=== PATIENT | female | born 1975 | race Caucasian/White ===

== ENCOUNTER 2023-01-28 20:46 | Outpatient (OUT) | payer OTHER, SELFPAY | END 2023-01-28 20:47 | disposition home or self-care (01) | LOC: SLEEP 20:47 | PROVIDERS: PCP Internal Medicine; Visit Provider Internal Medicine | DX: G47.33 Obstructive sleep apnea (adult) (pediatric) (principal); E11.9 Type 2 diabetes mellitus without complications; F17.210 Nicotine dependence, cigarettes, uncomplicated; R29.818 Other symptoms and signs involving the nervous system; F12.10 Cannabis abuse, uncomplicated | CPT/HCPCS: 95810 ==

== ENCOUNTER 2023-02-18 19:48 | Outpatient (OUT) | payer OTHER, SELFPAY | END 2023-02-18 19:49 | disposition home or self-care (01) | LOC: SLEEP 19:48 | PROVIDERS: PCP Internal Medicine; Visit Provider Internal Medicine | DX: G47.33 Obstructive sleep apnea (adult) (pediatric) (principal) | CPT/HCPCS: 95811 ==

== ENCOUNTER 2023-06-17 08:27 | Outpatient (RCR) | payer OTHER, SELFPAY | END 2023-07-26 09:00 | disposition home or self-care (01) | LOC: PT 08:27 | PROVIDERS: PCP Family Medicine; Visit Provider Physician Assistant | DX: M47.812 Spondylosis without myelopathy or radiculopathy, cervical region (principal); M25.511 Pain in right shoulder; G89.29 Other chronic pain | CPT/HCPCS: 97012; 97110; 97140; 97163 ==

== ENCOUNTER 2023-07-27 09:35 | Outpatient (RCR) | payer OTHER, SELFPAY | END 2023-07-28 15:19 | disposition home or self-care (01) | LOC: PT 09:35 | PROVIDERS: PCP Family Medicine; Visit Provider Physician Assistant | DX: M47.812 Spondylosis without myelopathy or radiculopathy, cervical region (principal); M25.511 Pain in right shoulder; G89.29 Other chronic pain ==

== ENCOUNTER 2023-08-19 15:15 | Emergency (ER) | payer OTHER, SELFPAY ==
[2023-08-19 15:29] VITALS: BP 155/95; PULSE 102; RESP 16; TEMP 36.9; O2SAT 97; BMI 27.3
--- NOTE | 2023-08-19 15:50 | PC.NURSE ---
PT STATES SHE HAS HAD JAW PAIN/LOCK JAW SINCE YESTERDAY AND THAT HER TONGUE HURTS. BOTH OF WHICH ARE MAKING PT FEEL LIKE HER SPEECH IS OFF. PT IS NOT SLURRING AND DOES NOT HAVE A FACIAL DROOP. PT STATES SHE DID JAW EXERCISES YESTERDAY AND IT FELT BETTER, WOKE UP TODAY WITH PAIN AGAIN
--- NOTE | 2023-08-19 15:52 | CT_ITS ---
[address] [address] Patient Name: AMAIRANI GONZALES MRN: [id number] date: 1975 Sex: F Assigned Patient Location: ER Current Patient Location: ER Accession/Order Number: [id number] Exam Date: 08/19/2023 16:10 Report Date: 08/19/2023 16:43 At the request of: AAKASH SELBY Procedure: CT soft tissue neck wo con CT NECK WITHOUT CONTRAST, 08/19/2023 HISTORY: Pain in neck. Bilateral neck tenderness. COMPARISON: None. TECHNIQUE: Noncontrast axial CT images obtained through the neck. Reconstructions were obtained in the sagittal and coronal planes. Dose reduction techniques were achieved by using automated exposure control and/or adjustment of mA and/or kV according to patient size and/or use of iterative reconstruction technique. FINDINGS: There is a mucous retention cyst in the left maxillary sinus measuring 2.5 cm. No air-fluid levels in the paranasal sinuses. Middle ear cavities and mastoid air cells appear clear. Skull base is intact. Prior cataract surgery. Orbital contents are otherwise unremarkable. Merchandising Coordinator spaces are normal. The parotid glands are normal. The submandibular glands are normal. There appears to possibly be some asymmetric fullness of the right side of the tongue along the surface of the tongue best visualized on the coronal images. The tongue and oral cavity are partially obscured by metallic artifact arising from dental presybeterian material. Nasopharynx is normal. Oropharynx normal. Retropharyngeal space is normal. Epiglottis is normal. The vocal cords are symmetric. No laryngeal edema. Thyroid gland appears to be severely atrophic. Visualized portion of the trachea and esophagus unremarkable. No abnormally enlarged lymph nodes in the neck. No abscess. No suspicious osseous lesions. CT/CT soft tissue neck wo con IMPRESSION: 1. The tongue and oral cavity are partially obscured by metallic artifact arising from the dental presybeterian material. 2. There appears to possibly be some asymmetric swelling or soft tissue fullness along the surface of the tongue on the right side best seen on the coronal images. Recommend direct visual inspection of the tongue. 3. No enlarged lymph nodes. No asymmetric swelling or inflammation. No abscess. Electronically authenticated by: DEJAH ALONZO Date: 08/19/2023 16:43
[2023-08-19] MEDS: KETOROLAC TROMETHAMINE 30 MG/ML VIAL 15 MG IVP (16:24)
[2023-08-19 16:27] LABS: Basophils Percent Auto 0.4 % (0.2-2.0); Eosinophils Absolute Auto 0.2 10^3/uL (0.0-0.7); Eosinophils Percent Auto 2.1 % (0.9-7.0); Hematocrit 42.8 % (36.0-48.0); Hemoglobin 14.7 g/dL (12.0-16.0); Immature Granulocytes Abs Auto 0.02 10^3/uL (0.00-0.03); Immature Granulocytes Pct Auto 0.2 % (0.0-0.5); Lymphocytes Absolute Auto 3.2 10^3/uL (1.2-3.8); Lymphocytes Percent Auto 33.1 % (20.5-60.0); Mean Corpuscular HGB Conc 34.3 g/dL (29.9-35.2); Mean Corpuscular Hemoglobin 32.7 pg (26.7-34.0); Mean Corpuscular Volume 95.1 fL (81.0-99.0); Mean Platelet Volume 10.3 fL (9.5-13.5); Monocytes Absolute Auto 0.6 10^3/uL (0.3-0.8); Monocytes Percent Auto 6.6 % (1.7-12.0); Neutrophils Absolute Auto 5.6 10^3/uL (1.4-6.5); Neutrophils Percent Auto 57.6 % (43.0-75.0); Platelet Count 273 10^3/uL (150-450); Red Cell Distribution Width 12.7 % (11.0-15.0); White Blood Count 9.8 10^3/uL (4.0-11.0)
--- NOTE | 2023-08-19 16:28 | ED.DENTAL1 ---
HPI - Dental/Oral General Chief complaint: Dental/Oral Stated complaint: dysphasia Time Seen by Provider: 08/19/23 15:44 Source: patient Mode of arrival: walk-in Limitations: no limitations History of Present Illness HPI Narrative: Patient presenting to us with 2 days history of what he mentioned was show pain in addition to tongue pain when she tried protruding her tongue like a pulling pain. She also is coming to the ER complaining that her neck looks swollen. No difficulty breathing but she mentioned some difficulty swallowing solid foods if they are not cut in small pieces No difficulty breathing no difficulty speaking no other complaints as she also mentioned that the jaw pain is there whenever she tried to chew Related Data Home Medications Medication Instructions Recorded Confirmed aripiprazole 15 mg tablet 15 mg PO Q24H 08/19/23 08/19/23 buspirone 15 mg tablet 15 mg PO Q12H 08/19/23 08/19/23 citalopram 40 mg tablet 40 mg PO Q24H 08/19/23 08/19/23 dapagliflozin propanediol 5 mg 5 mg PO Q24H 08/19/23 08/19/23 tablet (Farxiga) dulaglutide 1.5 mg/0.5 mL 1.5 mg subcut .weekly 08/19/23 08/19/23 subcutaneous pen injector (Trulicity) dulaglutide 3 mg/0.5 mL 3 mg subcut .weekly 08/19/23 08/19/23 subcutaneous pen injector (Trulicity) dulaglutide 4.5 mg/0.5 mL 4.5 mg subcut .weekly 08/19/23 08/19/23 subcutaneous pen injector (Trulicity) fluticasone propionate 50 2 spray intranasal Q24H 08/19/23 08/19/23 mcg/actuation nasal spray,suspension glipizide 10 mg tablet 10 mg PO Q24H 08/19/23 08/19/23 insulin aspart U-100 100 unit/mL 1 sliding scale dose subcut DAILY 08/19/23 08/19/23 (3 mL) subcutaneous pen levothyroxine 100 mcg tablet 100 mcg PO Q12H 08/19/23 08/19/23 losartan 100 1 tab PO Q24H 08/19/23 08/19/23 mg-hydrochlorothiazide 12.5 mg tablet lurasidone 60 mg tablet 60 mg PO DAILY 08/19/23 08/19/23 meloxicam 15 mg tablet 15 mg PO Q24H 08/19/23 08/19/23 metformin 500 mg tablet,extended 500 mg PO Q8H 08/19/23 08/19/23 release 24 hr montelukast 10 mg tablet 10 mg PO Q24H 08/19/23 08/19/23 omeprazole 20 mg capsule,delayed 20 mg PO Q24H 08/19/23 08/19/23 release ropinirole 0.25 mg tablet 0.25 mg PO Q24H 08/19/23 08/19/23 rosuvastatin 5 mg tablet 5 mg PO Q24H 08/19/23 08/19/23 valacyclovir 1 gram tablet 1,000 mg PO Q24H 08/19/23 08/19/23 (Valtrex) Previous Rx's Medication Instructions Recorded amoxicillin 875 mg-potassium 1 tab PO Q12H #10 tabs 08/19/23 clavulanate 125 mg tablet Allergies Allergy/AdvReac Type Severity Reaction Status Date / Time Sulfa (Sulfonamide Allergy Verified 08/19/23 15:34 Antibiotics) generic valtrex Allergy Uncoded 08/19/23 15:34 Review of Systems ROS Status of ROS 10 or more systems reviewed and unremarkable except as noted in history and below [facility] Social History Smoking status: Current every day smoker Exam Narrative Exam Narrative: Nurses notes and vital signs reviewed and patient is not hypoxic. General: Well-appearing and in no apparent distress. Skin: Warm, dry, no pallor noted. No rash. Head: Normocephalic, atraumatic. Neck: Supple, non-tender. Eye: Pupils are equal, round and EOMI. No scleral icterus. Ears, Nose, Mouth, and Throat: TM are clear, no nasal mucosal hypertrophy. Oral mucosa is moist, no posterior oropharynx erythema, uvula is mid-line, the patient have the tongue piercing in the middle anterior tongue no signs of edema Cardiovascular: Regular Rate and Rhythm without murmur, gallop or rub. Respiratory: No accessory muscle use or respiratory distress. Lungs are clear to auscultation, no wheezing, rales or rhonchi Chest Wall: no tenderness Back: No midline thoracic or lumbar vertebral tenderness. No CVA tenderness Musculoskeletal: normal ROM, no calf or popliteal tenderness, no lower extremity edema/swelling GI: Abdomen is soft, non-distended. Normal bowel sounds. No masses appreciated. No tenderness to palpation. No rebound, guarding, or rigidity noted. Neurological: A&O x4. No cranial nerve dysfunction observed. No truncal ataxia. Moves all extremities. Sensation intact. Psychiatric: Cooperative and interactive. Normal mood and affect. Constitutional Vital Signs, click to edit/add: Last Vital Signs Temp 98.4 F 08/19/23 15:29 Pulse 102 H 08/19/23 15:29 Resp 16 08/19/23 15:29 BP 155/95 H 08/19/23 15:29 Pulse Ox 97 08/19/23 15:29 O2 Del Method Room Air 08/19/23 15:29 Course Vital Signs Vital signs: Vital Signs Temperature 98.4 F 08/19/23 15:29 Pulse Rate 102 H 08/19/23 15:29 Respiratory Rate 16 08/19/23 15:29 Blood Pressure 155/95 H 08/19/23 15:29 Pulse Oximetry 97 08/19/23 15:29 Oxygen Delivery Method Room Air 08/19/23 15:29 Temperature 98.4 F 08/19/23 15:29 Pulse Rate 102 H 08/19/23 15:29 Respiratory Rate 16 08/19/23 15:29 Blood Pressure 155/95 H 08/19/23 15:29 Pulse Oximetry 97 08/19/23 15:29 Oxygen Delivery Method Room Air 08/19/23 15:29 MDM - Dental/Oral MDM Narrative Medical decision making narrative: CBC chemistry showed no acute pathology the patient CT shows some edema in the right side of the tongue, Strep test is negative The patient was provided Toradol after which she was feeling better she was given prescription of Augmentin for the next 5 days in addition to continue supportive care The patient is to follow up with primary care physician in next 2-3 days or to return to the emergency department should any of the signs or symptoms worsen or new symptoms develop. The patient agrees with the following Diagnosis and Treatment plan and the patient will be discharged home. Lab Data Labs: Lab Results 08/19/23 Range/Units 16:05 WBC 9.8 (4.0-11.0) 10^3/uL RBC 4.50 (4.20-5.40) 10^6/uL Hgb 14.7 (12.0-16.0) g/dL Hct 42.8 (36.0-48.0) % MCV 95.1 (81.0-99.0) fL MCH 32.7 (26.7-34.0) pg MCHC 34.3 (29.9-35.2) g/dL RDW 12.7 (11.0-15.0) % Plt Count 273 (150-450) 10^3/uL MPV 10.3 (9.5-13.5) fL Neut % (Auto) 57.6 (43.0-75.0) % Lymph % (Auto) 33.1 (20.5-60.0) % [place] % (Auto) 6.6 (1.7-12.0) % Eos % (Auto) 2.1 (0.9-7.0) % Baso % (Auto) 0.4 (0.2-2.0) % Neut # (Auto) 5.6 (1.4-6.5) 10^3/uL Lymph # (Auto) 3.2 (1.2-3.8) 10^3/uL [place] # (Auto) 0.6 (0.3-0.8) 10^3/uL Eos # (Auto) 0.2 (0.0-0.7) 10^3/uL Baso # (Auto) 0.0 (0.0-0.1) 10^3/uL Abs Immat Gran (auto) 0.02 (0.00-0.03) 10^3/uL Imm/Tot Granulo (auto) 0.2 (0.0-0.5) % Sodium 133 L (136-145) mmol/L Potassium 3.2 L (3.5-5.1) mmol/L Chloride 98 (98-107) mmol/L Carbon Dioxide 29.4 (21.0-32.0) mmol/L Anion Gap 8.8 BUN 12.0 (7.0-18.0) mg/dL Creatinine 0.91 (0.55-1.02) mg/dL Est GFR ( Amer) >60 (>=60) Est GFR (Non-Af Amer) >60 (>=60) BUN/Creatinine Ratio 13.2 Glucose 117 H (74-106) mg/dL Calcium 9.3 (8.5-10.1) mg/dL Total Bilirubin 0.4 (0.2-1.0) mg/dL AST 15 (15-37) U/L ALT 21 (14-59) U/L Alkaline Phosphatase 72 (46-116) U/L Total Protein 7.9 (6.4-8.2) g/dL Albumin 4.1 (3.4-5.0) g/dL Globulin 3.8 g/dL Albumin/Globulin Ratio 1.1 Streptococcus Screen Negative Discharge Plan Discharge Chief Complaint: Dental/Oral Clinical Impression: Painful tongue Patient Disposition: Home, Self-Care Time of Disposition Decision: 17:21 Prescriptions / Home Meds: New amoxicillin-pot clavulanate 875-125 mg tablet 1 tab PO Q12H Qty: 10 0RF No Action aripiprazole 15 mg tablet 15 mg PO Q24H buspirone 15 mg tablet 15 mg PO Q12H citalopram 40 mg tablet 40 mg PO Q24H Farxiga 5 mg tablet 5 mg PO Q24H Trulicity 1.5 mg/0.5 mL pen injector 1.5 mg SUBCUT .weekly Trulicity 3 mg/0.5 mL pen injector 3 mg SUBCUT .weekly Trulicity 4.5 mg/0.5 mL pen injector 4.5 mg SUBCUT .weekly fluticasone propionate 50 mcg/actuation spray,suspension 2 spray INTRANASAL Q24H glipizide 10 mg tablet 10 mg PO Q24H insulin aspart U-100 100 unit/mL (3 mL) insulin pen 1 sliding scale dose SUBCUT DAILY levothyroxine 100 mcg tablet 100 mcg PO Q12H losartan-hydrochlorothiazide 100-12.5 mg tablet 1 tab PO Q24H lurasidone 60 mg tablet 60 mg PO DAILY meloxicam 15 mg tablet 15 mg PO Q24H metformin 500 mg tablet extended release 24 hr 500 mg PO Q8H montelukast 10 mg tablet 10 mg PO Q24H omeprazole 20 mg capsule,delayed release(DR/EC) 20 mg PO Q24H ropinirole 0.25 mg tablet 0.25 mg PO Q24H rosuvastatin 5 mg tablet 5 mg PO Q24H valacyclovir [Valtrex] 1 gram tablet 1,000 mg PO Q24H Instructions: Dysphagia (ED) Stand Alone Forms: Portal Instructions Referrals: JOSS SHEPHERD [Primary Care Provider] - 1 week
[2023-08-19 16:33] LABS: Internal Control Within Normal Limits; Strep A Antigen Screen Negative
[2023-08-19 16:43] LABS: Alanine Aminotransferase 21 U/L (14-59); Albumin Globulin Ratio 1.1; Albumin Level 4.1 g/dL (3.4-5.0); Alkaline Phosphatase 72 U/L (46-116); Anion Gap 8.8; Aspartate Amino Transferase 15 U/L (15-37); BUN Creatinine Ratio 13.2; Bilirubin Total 0.4 mg/dL (0.2-1.0); Calcium 9.3 mg/dL (8.5-10.1); Carbon Dioxide 29.4 mmol/L (21.0-32.0); Chloride 98 mmol/L (98-107); Estimated GFR (African America >60 (>=60); Estimated GFR (Non-African Ame >60 (>=60); Globulin 3.8 g/dL; Glucose 117 mg/dL (74-106); Potassium 3.2 mmol/L (3.5-5.1); Sodium 133 mmol/L (136-145); Total Protein 7.9 g/dL (6.4-8.2)
== END 2023-08-19 17:29 | disposition home or self-care (01) ==
PROVIDERS: Emergency Provider Emergency Medicine; PCP Family Medicine
DX: K14.6 Glossodynia (principal); Z79.85 Long-term (current) use of injectable non-insulin antidiabetic drugs; Z79.84 Long term (current) use of oral hypoglycemic drugs; F17.200 Nicotine dependence, unspecified, uncomplicated
CPT/HCPCS: 36415; 70490; 80053; 85025; 87070; 87880; 96374; 99285; J1885

== ENCOUNTER 2023-09-29 10:09 | Outpatient (OUT) | payer OTHER, SELFPAY ==
--- NOTE | 2023-09-29 10:12 | MM_ITS ---
Patient Name: AMAIRANI GONZALES MR#: [id number] : 1975 Exam Date: 09/29/2023 Ordering Doctor: ALVA MURRELL . RADIOLOGY REPORT PROCEDURE: MM TOMOSYNTHESIS SCREENING BI COMPARISON: MG MAMM SCREEN CRYSTAL W CAD, 05/25/2019. MG MAMM SCREEN 3D CRYSTAL CAD, 09/03/2022. INDICATIONS: screening Calculator Name NCI Breast Cancer Risk Assessment Tool 5 Year Breast Cancer Risk 0.90% Lifetime Breast Cancer Risk 9.20% Personal Breast Cancer No Personal Ovarian Cancer No Treatments None Family Cancers None LOCATION: [facility] BREAST COMPOSITION: Scattered areas fibroglandular density. FINDINGS: DIAGNOSTIC CATEGORY 1--NEGATIVE. NO CHANGE FROM COMPARISON ASSESSMENT. Scattered benign-appearing nodules are present. Scattered benign-appearing calcifications are present. Scattered benign-appearing lymph nodes are present. RIGHT BREAST: No significant suspicious finding. LEFT BREAST: No significant suspicious finding. RECOMMENDATIONS: ROUTINE MAMMOGRAM AND CLINICAL EVALUATION IN 12 MONTHS. PLEASE NOTE: A NORMAL MAMMOGRAM DOES NOT EXCLUDE THE POSSIBILITY OF BREAST CANCER. A CLINICALLY SUSPICIOUS PALPABLE LUMP SHOULD BE BIOPSIED. Dictated by: Sergey Oconnor MD on 09/29/2023 at 11:44 Approved by: Sergey Oconnor MD on 09/29/2023 at 11:46
--- OUTSIDE RECORDS SUMMARY | 2023-09-29 10:26 | XMS_ITS | CCD ---
Author Name Unknown Address [address] [place] [address] Organization [facility] Team Providers Care Neuropsychology Service Director Name Role Phone MD Katty Roberts Primary Care Provider MD Geovanny Coffman Attending Provider Geovanny Coffman Unavailable KATTY ROBERTS Primary Care Physician ROBERTS ., DR KATTY Gray Consulting Unavailable ROBERTS ., DR KATTY Gray Primary Care Unavailable ROBERTS ., DR AKTTY Gray Referring Unavailable ROBERTS ., DR KATTY Gray Attending Unavailable ROBERTS ., DR KATTY Gray Admitting Unavailable ROBERTS ., DR KATTY Gray Consulting Unavailable ROBERTS ., DR KATTY Gray Primary Care Unavailable ROBERTS ., DR KATTY Gray Attending Unavailable ROBERTS ., DR KATTY Gray Admitting Unavailable WEST, DR NARCISO Kendall Consulting Unavailable ROBERTS ., DR KATTY Gray Consulting Unavailable ROBERTS ., DR KATTY Gray Primary Care Unavailable ROBERTS ., DR KATTY Gray Attending Unavailable ROBERTS ., DR KATTY Gray Admitting Unavailable ROBERTS ., DR KATTY Gray Consulting Unavailable ROBERTS ., DR KATTY Gray Primary Care Unavailable ROBERTS ., DR KATTY Gray Attending Unavailable ROBERTS ., DR KATTY Gray Admitting Unavailable ROBERTS ., DR KATTY Gray Consulting Unavailable ROBERTS ., DR KATYT Gray Primary Care Unavailable ROBERTS ., DR KATTY Gray Attending Unavailable ROBERTS ., DR KATTY Gray Admitting Unavailable PEPPER ANGUIANO Consulting Unavailable NILL ., DR HINTON Consulting Unavailable ROBERTS ., DR KATTY Gray Primary Care Unavailable NILL ., DR HINTON Attending Unavailable NILL ., DR HINTON Admitting Unavailable ROBERTS ., DR KATTY Gray Primary Care Unavailable ROBERTS ., DR KATTY Gray Attending Unavailable ROBERTS ., DR KATTY Gray Admitting Unavailable JAMAAL NELSON Consulting Unavailable HAY ., DR WALKER Attending Unavailable HAY ., DR WALKER Admitting Unavailable ROBERTS ., DR KATTY Gray Primary Care Unavailable HAY ., DR WALKER Consulting Unavailable HAY ., DR WALKER Attending Unavailable HAY ., DR WALKER Admitting Unavailable ROBERTS ., DR KATTY Gray Primary Care Unavailable MARY MILIAN Consulting Unavailable ROBERTS ., DR KATTY Gray Primary Care Unavailable ROBERTS ., DR KATTY Gray Attending Unavailable ROBERTS ., DR KATTY Gray Admitting Unavailable ROBERTS ., DR KATTY Gray Consulting Unavailable ROBERTS ., DR KATTY Gray Primary Care Unavailable ROBERTS ., DR KATTY Gray Attending Unavailable ROBERTS ., DR KATTY Gray Admitting Unavailable ROBERTS ., DR KATTY Gray Consulting Unavailable ROBERTS ., DR KATTY Gray Primary Care Unavailable ROBERTS ., DR KATTY Gray Attending Unavailable ROBERTS ., DR KATTY Gray Admitting Unavailable ROBERTS ., DR KATTY Gray Consulting Unavailable ROBERTS ., DR KATTY Gray Primary Care Unavailable ROBERTS ., DR KATTY Gray Referring Unavailable ROBERTS ., DR KATTY Gray Attending Unavailable ROBERTS ., DR KATTY Gray Admitting Unavailable ROBERTS ., DR KATTY Gray Consulting Unavailable ROBERTS ., DR KATTY Gray Primary Care Unavailable ROBERTS ., DR KATTY Gray Attending Unavailable ROBERTS ., DR KATTY Gray Admitting Unavailable Joss Shepherd. Primary Care Physician Joss Shepherd MD Primary Care Provider [phone] Masoud Benjamin Attending Unavailab Masoud Skelton Admitting Unavailab Katty Regan Primary Care Unavailable ERIK COOK Admitting Unavailable ERIK COOK Attending Unavailable KATTY ROBERTS Referring Unavailable JOSS SHEPHERD Primary Care Unavailable ERIK COOK Attending Unavailable ERIK COOK Referring Unavailable JOSS SHEPHERD Primary Care Unavailable ALANA MONTERO Attending Unavailable ALANA MONTERO Referring Unavailable JOSS SHEPHERD Primary Care Unavailable ALANA MONTERO Attending Unavailable ROBERTSKATTY HERNANDEZ Referring Unavailable JOSS SHEPHERD Primary Care Unavailable ALANA MONTERO Referring Unavailable JOSS SHEPHERD Primary Care Unavailable MD Joss Shepherd Admitting Unavailable MD Joss Shepherd. Attending Unavailable MD Joss Shepherd Attending Unavailable MD Joss Shepherd Admitting Unavailable MD Joss Shepherd Attending Unavailable MD Joss Shepherd Admitting Unavailable MD Joss Shepherd Attending Unavailable MD Joss Shepherd Attending Unavailable Samy, ENGINEER THIRD ASSISTANT Kristin L Attending Unavailable MD Joss Shepherd Attending Unavailable MD Joss Shepherd Attending Unavailable MD Joss Shepherd Admitting Unavailable MD Joss Shepherd Attending Unavailable DO Matt Acosta Admitting Unavailable DO Matt Acosta Attending Unavailable DO Matt Acosta Referring Unavailable MD Joss Shepherd Attending Unavailable MD Joss Shepherd Admitting Unavailable MD Joss Shepherd Attending Unavailable MD Joss Shepherd Admitting Unavailable MD Joss Shepherd Attending Unavailable MD Joss Shepherd Attending Unavailable Samy, ENGINEER THIRD ASSISTANT Kristin L Attending Unavailable MD Joss Shepherd Attending Unavailable MD Joss Shepherd Attending Unavailable Samy, ENGINEER THIRD ASSISTANT Kristin L Attending Unavailable MD Joss Shepherd Attending Unavailable MD Joss Shepherd Attending Unavailable MD Joss Shepherd Attending Unavailable MD Joss Shepherd Attending Unavailable Samy, ENGINEER THIRD ASSISTANT Kristin L Admitting Unavailable Samy, ENGINEER THIRD ASSISTANT Kristin L Attending Unavailable Allergies Allergy Classification Reported Allergen(s) Allergy Type Date of Onset Reaction(s) Facility (8 sources) Sulfanilamide; Translations: [sulfanilamide] Drug Allergy 11-07-19 Unknown Reaction, [facility] (11 sources) valACYclovir; Translations: [valacyclovir] Drug Allergy 11-07-19 [facility] Comment on above: has rash and itching with generic brand patient states she i s only allergic to the generic brand (6 sources) generic valtrex Propensity to adverse reactions Unknown [employer] Other (8 sources) alogliptin; Translations: [alogliptin] Drug Allergy Unknown (qualifier value) [facility] [place] (9 sources) Nalbuphine; Translations: [nalbuphine] Drug Allergy 12-06-19 Unknown (qualifier value) [facility] [place] (9 sources) OXcarbazepine; Translations: [oxcarbazepine] Drug Allergy 12-06-19 Unknown (qualifier value) [facility] [place] (6 sources) Sulfonamides (Antibiotic); Translations: [sulfa drugs] Drug allergy Eruption of skin (disorder) [facility] Comment on above: RASH AND ITCHING (7 sources) Valproate; Translations: [divalproex sodium] Drug Allergy Unknown (qualifier value) [facility] [place] (1 source) Nalbuphine Drug Allergy [facility] (1 source) OXcarbazepine Drug Allergy [facility] (1 source) Sulfonamides (Antibiotic) Drug allergy (disorder) 12-04-19 13 [facility] (1 source) valACYclovir Drug Allergy 03-21-20 13 [facility] (1 source) Valproate Drug Allergy [facility] (2 sources) alogliptin; Translations: [ALOGLIPTIN] Drug Allergy 12-06-19 [facility] (2 sources) Sulfonamides (Antibiotic); Translations: [SULFA (SULFONAMIDE ANTIBIOTICS)] Propensity to adverse reactions to drug 12-06-19 [facility] (2 sources) Valproate; Translations: [DIVALPROEX] Drug Allergy 12-06-19 [facility] (1 source) Sulfonamides (Antibiotic); Translations: [sulfa drugs] Propensity to adverse reactions (disorder) [facility] (1 source) valACYclovir; Translations: [Valacyclovir Hydrochloride] Drug Allergy [facility] Medications Current Medications Medication Drug Class(es) Dates Sig (Normalized) Sig (Original) alcohol pads (5 sources) Start: 11-17-2022 alcohol pads alcohol pads, See Instructions, 100 EA, 1, use to check BS daily dx. E11.319, [facility], Supply, 166.6, cm, 11/10/22 9:36:00 EDT, Height/Length Dosing, 72.7, kg, 11/10/22 9:36:00 EDT, Weight Dosing Start Date: 11/17/22 Status: Ordered ARIPiprazole 15 mg oral tablet (14 sources) Atypical Antipsychotic Start: 09-22-2023 take 1 tablet by mouth once daily Abilify 15 mg Tab 15 mg = 1 tab(s), Oral, Daily, Refills(s) 0 Start Date: 09/22/23 Status: Ordered Start: 09-03-2022 take 1 tablet by ilana th once daily Abilify 20 mg oral tablet 20 mg = 1 tab(s), Oral, Daily, Refills(s) 0 Start Date: 09/03/22 Status: Ordered Start: 11-20-2021 take 1 tablet by ilana th once daily ARIPiprazole (ABILIFY) 15 mg tablet Take 1 tablet (15 mg total) by mouth nightly. 0 11/20/2021 Active Start: 09-04-2020 take 15 mg by mouth once daily Aripiprazole Active 15 MG PO Daily September 04, 2020 3:08pm busPIRone hydrochloride 15 m g oral tablet (10 sources) Start: 05-04-2023 busPIRone 15 m g Tab 60 EA, 0 Refill(s), TAKE ONE TABLET BY MOUTH TWICE A DAY, Refills(s) 0 Start Date: 05/04/23 Status: Ordered Start: 11-20-2021 take 1 tablet by ilana th in the morning, then take 1 tablet by mouth at bedtime busPIRone (BUSPAR) 15 mg tablet Take 1 tablet (15 mg total) by mouth in the morning and 1 tablet (15 mg total) before bedtime. 0 11/20/2021 Active Start: 09-04-2020 take 15 mg by mouth twice orin y Buspirone Active 15 MG PO Twice daily September 04, 2020 3:13pm Centrum Silver (1 source) Start: 07-29-2013 Centrum Silver Oral, Daily, Refill(s) 0 Start Date: 07/29/13 Status: Ordered Centrum Silver oral tablet (4 sources) Start: 12-15-2022 take 1 tablet by mouth once daily Centrum Silver oral tablet 1 tab(s), Oral, Daily, 90 tab(s), Refill(s) 1, [facility], 166.6, cm, 11/10/22 9:36:00 EDT, Height/Length Dosing, 72.7, kg, 11/10/22 9:36:00 EDT, Weight Dosing Start Date: 12/15/22 Status: Ordered cholecalciferol 0.125 mg oral tablet (1 source) Vitamin D Start: 09-27-2020 take 1 tablet by mouth once daily Cholecalciferol (Vitamin D3) (Vitamin D3) 125 mcg (5,000 unit) Tablet Active 125 MCG PO Daily September 27, 2020 3:45pm citalopram 40 mg oral tablet (10 sources) Serotonin Reuptake Inhibitor Start: 05-04-2023 citalopram 40 mg Tab 30 EA, 0 Refill(s), TAKE ONE TABLET BY MOUTH DAILY, Refills(s) 0 Start Date: 05/04/23 Status: Ordered Start: 11-20-2021 take 1 tablet by ilana th in the morning citalopram (CeleXA) 40 mg tablet Take 1 tablet (40 mg total) by mouth in the morning. 0 11/20/2021 Active Start: 09-04-2020 take 40 mg by mouth once daily Citalopram Active 40 MG PO Daily September 04, 2020 3:08pm cyclobenzaprine hydrochloride 10 mg oral tablet (1 source) Muscle Relaxant Start: 09-04-2020 take 10 mg by mouth once daily Cyclobenzaprine Active 10 MG PO Daily September 04, 2020 3:13pm Daily Ivana oral tablet (2 sources) Start: 05-19-2023 Daily Ivana oral tablet See Instructions, 30 EA, Refill(s) 5, TAKE ONE TABLET BY MOUTH ONCE DAILY, [facility], 166.6, cm, 05/04/23 7:12:00 EDT, Height/Length Dosing, 80.3, kg, 05/04/23 7:12:00 EDT, Weight Dosing Start Date: 05/19/23 Status: Ordered dapagliflozin 5 mg oral tablet (8 sources) Sodium-Glucose Cotransporter 2 Inhibitor Start: 11-20-2021 take 1 tablet by mouth once daily dapagliflozin 5 mg oral tablet 5 mg = 1 tab(s), Oral, Daily, # 90 tab(s), Refills(s) 1, Pharmacy: [facility], 166.6, cm, 05/04/23 7:12:00 EDT, Height/Length Dosing, 80.3, kg, 05/04/23 7:12:00 EDT, Weight Dosing Start Date: 05/19/23 Status: Ordered Start: 04-03-2021 take 1 tablet by ilana th once daily Dapagliflozin (Farxiga) 5 mg tablet Active 5 MG PO Daily April 03, 2021 9:10am diclofenac sodium 0.01 mg/mg topical gel (7 sources) Nonsteroidal Anti-inflammatory Drug Start: 09-03-2022 diclofenac sodium (VOLTAREN) 1 % gel Apply 2 g topically. 0 09/03/2022 Active Start: 09-03-2022 diclofenac top ical 1% gel 2 gm, Topical, TID, Refill(s) 0 Start Date: 09/03/22 Status: Ordered 0.5 ML dulaglutide 9 MG/ML Auto-Injector [Trulicity] (14 sources) GLP-1 Receptor Agonist Start: 07-14-2023 inject 4.5 mg by subcutaneous injection every week Trulicity Pen 4.5 mg/0.5 mL subcutaneous solution 4.5 mg, SubCutaneous, qWeek, # 12 EA, Refills(s) 1, Pharmacy: [facility], 166.6, cm, 07/14/23 14:17:00 EST, Height/Length Dosing, 78.7, kg, 07/14/23 14:17:00 EST, Weight Dosing Start Date: 07/14/23 Status: Ordered Start: 12-15-2022 inject 3 mg by subcu taneous injection every week dulaglutide 3 mg/0.5 mL subcutaneous solution 3 mg, SubCutaneous, qWeek, # 12 EA, Refills(s) 0, Pharmacy: [facility], 166.6, cm, 12/15/22 7:28:00 EDT, Height/Length Dosing, 74.2, kg, 12/15/22 7:28:00 EDT, Weight Dosing Start Date: 12/15/22 Status: Ordered Start: 09-03-2022 inject 1.5 mg by sub cutaneous injection every week dulaglutide 1.5 mg/0.5 mL subcutaneous solution 1.5 mg, SubCutaneous, qWeek, Refills(s) 0 Start Date: 09/03/22 Status: Ordered Start: 11-06-2021 Dulaglutide (T rulicity) 1.5 mg/0.5 mL pen injector Active MG SUBCUT November 06, 2021 8:47am Start: 12-05-2020 End: 11-06-2021 Dulaglutide (Trulicity) 0.75 mg/0.5 mL pen injector Discontinued 0.75 MG SUBCUT every week December 05, 2020 7:42am November 06, 2021 8:48am Trulicity 1.5 MG /0.5ML as directed Subcutaneous Active dulaglutide 3 mg/0.5 mL pen injector (1 source) Start: 11-18-2021 dulaglutide 3 mg/0.5 mL pen injector 3 mg. 0 11/18/2021 Active fluticasone propionate 0.05 mg/actuat metered dose nasal spray (14 sources) Corticosteroid Start: 08-13-2023 fluticasone Na agusto 0.05 mg/inh [place] See Instructions, 16 gm, Refill(s) 3, USE 2 SPRAYS INTO EACH NOSTRIL ONCE DAILY, [facility], 166, cm, 08/13/23 11:00:00 EST, Height/Length Dosing, 76.7, kg, 08/13/23 11:00:00 EST, Weight Dosing Start Date: 08/13/23 Status: Ordered Start: 05-11-2023 fluticasone Na agusto 0.05 mg/inh [place] See Instructions, 16 gm, Refill(s) 3, USE 2 SPRAYS INTO EACH NOSTRIL ONCE DAILY, [facility], 166.6, cm, 05/04/23 7:12:00 EDT, Height/Length Dosing, 80.3, kg, 05/04/23 7:12:00 EDT, Weight Dosing Start Date: 05/11/23 Status: Ordered Start: 12-15-2022 take 2 spray(s) nasa l route once daily Flonase 0.05 mg/inh [place] 2 spray(s), Nasal, Daily, 16 gram, Refill(s) 3, each nostril, [facility], 166.6, cm, 12/15/22 7:28:00 EDT, Height/Length Dosing, 74.2, kg, 12/15/22 7:28:00 EDT, Weight Dosing Start Date: 12/15/22 Status: Ordered Start: 11-20-2021 fluticasone pr opionate (FLONASE) 50 mcg/actuation nasal spray SPRAY TWICE IN EACH NOSTRIL DAILY 0 11/20/2021 Active Start: 09-04-2020 Fluticasone Pr opionate Active 1 SPRAY INTRANASAL Daily September 04, 2020 3:08pm Start: 11-24-2019 Flonase 50 brock rogram, Nasal, Daily, Refill(s) 0 Start Date: 11/24/19 Status: Ordered take 1 spray(s) nasa l route once daily Fluticasone Propionate 50 MCG/ACT 1 spray in each nostril Nasally Once a day Active Free style Cristopher Kit 2 sensors (2 sources) Start: 04-09-2023 Free style [place] re Kit 2 sensors Free style Cristopher Kit 2 sensors, See Instructions, 2 EA, 11, use to [facility] BS DX E11.8 E11.42, [facility], Compound, 166.6, cm, 03/16/23 7:27:00 EDT, Height/Length Dosing, 75.4, kg, 03/16/23 7:27:00 EDT, Weight Dosing Start Date: 04/09/23 Status: Ordered glipiZIDE 10 mg oral tablet (8 sources) Sulfonylurea Start: 09-03-2022 take 1 tablet by mouth once daily glipiZIDE 10 mg Tab 10 mg = 1 tab(s), Oral, Daily, Refills(s) 0 Start Date: 09/03/22 Status: Ordered Start: 09-04-2020 Glipizide Acti ve 10 MG PO As Directed September 04, 2020 3:13pm hydroCHLOROthiazide 12.5 mg / losartan potassium 100 mg oral tablet (14 sources) Thiazide Diuretic, Angiotensin 2 Receptor Maria Luz Start: 05-11-2023 hydrochlorothiazide-losartan 12.5 mg-100 mg oral tablet See Instructions, 30 EA, Refill(s) 5, TAKE ONE TABLET BY MOUTH DAILY, [facility], 166.6, cm, 05/04/23 7:12:00 EDT, Height/Length Dosing, 80.3, kg, 05/04/23 7:12:00 EDT, Weight Dosing Start Date: 05/11/23 Status: Ordered Start: 11-17-2022 take 1 tablet by ilana th once daily hydrochlorothiazide-losartan 12.5 mg-100 mg oral tablet 1 tab(s), Oral, Daily, 30 tab(s), Refill(s) 5, [facility], 166.6, cm, 11/10/22 9:36:00 EDT, Height/Length Dosing, 72.7, kg, 11/10/22 9:36:00 EDT, Weight Dosing Start Date: 11/17/22 Status: Ordered Start: 09-03-2022 take 1 tablet by ilana th once daily hydrochlorothiazide-losartan 12.5 mg-100 mg oral tablet 1 tab(s), Oral, Daily, Refill(s) 0 Start Date: 09/03/22 Status: Ordered Start: 11-20-2021 take 1 tablet by ilana th once in the morning losartan-hydroCHLOROthiazide (HYZAAR) 100-12.5 mg per tablet Take 1 tablet by mouth in the morning. 0 11/20/2021 Active Start: 09-04-2020 take 1 tablet by ilana th once daily Losartan-Hydrochlorothiazide Active 1 TA B PO Daily September 04, 2020 3:13pm levothyroxine sodium 0.1 mg oral tablet (11 sources) l-Thyroxine Start: 07-13-2023 take 1 tablet by mouth once daily levothyroxine 100 mcg (0.1 mg) Tab See Instructions, TAKE ONE TABLET BY MOUTH DAILY, # 30 EA, Refills(s) 2, Pharmacy: [facility], 166.6, cm, 05/04/23 7:12:00 EDT, Height/Length Dosing, 80.3, kg, 05/04/23 7:12:00 EDT, Weight Dosing Start Date: 07/13/23 Status: Ordered Start: 05-21-2023 take 1 tablet by ilana th once daily levothyroxine (SYNTHROID, LEVOTHROID) 100 MCG tablet TAKE ONE TABLET BY MOUTH DAILY 0 05/21/2023 Active Start: 09-04-2020 take 200 ug by mouth once orin y Levothyroxine Active 200 MCG PO Daily September 04, 2020 3:13pm Start: 07-29-2013 levothyroxine 200 microgram, Oral, Daily, Refills(s) 0 Start Date: 07/29/13 Status: Ordered take 1 tablet by ilana th once daily in the morning Levothyroxine Sodium 200 MCG 1 tablet in the morning on an empty stomach Orally Once a day Active lidocaine 0.05 mg/mg medicated patch (8 sources) Antiarrhythmic, Amide Local Anesthetic Start: 11-20-2021 apply 1 dose transdermal route once daily lidocaine (LIDODERM) 5 % APPLY ONE PATCH ONCE DAILY VIA EXTERNAL ROUTE AND REMOVE AFTER 12 HOURS FOR 30 DAYS 0 11/20/2021 Active Start: 09-04-2020 apply 1 dose topically once da aileen Lidocaine Active 1 PATCH TOPICAL Daily September 04, 2020 3:13pm Lidoderm 5 % 1 p atch remove after 12 hours Externally Once a day Active liothyronine sodium 0.005 mg oral tablet (12 sources) l-Triiodothyronine Start: 11-17-2022 take 1 tablet by mouth once daily Cytomel 5 mcg Tab 5 mcg = 1 tab(s), Oral, Daily, # 30 tab(s), Refills(s) 5, Pharmacy: [facility], 166.6, cm, 11/10/22 9:36:00 EDT, Height/Length Dosing, 72.7, kg, 11/10/22 9:36:00 EDT, Weight Dosing Start Date: 11/17/22 Status: Ordered Start: 09-03-2022 Cytomel 5 mcg Tab 2 po QAm and 1 po afternoon, Refills(s) 0 Start Date: 09/03/22 Status: Ordered Start: 09-27-2020 Liothyronine A ctive 5 MCG PO As Directed September 27, 2020 3:45pm take 1 tablet by ilana th every twenty-four hours Liothyronine Sodium 5 MCG 1 tablet on an empty stomach Orally Once a day Active lurasidone hydrochloride 40 mg oral tablet (14 sources) Atypical Antipsychotic Start: 09-03-2022 take 1 tablet by mouth once daily Latuda 40 mg oral tablet 40 mg = 1 tab(s), Oral, Daily, Refills(s) 0 Start Date: 09/03/22 Status: Ordered Start: 11-20-2021 take 1 tablet by ilana th once daily at mealtime LATUDA 60 mg tablet tablet TAKE ONE TABLET BY MOUTH DAILY WITH FOOD (AT LEAST 350 CALORIES) 0 11/20/2021 Active Start: 09-04-2020 take 1 tablet by mouth once da aileen Lurasidone (Latuda) 40 mg tablet Active 40 MG PO Daily September 04, 2020 3:13pm take 1 tablet by ilana th every twenty-four hours Latuda 60 MG 1 tablet with food Orally Once a day Active meloxicam 15 mg oral tablet (13 sources) Nonsteroidal Anti-inflammatory Drug Start: 11-20-2021 take 1 tablet by mouth once daily meloxicam 15 mg Tab See Instructions, TAKE ONE TABLET BY MOUTH ONCE DAILY, # 30 EA, Refills(s) 5, Pharmacy: [facility], 166.6, cm, 05/04/23 7:12:00 EDT, Height/Length Dosing, 80.3, kg, 05/04/23 7:12:00 EDT, Weight Dosing Start Date: 05/19/23 Status: Ordered take 1 tablet by ilana th every twenty-four hours Meloxicam 15 MG 1 tablet Orally Once a day Active metFORMIN hydrochloride 500 mg oral tablet (14 sources) Biguanide Start: 07-29-2013 take 1 tablet by mouth three times daily MetFORMIN (Eqv-Glucophage XR) 500 mg oral tablet, extended release See Instructions, TAKE ONE TABLET BY MOUTH THREE TIMES A DAY, # 90 EA, Refills(s) 5, Pharmacy: [facility], 166.6, cm, 05/04/23 7:12:00 EDT, Height/Length Dosing, 80.3, kg, 05/04/23 7:12:00 EDT, Weight Dosing Start Date: 05/11/23 Status: Ordered methocarbamol 750 mg oral tablet (7 sources) Muscle Relaxant Start: 11-20-2021 take 1 tablet by mouth three times daily methocarbamoL (ROBAXIN) 750 mg tablet TAKE ONE TABLET BY MOUTH THREE TIMES A DAY FOR 30 DAYS 0 11/20/2021 Active take 1 tablet by ilana th every eight hours Methocarbamol 750 MG 1 tablet Orally keshia ry 8 hrs Active montelukast 10 mg oral tablet (14 sources) Leukotriene Receptor Antagonist Start: 11-24-2019 take 1 tablet by mouth once daily in the evening montelukast 10 mg Tab See Instructions, TAKE ONE TABLET BY MOUTH DAILY IN THE EVENING, # 30 EA, Refills(s) 5, Pharmacy: [facility], 166.6, cm, 05/04/23 7:12:00 EDT, Height/Length Dosing, 80.3, kg, 05/04/23 7:12:00 EDT, Weight Dosing Start Date: 05/11/23 Status: Ordered multivitamin (THERAGRAN) tablet (1 source) Start: 11-20-2021 take 1 tablet by mouth in the morning multivitamin (THERAGRAN) tablet Take 1 tablet by mouth in the morning. 0 11/20/2021 Active omeprazole 20 mg delayed release oral capsule (14 sources) Proton Pump Inhibitor Start: 11-20-2021 take 1 capsule by mouth once daily omeprazole 20 mg Hawa See Instructions, TAKE ONE CAPSULE BY MOUTH DAILY, # 30 EA, Refills(s) 5, Pharmacy: [facility], 166.6, cm, 05/04/23 7:12:00 EDT, Height/Length Dosing, 80.3, kg, 05/04/23 7:12:00 EDT, Weight Dosing Start Date: 05/11/23 Status: Ordered Start: 09-04-2020 take 20 mg by mouth once daily Omeprazole Active 20 MG PO Daily September 04, 2020 3:13pm rOPINIRole 0.25 mg oral tablet (7 sources) Nonergot Dopamine Agonist Start: 09-14-2023 take 1 tablet by mouth at bedtime ropinirole 0.25 mg Tab 0.25 mg = 1 tab(s), Oral, Bedtime, # 30 tab(s), Refills(s) 3, Pharmacy: [facility], 166, cm, 08/25/23 10:47:00 EST, Height/Length Dosing, 75.3, kg, 08/25/23 10:47:00 EST, Weight Dosing Start Date: 09/14/23 Status: Ordered Start: 09-03-2022 take 1 tablet by ilana th at bedtime ropinirole 0.25 mg Tab 0.25 mg = 1 tab(s), Oral, Bedtime, Refills(s) 0 Start Date: 09/03/22 Status: Ordered rosuvastatin calcium 5 mg oral tablet (8 sources) HMG-CoA Reductase Inhibitor Start: 11-20-2021 take 1 tablet by mouth once daily at bedtime rosuvastatin 5 mg Tab 5 mg = 1 tab(s), Oral, Once a day (at bedtime), # 90 tab(s), Refills(s) 1, Pharmacy: [facility], 166.6, cm, 03/16/23 7:27:00 EDT, Height/Length Dosing, 75.4, kg, 03/16/23 7:27:00 EDT, Weight Dosing Start Date: 04/06/23 Status: Ordered Start: 04-03-2021 take 5 mg by mouth at bedtime Rosuvastatin Active 5 MG PO Bedtime April 03, 2021 9:10am tiZANidine 4 mg oral tablet (7 sources) Central alpha-2 Adrenergic Agonist Start: 10-23-2020 Tizanidine Active 4 MG PO As Directed October 23, 2020 1:57pm valACYclovir 1000 mg oral tablet (14 sources) Herpesvirus Nucleoside Analog DNA Polymerase Inhibitor, Herpes Simplex Virus Nucleoside Analog DNA Polymerase Inhibitor, Herpes Zoster Virus Nucleoside Analog DNA Polymerase Inhibitor Start: 09-14-2023 take 1 tablet by mouth once daily Valtrex 1 g Tab 1 gm, Oral, Daily, DAYA ( allergic to generic), # 30 caplet(s), Refills(s) 1, Pharmacy: [facility], 166, cm, 08/25/23 10:47:00 EST, Height/Length Dosing, 75.3, kg, 08/25/23 10:47:00 EST, Weight Dosing Start Date: 09/14/23 Status: Ordered Start: 11-20-2021 take 1 tablet by ilana th in the morning VALTREX 1 gram tablet Take 1 tablet (1,000 mg total) by mouth in the morning. 0 11/20/2021 Active Start: 09-27-2020 Valacyclovir ( Valtrex) 1 gram tablet Active 1000 MG PO As Directed September 27, 2020 3:45pm Start: 07-29-2013 Valtrex 1 gram , Oral, Daily, Refills(s) 0 Start Date: 07/29/13 Status: Ordered take 1 tablet by ilana th every twenty-four hours Valtrex 1 GM 1 tablet Orally Once a day Active Vitamin D3 125 MCG (5000 UT) (6 sources) Vitamin D3 125 M CG (5000 UT) as directed Orally Active Webcol Alcohol Preps 70% top ical pad (3 sources) Start: 02-16-2023 Webcol Alcohol Preps 70% topical pad See Instructions, 200 swab(s), Refill(s) 0, Use swab daily before each blood sugar check, [facility], 166.6, cm, 12/15/22 7:28:00 EDT, Height/Length Dosing, 74.2, kg, 12/15/22 7:28:00 EDT, Weight Dosing Start Date: 02/16/23 Status: Ordered Completed/Discontinued Medications Medication Drug Class(es) Dates Sig (Normalized) Sig (Original) 3 ml insulin aspart, human 100 unt/ml pen injector (7 sources) Insulin Analog Start: 07-09-2023 Insulin Aspart FlexPen 100 units/mL injectable solution See Instructions, SLIDING SCALE FOR BS: 150-200: 2U, 201-250: 4U, 251-300: 6U, 301-350: 8U, 351-400: 10U, BS>401: 12U; CARB COVERAGE 1 UNIT PER 15 CARBS (EXPECT 60U DAILY), # 15 mL, Refills(s) 1, Pharmacy: [facility], 166.6, cm, 05/04/23 7:12:00 EDT, Height/Length Dosing, 80.3, kg, 05/04/23 7:12:00 EDT, Weight Dosing Start Date: 07/09/23 Status: Ordered Start: 09-03-2022 insulin aspart U-100 (NovoLOG FlexPen U-100 Insulin) 100 unit/mL (3 mL) insulin pen Scale starts if blood glucose is over 250 0 09/03/2022 Active Start: 09-03-2022 NovoLOG FlexPe n 100 units/mL injectable solution per sliding scale, Refills(s) 0 Start Date: 09/03/22 Status: Ordered Problems Active Problems Problem Classification Problem Date Documented Date Episodic/Chronic Anxiety disorders (12 sources) Anxiety 11-24-2019 Chronic Diabetes mellitus with complications (18 sources) 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; Translations: [Type 1 diabetes mellitus with unspecified complications] Onset: 02-04-2022 09-03-2022 Chronic Diabetes mellitus without complication (17 sources) Diabetes mellitus; Translations: [Type 2 diabetes mellitus without complications] Onset: 11-27-2021 11-24-2019 Chronic Comment on above: type 2 non-insulin d ependant Diseases of mouth; excluding dental (1 source) Glossitis 08-25-2023 Episodic Disorders of lipid metabolism (11 sources) Pure hypercholesterolemia; Translations: [Pure hypercholesterolemia, unspecified] Onset: 10-09-2021 09-03-2022 Chronic Esophageal disorders (7 sources) Gastroesophageal reflux disease; Translations: [Gastro-esophageal reflux disease without esophagitis] Onset: 04-28-2022 11-24-2019 Chronic Essential hypertension (7 sources) Hypertensive disorder; Translations: [Essential (primary) hypertension] Onset: 04-28-2022 11-24-2019 Chronic Gastroduodenal ulcer (except hemorrhage) (6 sources) H/O: gastric ulcer 09-03-2022 Episodic Hepatitis (6 sources) Nonalcoholic steatohepatitis 09-03-2022 Chronic Mood disorders (11 sources) Bipolar disorder; Translations: [Major depressive disorder, single episode, unspecified] Onset: 04-28-2022 11-24-2019 Chronic Nutritional deficiencies (6 sources) Vitamin D deficiency 09-03-2022 Chronic Other connective tissue disease (6 sources) Fibromyalgia; Translations: [Fibromyalgia] Episodic Other connective tissue disease (6 sources) Bursitis 02-08-2015 Episodic Other liver diseases (1 source) Fatty (change of) liver, not elsewhere classified; Translations: [FATTY CHANGE LIVER NEC] Onset: 04-13-2022 Chronic Other nervous system disorders (6 sources) Chronic pain; Translations: [Other chronic pain] Chronic Other nervous system disorders (2 sources) Other chronic pain; Translations: [Other chronic pain] Onset: 10-14-2021 Resolved: 10-14-2021 Chronic Other nervous system disorders (6 sources) Neuropathy 09-03-2022 Chronic Other non-traumatic joint disorders (6 sources) Shoulder joint pain; Translations: [Pain in left shoulder] Episodic Other non-traumatic joint disorders (1 source) Chronic pain of left upper limb; Translations: [Pain in left shoulder] 07-23-2023 Episodic Other non-traumatic joint disorders (1 source) Pain in left shoulder; Translations: [Pain in left shoulder] Onset: 09-25-2023 Episodic Other nutritional; endocrine; and metabolic disorders (6 sources) Overweight in adulthood with body mass index of 25 or more but less than 30 09-09-2022 Episodic Other screening for suspected conditions (not mental disorders or infectious disease) (9 sources) Screening for malignant neoplasm of colon done; Translations: [Encounter for screening for malignant neoplasm of colon] Onset: 08-05-2022 Episodic Other upper respiratory disease (6 sources) Allergic rhinitis 09-03-2022 Chronic Residual codes; unclassified (6 sources) Obstructive sleep apnea syndrome 09-03-2022 Chronic Residual codes; unclassified (6 sources) Sleep apnea 02-08-2015 Chronic Residual codes; unclassified (6 sources) Insomnia 09-03-2022 Episodic Spondylosis; intervertebral disc disorders; other back problems (20 sources) Cervical spondylosis without myelopathy; Translations: [Spondylosis without myelopathy or radiculopathy, cervical region] Onset: 10-14-2021 Resolved: 10-14-2021 Chronic Spondylosis; intervertebral disc disorders; other back problems (6 sources) Dorsalgia, unspecified; Translations: [Neck pain] Onset: 11-27-2021 07-23-2023 Episodic Substance-related disorders (7 sources) Smoker; Translations: [Nicotine dependence, cigarettes, uncomplicated] Onset: 04-28-2022 11-24-2019 Chronic Comment on above: Added secondary to d ocumentation in Social History. Substance-related disorders (5 sources) Marijuana user 11-10-2022 Episodic Thyroid disorders (13 sources) Hypothyroidism; Translations: [Hypothyroidism, unspecified] Onset: 04-28-2022 02-08-2015 Chronic Unclassified (8 sources) Patient encounter status 09-09-2022 Unclassified (2 sources) CONTACT W/AND (SUSP) EXPOS COVID-19; Translations: [CONTACT W/AND (SUSP) EXPOS COVID-19] Onset: 04-16-2022 Unclassified (3 sources) LOW BACK PAIN, UNSPECIFIED; Translations: [LOW BACK PAIN, UNSPECIFIED] Onset: 11-18-2021 Unclassified (5 sources) Does mobilize using cane 12-15-2022 Unclassified (1 source) Cancer cervix screening status 09-22-2023 Unclassified (1 source) Chronic left shoulder pain [M25.512, G89.29] Onset: 09-25-2023 Viral infection (6 sources) Genital herpes simplex 11-24-2019 Chronic Viral infection (1 source) COVID-19; Translations: [COVID-19] Onset: 04-16-2022 Past or Other Problems Problem Classification Problem Date Documented Da te Episodic/Chronic Abdominal pain (1 source) Unspecified abdominal pain; Translations: [UNSPECIFIED ABDOMINAL PAIN] Onset: 11-14-2021 Episodic Administrative/social admission (1 source) Dietary counseling and surveillance; Translations: [DIETARY COUNSELING AND SURVEILLANCE] Onset: 04-24-2022 Episodic E Codes: Fall (1 source) Unspecified fall, initial encounter; Translations: [UNSPECIFIED FALL INITIAL ENCOUNTER] Onset: 04-28-2022 Episodic Nausea and vomiting (1 source) Nausea; Translations: [NAUSEA] Onset: 11-14-2021 Episodic Other aftercare (1 source) Other truck terminal manager (current) drug therapy; Translations: [[facility] CURRENT DRUG THERAPY] Onset: 04-28-2022 Episodic Other aftercare (1 source) senior living (current) use of oral hypoglycemic drugs; Translations: [[facility] USE ORAL HYPOGLYCEMIC DX] Onset: 04-28-2022 Episodic Other aftercare (1 source) senior living (current) use of insulin; Translations: [[facility] CURRENT USE OF INSULIN] Onset: 04-28-2022 Episodic Other non-traumatic joint disorders (3 sources) Pain in left wrist; Translations: [PAIN IN LEFT WRIST] Onset: 04-25-2022 Episodic Sprains and strains (1 source) Unspecified sprain of left wrist, initial encounter; Translations: [UNSPECIFIED SPRAIN LT WRIST INITIAL] Onset: 04-28-2022 Episodic Unclassified (6 sources) Bipolar (qualifier value) 02-08-2015 Unclassified (1 source) CONTACT W/AND (SUSP) EXPOS COVID-19; Translations: [CONTACT W/AND (SUSP) EXPOS COVID-19] Onset: 04-14-2022 Unclassified (1 source) LOW BACK PAIN, UNSPECIFIED; Translations: [LOW BACK PAIN, UNSPECIFIED] Onset: 11-14-2021 Urinary tract infections (1 source) Urinary tract infection, site not specified; Translations: [UTI SITE NOT SPECIFIED] Onset: 11-27-2021 Episodic Results Test Name Value Interpretation Reference Range Facil ity Reminderson 09-28-2023 Reminders - From: Kristin Sandoval To: [facility] - Clinical; Sent: 09/28/2023 08:55:43 EST Show up: 09/28/2023 08:56:00 EST Subject: Ambulatory Reminder Due Date/Time: 09/29/2023 08:55:00 EST Pap was negative Results: Date Result Name Value Ref Range 09/22/2023 8:35 HPV Aptima Negative (Negative - ) 09/22/2023 8:35 PAP Note pt notified. Normal [facility] PAP [id number] 09-27-2023 Cytology report Cyto stain Doc (Cvx/Vag) Note Invalid Interpretation Code [facility] Comment on above: Result Comment: TEST S RESULT FLAG UNITS REF RANGE LAB Clinician Provided Cytology Information Source.............Endocervix No. of containers..01 ThinPrep Vial DIAGNOSIS: 01 NEGATIVE FOR INTRAEPITHELIAL LESION OR MALIGNANCY. Specimen adequacy: 01 Satisfactory for evaluation. No endocervical component is identified. Performed by: Joel Altamirano Peripatologist ([facility]) . 01 Note: Note 01 The Pap smear is a screening test designed to aid in the detection of premalignant and malignant conditions of the uterine cervix. It is not a diagnostic procedure and should not be used as the sole means of detecting cervical cancer. Both false-positive and false-negative reports do occur. Test Methodology: Note 01 This liquid based ThinPrep(R) pap test was screened with the use of an image guided system. HPV Genotype Reflex Note 01 Criteria not met, HPV Genotype not performed. FLAG LEGEND: L-Low Normal,H-High Normal,LL-Alert Low,HH-Alert High <-Panic Low,>-Panic High,A-Abnormal,AA-Critical Abnormal Performed at: [address] [facility] [place] [address] Vaishnavi Sen MD, Performed By: #### 1 [id number] ####[facility] [id number] [place] [address] HPV 16+18+31+33+35+39+45 +51+52+56+58+59+66+6 8 DNA Probe+sig amp Ql (Cvx) Negative Invalid Interpretation Code Negative [facility] Comment on above: Result Comment: This nucleic acid amplification test detects fourteen high-risk HPV types (16,18,31,33,35,39,45,51,52,56,58,59,66,68) without differentiation. Performed at: [facility] [address] [facility], [place] [id number] MD Francy Riggins Performed at: =G [facility] [address] [facility], [place] [id number] MD Francy Riggins Performed By: #### 1 [id number] ####[facility] [id number] [place] [address] Glucose Glucometer (BldC) [M ass/Vol]on 09-25-2023 Glucose [Mass/Vol] 129 mg/dL High 65-99 [facility] MR CERVICAL SPINE WO CONTon 09-25-2023 MR CERVICAL SPINE WO CONT MR CERVICAL SPINE WO CONT HISTORY: A 47-year-old female with the history of the chronic neck pain with the numbness in the left upper extremity. TECHNIQUE: Multiplanar and multisequence MRI examination of the cervical spine is performed. COMPARISON: Comparison is made with the cervical spine radiographs of 06/11/2023. FINDINGS: Vertebral heights are normal. There are disc degenerative changes in the mid and lower cervical spine with particularly involvement of the C5-C6. There is loss of normal cervical lordosis without evidence of spondylolisthesis. No marrow signal abnormality seen to suggest acute bony pathology. At C2-C3, there is no evidence of disc herniation, spinal stenosis or narrowing of the neural foramina. At C3-C4, there is a minimal disc bulge. There is a mild degree of spinal stenosis with narrowing of the neural foramina bilaterally. At C4-C5, there is a disc bulging with mild degree of spinal stenosis. Both neural foramina aren't narrowed. At C5-C6, there are disc degenerative changes and disc bulging causing moderate to severe degree of spinal stenosis and narrowing of the neural foramina bilaterally. At C6-C7, there is a disc degenerative disease causing mild degree of spinal stenosis and narrowing of the left neural foramen. Right neural foramen is patent. At C7-T1, there is no evidence of disc herniation, spinal stenosis or narrowing of the neural foramina. Cervical spinal cord is normal in signal intensity. No evidence of cord contusion or cord edema. IMPRESSION: * Diffuse disc degenerative disease in the cervical spine and facet arthropathy at a few levels. Associated disc abnormality seen at a few levels. Various degrees of spinal stenosis and narrowing of the neural foramina at multiple levels as described above. Severe changes are seen at C5-C6. * Loss of normal cervical lordosis. * No evidence of cord contusion or cord edema. Finalized by Zaire Su MD on 09/25/2023 9:25 PM Normal [facility] Ambulatory Visit Summaryon 0 09-22-2023 Ambulatory Visit Summary AMAIRANI GONZALES :1975 Visit Date:09/22/2023 Ambulatory Visit Instructions Your Diagnosis BMI 28.0-28.9,adult Smoker Your Care Team Attending Physician - Kristin Sandoval Primary Care Physician - Joss Shepherd MD This Is Your Medications List Misc Prescription (Easy comfort Mis 31Gx3/16) Misc Prescription (Free style Cristopher Kit 2 sensors) Misc Prescription (alcohol pads) aripiprazole (Abilify 15 mg Tab) busPIRone (busPIRone 15 mg Tab) citalopram (citalopram 40 mg Tab) dapagliflozin (dapagliflozin 5 mg oral tablet) diclofenac topical (diclofenac topical 1% gel) dulaglutide (Trulicity Pen 4.5 mg/0.5 mL subcutaneous solution) fluticasone nasal (fluticasone Nasal 0.05 mg/inh Sully) hydrochlorothiazide-lo sartan (hydrochlorothiazide-l osartan 12.5 mg-100 mg oral tablet) insulin aspart (Insulin Aspart FlexPen 100 units/mL injectable solution) isopropyl alcohol topical (Webcol Alcohol Preps 70% topical pad) levothyroxine (levothyroxine 100 mcg (0.1 mg) Tab) lurasidone (Latuda 40 mg oral tablet) meloxicam (meloxicam 15 mg Tab) metformin (MetFORMIN (Eqv-Glucophage XR) 500 mg oral tablet, extended release) montelukast (montelukast 10 mg Tab) multivitamin (Daily Ivana oral tablet) omeprazole (omeprazole 20 mg Adán-DR) ropinirole (ropinirole 0.25 mg Tab) rosuvastatin (rosuvastatin 5 mg Tab) valacyclovir (Valtrex 1 g Tab) Procedures Performed Epidural injection of lumbar spine using fluoroscopic guidance (08/12/2013), EGD - Esophagogastroduodenos copy, mole revoved on left buttock, Radiofrequency ablation of nerve root of lumbar spine using fluoroscopic guidance, Removal of pilonidal cyst, Repair of umbilical hernia, Tubal ligation. Discharge Vitals Temperature (Tympanic) 36.6 ?C Heart Rate (Peripheral) 80 Respiratory Rate 18 Blood Pressure 126/84 Height 166 cm Height 65 in Weight 78.0 kg Weight 171.6 lb BMI 28.31 What to do next Scheduled Follow-Up Appointments Thursday 10:15 AM EDT With: Miah ESPITIA, Joss Hartmann Where: [facility] [place] Normal [facility] Family Medicine Office/Clini c Noteon 09-22-2023 Family Medicine Office/Clinic Note HPI Staff Amairani is a 47 year old female presenting for well woman Woman check up: Last pap: 2022 Last Carlos: 2022, would like order sent to [facility] Results of lap pap: normal Where was it done: Dr Roberts hx: # of pregnancies..3. abortions... live births.2.. living children...2 menstrual cycle (normal,heavy,ect): hasn't had one is years History of STD: genital herpes Do you want tested for STD today: no Vaginal discharge, odor, itching: no Self breast exam at home? yes Hx of breast, cervical or uterine cancer in the family: possibly mother side unsure History of Present Illness pt presents today for well woman exam Review of Systems PHQ Score Initial Depression Screen Score: 0 SCORE Constitutional: No fever, No chills, No sweats, No weakness. No Weight change; No fatigue. Skin: No rash, No lesions. ENMT: No ear pain, No sore throat, No congestion. Respiratory: No shortness of breath, No cough, No orthopnea, No wheezing. Cardiovascular: No chest pain, No palpitations, No peripheral edema. Gastrointestinal: No nausea, No vomiting, No diarrhea, No GI bleeding. Genitourinary: No dysuria, No hematuria, No discharge, No pain. Gynecology: No abnormal vaginal discharge, No vaginal itching/burning, No vaginal dryness, No painful periods, No abnormal bleeding, No pelvic pain, No painful intercourse, No hair loss/growth, No hot flashes Breast: No breast pain, No skin changes, No masses/lumps, No nipple discharge. Musculoskeletal: No back pain, No trauma. Neurological: No headache, No dizziness, No numbness, No weakness. Psychiatric: No sleeping problems, No irritability, No mood swings/depression. Heme/Lymph: No bleeding tendency, No bruising tendency, No petechiae, No swollen. Physical Exam Vitals & Measurements T: 36.6 ?C(Tympanic) HR: 80(Peripheral) RR: 18 BP: 126/84 SpO2: 98% HT: 65 in HT: 166 cm WT: 78.0 kg WT: 171.6 lb BMI: 28.31 General: Well developed, well nourished, in no acute distress Neck: Neck supple. No masses or palpable cervical nodes. Trachea midline. Thyroid without nodules, masses, tenderness, or enlargement Breast: No mass, nodule, discharge, or erythema bilaterally, and no axillary lymphadenopathy Lungs: Normal respiratory effort and clear to auscultation Cardio: Regular rate and rhythm, normal S1 and S2, no murmur, no rub Abdomen: Soft, non-distended, non-tender, normal bowel sounds x4 Gyno: not assessed Neurologic: Grossly normal Skin: [place], moist, no tenting Lymph Nodes: No cervical adenopathy, nodes normal Mental Status: Alert and oriented x3. Normal mood and affect Assessment/Plan 1. Well woman exam (Z01.419: Encounter for gynecological examination (general) (routine) without abnormal findings) pt presents today for well woman exam. BSE discussed. CRYSTAL breast exam WNL. pap obtained without difficulty. all questions answered. RTC as needed. pt also wants to update provider that her trip to ER wasn't an infection it was allergic reaction to liquid lysol 2. Breast cancer screening by mammogram (Z12.31: Encounter for screening mammogram for malignant neoplasm of breast) order provided to be done at [facility] 3. Cervical cancer screening (Z12.4: Encounter for screening for malignant neoplasm of cervix) pap obatined 4. Smoker (F17.200: Nicotine dependence, unspecified, uncomplicated) consider not smoking Ordered: PAP w/ HPV and Genotype rflx 5. BMI 28.0-28.9,adult (Z68.28: Body mass index [BMI] 28.0-28.9, adult) BMI education complete Ordered: PAP w/ HPV and Genotype rflx Follow-up No qualifying data available Problem List/Past Medical History Ongoing Acid reflux disease Advanced diabetic retinal disease Allergic rhinitis Ambulates with cane Anxiety Bipolar disease, chronic BMI 27.0-27.9,adult Breast cancer screening by mammogram Cervical cancer screening DM type 2 (diabetes mellitus, type 2) Genital herpes History of gastric ulcer Hypothyroidism Insomnia Lumbosacral spondylosis with radiculopathy Marijuana user MARINELLI (nonalcoholic steatohepatitis) Neuropathy STACIA (obstructive sleep apnea) Primary hypertension Pure hypercholesterolemia Screening for malignant neoplasm of colon Smoker Tongue inflammation Vitamin D deficiency Well woman exam Historical Anxiety Bipolar Bursitis Diabetes Hypothyroid Sleep apnea Procedure/Surgical History Epidural injection of lumbar spine using fluoroscopic guidance (08/12/2013), EGD - Esophagogastroduodenos copy, mole revoved on left buttock, Radiofrequency ablation of nerve root of lumbar spine using fluoroscopic guidance, Removal of pilonidal cyst, Repair of umbilical hernia, Tubal ligation. Medications Abilify 15 mg Tab, 15 mg= 1 tab(s), Oral, Daily alcohol pads, See Instructions, 1 refills busPIRone 15 mg Tab citalopram 40 mg Tab Daily Ivana oral tablet, See Instructions dapagliflozin 5 mg oral tablet, 5 mg= 1 tab(s), Oral, Daily, 1 r (more content not included)... Normal [facility] Comment on above: Result Comment: Elec tronically Signed By: Kristin Sandoval\.br\Date and Time Signed: 09/22/23 09:26 EST PAP [id number] 09-22-2023 Gynecological Body Site ENDOCERVIX Normal [facility] Comment on above: Performed By: #### 1 [id number] ####[facility] [address] [place] [address] Physician Orderon 09-22-2023 Physician Order [id number] 0TIFF [facility] Pre-Certification Formon Pre-Certification Form [id number] 0TIFF [facility] Ambulatory Visit Summaryon 0 08-25-2023 Ambulatory Visit Summary AMAIRANI GONZALES :1975 Visit Date:08/25/2023 Ambulatory Visit Instructions Your Diagnosis Tongue inflammation Your Care Team Attending Physician - Joss Shepherd MD Primary Care Physician - Joss Shepherd MD This Is Your Medications List Contact prescribing physician if questions or concerns Misc Prescription (Easy comfort Mis 31Gx3/16) Misc Prescription (Free style Cristopher Kit 2 sensors) Misc Prescription (alcohol pads) aripiprazole (Abilify 20 mg oral tablet) busPIRone (busPIRone 15 mg Tab) citalopram (citalopram 40 mg Tab) dapagliflozin (dapagliflozin 5 mg oral tablet) diclofenac topical (diclofenac topical 1% gel) dulaglutide (Trulicity Pen 4.5 mg/0.5 mL subcutaneous solution) fluticasone nasal (fluticasone Nasal 0.05 mg/inh Sully) hydrochlorothiazide-lo sartan (hydrochlorothiazide-l osartan 12.5 mg-100 mg oral tablet) insulin aspart (Insulin Aspart FlexPen 100 units/mL injectable solution) isopropyl alcohol topical (Webcol Alcohol Preps 70% topical pad) levothyroxine (levothyroxine 100 mcg (0.1 mg) Tab) lurasidone (Latuda 40 mg oral tablet) meloxicam (meloxicam 15 mg Tab) metformin (MetFORMIN (Eqv-Glucophage XR) 500 mg oral tablet, extended release) montelukast (montelukast 10 mg Tab) multivitamin (Daily Ivana oral tablet) omeprazole (omeprazole 20 mg Cap-DR) ropinirole (ropinirole 0.25 mg Tab) rosuvastatin (rosuvastatin 5 mg Tab) valacyclovir (Valtrex) Procedures Performed Epidural injection of lumbar spine using fluoroscopic guidance (08/12/2013), EGD - Esophagogastroduodenos copy, mole revoved on left buttock, Radiofrequency ablation of nerve root of lumbar spine using fluoroscopic guidance, Removal of pilonidal cyst, Repair of umbilical hernia, Tubal ligation. Discharge Vitals Heart Rate (Peripheral) 68 Respiratory Rate 18 Blood Pressure 110/70 Height 166 cm Height 65 in Weight 75.35 kg Weight 165.77 lb BMI 27.34 What to do next Scheduled Follow-Up Appointments Thursday. 2023 10:15 AM EDT With: Miah ESPITIA, Joss Hartmann Where: [facility] [place] Normal [facility] Medicine Office/Clini c Noteon 08-25-2023 Family Medicine Office/Clinic Note HPI Staff Patient presents for ED follow up. ER followup: Hospital: [facility] Visit date: 08/19/2023 Symptoms the patient presented with: swollen, painful tongue, Patient provided with Toradol and Augmentin Current concerns: pt states swelling has gone down, continues to have difficulty chewing still and has been on a soft diet. pt ill have intermittent pain/ irritation bilateral face. History of Present Illness Pt here for follow up from the ER. Tongue was swollen. Started on Abx. No issues at this time. Review of Systems PHQ Score Initial Depression Screen Score: 0 SCORE Physical Exam Vitals & Measurements HR: 68(Peripheral) RR: 18 BP: 110/70 SpO2: 99% HT: 65 in HT: 166 cm WT: 75.35 kg WT: 165.77 lb BMI: 27.34 General: alert, no acute distress ENMT: oral mucosa moist, Normal tongue Cardiovascular: regular rate and rhythm, normal peripheral perfusion Respiratory: Lungs CTA, respirations non labored Extremities: no deformity, no trauma Neurological: oriented x 4, LOC appropriate for age, CN II-XII intact, motor strength equal & normal bilaterally, speech normal Abdomen: Soft, Nontender, Non-distended, + BS Assessment/Plan 1. Tongue inflammation (K14.0: Glossitis) Resolved. Orders: liothyronine, 5 mcg = 1 tab(s), Oral, Daily, # 30 tab(s), Refills(s) 5, Pharmacy: [facility], 166.6, cm, 11/10/22 9:36:00 EDT, Height/Length Dosing, 72.7, kg, 11/10/22 9:36:00 EDT, Weight Dosing multivitamin with minerals, 1 tab(s), Oral, Daily, 90 tab(s), Refill(s) 1, [facility], 166.6, cm, 11/10/22 9:36:00 EDT, Height/Length Dosing, 72.7, kg, 11/10/22 9:36:00 EDT, Weight Dosing Follow-up No qualifying data available Problem List/Past Medical History Ongoing Acid reflux disease Advanced diabetic retinal disease Allergic rhinitis Ambulates with cane Anxiety Bipolar disease, chronic BMI 27.0-27.9,adult DM type 2 (diabetes mellitus, type 2) Genital herpes History of gastric ulcer Hypothyroidism Insomnia Lumbosacral spondylosis with radiculopathy Marijuana user MARINELLI (nonalcoholic steatohepatitis) Neuropathy STACIA (obstructive sleep apnea) Primary hypertension Pure hypercholesterolemia Screening for malignant neoplasm of colon Smoker Tongue inflammation Vitamin D deficiency Historical Anxiety Bipolar Bursitis Diabetes Hypothyroid Sleep apnea Procedure/Surgical History Epidural injection of lumbar spine using fluoroscopic guidance (08/12/2013), EGD - Esophagogastroduodenos copy, mole revoved on left buttock, Radiofrequency ablation of nerve root of lumbar spine using fluoroscopic guidance, Removal of pilonidal cyst, Repair of umbilical hernia, Tubal ligation. Medications Abilify 20 mg oral tablet, 20 mg= 1 tab(s), Oral, Daily alcohol pads, See Instructions, 1 refills busPIRone 15 mg Tab citalopram 40 mg Tab Daily Ivana oral tablet, See Instructions dapagliflozin 5 mg oral tablet, 5 mg= 1 tab(s), Oral, Daily, 1 refills diclofenac topical 1% gel, 2 gm, Topical, TID Easy comfort Mis 31Gx3/16, See Instructions, 5 refills fluticasone Nasal 0.05 mg/inh Sully, See Instructions Free style Cristopher Kit 2 sensors, See Instructions, 11 refills hydrochlorothiazide-lo sartan 12.5 mg-100 mg oral tablet, See Instructions Insulin Aspart FlexPen 100 units/mL injectable solution, See Instructions Latuda 40 mg oral tablet, 40 mg= 1 tab(s), Oral, Daily levothyroxine 100 mcg (0.1 mg) Tab, See Instructions meloxicam 15 mg Tab, See Instructions MetFORMIN (Eqv-Glucophage XR) 500 mg oral tablet, extended release, See Instructions montelukast 10 mg Tab, See Instructions omeprazole 20 mg Cap-DR, See Instructions ropinirole 0.25 mg Tab, 0.25 mg= 1 tab(s), Oral, Bedtime rosuvastatin 5 mg Tab, 5 mg= 1 tab(s), Oral, Once a day (at bedtime), 1 refills Trulicity Pen 4.5 mg/0.5 mL subcutaneous solution, 4.5 mg, SubCutaneous, qWeek, 1 refills Valtrex, 1 gm, Oral, Daily Webcol Alcohol Preps 70% topical pad, See Instructions Allergies Depakote (Unknown) Nesina (Unknown) Nubain (Unknown) Trileptal (Unknown) Valacyclovir Hydrochloride sulfa drugs (Rash) Social History Alcohol - Denies Alcohol Use, 09/09/2022 Substance Abuse - High Risk, 11/24/2019 Current, Marijuana, Daily, 11/24/2019 Tobacco - High Risk, 11/24/2019 10 or more cigarettes (1/2 pack or more)/day in last 30 days Tobacco Use:. Never Smokeless Tobacco Use:. Cigarettes, 1.5 per day. Started age 17.0 Years. Household tobacco concerns: No. Yes, 08/25/2023 Family History COPD: Father. Diabetes mellitus type 2: Mother and Father. Heart disease: Father. Hypothyroidism: Father. Immunizations Vaccine Date Status Comments influenza virus vaccine, inactivated - Not Given Patient Refuses influenza virus vaccine, inactivated - Not Given Postpone due to refusal SARS-CoV-2 mRNA (tozinameran 5y-11y) vac - Not Given Postpone due to refusal SARS-CoV-2 mRNA (tozinameran 5y-11y) vac - Not Given Pos (more content not included)... Normal [facility] Comment on above: Result Comment: Elec tronically Signed By: Miah ESPITIA, Joss Burnett.br\Date and Time Signed: 08/25/23 11:21 EST Formson 08-25-2023 Forms [id number] 0TIFF Normal [facility] Patient Correspondenceon Patient Correspondence [id number] 0TIFF Normal [facility] Provider Letteron 08-25-2023 Provider Letter August 25, 2023 AMAIRANI GONZALES [address] [place] [address] : 1975 To Whom It May Concern, Per Dr. Katty Bermudez medical assessment Amairani Gonzales has many medical problems that prevent her from performing gainful employment, as such she is medically disabled and he believes these problems are permanent. May Return to Work On: Restrictions: _ Comments: _ Sincerely, [facility] [place] [address] [place] [address] [facility] ED Note-Physicianon 08-24-19 ED Note-Physician [id number] TIFF Normal [facility] RAD - CT Reporton 08-24-2023 RAD - CT Report [id number] 0TIFF [facility] Family Medicine Office/Clini c Noteon 08-14-2023 Family Medicine Office/Clinic Note HPI Staff Amairani is a 47 year old female presenting for paperwork for social security/disability ( Larisa has the paperwork) Review labs also recent A1C Hgb A1C %: 7.4 % High (08/10/23 07:07:00), TG 209 Trlicity was increased at Dec visit but new dose wans't started until a week before the A1C recently done questions/concerns: needs a note for herself and Jackson Gonzales stating they cannot work for Medicaid flu: refused for the season History of Present Illness NO MRI RESULTS (12/18/2022) FOUND IN EHR Amairani Gonzales is a 47-year-old female who presents today for an evaluation. The patient has a medical history of bipolar manic-depressive disorder, PTSD and anxiety. She utilizes marijuana for anxiety management. Her bipolar disorder is well-regulated. Despite her adeptness at concealing her depressive symptoms, she is under the care of Dr. Pelaez for depression treatment. She last saw Dr. Pelaez on 06/04/2024. The patient has a medical history of retinopathy. Her last consultation with Dr. Crawford was on 08/06/2023. She underwent cataract removal in 12/2022 and 01/2023. The patient reports satisfactory improvement post-cataract surgery, rating her vision as 20/20. She also notes a perceived reduction in visual acuity in the right eye compared to the left. The patient presents with a medical history of lumbosacral spondylosis accompanied by radiculopathy. Her condition fluctuates, experiencing both good and bad days. Notably, the previous night was relatively better, with the patient remaining awake until 2:00 AM. Weather changes appear to exacerbate her symptoms, often resulting in pain and vomiting. She has experienced significant weight loss recently. The patient describes her condition as having her own cereal in her body and being a snap, crackle, and pop. She is currently under the care of a pain management team, which has been administering injections in her back. She rates her current pain level as an 8 on a scale of 10, but notes that severe weather can escalate this to a 10, often accompanied by morning vomiting. She locates her pain is localized in her lower back at L4-L5, neck, T4-T5, and T6. She also suffers from bursitis in her shoulders and hips. X-rays have been conducted on her left shoulder, and she has undergone physical therapy for the same. Her shoulders have a tendency to lock up, where she states an instance that it is causing her to remain in her shirt and bra for up to 4-5 days. She has been dealing with shoulder bursitis since the age of 27, and has previously dislocated and relocated her shoulder. She is awaiting contact for a scheduled MRI on her neck. Her sitting tolerance varies, with a maximum of 30 minutes in a standard position, and slightly longer if sitting cross-legged. She exhibits constant movement and an inability to remain still. Her standing endurance has decreased, impacting her ability to complete tasks such as dishwashing within an hour. Now, she must take breaks and sit down to rest. She reports experiencing numbness and tingling, for which she performs stretches learned in physical therapy. This symptom onset followed her most recent injection. She often needs to lie down, although she tries to avoid this knowing the subsequent discomfort it will cause. Walking sometimes provides relief. She requires 2 scheduled breaks daily, one in the afternoon and one in the evening, with the timing being weather-dependent. She was notably active until 2:00 AM the previous night. She minimizes indoor ambulation to circumvent the use of her cane, reserving its use for outdoor activities only. Her lifting capacity is between 5 to 10 pounds, and she does not have significant limitations with reaching, handling, or fingering. She reports experiencing numbness and tingling in both hands, with the left side being more severely affected. This extends all the way down the left side. Due to this, the patient requires assistance in checking if laundry is dry, indicating a potential impairment in tactile sensation. The patient has been pursuing disability benefits since her father's passing. Currently, she is not receiving any disability benefits. She was assessed by a social security disability provider, Dr. Piedra, in [place]. She only visits the disability doctor when mandated. Physical Exam Vitals & Measurements T: 36.6 ?C(Oral) HR: 62(Peripheral) RR: 16 BP: 124/72 SpO2: 97% HT: 65 in HT: 166 cm WT: 76.7 kg WT: 168.74 lb BMI: 27.83 General: alert, no acute distress. Patient ambulates with a cane. Cardiovascular: regular rate and rhythm, normal peripheral perfusion Respiratory: Lungs CTA, respirations non labored Extremities: no deformity, no trauma Neurological: oriented x 4, LOC appropriate for age, CN II-XII intact, motor strength equal & normal bilaterally, speech normal Assessment/Plan 1. Marijuana user (F12.90: Cannabis use, unspecified, uncomplicated) The patient uses this to help with anxiety. 2. Anxiety (F41. (more content not included)... Normal [facility] Comment on above: Result Comment: Elec tronically Signed By: Joss Shepherd MD\.br\Date and Time Signed: 08/14/23 08:21 EST\.br\Electronically Co-Signed By: Shayla uDval\.br\Date and Time Co-Signed: 08/13/23 15:35 EST Ambulatory Visit Summaryon 0 08-13-2023 Ambulatory Visit Summary AMAIRANI GONZALES :1975 Visit Date:08/13/2023 Ambulatory Visit Instructions Your Diagnosis Marijuana user Anxiety Bipolar disease, chronic Primary hypertension Advanced diabetic retinal disease Lumbosacral spondylosis with radiculopathy BMI 27.0-27.9,adult Over weight Smoker Your Care Team Attending Physician - Joss Shepherd MD Primary Care Physician - Joss Shepherd MD This Is Your Medications List Misc Prescription (Easy comfort Mis 31Gx3/16) Misc Prescription (Free style Cristopher Kit 2 sensors) Misc Prescription (alcohol pads) aripiprazole (Abilify 20 mg oral tablet) busPIRone (busPIRone 15 mg Tab) citalopram (citalopram 40 mg Tab) dapagliflozin (dapagliflozin 5 mg oral tablet) diclofenac topical (diclofenac topical 1% gel) dulaglutide (Trulicity Pen 4.5 mg/0.5 mL subcutaneous solution) fluticasone nasal (fluticasone Nasal 0.05 mg/inh Sully) hydrochlorothiazide-lo sartan (hydrochlorothiazide-l osartan 12.5 mg-100 mg oral tablet) insulin aspart (Insulin Aspart FlexPen 100 units/mL injectable solution) isopropyl alcohol topical (Webcol Alcohol Preps 70% topical pad) levothyroxine (levothyroxine 100 mcg (0.1 mg) Tab) liothyronine (Cytomel 5 mcg Tab) lurasidone (Latuda 40 mg oral tablet) meloxicam (meloxicam 15 mg Tab) metformin (MetFORMIN (Eqv-Glucophage XR) 500 mg oral tablet, extended release) montelukast (montelukast 10 mg Tab) multivitamin (Daily Ivana oral tablet) multivitamin with minerals (Centrum Silver oral tablet) omeprazole (omeprazole 20 mg Adán-) ropinirole (ropinirole 0.25 mg Tab) rosuvastatin (rosuvastatin 5 mg Tab) valacyclovir (Valtrex) Procedures Performed Epidural injection of lumbar spine using fluoroscopic guidance (08/12/2013), EGD - Esophagogastroduodenos copy, mole revoved on left buttock, Radiofrequency ablation of nerve root of lumbar spine using fluoroscopic guidance, Removal of pilonidal cyst, Repair of umbilical hernia, Tubal ligation. Discharge Vitals Temperature (Oral) 36.6 ?C Heart Rate (Peripheral) 62 Respiratory Rate 16 Blood Pressure 124/72 Height 166 cm Height 65 in Weight 76.7 kg Weight 168.74 lb BMI 27.83 What to do next Scheduled Follow-Up Appointments Thursday 10:15 AM EDT With: Joss Shepherd MD Where: [facility] [place] Normal [facility] Formson 08-13-2023 Forms [id number] TIFF [facility] Medication Refillon 08-13-19 24 Medication Refill [id number] 0TIFF [facility] Ambulatory Visit Summaryon 0 08-10-2023 Ambulatory Visit Summary AMAIRANI GONZALES :1975 Visit Date:08/10/2023 Ambulatory Visit Instructions Your Care Team Attending Physician - Joss Shepherd MD Primary Care Physician - Joss Shepherd MD. This Is Your Medications List Misc Prescription (Easy comfort Mis 31Gx3/16) Misc Prescription (Free style Cristopher Kit 2 sensors) Misc Prescription (alcohol pads) aripiprazole (Abilify 20 mg oral tablet) busPIRone (busPIRone 15 mg Tab) citalopram (citalopram 40 mg Tab) dapagliflozin (dapagliflozin 5 mg oral tablet) diclofenac topical (diclofenac topical 1% gel) dulaglutide (Trulicity Pen 4.5 mg/0.5 mL subcutaneous solution) fluticasone nasal (fluticasone Nasal 0.05 mg/inh Sully) hydrochlorothiazide-lo sartan (hydrochlorothiazide-l osartan 12.5 mg-100 mg oral tablet) insulin aspart (Insulin Aspart FlexPen 100 units/mL injectable solution) isopropyl alcohol topical (Webcol Alcohol Preps 70% topical pad) levothyroxine (levothyroxine 100 mcg (0.1 mg) Tab) liothyronine (Cytomel 5 mcg Tab) lurasidone (Latuda 40 mg oral tablet) meloxicam (meloxicam 15 mg Tab) metformin (MetFORMIN (Eqv-Glucophage XR) 500 mg oral tablet, extended release) montelukast (montelukast 10 mg Tab) multivitamin (Daily Ivana oral tablet) multivitamin with minerals (Centrum Silver oral tablet) omeprazole (omeprazole 20 mg Cap-DR) ropinirole (ropinirole 0.25 mg Tab) rosuvastatin (rosuvastatin 5 mg Tab) valacyclovir (Valtrex) Procedures Performed Epidural injection of lumbar spine using fluoroscopic guidance (08/12/2013), EGD - Esophagogastroduodenos copy, mole revoved on left buttock, Radiofrequency ablation of nerve root of lumbar spine using fluoroscopic guidance, Removal of pilonidal cyst, Repair of umbilical hernia, Tubal ligation. What to do next Scheduled Follow-Up Appointments 2023 7:15 AM EST With: Miah ESPITIA, Joss Hartmann Where: [place] [address]- \.br\ Medications\.br \ What How Much When Instructions\.b r\ Unchanged aripiprazole (Abilify 20 mg oral tablet) 1 Tablets By Mouth Every day\.br\ Unchanged busPIRone (busPIRone 15 mg Tab) 60 EA, 0 Refill(s), TAKE ONE TABLET BY MOUTH TWICE A DAY \.br\ Unchanged citalopram (citalopram 40 mg Tab) 30 EA, 0 Refill(s), TAKE ONE TABLET BY MOUTH DAILY \.br\ Unchanged dapagliflozin (dapagliflozin 5 mg oral tablet) 1 Tablets By Mouth Every day\.br\ Unchanged diclofenac topical (diclofenac topical 1% gel) 2 Gram Topical 3 times a day\.br\ Unchanged dulaglutide (Trulicity Pen 4.5 mg/ 0.5 mL subcutaneous solution) 4.5 Milligram Subcutaneous Every week\.br\ Unchanged fluticasone nasal (fluticasone Nasal 0.05 mg/ inh Sully) See instructions USE 2 SPRAYS INTO EACH NOSTRIL ONCE DAILY \.br\ Unchanged hydrochlorothia zide-losartan (hydrochlorothi azide-losartan 12.5 mg-100 mg oral tablet) See instructions TAKE ONE TABLET BY MOUTH DAILY \.br\ Unchanged insulin aspart (Insulin Aspart FlexPen 100 units/ mL injectable solution) See instructions SLIDING SCALE FOR BS: 150-200: 2U, 201-250: 4U, 251-300: 6U, 301-350: 8U, 351-400: 10U, BS>401: 12U; CARB COVERAGE 1 UNIT PER 15 CARBS (EXPECT 60U DAILY) \.br\ Unchanged isopropyl alcohol topical (Webcol Alcohol Preps 70% topical pad) See instructions Use swab daily before each blood sugar check \.br\ Unchanged levothyroxine (levothyroxine 100 mcg (0.1 mg) Tab) See instructions TAKE ONE TABLET BY MOUTH DAILY \.br\ Unchanged liothyronine (Cytomel 5 mcg Tab) 1 Tablets By Mouth Every day\.br\ Unchanged lurasidone (Latuda 40 mg oral tablet) 1 Tablets By Mouth Every day\.br\ Unchanged meloxicam (meloxicam 15 mg Tab) See instructions TAKE ONE TABLET BY MOUTH ONCE DAILY \.br\ Unchanged metformin (MetFORMIN (Eqv-Glucophage XR) 500 mg oral tablet, extended release) See instructions TAKE ONE TABLET BY MOUTH THREE TIMES A DAY \.br\ Unchanged Misc Prescription (alcohol pads) See instructions use to check BS daily dx. E11.319 \.br\ Unchanged Misc Prescription (Easy comfort Mis 31Gx3/ 16) See instructions use with Novolog injections \.br\ Unchanged Misc Prescription (Free style Cristopher Kit 2 sensors) See instructions use to montior BS DX E11.8 E11.42 \.br\ Unchanged montelukast (montelukast 10 mg Tab) See instructions TAKE ONE TABLET BY MOUTH DAILY IN THE EVENING \.br\ Unchanged multivitamin (Daily Ivana oral tablet) See instructions TAKE ONE TABLET BY MOUTH ONCE DAILY \.br\ Unchanged multivitamin with minerals (Centrum Silver oral tablet) 1 Tablets By Mouth Every day\.br\ Unchanged omeprazole (omeprazole 20 mg Cap-DR) See instructions TAKE ONE CAPSULE BY MOUTH DAILY \.br\ Unchanged ropinirole (ropinirole 0.25 mg Tab) 1 Tablets By Mouth At bedtime\.br\ Unchanged rosuvastatin (rosuvastatin 5 mg Tab) 1 Tablets By Mouth Once a day (at bedtime)\.br\ Unchanged valacyclovir (Valtrex) 1 Gram By Mouth Every day\.br\ Allergies\.br\ Depakote (Unknown)\.br\ Nesina (Unknown)\.br\ Nubain (Unknown)\.br\ Trileptal (Unknown)\.br\ Valacyclovir Hydrochloride\. br\ sulfa drugs (Rash)\.br\ Problems\.br\ Ongoing - Any problem that you are currently receiving treatment for.\.br\ Acid reflux disease\.br\ Advanced diabetic retinal disease\.br\ Allergic rhinitis\.br\ Ambulates with cane\.br\ Anxiety\.br\ Bipolar disease, chronic\.br\ BMI 27.0-27.9,adult \.br\ DM type 2 (diabetes mellitus, type 2)\.br\ Genital herpes\.br\ History of gastric ulcer\.br\ Hypothyroidism\ .br\ Insomnia\.br\ Lumbosacral spondylosis with radiculopathy\. br\ Marijuana user\.br\ MARINELLI (nonalcoholic steatohepatitis )\.br\ Neuropathy\.br\ STACIA (obstructive sleep apnea)\.br\ Primary hypertension\.b r\ Pure hypercholestero lemia\.br\ Screening for malignant neoplasm of colon\.br\ Smoker\.br\ Vitamin D deficiency\.br\ Historical - Any problem that you are no longer receiving treatment for.\.br\ Anxiety\.br\ Bipolar\.br\ Bursitis\.br\ Diabetes\.br\ Hypothyroid\.br \ Sleep apnea\.br\ Patient Survey\.br\ You may receive a survey via text or e-mail asking about your office visit. Please share your experience with us by completing your survey. We appreciate your feedback and thank you for choosing us for your care.\.br\ \.br\ [facility] Auto Diffon 08-10-2023 Basophils/100 WBC (Bld) 0.5 % Normal 0.0-2.0 [facility] Comment on above: Order Comment: Order Added by Discern Expert. Performed By: #### 1 [id number], [id number], 4729706, 3034486, 8104116, 0746449, [id number] ####[facility] [address] [place] [address] Basophils/Leukocytes Auto (Bld) [Pure # fraction] 0.0 E9/L Normal 0.0-0.2 [facility] Comment on above: Order Comment: Order Added by Discern Expert. Performed By: #### 1 [id number], [id number], 4635581, 2408127, 1372732, 9566696, 41474515 ####[address] [place] [address] Eosinophils/100 WBC (Bld) 2.4 % Normal 0.0-8.0 [facility] Comment on above: Order Comment: Order Added by Discern Expert. Performed By: #### 1 [id number], [id number], 7919158, 2646776, 0281169, 7156925, 24509779 ####[address] [address] Eosinophils/Leukocyt es Auto (Bld) [Pure # fraction] 0.2 E9/L Normal 0.0-0.5 [facility] Comment on above: Order Comment: Order Added by Discern Expert. Performed By: #### 1 [id number], [id number], 8522504, 3437652, 6569935, 1003919, 43055062 ####[address] [address] Lymphocytes/100 WBC (Bld) 41.4 % Normal 14.0-50.0 [facility] Comment on above: Order Comment: Order Added by Discern Expert. Performed By: #### 1 5048041, [id number], 9555991, 7104923, 1153674, 6277057, 59339589 ####[address] [place] [address] Lymphocytes/Leukocyt es Auto (Bld) [Pure # fraction] 3.0 E9/L Normal 1.0-4.0 [facility] Comment on above: Order Comment: Order Added by Pineda Expert. Performed By: #### 1 9758554, [id number], 5744057, 3302913, 8005309, 7268723, 03533236 ####[address] [address] Monocytes/100 WBC (Bld) 6.9 % Normal 4.0-14.0 [facility] Comment on above: Order Comment: Order Added by Discern Expert. Performed By: #### 1 3776686, [id number], 0180360, 0535392, 2307692, 2803782, 79374992 ####[address] [address] Monocytes/Leukocytes Auto (Bld) [Pure # fraction] 0.5 E9/L Normal 0.2-1.0 [facility] Comment on above: Order Comment: Order Added by Discern Expert. Performed By: #### 1 [id number], [id number], 8180652, 7629068, 8130785, 1570031, 69754332 ####[address] [address] Neutrophils/100 WBC (Bld) 48.8 % Normal 36.0-75.0 [facility] Comment on above: Order Comment: Order Added by Discern Expert. Performed By: #### 1 3617089, 256403257, 5801506, 1483750, 6387937, 2135620, 04306799 ####[address] [address] Neutrophils/Leukocyt es Auto (Bld) [Pure # fraction] 3.5 E9/L Normal 2.0-7.5 [facility] Comment on above: Order Comment: Order Added by Discern Expert. Performed By: #### 1 4917935, 999044137, 8736035, 4692653, 4459929, 7309402, 71177770 ####[address] [address] CBC w/ Auto Diffon 4 Erythrocyte distribution width (RBC) [Ratio] 13.4 % Normal 10.9-14.2 [facility] Comment on above: Performed By: #### 1 7956713, 201750664, 2794942, 0264764, 6961099, 9678443, 39168845 ####[facility] [address] [place] [address] Hematocrit (Bld) [Volume fraction] 43.0 % Normal 34.0-46.0 [facility] Comment on above: Performed By: #### 1 8589280, 286843587, 1530133, 0989924, 6233764, 9626704, 83849034 ####[address] [place] [address] Hemoglobin (Bld) [Mass/Vol] 14.6 g/dL Normal 12.0-16.0 [facility] Comment on above: Performed By: #### 1 6066843, 271128977, 7356299, 9558381, 4056751, 7872929, 46569161 ####[address] [address] MCH (RBC) [Entitic mass] 32.8 pg Normal 27.0-34.0 [facility] Comment on above: Performed By: #### 1 7654484, 517416736, 3028220, 4579630, 4749572, 9715647, 36599490 ####[address] [address] MCHC (RBC) [Mass/Vol] 33.9 g/dL Normal 31.4-36.0 [facility] Comment on above: Performed By: #### 1 5712234, 787315273, 3950202, 7114363, 6180248, 6757505, 00306241 ####[address] [address] MCV (RBC) [Entitic vol] 97.0 fL Normal 80.0-100.0 [facility] Comment on above: Performed By: #### 1 1151727, 637105526, 0411961, 4069708, 2357226, 3312349, 58412160 ####[address] [address] Platelet mean volume (Bld) [Entitic vol] 9.4 fL Normal 6.4-10.8 [facility] Comment on above: Performed By: #### 1 8503034, 002367380, 6292898, 1577577, 6308410, 5118042, 83012572 ####[facility] [address] [place] [address] Platelets (Bld) [#/Vol] 250.0 E9/L Normal 150.0-500.0 [facility] Comment on above: Performed By: #### 1 0585084, 170792584, 7701257, 0638064, 0097581, 5421830, 71707571 ####[facility] [address] [place] [address] RBC (Bld) [#/Vol] 4.4 E12/L Normal 4.3-5.9 [facility] Comment on above: Performed By: #### 1 2116232, 394492950, 8822702, 6390720, 0478235, 5971292, 33258909 ####[facility] [address] [place] [address] WBC corrected for nucl RBC Auto (Bld) [#/Vol] 7.3 E9/L Normal 4.0-11.0 [facility] Comment on above: Performed By: #### 1 8517404, 942538260, 5319773, 6583027, 0514584, 7257087, 92322063 ####[facility] [address] [place] [address] CHEMISTRYOrdered By: SYSTEM SYSTEM on 08-10-2023 Albumin [Mass/Vol] 4.2 g/dL Normal 3.3 - 5.0 gm/dL R emisol Chem Albumin/Globulin [Mass ratio] 1.6 {ratio} Normal 1.1 - 2.2 Remisol Chem Alk Phos 51 [iU]/d Normal 21 - 98 Int._Unit/L Remisol Chem ALT 9 [iU]/d Normal 6 - 46 Int._Unit/L Remisol Chem Anion gap [Moles/Vol] 12 mmol/L Normal 6 - 16 mEq/L Remisol Chem AST 16 [iU]/d Normal 5 - 43 Int._Unit/L Remisol Chem Bili Total 0.6 mg/dL Normal 0.0 - 1.1 mg/dL Remisol C hem Calcium [Mass/Vol] 9.3 mg/dL Normal 8.9 - 11. 1 mg/dL [facility] Chloride [Moles/Vol] 103 mmol/L Normal 101 - 1 11 mmol/L [facility] Cholesterol [Mass/Vol] 138 mg/dL Normal 120 - 200 mg/dL [facility] Cholesterol in HDL [Mass/Vol] 36 mg/dL Invalid Interpretation Code [facility] Comment on above: Result Comment: '>= 60 LOW RISK' '<= 40 HIGH RISK' Cholesterol in LDL [Mass/Vol] 79 mg/dL Normal <=129mg/dL [facility] Cholesterol in VLDL [Mass/Vol] 42 mg/dL High 7 - 40 mg/dL [facility] CO2 [Moles/Vol] 29 mmol/L Normal 21 - 31 mmol/L Remis ol Chem Creatinine [Mass/Vol] 0.7 mg/dL Normal 0.5 - 1.3 mg/dL [facility] eGFR 107 mL/min/1.73 m2 Normal >=59mL/mi n/1.73 m2 Rem[facility] Globulin (S) [Mass/Vol] 2.6 g/dL Normal 1.4 - 4.0 gm/dL [facility] Glucose [Mass/Vol] 139 mg/dL Normal 55 - 199 mg/dL Re misol Chem Potassium [Moles/Vol] 4.0 mmol/L Normal 3.5 - 5.3 mmol/L Remisol Chem Protein [Mass/Vol] 6.8 g/dL Normal 6.0 - 7.8 gm/dL R emisol Chem Sodium [Moles/Vol] 140 mmol/L Normal 135 - 145 mmol/L Rem[facility] Triglyceride [Mass/Vol] 209 mg/dL High <=149mg/dL Remisol Chem TSH Qn 1.82 m[IU]/L Normal 0.34 - 5.60 mcIU/mL Remisol Chem U Creatinine 95.2 mg/dL Invalid Interpretation Code Remisol Chem U Microalb microgram/mL Normal 0.0 - 19.0 mcg/mL Remisol Chem U Prot/Creat Ratio 8.00 mg/gm Cr Normal 0.00 - 2 00.00 mg/gm Cr Remisol Chem Ur Total Protein 7.6 mg/dL Invalid Interpretation Code Remisol [facility] Urea nitrogen [Mass/Vol] 11 mg/dL Normal 5 - 21 mg/dL Rem[facility] Urea nitrogen/Creatinine [Mass ratio] 16 mg/mg Normal 10 - 20 Remisol [facility] CHEMISTRYOrdered By: Sheela Lilly on 08-10-2023 HbA1c (Bld) [Mass fraction] 7.4 % High <=5.9% [facility] ChemAutoSS CMPon 08-10-2023 Albumin [Mass/Vol] 4.2 g/dL Normal 3.3-5.0 [facility] Comment on above: Performed By: #### 1 [id number], [id number], 0295653, 8808605, 0301851, 9827935, 72003571 ####[facility] [address] [place] [address] Albumin/Globulin [Mass ratio] 1.6 {ratio} Normal 1.1-2.2 [facility] Comment on above: Performed By: #### 1 4845647, 139214704, 7543013, 3127684, 0837413, 3168099, 91376150 ####[facility] [address] [place] [address] Alk Phos 51 Int._Unit/L Normal 21-98 [facility] Comment on above: Performed By: #### 1 6249806, [id number], 8053608, 2784926, 0909911, 0491010, 10057738 ####[facility] [address] [place] [address] ALT 9 Int._Unit/L Normal 6-46 [facility] Comment on above: Performed By: #### 1 9449377, 152321093, 7214254, 8280882, 8347347, 1473348, 49098500 ####[facility] [address] [place] [address] Anion gap [Moles/Vol] 12 mmol/L Normal 6-16 [facility] Comment on above: Performed By: #### 1 0877531, 873803497, 8495054, 6633680, 4017581, 1369661, 96676819 ####[facility] [address] [place] [address] AST 16 Int._Unit/L Normal 5-43 [facility] Comment on above: Performed By: #### 1 5584993, 849665120, 4171374, 8134501, 2644682, 6570349, 78891211 ####[facility] [address] [place] [address] Bili Total 0.6 mg/dL Normal 0.0-1.1 [facility] Comment on above: Performed By: #### 1 2795348, 572059469, 1242639, 0776074, 6742162, 2120840, 89562325 ####[facility] [address] [place] [address] BUN/Creat Ratio 16 No Units Normal 10-20 [facility] Comment on above: Performed By: #### 1 9847571, 377205290, 8124448, 9601965, 7650024, 0567292, 97566845 ####[facility] [address] [place] [address] Calcium [Mass/Vol] 9.3 mg/dL Normal 8.9-11.1 [facility] Comment on above: Performed By: #### 1 6279227, 770793061, 6959443, 6817411, 6263238, 2945136, 32327314 ####[facility] [address] [place] [address] Chloride [Moles/Vol] 103 mmol/L Normal 101-111 [facility] Comment on above: Performed By: #### 1 8345995, 270382446, 5239585, 6159427, 7106485, 7442606, 49110449 ####[facility] [address] [place] [address] CO2 [Moles/Vol] 29 mmol/L Normal 21-31 [facility] Comment on above: Performed By: #### 1 5766599, 757968776, 1872766, 7275819, 5986767, 7142687, 73164592 ####[facility] [address] [place] [address] Creatinine [Mass/Vol] 0.7 mg/dL Normal 0.5-1.3 [facility] Comment on above: Performed By: #### 1 4707882, 488996421, 6567972, 2921188, 1609729, 0015038, 78116327 ####[facility] [address] [place] [address] Globulin (S) [Mass/Vol] 2.6 g/dL Normal 1.4-4.0 [facility] Comment on above: Performed By: #### 1 9317504, 640821377, 4593436, 6858178, 0445155, 6356328, 19072883 ####[facility] [address] [place] [address] Glucose [Mass/Vol] 139 mg/dL Normal 55-199 [facility] Comment on above: Performed By: #### 1 3797197, 807646072, 5756593, 7054815, 0897015, 3009281, 90082012 ####[facility] [address] [place] [address] Potassium [Moles/Vol] 4.0 mmol/L Normal 3.5-5.3 [facility] Comment on above: Performed By: #### 1 7850979, 969823469, 5036985, 9458102, 4439491, 1830688, 99883026 ####[facility] [address] [place] [address] Protein [Mass/Vol] 6.8 g/dL Normal 6.0-7.8 [facility] Comment on above: Performed By: #### 1 8122228, 257476071, 8872581, 0801690, 8246893, 5523810, 35254045 ####[facility] [address] [place] [address] Sodium [Moles/Vol] 140 mmol/L Normal 135-145 [facility] Comment on above: Performed By: #### 1 9182464, 310709106, 1185032, 8010181, 8275502, 7322540, 47170897 ####[facility] [address] [place] [address] Urea nitrogen [Mass/Vol] 11 mg/dL Normal 5-21 [facility] Comment on above: Performed By: #### 1 7796000, 364349098, 2378632, 7815208, 0244470, 7499034, 79476079 ####[facility] [address] [place] [address] HEMATOLOGYOrdered By: SYSTEM SYSTEM on 08-10-2023 Basophils/100 WBC (Bld) 0.5 % Normal 0.0 - 2.0 % [facility] HemeAutoSS Basophils/Leukocytes Auto (Bld) [Pure # fraction] 0.0 E9/L Normal 0.0 - 0.2 E9/L [facility] Eosinophils/100 WBC (Bld) 2.4 % Normal 0.0 - 8.0 % [facility]eAuto[facility] Eosinophils/Leukocyt es Auto (Bld) [Pure # fraction] 0.2 E9/L Normal 0.0 - 0.5 E9/L [facility]eAuto[facility] Lymphocytes/100 WBC (Bld) 41.4 % Normal 14.0 - 50.0 % [facility] HemeAutoSS Lymphocytes/Leukocyt es Auto (Bld) [Pure # fraction] 3.0 E9/L Normal 1.0 - 4.0 E9/L [facility] Monocytes/100 WBC (Bld) 6.9 % Normal 4.0 - 14.0 % [facility]eAuto[facility] Monocytes/Leukocytes Auto (Bld) [Pure # fraction] 0.5 E9/L Normal 0.2 - 1.0 E9/L [facility] Neutrophils/100 WBC (Bld) 48.8 % Normal 36.0 - 75.0 % [facility]eAutoSS Neutrophils/Leukocyt es Auto (Bld) [Pure # fraction] 3.5 E9/L Normal 2.0 - 7.5 E9/L [facility] HemeAutoSS HEMATOLOGYOrdered By: Shyla Guillaume on 08-10-2023 Erythrocyte distribution width (RBC) [Ratio] 13.4 % Normal 10.9 - 14.2 % [facility] Hematocrit (Bld) [Volume fraction] 43.0 % Normal 34.0 - 46.0 % [facility]eAutoSS Hemoglobin (Bld) [Mass/Vol] 14.6 g/dL Normal 12.0 - 16.0 gm/dL [facility] MCH (RBC) [Entitic mass] 32.8 pg Normal 27.0 - 34.0 pg [facility] HemeAutoSS MCHC (RBC) [Mass/Vol] 33.9 g/dL Normal 31.4 - 36.0 gm/dL [facility]eAuto[facility] MCV (RBC) [Entitic vol] 97.0 fL Normal 80.0 - 100.0 fL [facility] Platelet mean volume (Bld) [Entitic vol] 9.4 fL Normal 6.4 - 10.8 fL [facility] HemeAutoSS Platelets (Bld) [#/Vol] 250.0 E9/L Normal 150.0 - 500.0 E9/L [facility]eAutoSS RBC (Bld) [#/Vol] 4.4 E12/L Normal 4.3 - 5.9 E12/L [facility] HemeAutoSS WBC corrected for nucl RBC Auto (Bld) [#/Vol] 7.3 E9/L Normal 4.0 - 11.0 E9/L [facility]eAutoSS [id number] 08-10-2023 HbA1c (Bld) [Mass fraction] 7.4 % High <=5.9 [facility] Comment on above: Performed By: #### 1 2949940, 673922347, 8986181, 8982624, 9764296, 8341763, 96152302 ####[facility] [address] [place] [address] Lipid Panelon 08-10-2023 Cholesterol [Mass/Vol] 138 mg/dL Normal 120-200 [facility] Comment on above: Performed By: #### 1 5235428, 699629791, 6776037, 8331705, 1518988, 1551178, 18219118 ####[facility] [address] [place] [address] Cholesterol in HDL [Mass/Vol] 36 mg/dL Invalid Interpretation Code [facility] Comment on above: Result Comment: '>= 60 LOW RISK' '<= 40 HIGH RISK' Performed By: #### 1 6159216, 196474829, 0848523, 4068349, 0274012, 4362300, 71921012 ####[facility] [address] [place] [address] Cholesterol in LDL [Mass/Vol] 79 mg/dL Normal <=129 [facility] Comment on above: Performed By: #### 1 4012528, 145589529, 9779822, 3233226, 0369912, 1462477, 17441421 ####[facility] [address] [place] [address] Cholesterol in VLDL [Mass/Vol] 42 mg/dL High 7-40 [facility] Comment on above: Performed By: #### 1 3679233, 972348153, 4215578, 6935235, 2062955, 1171898, 18009870 ####[facility] [address] [place] [address] Triglyceride [Mass/Vol] 209 mg/dL High <=149 [facility] Comment on above: Performed By: #### 1 1122099, 725694165, 1888987, 2237584, 0498804, 9931795, 96244194 ####[facility] [address] [place] [address] Nurse Consultation Noteon Nurse Consultation Note Reason for Visit Here for lab draw Medications Abilify 20 mg oral tablet, 20 mg= 1 tab(s), Oral, Daily alcohol pads, See Instructions, 1 refills busPIRone 15 mg Tab Centrum Silver oral tablet, 1 tab(s), Oral, Daily, 1 refills citalopram 40 mg Tab Cytomel 5 mcg Tab, 5 mcg= 1 tab(s), Oral, Daily, 5 refills Daily Ivana oral tablet, See Instructions dapagliflozin 5 mg oral tablet, 5 mg= 1 tab(s), Oral, Daily, 1 refills diclofenac topical 1% gel, 2 gm, Topical, TID Easy comfort Mis 31Gx3/16, See Instructions, 5 refills fluticasone Nasal 0.05 mg/inh Sully, See Instructions Free style Cristopher Kit 2 sensors, See Instructions, 11 refills hydrochlorothiazide-lo sartan 12.5 mg-100 mg oral tablet, See Instructions Insulin Aspart FlexPen 100 units/mL injectable solution, See Instructions Latuda 40 mg oral tablet, 40 mg= 1 tab(s), Oral, Daily levothyroxine 100 mcg (0.1 mg) Tab, See Instructions meloxicam 15 mg Tab, See Instructions MetFORMIN (Eqv-Glucophage XR) 500 mg oral tablet, extended release, See Instructions montelukast 10 mg Tab, See Instructions omeprazole 20 mg Cap-DR, See Instructions ropinirole 0.25 mg Tab, 0.25 mg= 1 tab(s), Oral, Bedtime rosuvastatin 5 mg Tab, 5 mg= 1 tab(s), Oral, Once a day (at bedtime), 1 refills Trulicity Pen 4.5 mg/0.5 mL subcutaneous solution, 4.5 mg, SubCutaneous, qWeek, 1 refills Valtrex, 1 gm, Oral, Daily Webcol Alcohol Preps 70% topical pad, See Instructions Allergies Depakote (Unknown) Nesina (Unknown) Nubain (Unknown) Trileptal (Unknown) Valacyclovir Hydrochloride sulfa drugs (Rash) Immunizations Vaccine Date Status Comments influenza virus vaccine, inactivated - Not Given Postpone due to refusal SARS-CoV-2 mRNA (tozinameran 5y-11y) vac - Not Given Postpone due to refusal SARS-CoV-2 mRNA (tozinameran 5y-11y) vac - Not Given Postpone due to refusal influenza virus vaccine, inactivated - Not Given Patient Refuses influenza virus vaccine, inactivated 05/29/2015 Recorded influenza virus vaccine, inactivated 05/26/2014 Recorded influenza virus vaccine, inactivated 04/18/2013 Recorded Normal [facility] TSH With T4fr Reflexon 08-10 TSH Qn 1.82 m[IU]/L Normal 0.34-5.60 [facility] Comment on above: Performed By: #### 1 2860953, 944480104, 8433230, 8021767, 2707214, 9771281, 81041400 ####[facility] [address] [facility] [place] [place] [address] U Microalbon 08-10-2023 U Microalb <2.0 Normal 0.0-19.0 [facility] Comment on above: Performed By: #### 1 4154815, [id number] ####[facility] [address] [place] [address] U Protein/Creat Ratioon 07-27 U Creatinine 95.2 mg/dL Invalid Interpretation Code [facility] Comment on above: Performed By: #### 1 4783570, [id number] ####[facility] [address] [place] [address] U Prot/Creat Ratio 8.00 mg/gm Cr Normal .00-200.00 [facility] Comment on above: Performed By: #### 1 5714020, [id number] ####[address] [place] [address] Ur Total Protein 7.6 mg/dL Invalid Interpretation Code [facility] Comment on above: Performed By: #### 1 2089352, [id number] ####[facility] [address] [place] [address] eGFRon 08-10-2023 eGFR 107 mL/min/1.73 m2 Normal >=59 [facility] Comment on above: Order Comment: Order added by Discern Expert. Performed By: #### 1 1652410, 620537480, 6670332, 5148895, 6743136, 3583452, 47771803 ####[address] [address] Consultation Noteon 07-29-19 24 Consultation Note [id number] 20 [id number]#1.0 0TIFF Normal [facility] XR SHOULDER LT MIN 2 VWSon 1 09-23-2022 XR SHOULDER LT MIN 2 VWS XR SHOULDER LT MIN 2 VWS XR SHOULDER LT MIN 2 VWS History: Chronic left shoulder pain Findings: There is no fracture, dislocation, or destructive lesion. Impression: * No acute findings. Mild AC joint arthritis. Consider MR if you suspect occult internal derangement Finalized by Tye Enriquez MD on 07/23/2023 7:11 PM [facility] Ambulatory Visit Summaryon 1 09-14-2022 Ambulatory Visit Summary AMAIRANI GONZALES :1975 Visit Date:07/14/2023 Ambulatory Visit Instructions Your Diagnosis DM type 2 (diabetes mellitus, type 2) Hypothyroidism, unspecified type Acid reflux disease BMI 28.0-28.9,adult Over weight Smoker STACIA (obstructive sleep apnea) Primary hypertension Anxiety Bipolar disease, chronic Insomnia Your Care Team Attending Physician - Joss Shepherd MD Primary Care Physician - Joss Shepherd MD This Is Your Medications List dulaglutide (Trulicity Pen 4.5 mg/0.5 mL subcutaneous solution) Contact prescribing physician if questions or concerns Misc Prescription (Easy comfort Mis 31Gx3/16) Misc Prescription (Free style Cristopher Kit 2 sensors) Misc Prescription (alcohol pads) aripiprazole (Abilify 20 mg oral tablet) busPIRone (busPIRone 15 mg Tab) citalopram (citalopram 40 mg Tab) dapagliflozin (dapagliflozin 5 mg oral tablet) diclofenac topical (diclofenac topical 1% gel) fluticasone nasal (fluticasone Nasal 0.05 mg/inh Sully) hydrochlorothiazide-lo sartan (hydrochlorothiazide-l osartan 12.5 mg-100 mg oral tablet) insulin aspart (Insulin Aspart FlexPen 100 units/mL injectable solution) isopropyl alcohol topical (Webcol Alcohol Preps 70% topical pad) levothyroxine (levothyroxine 100 mcg (0.1 mg) Tab) liothyronine (Cytomel 5 mcg Tab) lurasidone (Latuda 40 mg oral tablet) meloxicam (meloxicam 15 mg Tab) metformin (MetFORMIN (Eqv-Glucophage XR) 500 mg oral tablet, extended release) montelukast (montelukast 10 mg Tab) multivitamin (Daily Ivana oral tablet) multivitamin with minerals (Centrum Silver oral tablet) omeprazole (omeprazole 20 mg Cap-DR) ropinirole (ropinirole 0.25 mg Tab) rosuvastatin (rosuvastatin 5 mg Tab) valacyclovir (Valtrex) Procedures Performed Epidural injection of lumbar spine using fluoroscopic guidance (08/12/2013), EGD - Esophagogastroduodenos copy, mole revoved on left buttock, Radiofrequency ablation of nerve root of lumbar spine using fluoroscopic guidance, Removal of pilonidal cyst, Repair of umbilical hernia, Tubal ligation. Discharge Vitals Temperature (Oral) 36.8 ?C Heart Rate (Peripheral) 88 Respiratory Rate 16 Blood Pressure 98/64 Height 166.6 cm Height 66 in Weight 78.7 kg Weight 173.14 lb BMI 28.35 What to do next Scheduled Follow-Up Appointments Thursday 8:20 AM EST With: Where: [facility] Normal [address] \.br\ Medications\.br \ What How Much When Instructions\.b r\ Changed dulaglutide (Trulicity Pen 4.5 mg/ 0.5 mL subcutaneous solution) 4.5 Milligram Subcutaneous Every week Pickup at [facility] [place] [address]\.br\ Unchanged aripiprazole (Abilify 20 mg oral tablet) 1 Tablets By Mouth Every day Contact prescribing physician if questions or concerns \.br\ Unchanged busPIRone (busPIRone 15 mg Tab) 60 EA, 0 Refill(s), TAKE ONE TABLET BY MOUTH TWICE A DAY Contact prescribing physician if questions or concerns \.br\ Unchanged citalopram (citalopram 40 mg Tab) 30 EA, 0 Refill(s), TAKE ONE TABLET BY MOUTH DAILY Contact prescribing physician if questions or concerns \.br\ Unchanged dapagliflozin (dapagliflozin 5 mg oral tablet) 1 Tablets By Mouth Every day Contact prescribing physician if questions or concerns \.br\ Unchanged diclofenac topical (diclofenac topical 1% gel) 2 Gram Topical 3 times a day Contact prescribing physician if questions or concerns \.br\ Unchanged fluticasone nasal (fluticasone Nasal 0.05 mg/ inh Sully) See instructions USE 2 SPRAYS INTO EACH NOSTRIL ONCE DAILY Contact prescribing physician if questions or concerns \.br\ Unchanged hydrochlorothia zide-losartan (hydrochlorothi azide-losartan 12.5 mg-100 mg oral tablet) See instructions TAKE ONE TABLET BY MOUTH DAILY Contact prescribing physician if questions or concerns \.br\ Unchanged insulin aspart (Insulin Aspart FlexPen 100 units/ mL injectable solution) See instructions SLIDING SCALE FOR BS: 150-200: 2U, 201-250: 4U, 251-300: 6U, 301-350: 8U, 351-400: 10U, BS>401: 12U; CARB COVERAGE 1 UNIT PER 15 CARBS (EXPECT 60U DAILY) Contact prescribing physician if questions or concerns \.br\ Unchanged isopropyl alcohol topical (Webcol Alcohol Preps 70% topical pad) See instructions Use swab daily before each blood sugar check Contact prescribing physician if questions or concerns \.br\ Unchanged levothyroxine (levothyroxine 100 mcg (0.1 mg) Tab) See instructions TAKE ONE TABLET BY MOUTH DAILY Contact prescribing physician if questions or concerns \.br\ Unchanged liothyronine (Cytomel 5 mcg Tab) 1 Tablets By Mouth Every day Contact prescribing physician if questions or concerns \.br\ Unchanged lurasidone (Latuda 40 mg oral tablet) 1 Tablets By Mouth Every day Contact prescribing physician if questions or concerns \.br\ Unchanged meloxicam (meloxicam 15 mg Tab) See instructions TAKE ONE TABLET BY MOUTH ONCE DAILY Contact prescribing physician if questions or concerns \.br\ Unchanged metformin (MetFORMIN (Eqv-Glucophage XR) 500 mg oral tablet, extended release) See instructions TAKE ONE TABLET BY MOUTH THREE TIMES A DAY Contact prescribing physician if questions or concerns \.br\ Unchanged Misc Prescription (alcohol pads) See instructions use to check BS daily dx. E11.319 Contact prescribing physician if questions or concerns \.br\ Unchanged Misc Prescription (Easy comfort Mis 31Gx3/ 16) See instructions use with Novolog injections Contact prescribing physician if questions or concerns \.br\ Unchanged Misc Prescription (Free style Cristopher Kit 2 sensors) See instructions use to montior BS DX E11.8 E11.42 Contact prescribing physician if questions or concerns \.br\ Unchanged montelukast (montelukast 10 mg Tab) See instructions TAKE ONE TABLET BY MOUTH DAILY IN THE EVENING Contact prescribing physician if questions or concerns \.br\ Unchanged multivitamin (Daily Ivana oral tablet) See instructions TAKE ONE TABLET BY MOUTH ONCE DAILY Contact prescribing physician if questions or concerns \.br\ Unchanged multivitamin with minerals (Centrum Silver oral tablet) 1 Tablets By Mouth Every day Contact prescribing physician if questions or concerns \.br\ Unchanged omeprazole (omeprazole 20 mg Cap-DR) See instructions TAKE ONE CAPSULE BY MOUTH DAILY Contact prescribing physician if questions or concerns \.br\ Unchanged ropinirole (ropinirole 0.25 mg Tab) 1 Tablets By Mouth At bedtime Contact prescribing physician if questions or concerns \.br\ Unchanged rosuvastatin (rosuvastatin 5 mg Tab) 1 Tablets By Mouth Once a day (at bedtime) Contact prescribing physician if questions or concerns \.br\ Unchanged valacyclovir (Valtrex) 1 Gram By Mouth Every day Contact prescribing physician if questions or concerns \.br\ Pharmacy Information\.br \ [facility]: [address], [place] [id number] [phone]\.br\ Allergies\.br\ Depakote (Unknown)\.br\ Nesina (Unknown)\.br\ Nubain (Unknown)\.br\ Trileptal (Unknown)\.br\ Valacyclovir Hydrochloride\. br\ sulfa drugs (Rash)\.br\ Problems\.br\ Ongoing - Any problem that you are currently receiving treatment for.\.br\ Acid reflux disease\.br\ Advanced diabetic retinal disease\.br\ Allergic rhinitis\.br\ Ambulates with cane\.br\ Anxiety\.br\ Bipolar disease, chronic\.br\ BMI 27.0-27.9,adult \.br\ DM type 2 (diabetes mellitus, type 2)\.br\ Genital herpes\.br\ History of gastric ulcer\.br\ Hypothyroidism\ .br\ Insomnia\.br\ Lumbosacral spondylosis with radiculopathy\. br\ Marijuana user\.br\ MARINELLI (nonalcoholic steatohepatitis )\.br\ Neuropathy\.br\ STACIA (obstructive sleep apnea)\.br\ Primary hypertension\.b r\ Pure hypercholestero lemia\.br\ Screening for malignant neoplasm of colon\.br\ Smoker\.br\ Vitamin D deficiency\.br\ Historical - Any problem that you are no longer receiving treatment for.\.br\ Anxiety\.br\ Bipolar\.br\ Bursitis\.br\ Diabetes\.br\ Hypothyroid\.br \ Sleep apnea\.br\ Patient Survey\.br\ You may receive a survey via text or e-mail asking about your office visit. Please share your experience with us by completing your survey. We appreciate your feedback and thank you for choosing us for your care.\.br\ \.br\ [facility] Medicine Office/Clini c Noteon 07-14-2023 Family Medicine Office/Clinic Note HPI Staff Amairani is a 47 year old female presenting for 3 month follow up Do you have any of the following symptoms? Foot Exam: done by Dr Millard Eye Exam: jul 2022 Last A1C: Hgb A1C %: 7.3 % High (04/22/23 09:21:00) Statin: rosuvastatin 5mg flu: refused questions/concerns: sister diagnosed with parkinson's is this hereditary History of Present Illness - Here to discuss chronic issues. - No problems at this time - BS are elevated per the patient, but has only had to use the SSI once. - Not due till next week for BS Physical Exam Vitals & Measurements T: 36.8 ?C(Oral) HR: 88(Peripheral) RR: 16 BP: 98/64 SpO2: 96% HT: 66 in HT: 166.6 cm WT: 78.7 kg WT: 173.14 lb BMI: 28.35 General: alert, no acute distress ENMT: oral mucosa moist, Cardiovascular: regular rate and rhythm, normal peripheral perfusion Respiratory: Lungs CTA, respirations non labored Extremities: no deformity, no trauma Neurological: oriented x 4, LOC appropriate for age, CN II-XII intact, motor strength equal & normal bilaterally, speech normal Abdomen: Soft, Nontender, Non-distended, + BS Assessment/Plan 1. DM type 2 (diabetes mellitus, type 2) (E11.9: Type 2 diabetes mellitus without complications) - Will order labs - Will adjust Trulicity at this time - Follow up in 3 months Ordered: Body Mass Index (BMI) documented 3008F CBC w/ Auto Diff Comprehensive Metabolic Panel Current tobacco smoker 1034F HgbA1c Influenza immunization status assessed 1030F Lipid Panel Microalbumin Level Urine Most recent diastolic blood pressure <80 mm Hg 3078F Systolic BP <130 mm Hg (Most Recent) 3074F TSH With T4fr Reflex U Protein/Creat Ratio 2. Hypothyroidism, unspecified type (E03.9: Hypothyroidism, unspecified) - Will recheck at next weeks labs - Adjust meds as needed - NO symptoms Ordered: Body Mass Index (BMI) documented 3008F CBC w/ Auto Diff Comprehensive Metabolic Panel Current tobacco smoker 1034F HgbA1c Influenza immunization status assessed 1030F Lipid Panel Microalbumin Level Urine Most recent diastolic blood pressure <80 mm Hg 3078F Systolic BP <130 mm Hg (Most Recent) 3074F TSH With T4fr Reflex U Protein/Creat Ratio 3. Acid reflux disease (K21.9: Gastro-esophageal reflux disease without esophagitis) - Stable - Continue on PPI Ordered: Body Mass Index (BMI) documented 3008F CBC w/ Auto Diff Comprehensive Metabolic Panel Current tobacco smoker 1034F HgbA1c Influenza immunization status assessed 1030F Lipid Panel Microalbumin Level Urine Most recent diastolic blood pressure <80 mm Hg 3078F Systolic BP <130 mm Hg (Most Recent) 3074F TSH With T4fr Reflex U Protein/Creat Ratio 4. BMI 28.0-28.9,adult (Z68.28: Body mass index [BMI] 28.0-28.9, adult) - BMI education given Ordered: Body Mass Index (BMI) documented 3008F CBC w/ Auto Diff Comprehensive Metabolic Panel Current tobacco smoker 1034F HgbA1c Influenza immunization status assessed 1030F Lipid Panel Microalbumin Level Urine Most recent diastolic blood pressure <80 mm Hg 3078F Systolic BP <130 mm Hg (Most Recent) 3074F TSH With T4fr Reflex U Protein/Creat Ratio 5. Over weight (E66.3: Overweight) - Diet and exercise advised Ordered: Body Mass Index (BMI) documented 3008F CBC w/ Auto Diff Comprehensive Metabolic Panel Current tobacco smoker 1034F HgbA1c Influenza immunization status assessed 1030F Lipid Panel Microalbumin Level Urine Most recent diastolic blood pressure <80 mm Hg 3078F Systolic BP <130 mm Hg (Most Recent) 3074F TSH With T4fr Reflex U Protein/Creat Ratio 6. Smoker (F17.200: Nicotine dependence, unspecified, uncomplicated) - Smoking cessation advised - NO further issues at this time Ordered: Body Mass Index (BMI) documented 3008F CBC w/ Auto Diff Comprehensive Metabolic Panel Current tobacco smoker 1034F HgbA1c Influenza immunization status assessed 1030F Lipid Panel Microalbumin Level Urine Most recent diastolic blood pressure <80 mm Hg 3078F Systolic BP <130 mm Hg (Most Recent) 3074F TSH With T4fr Reflex U Protein/Creat Ratio 7. STACIA (obstructive sleep apnea) (G47.33: Obstructive sleep apnea (adult) (pediatric)) - Please continue to use CPAP Ordered: Body Mass Index (BMI) documented 3008F CBC w/ Auto Diff Comprehensive Metabolic Panel Current tobacco smoker 1034F HgbA1c Influenza immunization status assessed 1030F Lipid Panel Microalbumin Level Urine Most recent diastolic blood pressure <80 mm Hg 3078F Systolic BP <130 mm Hg (Most Recent) 3074F TSH With T4fr Reflex U Protein/Creat Ratio 8. Primary hypertension (I10: Essential (primary) hypertension) - Controlled - Will refill meds as needed Ordered: Body Mass Index (BMI) documented 3008F CBC w/ Auto Diff Comprehensive Metabolic Panel Current tobacco smoker 1034F HgbA1c Influenza immunization status assessed 1030F Lipid Panel Microal (more content not included)... Normal [facility] Comment on above: Result Comment: Elec tronically Signed By: Miah ESPITIA, Joss Hartmann\.br\Date and Time Signed: 07/14/23 15:02 EST Patient Educationon 07-14-20 Patient Education Nutrition BMI for Adults What is BMI? Body mass index (BMI) is a number that is calculated from a person's weight and height. BMI can help estimate how much of a person's weight is composed of fat. BMI does not measure body fat directly. Rather, it is an alternative to procedures that directly measure body fat, which can be difficult and expensive. BMI can help identify people who may be at higher risk for certain medical problems. What are BMI measurements used for? BMI is used as a screening tool to identify possible weight problems. It helps determine whether a person is obese, overweight, a healthy weight, or underweight. BMI is useful for: ? Identifying a weight problem that may be related to a medical condition or may increase the risk for medical problems. ? Promoting changes, such as changes in diet and exercise, to help reach a healthy weight. BMI screening can be repeated to see if these changes are working. How is BMI calculated? BMI involves measuring your weight in relation to your height. Both height and weight are measured, and the BMI is calculated from those numbers. This can be done either in [place] or metric measurements. Note that charts and online BMI calculators are available to help you find your BMI quickly and easily without having to do these calculations yourself. To calculate your BMI in [place] measurements: 1. Measure your weight in pounds (lb). 2. Multiply the number of pounds by 703. ? For example, for a person who weighs 180 lb, multiply that number by 703, which equals 126,540. 3. Measure your height in inches. Then multiply that number by itself to get a measurement called inches squared. ? For example, for a person who is 70 inches tall, the inches squared measurement is 70 inches x 70 inches, which equals 4,900 inches squared. 4. Divide the total from step 2 (number of lb x 703) by the total from step 3 (inches squared): 126,540 ? 4,900 = 25.8. This is your BMI. To calculate your BMI in metric measurements: 1. Measure your weight in kilograms (kg). 2. Measure your height in meters (m). Then multiply that number by itself to get a measurement called meters squared. ? For example, for a person who is 1.75 m tall, the meters squared measurement is 1.75 m x 1.75 m, which is equal to 3.1 meters squared. 3. Divide the number of kilograms (your weight) by the meters squared number. In this example: 70 ? 3.1 = 22.6. This is your BMI. What do the results mean? BMI charts are used to identify whether you are underweight, normal weight, overweight, or obese. The following guidelines will be used: ? Underweight: BMI less than 18.5. ? Normal weight: BMI between 18.5 and 24.9. ? Overweight: BMI between 25 and 29.9. ? Obese: BMI of 30 or above. Keep these notes in mind: ? Weight includes both fat and muscle, so someone with a muscular build, such as an athlete, may have a BMI that is higher than 24.9. In cases like these, BMI is not an accurate measure of body fat. ? To determine if excess body fat is the cause of a BMI of 25 or higher, further assessments may need to be done by a health care provider. ? BMI is usually interpreted in the same way for men and women. Where to find more information For more information about BMI, including tools to quickly calculate your BMI, go to these websites: ? Centers for Disease Control and Prevention: www.cdc.gov ? [place] [employer]: www.heart.org ? National Heart, Lung, and Blood [place]: www.nhlbi.nih.gov Summary ? Body mass index (BMI) is a number that is calculated from a person's weight and height. ? BMI may help estimate how much of a person's weight is composed of fat. BMI can help identify those who may be at higher risk for certain medical problems. ? BMI can be measured using [place]o measurements or metric measurements. ? BMI charts are used to identify whether you are underweight, normal weight, overweight, or obese. This information is not intended to replace advice given to you by your health care provider. Make sure you discuss any questions you have with your health care provider. Document Revised: 04/04/2020 Document Reviewed: 02/10/2020 [email or web address] Patient Education ? 2022 [employer] [facility] Consultation Noteon 05-19-20 Consultation Note [id number] 00 [id number] 0TIFF [facility] Formson 05-06-2023 Forms [id number] 00 [id number] 0TIFF [facility] Ambulatory Visit Summaryon 1 Ambulatory Visit Summary AMAIRANI GONZALES :1975 Visit Date:05/04/2023 Ambulatory Visit Instructions Your Diagnosis DM type 2 (diabetes mellitus, type 2) Hypothyroid Anxiety BMI 28.0-28.9,adult Overweight Smoker Your Care Team Attending Physician - Joss Shepherd MD Primary Care Physician - Joss Shepherd MD This Is Your Medications List Contact prescribing physician if questions or concerns Misc Prescription (Easy comfort Mis 31Gx3/16) Misc Prescription (Free style Cristopher Kit 2 sensors) Misc Prescription (alcohol pads) aripiprazole (Abilify 20 mg oral tablet) busPIRone (busPIRone 15 mg Tab) citalopram (citalopram 40 mg Tab) dapagliflozin (dapagliflozin 5 mg oral tablet) diclofenac topical (diclofenac topical 1% gel) dulaglutide (dulaglutide 3 mg/0.5 mL subcutaneous solution) fluticasone nasal (Flonase 0.05 mg/inh [place]) hydrochlorothiazide-lo sartan (hydrochlorothiazide-l osartan 12.5 mg-100 mg oral tablet) insulin aspart (NovoLOG FlexPen 100 units/mL injectable solution) isopropyl alcohol topical (Webcol Alcohol Preps 70% topical pad) levothyroxine (levothyroxine 75 mcg (0.075 mg) Tab) liothyronine (Cytomel 5 mcg Tab) lurasidone (Latuda 40 mg oral tablet) meloxicam (meloxicam 15 mg Tab) metformin (metformin 500 mg ER Tab) montelukast (montelukast 10 mg Tab) multivitamin with minerals (Centrum Silver oral tablet) omeprazole (omeprazole 20 mg Cap-DR) ropinirole (ropinirole 0.25 mg Tab) rosuvastatin (rosuvastatin 5 mg Tab) valacyclovir (Valtrex) Procedures Performed Epidural injection of lumbar spine using fluoroscopic guidance (08/12/2013), EGD - Esophagogastroduodenos copy, mole revoved on left buttock, Radiofrequency ablation of nerve root of lumbar spine using fluoroscopic guidance, Removal of pilonidal cyst, Repair of umbilical hernia, Tubal ligation. Discharge Vitals Temperature (Oral) 36.5 ?C Heart Rate (Peripheral) 72 Respiratory Rate 14 Blood Pressure 132/78 Height 166.62 cm Height 66 in Weight 80.3 kg Weight 176.66 lb BMI 28.92 What to do next Scheduled Follow-Up Appointments Thursday 2:40 PM EST With: Miah ESPITIA, Joss Hartmann Where: [facility] Family Medicine Office/Clini c Noteon 05-04-2023 Family Medicine Office/Clinic Note HPI Staff Amairani is a 47 year old female presenting for follow up lab result thyroid and diabetes Do you have any of the following symptoms? Foot Exam: none Eye Exam: UTD Last A1C: Hgb A1C %: 7.3 % High (04/22/23 09:21:00) Statin: rosuvastatin 5mg Patient is here for follow up on Thyroid Disease. Do you have any of the following symptoms? Change in energy level? no Weight change? no Heat/cold intolerance? no Hair/skin/nail changes? no Change in bowels? yes doesn't go as often as she should but not eating normally with the trulicity Last TSH: TSH: 63 mcIU/mL High (03/10/23 13:17:00) flu: refused questions/concerns: none History of Present Illness Is here for follow-up. Last TSH was elevated and we adjusted patient's medication. Patient states she has had no symptoms other than increased anxiety. Patient does see Dr. Pelaez for anxiety and we did add her medications that have changed. Otherwise patient is not having any issues with her diabetes. Patient is using her sliding scale insulin. Review of Systems PHQ Score Initial Depression Screen Score: 2 Physical Exam Vitals & Measurements T: 36.5 ?C(Oral) HR: 72(Peripheral) RR: 14 BP: 132/78 SpO2: 95% HT: 66 in HT: 166.62 cm WT: 80.3 kg WT: 176.66 lb BMI: 28.92 General: alert, no acute distress ENMT: oral mucosa moist, Cardiovascular: regular rate and rhythm, normal peripheral perfusion Respiratory: Lungs CTA, respirations non labored Extremities: no deformity, no trauma Neurological: oriented x 4, LOC appropriate for age, CN II-XII intact, motor strength equal & normal bilaterally, speech normal Abdomen: Soft, Nontender, Non-distended, + BS Assessment/Plan 1. DM type 2 (diabetes mellitus, type 2) (E11.9: Type 2 diabetes mellitus without complications) A1c was slightly elevated. We will have the patient adjust diet and activity level. Patient's diabetes may be elevated as well because of the uncontrolled hypothyroidism. Once we get the hypothyroidism under control patient's blood sugars and may follow-up. Ordered: Body Mass Index (BMI) documented 3008F Current tobacco smoker 1034F Depression Screening Negative 3352F Influenza immunization status assessed 1030F Most recent diastolic blood pressure <80 mm Hg 3078F Systolic BP 130-139 mm Hg (Most Recent) 3075F TSH With T4fr Reflex 2. Hypothyroid (E03.9: Hypothyroidism, unspecified) We will get a TSH today and adjust medication as needed. Ordered: Body Mass Index (BMI) documented 3008F Current tobacco smoker 1034F Depression Screening Negative 3352F Influenza immunization status assessed 1030F Most recent diastolic blood pressure <80 mm Hg 3078F Systolic BP 130-139 mm Hg (Most Recent) 3075F TSH With T4fr Reflex 3. Anxiety (F41.9: Anxiety disorder, unspecified) Reviewed patient's medications with her. Patient to continue to see Dr. Pelaez. Will adjust medication as needed but will let Dr. Pelaez handle this. Ordered: TSH With T4fr Reflex 4. BMI 28.0-28.9,adult (Z68.28: Body mass index [BMI] 28.0-28.9, adult) BMI education given Ordered: Body Mass Index (BMI) documented 3008F Current tobacco smoker 1034F Depression Screening Negative 3352F Influenza immunization status assessed 1030F Most recent diastolic blood pressure <80 mm Hg 3078F Systolic BP 130-139 mm Hg (Most Recent) 3075F TSH With T4fr Reflex 5. Overweight (E66.3: Overweight) Discussed diet and exercise Ordered: Body Mass Index (BMI) documented 3008F Current tobacco smoker 1034F Depression Screening Negative 3352F Influenza immunization status assessed 1030F Most recent diastolic blood pressure <80 mm Hg 3078F Systolic BP 130-139 mm Hg (Most Recent) 3075F TSH With T4fr Reflex 6. Smoker (F17.200: Nicotine dependence, unspecified, uncomplicated) Patient is not interested in quitting smoking. Ordered: Body Mass Index (BMI) documented 3008F Current tobacco smoker 1034F Depression Screening Negative 3352F Influenza immunization status assessed 1030F Most recent diastolic blood pressure <80 mm Hg 3078F Systolic BP 130-139 mm Hg (Most Recent) 3075F TSH With T4fr Reflex Follow-up No qualifying data available Patient Education Hypothyroidism BMI for Adults Problem List/Past Medical History Ongoing Acid reflux disease Advanced diabetic retinal disease Allergic rhinitis Ambulates with cane Anxiety Bipolar disease, chronic BMI 27.0-27.9,adult DM type 2 (diabetes mellitus, type 2) Genital herpes History of gastric ulcer Hypothyroid Insomnia Lumbosacral spondylosis with radiculopathy Marijuana user MARINELLI (nonalcoholic steatohepatitis) Neuropathy STACIA (obstructive sleep apnea) Primary hypertension Pure hypercholesterolemia Screening for malignant neoplasm of colon Smoker Vitamin D deficiency Historical Anxiety Bipolar Bursitis Diabetes Hypothyroid Sleep apnea Procedure/Surgical History Epidural injection of lumba (more content not included)... Normal [facility] Comment on above: Result Comment: Elec tronically Signed By: Miah ESPITIA, Joss Hartmann\.br\Date and Time Signed: 05/04/23 07:47 EDT Free T4on 05-04-2023 Free T4 [Mass/Vol] 0.57 ng/dL Low 0.58-1.64 [facility] Comment on above: Order Comment: Free T4 added by Discern Rule due to a TSH result of <0.34 or >5.60. Performed By: #### [id number] ####[facility] [id number] [place] [address] Patient Educationon 05-04-20 Patient Education Endocrinology Hypothyroidism Hypothyroidism is when the thyroid gland does not make enough of certain hormones. This is called an underactive thyroid. The thyroid gland is a small gland located in the lower front part of the neck, just in front of the windpipe (trachea). This gland makes hormones that help control how the body uses food for energy (metabolism) as well as how the heart and brain function. These hormones also play a role in keeping your bones strong. When the thyroid is underactive, it produces too little of the hormones thyroxine (T4) and triiodothyronine (T3). What are the causes? This condition may be caused by: ? Favio's disease. This is a disease in which the body's disease-fighting system (immune system) attacks the thyroid gland. This is the most common cause. ? Viral infections. ? . ? Certain medicines. ? defects. ? Problems with a gland in the center of the brain (pituitary gland). ? Lack of enough iodine in the diet. Other causes may include: ? Past radiation treatments to the head or neck for cancer. ? Past treatment with radioactive iodine. ? Past exposure to radiation in the environment. ? Past surgical removal of part or all of the thyroid. What increases the risk? You are more likely to develop this condition if: ? You are female. ? You have a family history of thyroid conditions. ? You use a medicine called lithium. ? You take medicines that affect the immune system (immunosuppressants). What are the signs or symptoms? Common symptoms of this condition include: ? Not being able to tolerate cold. ? Feeling as though you have no energy (lethargy). ? Lack of appetite. ? Constipation. ? Sadness or depression. ? Weight gain that is not explained by a change in diet or exercise habits. ? Menstrual irregularity. ? Dry skin, coarse hair, or brittle nails. Other symptoms may include: ? Muscle pain. ? Slowing of thought processes. ? Poor memory. How is this diagnosed? This condition may be diagnosed based on: ? Your symptoms, your medical history, and a physical exam. ? Blood tests. You may also have imaging tests, such as an ultrasound or MRI. How is this treated? This condition is treated with medicine that replaces the thyroid hormones that your body does not make. After you begin treatment, it may take several weeks for symptoms to go away. Follow these instructions at home: ? Take dgfj-yyr-fslvdrq and prescription medicines only as told by your health care provider. ? If you start taking any new medicines, tell your health care provider. ? Keep all follow-up visits as told by your health care provider. This is important. ? As your condition improves, your dosage of thyroid hormone medicine may change. ? You will need to have blood tests regularly so that your health care provider can monitor your condition. Contact a health care provider if: ? Your symptoms do not get better with treatment. ? You are taking thyroid hormone replacement medicine and you: ? Sweat a lot. ? Have tremors. ? Feel anxious. ? Lose weight rapidly. ? Cannot tolerate heat. ? Have emotional swings. ? Have diarrhea. ? Feel weak. Get help right away if: ? You have chest pain. ? You have an irregular heartbeat. ? You have a rapid heartbeat. ? You have difficulty breathing. These symptoms may be an emergency. Get help right away. Call 911. ? Do not wait to see if the symptoms will go away. ? Do not drive yourself to the hospital. Summary ? Hypothyroidism is when the thyroid gland does not make enough of certain hormones (it is underactive). ? When the thyroid is underactive, it produces too little of the hormones thyroxine (T4) and triiodothyronine (T3). ? The most common cause is Favio's disease, a disease in which the body's disease-fighting system (immune system) attacks the thyroid gland. The condition can also be caused by viral infections, medicine, , or past radiation treatment to the head or neck. ? Symptoms may include weight gain, dry skin, constipation, feeling as though you do not have energy, and not being able to tolerate cold. ? This condition is treated with medicine to replace the thyroid hormones that your body does not make. This information is not intended to replace advice given to you by your health care provider. Make sure you discuss any questions you have with your health care provider. Document Revised: 07/15/2022 Document Reviewed: 07/15/2022 [employer] Patient Education ? 2022 [email or web address] Nutrition BMI for Adults What is BMI? Body mass index (BMI) is a number that is calculated from a person's weight and height. BMI can help estimate how much of a person's weight is composed of fat. BMI does not measure body fat directly. Rather, it is an alternative to procedures that directly measure body fat, which can be difficult and expensive. BMI can help identify peopl (more content not included)... Normal [facility] TSH With T4fr Reflexon 05-04 TSH Qn 54.00 m[IU]/L High 0.34-5.60 [facility] Comment on above: Performed By: #### [id number] ####[facility] [id number] [place] [address] Formson 04-29-2023 Forms [id number] 00 [id number] Normal [facility] [id number] 04-22-2023 HbA1c (Bld) [Mass fraction] 7.3 % High <=5.9 [facility] Comment on above: Performed By: #### [id number] ####[facility] [id number] [place] [address] Nurse Consultation Noteon Nurse Consultation Note Reason for Visit Here for lab draw Assessment/Plan Type 2 diabetes mellitus (E11.9: Type 2 diabetes mellitus without complications) Medications Abilify 20 mg oral tablet, 20 mg= 1 tab(s), Oral, Daily alcohol pads, See Instructions, 1 refills Centrum Silver oral tablet, 1 tab(s), Oral, Daily, 1 refills Cytomel 5 mcg Tab, 5 mcg= 1 tab(s), Oral, Daily, 5 refills dapagliflozin 5 mg oral tablet, 5 mg= 1 tab(s), Oral, Daily diclofenac topical 1% gel, 2 gm, Topical, TID dulaglutide 3 mg/0.5 mL subcutaneous solution, 3 mg, SubCutaneous, qWeek Easy comfort Mis 31Gx3/16, See Instructions, 5 refills Flonase 0.05 mg/inh [place], 2 spray(s), Nasal, Daily, 3 refills Free style Cristopher Kit 2 sensors, See Instructions, 11 refills hydrochlorothiazide-lo sartan 12.5 mg-100 mg oral tablet, 1 tab(s), Oral, Daily, 5 refills Latuda 40 mg oral tablet, 40 mg= 1 tab(s), Oral, Daily levothyroxine 75 mcg (0.075 mg) Tab, See Instructions meloxicam 15 mg Tab, 15 mg= 1 tab(s), Oral, Daily, 1 refills metformin 500 mg ER Tab, 500 mg= 1 tab(s), Oral, TID, 5 refills montelukast 10 mg Tab, 10 mg= 1 tab(s), Oral, qPM, 5 refills NovoLOG FlexPen 100 units/mL injectable solution, See Instructions, 1 refills omeprazole 20 mg Cap-DR, 20 mg= 1 cap(s), Oral, Daily, 5 refills ropinirole 0.25 mg Tab, 0.25 mg= 1 tab(s), Oral, Bedtime rosuvastatin 5 mg Tab, 5 mg= 1 tab(s), Oral, Once a day (at bedtime), 1 refills Valtrex, 1 gm, Oral, Daily Webcol Alcohol Preps 70% topical pad, See Instructions Allergies Depakote (Unknown) Nesina (Unknown) Nubain (Unknown) Trileptal (Unknown) Valacyclovir Hydrochloride sulfa drugs (Rash) Immunizations Vaccine Date Status Comments SARS-CoV-2 mRNA (tozinameran 5y-11y) vac - Not Given Postpone due to refusal SARS-CoV-2 mRNA (tozinameran 5y-11y) vac - Not Given Postpone due to refusal influenza virus vaccine, inactivated - Not Given Patient Refuses influenza virus vaccine, inactivated 05/29/2015 Recorded influenza virus vaccine, inactivated 05/26/2014 Recorded influenza virus vaccine, inactivated 04/18/2013 Recorded Normal [facility] Ambulatory Visit Summaryon 0 03-16-2023 Ambulatory Visit Summary AMAIRANI GONZALES :1975 Visit Date:03/16/2023 Ambulatory Visit Instructions Your Diagnosis Acid reflux disease DM type 2 (diabetes mellitus, type 2) Bipolar disease, chronic Hypothyroid Insomnia Marijuana user MARINELLI (nonalcoholic steatohepatitis) STACIA (obstructive sleep apnea) Primary hypertension BMI 27.0-27.9,adult Over weight Smoker Your Care Team Attending Physician - Joss Shepherd MD Primary Care Physician - Joss Shepherd MD This Is Your Medications List Contact prescribing physician if questions or concerns Misc Prescription (alcohol pads) aripiprazole (Abilify 20 mg oral tablet) dapagliflozin (dapagliflozin 5 mg oral tablet) diclofenac topical (diclofenac topical 1% gel) dulaglutide (dulaglutide 3 mg/0.5 mL subcutaneous solution) fluticasone nasal (Flonase 0.05 mg/inh [place]) hydrochlorothiazide-lo sartan (hydrochlorothiazide-l osartan 12.5 mg-100 mg oral tablet) insulin aspart (NovoLOG FlexPen 100 units/mL injectable solution) isopropyl alcohol topical (Webcol Alcohol Preps 70% topical pad) levothyroxine (levothyroxine 75 mcg (0.075 mg) Tab) liothyronine (Cytomel 5 mcg Tab) lurasidone (Latuda 40 mg oral tablet) meloxicam (meloxicam 15 mg Tab) metformin (metformin 500 mg ER Tab) montelukast (montelukast 10 mg Tab) multivitamin with minerals (Centrum Silver oral tablet) omeprazole (omeprazole 20 mg Cap-DR) ropinirole (ropinirole 0.25 mg Tab) rosuvastatin (rosuvastatin 5 mg Tab) valacyclovir (Valtrex) Procedures Performed Epidural injection of lumbar spine using fluoroscopic guidance (08/12/2013), EGD - Esophagogastroduodenos copy, mole revoved on left buttock, Radiofrequency ablation of nerve root of lumbar spine using fluoroscopic guidance, Removal of pilonidal cyst, Repair of umbilical hernia, Tubal ligation. Discharge Vitals Temperature (Oral) 36.8 ?C Heart Rate (Peripheral) 76 Respiratory Rate 16 Blood Pressure 124/80 Height 166.62 cm Height 66 in Weight 75.4 kg Weight 165.88 lb BMI 27.16 What to do next Scheduled Follow-Up Appointments Thursday 9:20 AM EDT With: [facility] Normal [address] [id number]- \.br\ Medications\.br \ What How Much When Instructions\.b r\ Unchanged aripiprazole (Abilify 20 mg oral tablet) 1 Tablets By Mouth Every day Contact prescribing physician if questions or concerns \.br\ Unchanged dapagliflozin (dapagliflozin 5 mg oral tablet) 1 Tablets By Mouth Every day Contact prescribing physician if questions or concerns \.br\ Unchanged diclofenac topical (diclofenac topical 1% gel) 2 Gram Topical 3 times a day Contact prescribing physician if questions or concerns \.br\ Unchanged dulaglutide (dulaglutide 3 mg/ 0.5 mL subcutaneous solution) 3 Milligram Subcutaneous Every week Contact prescribing physician if questions or concerns \.br\ Unchanged fluticasone nasal (Flonase 0.05 mg/ inh [place]) 2 Sprays Nasal Inhalation Every day each nostril Contact prescribing physician if questions or concerns \.br\ Unchanged hydrochlorothia zide-losartan (hydrochlorothi azide-losartan 12.5 mg-100 mg oral tablet) 1 Tablets By Mouth Every day Contact prescribing physician if questions or concerns \.br\ Unchanged insulin aspart (NovoLOG FlexPen 100 units/ mL injectable solution) per sliding scale Contact prescribing physician if questions or concerns \.br\ Unchanged isopropyl alcohol topical (Webcol Alcohol Preps 70% topical pad) See instructions Use swab daily before each blood sugar check Contact prescribing physician if questions or concerns \.br\ Unchanged levothyroxine (levothyroxine 75 mcg (0.075 mg) Tab) 1 Tablets By Mouth Every day Contact prescribing physician if questions or concerns \.br\ Unchanged liothyronine (Cytomel 5 mcg Tab) 1 Tablets By Mouth Every day Contact prescribing physician if questions or concerns \.br\ Unchanged lurasidone (Latuda 40 mg oral tablet) 1 Tablets By Mouth Every day Contact prescribing physician if questions or concerns \.br\ Unchanged meloxicam (meloxicam 15 mg Tab) 1 Tablets By Mouth Every day Contact prescribing physician if questions or concerns \.br\ Unchanged metformin (metformin 500 mg ER Tab) 1 Tablets By Mouth 3 times a day Contact prescribing physician if questions or concerns \.br\ Unchanged Misc Prescription (alcohol pads) See instructions use to check BS daily dx. E11.319 Contact prescribing physician if questions or concerns \.br\ Unchanged montelukast (montelukast 10 mg Tab) 1 Tablets By Mouth Once a day (in the evening) Contact prescribing physician if questions or concerns \.br\ Unchanged multivitamin with minerals (Centrum Silver oral tablet) 1 Tablets By Mouth Every day Contact prescribing physician if questions or concerns \.br\ Unchanged omeprazole (omeprazole 20 mg Cap-DR) 1 Capsules By Mouth Every day Contact prescribing physician if questions or concerns \.br\ Unchanged ropinirole (ropinirole 0.25 mg Tab) 1 Tablets By Mouth At bedtime Contact prescribing physician if questions or concerns \.br\ Unchanged rosuvastatin (rosuvastatin 5 mg Tab) 1 Tablets By Mouth Once a day (at bedtime) Contact prescribing physician if questions or concerns \.br\ Unchanged valacyclovir (Valtrex) 1 Gram By Mouth Every day Contact prescribing physician if questions or concerns \.br\ Allergies\.br\ Depakote (Unknown)\.br\ Nesina (Unknown)\.br\ Nubain (Unknown)\.br\ Trileptal (Unknown)\.br\ Valacyclovir Hydrochloride\. br\ sulfa drugs (Rash)\.br\ Problems\.br\ Ongoing - Any problem that you are currently receiving treatment for.\.br\ Acid reflux disease\.br\ Advanced diabetic retinal disease\.br\ Allergic rhinitis\.br\ Ambulates with cane\.br\ Anxiety\.br\ Bipolar disease, chronic\.br\ BMI 27.0-27.9,adult \.br\ DM type 2 (diabetes mellitus, type 2)\.br\ Genital herpes\.br\ History of gastric ulcer\.br\ Hypothyroid\.br \ Insomnia\.br\ Lumbosacral spondylosis with radiculopathy\. br\ Marijuana user\.br\ MARINELLI (nonalcoholic steatohepatitis )\.br\ Neuropathy\.br\ STACIA (obstructive sleep apnea)\.br\ Primary hypertension\.b r\ Pure hypercholestero lemia\.br\ Screening for malignant neoplasm of colon\.br\ Smoker\.br\ Vitamin D deficiency\.br\ Historical - Any problem that you are no longer receiving treatment for.\.br\ Anxiety\.br\ Bipolar\.br\ Bursitis\.br\ Diabetes\.br\ Hypothyroid\.br \ Sleep apnea\.br\ \.br\ [facility] Medicine Office/Clini c Noteon 03-16-2023 Family Medicine Office/Clinic Note Chief Complaint follow up diabetes HPI Staff Patient presents for 3 month follow up diabetes Do you have any of the following symptoms? Foot Exam: done by Dr Millard Eye Exam: Jul 2022 microalbumin: none Last A1C: Hgb A1C %: 7.6 % High (11/10/22 10:44:00) Statin: rosuvastatin 5mg recent FRANK 5 questions/concerns: hasn't had to use her novolog much or bottoms out breaking out and itching and she doesn't know why History of Present Illness Patient presents for follow-up. Patient's last lab work showed that her thyroid was off. Patient states that she has not stopped taking her thyroid medication. Patient's TSH went from really low less than 1.01-63. Patient states she did nothing with her medication. Patient is asymptomatic. Patient states her only complaint today is that she is having more back pain but she sees pain management for this. Review of Systems PHQ Score Initial Depression Screen Score: 2 Physical Exam Vitals & Measurements T: 36.8 ?C(Oral) HR: 76(Peripheral) RR: 16 BP: 124/80 SpO2: 99% HT: 66 in HT: 166.62 cm WT: 75.4 kg WT: 165.88 lb BMI: 27.16 General: alert, no acute distress ENMT: oral mucosa moist, Cardiovascular: regular rate and rhythm, normal peripheral perfusion Respiratory: Lungs CTA, respirations non labored, diminished Extremities: no deformity, no trauma Neurological: oriented x 4, LOC appropriate for age, CN II-XII intact, motor strength equal & normal bilaterally, speech normal ambulating with a cane Abdomen: Soft, Nontender, Non-distended, + BS Assessment/Plan 1. Acid reflux disease (K21.9: Gastro-esophageal reflux disease without esophagitis) - No issues at this time. -I do not see medication on her medicine list for this. -We will continue to monitor Ordered: Body Mass Index (BMI) documented 3008F Current tobacco smoker 1034F Depression Screening Negative 3352F Most recent diastolic blood pressure 80-89 mm Hg 3079F Systolic BP <130 mm Hg (Most Recent) 3074F 2. DM type 2 (diabetes mellitus, type 2) (E11.9: Type 2 diabetes mellitus without complications) - Patient states that she has been bottoming out lately. -Unsure why as the patient did not give much of a history. -Even asked what is bottoming out mean without any success. -We will do an A1c at the next appropriate time. Ordered: Body Mass Index (BMI) documented 3008F Current tobacco smoker 1034F Depression Screening Negative 3352F Most recent diastolic blood pressure 80-89 mm Hg 3079F Systolic BP <130 mm Hg (Most Recent) 3074F 3. Bipolar disease, chronic (F31.9: Bipolar disorder, unspecified) - Stable -Continue new seeing Dr. Pelaez. Ordered: Body Mass Index (BMI) documented 3008F Current tobacco smoker 1034F Depression Screening Negative 3352F Most recent diastolic blood pressure 80-89 mm Hg 3079F Systolic BP <130 mm Hg (Most Recent) 3074F 4. Hypothyroid (E03.9: Hypothyroidism, unspecified) - Adjusted patient's medication last week. We will recheck in 5 weeks. 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 Ordered: Body Mass Index (BMI) documented 3008F Current tobacco smoker 1034F Depression Screening Negative 3352F Most recent diastolic blood pressure 80-89 mm Hg 3079F Systolic BP <130 mm Hg (Most Recent) 3074F 5. Insomnia (G47.00: Insomnia, unspecified) - Patient states she is not having any issues at this time Ordered: Body Mass Index (BMI) documented 3008F Current tobacco smoker 1034F Depression Screening Negative 3352F Most recent diastolic blood pressure 80-89 mm Hg 3079F Systolic BP <130 mm Hg (Most Recent) 3074F 6. Marijuana user (F12.90: Cannabis use, unspecified, uncomplicated) - Encouraged marijuana cessation. Ordered: Body Mass Index (BMI) documented 3008F Current tobacco smoker 1034F Depression Screening Negative 3352F Most recent diastolic blood pressure 80-89 mm Hg 3079F Systolic BP <130 mm Hg (Most Recent) 3074F 7. MARINELLI (nonalcoholic steatohepatitis) (K75.81: Nonalcoholic steatohepatitis (MARINELLI)) - We will continue to monitor. Ordered: Body Mass Index (BMI) documented 3008F Current tobacco smoker 1034F Depression Screening Negative 3352F Most recent diastolic blood pressure 80-89 mm Hg 3079F Systolic BP <130 mm Hg (Most Recent) 3074F 8. STACIA (obstructive sleep apnea) (G47.33: Obstructive sleep apnea (adult) (pediatric)) - Waiting for CPAP Ordered: Body Mass Index (BMI) documented 3008F Current tobacco smoker 1034F Depression Screening Negative 3352F Most recent diastolic blood pressure 80-89 mm Hg 3079F Systolic BP <130 mm Hg (Most Recent) 3074F 9. Primary hypertension (I10: Essential (primary) hypertension) - At goal at this time. Ordered: Body Mass Index (BMI) documented 3008F Current tobacco smoker 1034F Depression Screening Negative 3352F Most recent diastolic blood pressure 80-89 mm Hg 3079F Systolic BP <130 mm Hg (Most Recent) 3074F (more content not included)... Normal [facility] Comment on above: Result Comment: Elec tronically Signed By: Miah ESPITIA, Joss Burnett.br\Date and Time Signed: 03/16/23 07:53 EDT CHEMISTRYOrdered By: SYSTEM SYSTEM on 03-10-2023 Free T4 [Mass/Vol] 0.38 ng/dL Low 0.58 - 1. 64 ng/dL FT Remisol TSH Qn 63.00 m[IU]/L High 0.34 - 5.60 mcIU/mL [facility] Remisol Free T4on 03-10-2023 Free T4 [Mass/Vol] 0.38 ng/dL Low 0.58-1.64 [facility] Comment on above: Order Comment: Free T4 added by Discern Rule due to a TSH result of <0.34 or >5.60. Performed By: #### 2 [id number], [id number] ####[facility] [address] [place] [address] Nurse Consultation Noteon Nurse Consultation Note Reason for Visit Here for lab draw Medications Abilify 20 mg oral tablet, 20 mg= 1 tab(s), Oral, Daily alcohol pads, See Instructions, 1 refills Centrum Silver oral tablet, 1 tab(s), Oral, Daily, 1 refills Cytomel 5 mcg Tab, 5 mcg= 1 tab(s), Oral, Daily, 5 refills dapagliflozin 5 mg oral tablet, 5 mg= 1 tab(s), Oral, Daily diclofenac topical 1% gel, 2 gm, Topical, TID dulaglutide 3 mg/0.5 mL subcutaneous solution, 3 mg, SubCutaneous, qWeek Flonase 0.05 mg/inh [place], 2 spray(s), Nasal, Daily, 3 refills hydrochlorothiazide-lo sartan 12.5 mg-100 mg oral tablet, 1 tab(s), Oral, Daily, 5 refills Latuda 40 mg oral tablet, 40 mg= 1 tab(s), Oral, Daily meloxicam 15 mg Tab, 15 mg= 1 tab(s), Oral, Daily, 1 refills metformin 500 mg ER Tab, 500 mg= 1 tab(s), Oral, TID, 5 refills montelukast 10 mg Tab, 10 mg= 1 tab(s), Oral, qPM, 5 refills NovoLOG FlexPen 100 units/mL injectable solution omeprazole 20 mg Cap-DR, 20 mg= 1 cap(s), Oral, Daily, 5 refills ropinirole 0.25 mg Tab, 0.25 mg= 1 tab(s), Oral, Bedtime rosuvastatin 5 mg Tab, 5 mg= 1 tab(s), Oral, Once a day (at bedtime) Valtrex, 1 gm, Oral, Daily Webcol Alcohol Preps 70% topical pad, See Instructions Allergies Depakote (Unknown) Nesina (Unknown) Nubain (Unknown) Trileptal (Unknown) Valacyclovir Hydrochloride sulfa drugs (Rash) Immunizations Vaccine Date Status Comments SARS-CoV-2 mRNA (tozinameran 5y-11y) vac - Not Given Postpone due to refusal SARS-CoV-2 mRNA (tozinameran 5y-11y) vac - Not Given Postpone due to refusal influenza virus vaccine, inactivated - Not Given Patient Refuses influenza virus vaccine, inactivated 05/29/2015 Recorded influenza virus vaccine, inactivated 05/26/2014 Recorded influenza virus vaccine, inactivated 04/18/2013 Recorded Normal [facility] TSH With T4fr Reflexon 03-10 TSH Qn 63.00 m[IU]/L High 0.34-5.60 [facility] Comment on above: Performed By: #### 2 [id number], [id number] ####[facility] [address] [place] [address] Auth for Release of Medical Recordson 02-26-2023 Auth for Release of Medical Records [id number] 0CD:127 Normal [facility] Insurance Correspondence Off iceon 01-22-2023 Insurance Correspondence Office [id number] 0CD:127 Normal [facility] CHEMISTRYOrdered By: SYSTEM SYSTEM on 01-12-2023 Free T4 [Mass/Vol] 2.74 ng/dL High 0.58 - 1. 64 ng/dL FT Remisol TSH Qn mcIU/mL Low 0.34 - 5.60 mcIU/mL [facility] Remisol Free T4on 01-12-2023 Free T4 [Mass/Vol] 2.74 ng/dL High 0.58-1.64 [facility] Comment on above: Order Comment: Free T4 added by Discern Rule due to a TSH result of <0.34 or >5.60. Performed By: #### 2 [id number], [id number] ####[facility] [address] [place] [address] Nurse Consultation Noteon Nurse Consultation Note Reason for Visit Here for lab draw Assessment/Plan Hypothyroidism (E03.9: Hypothyroidism, unspecified) Medications Abilify 20 mg oral tablet, 20 mg= 1 tab(s), Oral, Daily alcohol pads, See Instructions, 1 refills Centrum Silver oral tablet, 1 tab(s), Oral, Daily, 1 refills Cytomel 5 mcg Tab, 5 mcg= 1 tab(s), Oral, Daily, 5 refills dapagliflozin 5 mg oral tablet, 5 mg= 1 tab(s), Oral, Daily diclofenac topical 1% gel, 2 gm, Topical, TID dulaglutide 3 mg/0.5 mL subcutaneous solution, 3 mg, SubCutaneous, qWeek Flonase 0.05 mg/inh [place], 2 spray(s), Nasal, Daily, 3 refills hydrochlorothiazide-lo sartan 12.5 mg-100 mg oral tablet, 1 tab(s), Oral, Daily, 5 refills Latuda 40 mg oral tablet, 40 mg= 1 tab(s), Oral, Daily meloxicam 15 mg Tab, 15 mg= 1 tab(s), Oral, Daily, 1 refills metformin 500 mg ER Tab, 500 mg= 1 tab(s), Oral, TID, 5 refills montelukast 10 mg Tab, 10 mg= 1 tab(s), Oral, qPM, 5 refills NovoLOG FlexPen 100 units/mL injectable solution omeprazole 20 mg Cap-DR, 20 mg= 1 cap(s), Oral, Daily, 5 refills ropinirole 0.25 mg Tab, 0.25 mg= 1 tab(s), Oral, Bedtime rosuvastatin 5 mg Tab, 5 mg= 1 tab(s), Oral, Once a day (at bedtime) Valtrex, 1 gm, Oral, Daily Allergies Depakote (Unknown) Nesina (Unknown) Nubain (Unknown) Trileptal (Unknown) Valacyclovir Hydrochloride sulfa drugs (Rash) Immunizations Vaccine Date Status Comments SARS-CoV-2 mRNA (tozinameran 5y-11y) vac - Not Given Postpone due to refusal SARS-CoV-2 mRNA (tozinameran 5y-11y) vac - Not Given Postpone due to refusal influenza virus vaccine, inactivated - Not Given Patient Refuses influenza virus vaccine, inactivated 05/29/2015 Recorded influenza virus vaccine, inactivated 05/26/2014 Recorded influenza virus vaccine, inactivated 04/18/2013 Recorded Normal [facility] TSH With T4fr Reflexon 01-12 TSH Qn m[IU]/L Low 0.34-5.60 [facility] Comment on above: Performed By: #### 2 [id number], [id number] ####[facility] [address] [place] [address] XR Chest 2 Viewson 3 XR Chest 2 Views Exam Date/Time: 01/07/2023 14:29 EDT Reason for Exam: surg Report IMPRESSION: NO EVIDENCE OF ACTIVE CHEST DISEASE. CLINICAL HISTORY: Surgery. PST. COMMENT: The heart is normal in size. The mediastinum is unremarkable. The lungs appear clear. No infiltration nor pleural effusion is evident. Ordering Provider: Matt Acosta FINAL REPORT Dictated: 01/08/2023 8:03 am Erik Zhang M.D. Signed (Electronic Signature): 01/08/2023 8:03 am Signed by: Erik Zhang M.D. Transcribed by: MARIANGEL Technologist: WEI Technical Comments Radiation Dose: Ka,r in mGy = na DAP = na Normal [facility] CBC w/Indiceson 01-07-2023 Erythrocyte distribution width (RBC) [Ratio] 13.6 % Normal 10.9-14.2 [facility] Comment on above: Performed By: #### 2 450694, [id number], [id number] ####[address] [place] [address] Hematocrit (Bld) [Volume fraction] 38.1 % Normal 34.0-46.0 [facility] Comment on above: Performed By: #### 2 104697, [id number], [id number] ####[facility] [address] [place] [address] Hemoglobin (Bld) [Mass/Vol] 13.2 g/dL Normal 12.0-16.0 [facility] Comment on above: Performed By: #### 2 771696, [id number], 3888107 ####[facility] [address] [place] [address] MCH (RBC) [Entitic mass] 31.0 pg Normal 27.0-34.0 [facility] Comment on above: Performed By: #### 2 718036, [id number], 0516626 ####[facility] [address] [place] [address] MCHC (RBC) [Mass/Vol] 34.8 g/dL Normal 31.4-36.0 [facility] Comment on above: Performed By: #### 2 238441, [id number], 3312151 ####[facility] [address] [place] [address] MCV (RBC) [Entitic vol] 89.1 fL Normal 80.0-100.0 [facility] Comment on above: Performed By: #### 2 408183, [id number], 3727018 ####[facility] [address] [place] [address] Platelet mean volume (Bld) [Entitic vol] 9.0 fL Normal 6.4-10.8 [facility] Comment on above: Performed By: #### 2 838883, [id number], 0517328 ####[address] [address] Platelets (Bld) [#/Vol] 268.0 E9/L Normal 150.0-500.0 [facility] Comment on above: Performed By: #### 2 173763, [id number], 8169081 ####[address] [address] RBC (Bld) [#/Vol] 4.3 E12/L Normal 4.3-5.9 [facility] Comment on above: Performed By: #### 2 104215, [id number], 6564147 ####[address] [address] WBC corrected for nucl RBC Auto (Bld) [#/Vol] 10.9 E9/L Normal 4.0-11.0 [facility] Comment on above: Performed By: #### 2 367450, [id number], 1608929 ####[address] [address] CHEMISTRYOrdered By: SYSTEM SYSTEM on 01-07-2023 Albumin [Mass/Vol] 4.4 g/dL Normal 3.3 - 5.0 gm/dL F [facility] Remisol Albumin/Globulin [Mass ratio] 1.3 {ratio} Normal 1.1 - 2.2 [facility] Remisol ALP [Catalytic activity/Vol] 59 [iU]/d Normal 21 - 98 Int._Unit/L [facility] Remisol ALT No additional P-5'-P [Catalytic activity/Vol] 14 [iU]/d Normal 6 - 46 Int._Unit/L [facility] Remisol Anion gap [Moles/Vol] 12 mmol/L Normal 6 - 16 mEq/L [facility] Remisol AST [Catalytic activity/Vol] 17 [iU]/d Normal 5 - 43 Int._Unit/L [facility] Remisol Bilirubin [Mass/Vol] 0.9 mg/dL Normal 0.0 - 1.1 mg/dL [facility] Rem[facility] Calcium [Mass/Vol] 9.5 mg/dL Normal 8.9 - 11. 1 mg/dL [facility] Chloride [Moles/Vol] 103 mmol/L Normal 101 - 1 11 mmol/L [facility] CO2 [Moles/Vol] 27 mmol/L Normal 21 - 31 mmol/L [facility] Creatinine [Mass/Vol] 0.7 mg/dL Normal 0.5 - 1.3 mg/dL [facility] Remisol GFR/1.73 sq M.predicted among non-blacks MDRD (S/P/Bld) [Vol rate/Area] 107 mL/min/1.73 m2 Normal >=59mL/min/1.73 m2 [facility] Chem S Globulin (S) [Mass/Vol] 3.4 g/dL Normal 1.4 - 4.0 gm/dL [facility] Remisol Glucose [Mass/Vol] 126 mg/dL Normal 55 - 199 mg/dL [facility] Remisol Potassium [Moles/Vol] 3.6 mmol/L Normal 3.5 - 5.3 mmol/L [facility] Remisol Protein [Mass/Vol] 7.8 g/dL Normal 6.0 - 7.8 gm/dL F [facility] Remisol Sodium [Moles/Vol] 138 mmol/L Normal 135 - 145 mmol/L [facility] Remisol Urea nitrogen [Mass/Vol] 17 mg/dL Normal 5 - 21 mg/dL [facility] Remisol Urea nitrogen/Creatinine [Mass ratio] 24 mg/mg High 10 - 20 [facility] Remisol CMPon 01-07-2023 Albumin [Mass/Vol] 4.4 g/dL Normal 3.3-5.0 [facility] Comment on above: Performed By: #### 2 876428, [id number], 6742638 ####[facility] [id number] Albumin/Globulin (S) [Mass conc ratio] 1.3 Normal 1.1-2.2 [facility] Comment on above: Performed By: #### 2 354915, [id number], 1620902 ####[facility] [address] [place] [address] ALP [Catalytic activity/Vol] 59 Int._Unit/L Normal 21-98 [facility] Comment on above: Performed By: #### 2 404947, [id number], 7551617 ####[facility] [address] [place] [address] ALT No additional P-5'-P [Catalytic activity/Vol] 14 Int._Unit/L Normal 6-46 [facility] Comment on above: Performed By: #### 2 942427, [id number], 3198799 ####[address] [address] Anion gap [Moles/Vol] 12 mmol/L Normal 6-16 [facility] Comment on above: Performed By: #### 2 172851, [id number], 4816520 ####[facility] [address] [place], [place] [id number] AST [Catalytic activity/Vol] 17 Int._Unit/L Normal 5-43 [facility] Comment on above: Performed By: #### 2 307660, 27848723, 4048441 ####[facility] [address] [place] [address] Bilirubin [Mass/Vol] 0.9 mg/dL Normal 0.0-1.1 [facility] Comment on above: Performed By: #### 2 466603, 28708286, 0397748 ####[facility] [address] [place] [address] Calcium [Mass/Vol] 9.5 mg/dL Normal 8.9-11.1 [facility] Comment on above: Performed By: #### 2 186796, 29149452, 3001611 ####[facility] [address] [place] [address] Chloride [Moles/Vol] 103 mmol/L Normal 101-111 [facility] Comment on above: Performed By: #### 2 975184, 07959520, 2537267 ####[facility] [address] [place] [address] CO2 [Moles/Vol] 27 mmol/L Normal 21-31 [facility] Comment on above: Performed By: #### 2 817821, 32573592, 8855179 ####[facility] [address] [place] [address] Creatinine [Mass/Vol] 0.7 mg/dL Normal 0.5-1.3 [facility] Comment on above: Performed By: #### 2 294997, 33537288, 3770672 ####[facility] [address] [place] [address] Globulin (S) [Mass/Vol] 3.4 g/dL Normal 1.4-4.0 [facility] Comment on above: Performed By: #### 2 467905, 48087543, 6812870 ####[facility] [address] [place] [address] Glucose [Mass/Vol] 126 mg/dL Normal 55-199 [facility] Comment on above: Result Comment: If t his glucose result represents a fasting glucose, interpretation should refer to the following reference range: 55-99 mg/dL Performed By: #### 2 256372, [id number], 4346684 ####[facility] [address] [place] [address] Potassium [Moles/Vol] 3.6 mmol/L Normal 3.5-5.3 [facility] Comment on above: Performed By: #### 2 645320, 53605574, 0783972 ####[facility] [address] [place] [address] Protein [Mass/Vol] 7.8 g/dL Normal 6.0-7.8 [facility] Comment on above: Performed By: #### 2 902937, 90022033, 8105543 ####[facility] [address] [place] [address] Sodium [Moles/Vol] 138 mmol/L Normal 135-145 [facility] Comment on above: Performed By: #### 2 455518, 21112024, 3382977 ####[facility] [address] [place] [address] Urea nitrogen [Mass/Vol] 17 mg/dL Normal 5-21 [facility] Comment on above: Performed By: #### 2 592078, 81777276, 4256316 ####[facility] [address] [place] [address] Urea nitrogen/Creatinine [Mass ratio] 24 No Units High 10-20 [facility] Comment on above: Performed By: #### 2 218255, 72258780, 7050202 ####[facility] [address] [place] [address] Consent for Treatmenton 12-25 Consent for Treatment [id number] 0CD:127 Normal [facility] HEMATOLOGYOrdered By: Luna Gonzalez on 01-07-2023 Erythrocyte distribution width (RBC) [Ratio] 13.6 % Normal 10.9 - 14.2 % [facility] HemeAutoSS Hematocrit (Bld) [Volume fraction] 38.1 % Normal 34.0 - 46.0 % FT HemeAutoSS Hemoglobin (Bld) [Mass/Vol] 13.2 g/dL Normal 12.0 - 16.0 gm/dL [facility] HemeAutoSS MCH (RBC) [Entitic mass] 31.0 pg Normal 27.0 - 34.0 pg FT HemeAutoSS MCHC (RBC) [Mass/Vol] 34.8 g/dL Normal 31.4 - 36.0 gm/dL [facility] HemeAutoSS MCV (RBC) [Entitic vol] 89.1 fL Normal 80.0 - 100.0 fL [facility] HemeAutoSS Platelet mean volume (Bld) [Entitic vol] 9.0 fL Normal 6.4 - 10.8 fL [facility] HemeAutoSS Platelets (Bld) [#/Vol] 268.0 E9/L Normal 150.0 - 500.0 E9/L [facility] HemeAutoSS RBC (Bld) [#/Vol] 4.3 E12/L Normal 4.3 - 5.9 E12/L [facility] HemeAutoSS WBC corrected for nucl RBC Auto (Bld) [#/Vol] 10.9 E9/L Normal 4.0 - 11.0 E9/L [facility] HemeAutoSS Physician Orderon 01-07-2023 Physician Order [id number] CD:127 Normal [facility] eGFRon 01-07-2023 GFR/1.73 sq M.predicted among non-blacks MDRD (S/P/Bld) [Vol rate/Area] 107 mL/min/1.73 m2 Normal >=59 [facility] Comment on above: Order Comment: Order added by Discern Expert. Result Comment: Hvac Sales Engineer gustavo kidney disease could be indicated at eGFR's of less than 60 mL/min/1.73m2. Kidney failure is indicated at less than 15 mL/min/1.73m2. Performed By: #### 2 [id number], [id number], [id number] ####[facility] [address] [place] [address] Consultation Noteon 01-07-20 Consultation Note [id number] 0CD:127 Normal [facility] Physician Referralon 023 Physician Referral [id number]:127 Normal [facility] Family Medicine Office/Clini c Noteon 12-16-2022 Family Medicine Office/Clinic Note Chief Complaint follow up diabetes HPI Staff One month follow up diabetes Patient is here for follow up on Diabetes. How often are you checking your blood sugars? many tines times per day What are your average readings? 182 Do you have any of the following symptoms? Foot Exam: Dr Millard checks her feet Eye Exam: Jul 2022 Microalbumin: ? Last A1C: 7.6 11/16 Last Chronic Labs: 11/16 questions/concerns: thinks her sleep machine is dying and probably needs testing also needs refills but can't remember what all she needs glipizide for sure has a herniated disc [place] pain mgmt to treat and having cataract sugery soon History of Present Illness Amairani Gonzales is a 46-year-old female who presents today for a follow-up evaluation of type 2 diabetes. The patient reports that her blood sugar has been averaging in the 180's. Yesterday, 12/14/2022, her blood sugar was averaging 203 mg/dL. She states that she was very active yesterday, 12/14/2022. She has noticed that when she is stressed or active, her sugars seem to increase. Her blood sugar will increase to 243 mg/dL and she will either be right on or off by a few points. The patient notes that she typically will only eat once a day. She has not been taking her metformin 3 times a day since she started the glipizide, Trulicity, and the sliding scale. Once she began using the sliding scale insulin, she started bottoming out. She only takes the glipizide if her blood sugar is over 180 mg/dL in the morning. She does not take the glipizide very often during the week. The patient's thyroid medication was changed at her last appointment. She takes the medication 6 days per week and skips the 7th day. Amairani would like a referral for her sleep apnea. She has not had her CPAP machine adjusted or checked in over [address] Wqaar Palacio for similar issues. Physical Exam Vitals & Measurements HR: 95(Peripheral) RR: 20 BP: 122/80 SpO2: 96% HT: 66 in HT: 166.62 cm WT: 74.15 kg WT: 163.13 lb BMI: 26.71 General: alert, no acute distress, Patient uses a cane for ambulation. ENMT: oral mucosa moist, no pharyngeal erythema or exudate Cardiovascular: regular rate and rhythm, normal peripheral perfusion Respiratory: diminished breath sounds bilaterally Extremities: no deformity, no trauma Neurological: oriented x 4, LOC appropriate for age, CN II-XII intact, motor strength equal & normal bilaterally, speech normal Assessment/Plan 1. Advanced diabetic retinal disease (E11.319: Type 2 diabetes mellitus with unspecified diabetic retinopathy without macular edema) The patient will see ophthalmology in the future. Encouraged the patient to follow up with that. 2. Diabetes (E11.9: Type 2 diabetes mellitus without complications) The patient is going to increase her Trulicity, stop the glipizide, and then start taking the metformin when she eats. We will use the sliding scale insulin for her blood sugars over 250 mg/dL. We are currently trying to slowly adjust the patient's medication to have a more consistent basis while getting the patient at goal. 3. Anxiety (F41.9: Anxiety disorder, unspecified) The patient is doing better. Continue on medication as before. 4. STACIA (obstructive sleep apnea) (G47.33: Obstructive sleep apnea (adult) (pediatric)) We will put the referral in for the patient to see sleep and then we will have Dr. Palacio take care of her adjustments with this. 5. Primary hypertension (I10: Essential (primary) hypertension) The patient is at goal today. Continue medications before. 6. Hypothyroid (E03.9: Hypothyroidism, unspecified) We will recheck labs in 2 weeks to a month from now. The patient has decreased her medication by 1 pill a week. 7. Insomnia (G47.00: Insomnia, unspecified) We will work on getting the patient titrated on the CPAP. 8. BMI 26.0-26.9,adult (Z68.26: Body mass index [BMI] 26.0-26.9, adult) BMI education given. 9. Over weight (E66.3: Overweight) Encouraged the patient to use diet and exercise to help. 10. Smoker (F17.200: Nicotine dependence, unspecified, uncomplicated) Encouraged the patient not to smoke. 11. Ambulates with cane (Z99.89: Dependence on other enabling machines and devices) Documented for ambulation purposes. Documentation services were performed after patient or guardian consented to allow [employer] to record this visit. ANNY systems software specialist and provider reviewed before signing. ANNY: Elana Saini Follow-up No qualifying data available Problem List/Past Medical History Ongoing Acid reflux disease Advanced diabetic retinal disease Allergic rhinitis Ambulates with cane Anxiety Bipolar affective disorder, currently manic, moderate Bipolar disease, chronic BMI 27.0-27.9,adult Diabetes Genital herpes History of gastric ulcer Hypothyroid Insomnia Lumbosacral spondylosis with radiculopathy Marijuana user MARINELLI (nonalcoholic steatohepatitis) Neuropathy STACIA (o (more content not included)... Normal [facility] Comment on above: Result Comment: Elec tronically Signed By: Joss Shepherd MD\.br\Date and Time Signed: 12/16/22 17:02 EDT\.br\Electronically Co-Signed By: Elana Saini\.br\Date and Time Co-Signed: 12/15/22 08:55 EDT Ambulatory Visit Summaryon 0 12-15-2022 Ambulatory Visit Summary AMAIRANI GONZALES Mimi :1975 Visit Date:12/15/2022 Ambulatory Visit Instructions Your Diagnosis Advanced diabetic retinal disease Diabetes Anxiety STACIA (obstructive sleep apnea) Primary hypertension Hypothyroid Insomnia BMI 26.0-26.9,adult Over weight Smoker Ambulates with cane Your Care Team Attending Physician - Joss Shepherd MD Primary Care Physician - Joss Shepherd MD This Is Your Medications List dulaglutide (dulaglutide 3 mg/0.5 mL subcutaneous solution) Contact prescribing physician if questions or concerns Misc Prescription (alcohol pads) aripiprazole (Abilify 20 mg oral tablet) dapagliflozin (dapagliflozin 5 mg oral tablet) diclofenac topical (diclofenac topical 1% gel) fluticasone nasal (Flonase) hydrochlorothiazide-lo sartan (hydrochlorothiazide-l osartan 12.5 mg-100 mg oral tablet) insulin aspart (NovoLOG FlexPen 100 units/mL injectable solution) liothyronine (Cytomel 5 mcg Tab) lurasidone (Latuda 40 mg oral tablet) meloxicam (meloxicam 15 mg Tab) metformin (metformin 500 mg ER Tab) montelukast (montelukast 10 mg Tab) multivitamin with minerals (Centrum Silver oral tablet) omeprazole (omeprazole 20 mg Cap-DR) ropinirole (ropinirole 0.25 mg Tab) rosuvastatin (rosuvastatin 5 mg Tab) valacyclovir (Valtrex) [Image Removed: STOP]Stop taking these medications glipiZIDE (glipiZIDE 10 mg Tab) Procedures Performed Epidural injection of lumbar spine using fluoroscopic guidance (08/12/2013), EGD - Esophagogastroduodenos copy, mole revoved on left buttock, Radiofrequency ablation of nerve root of lumbar spine using fluoroscopic guidance, Removal of pilonidal cyst, Repair of umbilical hernia, Tubal ligation. Discharge Vitals Heart Rate (Peripheral) 95 Respiratory Rate 20 Blood Pressure 122/80 Height 166.62 cm Height 66 in Weight 74.15 kg Weight 163.13 lb BMI 26.71 What to do next Scheduled Follow-Up Appointments Thursday 8:20 AM EDT With: Where: [facility] Invalid Interpretation Code [address] [place] [address]- \.br\ You Need to Complete the Following\.br\ TSH With T4fr Reflex, Blood, Routine collect, 12/15/22, Order for future visit, Lab Collect, Advanced diabetic retinal disease [facility] Consultation Noteon 11-27-19 Consultation Note [id number] 0CD:127 Normal [facility] Coding Summary.on 11-14-2022 Coding Summary. CD:[id number] Ww +PGhlYWQ+JX2GFSIcC93nq DCcqK3bC0ASDDwIEserXXF LNXzEHiJpdkMyJJ1iwYNrS XJu IC8+UU2hYAVzLweliIUmf9 M0nKO4O59bfz0oKEyraZI6 SYWzJpUyellpy3mqjRg9II cuNmluOyBt KQNwsZ31GDI1rI24Da08bD MceFHgm9rqeVg6OjEmAAMs CAT3dSeaCLqya2HzWMAdD5 3egFVfl5J9 MNMlxWkvzIQhTqNfiCG3nU 9mDMzdkzsol7vsnwojBer9 sw15uHAyu1F7eUW8N5Bhws K7UVLjuHBg PobprOBLgF0fokbvv7mlox nnVgPsPLEhNTu9DDg6ABKy oLcqDlDfHR27UEO7ROKyuj OgR2HsAEAq aNkcAmB3v9L9Dv8MK8DYNd brN2AVPYRWIXhllDO+PC90 ck43J6QqZtlpNqe7NBSjJQ T3zFD8jI7t QRGcDTsoo5I3bEP9O2Rdza Rpwz5km8nlIXRrAAuwF07k iQAnp3A6IMQnmUE4KUGkiU vsIbEqtK85 Oyc+PQAhxJfem2TgTudwv8 fir3jrcMb2HgqlHEVoarDn mUgqULY1l7CaYu2qYHTvsE D0lKO8fF0r IcLwWaT2KMpzW539TqXqwL XrFrdcP75zF5IgsOL+PHRy Ero5BFMqpFmiLT3rK3JxJB RpbmctbGVm dTbnLI8gNBPknbnqHFBuwY 1pFXEhG7m5LcMcRdT5HEdm M3CeTAMswhxeTp51zS7sVh UeJzU9OTdo H8AjhcG0AKLvzEAyWQneSM M6B48yb0B7ESKeXBYmRJW8 bFF6pL0osKvctpjefLOdkQ sgdmVydGlj ZAqzPAwrI041GRUnnUsgFk NvZGluZyBEYXRlOiAgMDQv MjEvMjAyMzwvdGQ+PHRkIH P7kDcjCYYv dRQoXTljVg8xhHoraUjoKX 2wJJKlxhadWXEmtS7xEZOx kBIfoHkgOT2sTLDggdqut8 94PaBbDYZ6 EFAvoDAqG4IloO1mGnIeZK HkIGWvR1RceBZfDGcuF326 ORnvGpN0BJRpraTbW7IpJV FsaWduOiB0 i1Z7Ig5Hp2AgjexeK7FyrE OnNrKlUifeSIc5S0KxEivz dHI+RM17CYWvXK72LBt0EA J7xTcsKRar IEPkB1JumX0fQbXtOPSiJQ RkOyc+PHRhYmxlIHdpZHRo GEynWLJhToCueOquNN0sWo 9yZGVyLWNv eRijkVIrAaOhp7kcYWYdRJ sdBS9heMruD0KudZM7DALu k3l2Od74R66cT6OdcVT+PG CbgIC1tPK1 tX3nUxOsPgB2IEtdL157Bk CurLZmIonag3uum7rqiTa3 ChZ6SIMyinIvzMolOUM2y9 OfDe54S10o IHdpZHRoPSIxNSUiIHZhbG ujyk1flZ7mSe7+PGNvbCB3 vWB2rA5aWhBbKsH7FYbgA9 49InRvcCIv Ladpi6jpx2yaaJx7QsNsMU VpidFsrVfcDUP4k1SzIa18 G8HtvEiys8EkFzt0kv57xI Dvz8A2aGB7 R4VrIWTtkqtpjBXzqSgmXE 8nONKuorosCYQjbQ0pWHVl U8t6BlBeFuU7NHodJ0Dqre V8TTAieCBf TDXbqBVRbQ3klshtz6hbxg biPpWxMRClERw8HOt3GZQm aWcsZcPaRFF2TcB6HAO2cC WuxW3omMcd zftmdB7dGzd+FFP1oICraO FVVP6hGjllcWM+PHRkIHN0 tUeuFIlsEJBacU6fNAPcY6 o0PjVaKbT2 RVjbR8InnzU2JGHdgRTcTB NddBVJxD8ownmyx8xfpvpa NnGtMPQcOBw5TQv3XRFanD duOiBsZWZ0 JxK9CKG6sRSdpF8ibVytdl ngaB9fUub+QmlydGggRGF0 FAr0R5YrAwx5OVInaAeqIT 0ncGFkZGlu Wt1eiYpvbXgcSX5mJDFbwi dhj914OxNwl8yzSVMecXUo YPsaKXR9N17os4P0YGPrKH RlJEF9rGD6 lL6qwAkkpvdqpNPtzHmehp FmlDvwJGrqIClpF949ZIZb yOfiNvArGEt5E2LkVao6RZ WzyKuzBJ8p uNArVFrmZz9syXrqzMxbJJ 5pTKKiekjrb255GlBjp8lz FBFohOGjJTwiZSR1Y40sl7 L3PWFoOFQu VYL3gSN7aZ6doOygdmzmvH VmdDsgdmVydGljYWwtYWxp C555PNNgnFetUqDtiIs9R0 LtCve7ZYCd lZxtFY4swCTcTEndSo1cfB rsqUgeSN2cWWHhjsiez832 GeUej4gcIJCacCWmGKymKN U5A34rb6E6 YEEzRYVqSWM8oSZ7yF2clW lnbjogbGVmdDsgdmVydGlj JZclXMeoL387HCMzqHolBc BhdGllbnQg LPjrQFl4G1AmYyijtZT+PC 24LFTvGQ37cPLbcWOri1do iGg6OuYoEQQwPJS3vGmrXN twy9FvPKNx D28lmKFrq5D5DKTlhEzibS GuSfMwuQZ2wH1vWIsqkqwh n3mlhagqZcqel0axew77wG 42M60gXXaj ZHRoPSIzMCUiIHZhbGlnbj 5emM8cQs2+QHYibBZ2nLZ8 aH1aLNVjQlQ0LDxwC637Gz RvcCIvPjxj w0rod1zgoRr5AkD7OHVgeb RhoNogPAD9d9IoYo72U10w IHdpZHRoPSIyMCUiIHZhbG lisn9kiW1a Ii8+OOGtmAE3fFU4wJ6kNn MhTdD4UUgxZ701UdAvbZLt AcwoD93pI5KdnVC+PHRyPj t1EOBptRuc YM5kjHNbQPfcOv6dAPP3Zo GkPqGqOSpxU5KfPTVtldde kkokfPQ8HHShKIWepI16Kc 9udDogMTBw eWWXuJ1bcluag2vhfxjzXb PcOHGxGQl7LCg5JEMwuOax ShHhNBM6IpE3FCX5aKIqkJ 1hbGlnbjog oI9wB6VaMPEdogtjDk28hC 7wBzAdIvS5XVjcKpl+R0xF Sm5tTURSSKSOVKUTGKR6M0 OwVsf4MFXp eZofGN4elDRsDOyvVf2goJ fzbFycRV2aBKVrfnmyBXUy fR1zUDDdxLZzpRidCF5tDW Hilzgdi240 GzJkUBY9BGQcsAGpH8IhjC 4lPrWiJQVzTCGhS7FccSZb CLaoM440DMbrUdE2SUFyeb ZsG0UqGIPu xEwvEuF4m3Z5Ay5iOd2oDX 8xVYr5VP60HF86oVShw7I4 eQU1L3YpTGWmpnclwmdkiF B7CKZoEIAy zT71eXUpHLudXt3lu7F5w5 63MHDhEOTdwK13Pt3elEso SCNfjUNAwW2vhwyrm5guki ogIzAwMDAw QLi5FWd0ZWVwgRqpVeRaTU X6PzJ1AGK0qVGdoF6rbTkf kotdtG4eXeu+NDYgWWVhcn G6E9KwYfo0 AKEvoUhjHV3feQMnLJicWa 6bwDsvjIzzKI2dXZXtgtdm VBLhpJ4pWKJbfZJplHkkHB 4wNTBpbjtm l369PxMfMEN9EEOzoHEgB5 OnzU7gDhZmFLSwOPGvY2Fi vGPpHDzmJ329CAtsLtG0EQ KyduJlP3Jh RUTvhUioFuF0q6G1Rx9FTX 0adPE7Z7VqZtm5BRWmcQsf CN6azQMdIRqbBl8ahYlewA wvEN1qSSQp vodxKNZmqD9hDOUlfHQldO wrNG6vLZJlksken854LsTk PPI1ISPfkLVvG8VxhB3qRo AjMDAwMDAw Q8PtwOWqFZqnU039QDaxRv K7BFWrueQfX9OyAZNsvGfb KbG2u9P7Mu3VNYZoFWJimI IzGrX1M8Ft PjwvdHI+SL54NWFhOD26fL BkzGNej4yfyWl0IoXjFUCl KVB7dCunRZnlh5IiBPTnN9 6hoWDst8C6 BZIszFlygFQeNdCayMS3qV 8rEGvqpxolg7gnhaceLcuk j0rptl44cC81J10lPHlrDZ RoPSIzMCUi PRJxwGyeoo7vnT4yWn0+PG XouDE4pHU1hW5mLwHtCrX9 SXhjW420PmZssXBnYwlyj7 dii3jjoTd3 CwUgOOEchtQytMcxRNX9y0 DzBw63H83vSOtcJBRdXQCs SLJhTZPdpDfyvn2uzH1uDl 8+PI4kn9ww jw20dC40eKP+WCCjMYK8xH cfGRzyQBAcdG8oBKxsGcX5 GYPhJoPuxH72wFCcKZjuKg 1yaWdodDog DE0mNYXyqcvuo190GsXlg2 sbOZMdvNTpLYlfUVU9N12z z5P7EXQoUMZtVCY3oVB6tH 1hbGlnbjog bGVmdDsgdmVydGljYWwtYW kvG177JYIbqZujCuLxrLWd C3iffiWXSH6pMjelgWY+PH VhSOU8mQoo MUhyEDCanX5qDWYeO3y5Ga YeJbU3EBadW4JcnmG4GJMp gYZnVQXaqVWOsO2lrmsxp3 xvcjogIzAw ZGEiXGd1YOz0HPGhcQdeSm WxZSZ1ViR2PXY8wAWcdU6m oKrndlbnbJ9pMeo+RklOOj wvdGQ+PHRk AET5cWdcBKgfNQFniC5aPA OeK5i2CwIwIgM0QPypL3Yo toH6ZHGmaPZnFWCkrAUQnA 2koaeju0ty bzxjVqSwCGMfTCh2LIq2WA AgsQudAdNlSLN6YqP6FXQ5 gHAkvM8pcZjmawmlhQ2gTb c+TVJOOjwv dGQ+QTClLFK1bLsiIEfyOI HnbA8sHENpF4v8NeRuZwP4 LOlpN1YcnoX9FBXqmPXgPJ NarLDYtD2o edmdm5oxltjyCrLnOQLmKB e7FGw2DARweUthQbQbFSJ2 HbX3WOF0fMDhpT6zhZgwdf xwqN4sQvk+ CJL0CNZ3RQ58PY56S1CoDu wvdGFibGU+PHRhYmxlIHdp ZHRoPScxMDAlJyBzdHlsZT 8gAq0pTIHt LWNvbGxh (more content not included)... Normal [facility] Ambulatory Visit Summaryon 0 11-10-2022 Ambulatory Visit Summary AMAIRANI GONZALES :1975 Visit Date:11/10/2022 Ambulatory Visit Instructions Your Diagnosis BMI 26.0-26.9,adult Over weight Advanced diabetic retinal disease Your Care Team Attending Physician - Miah ESPITIA, Joss Hartmann Primary Care Physician - RADHA ESPITIA, KATTY Gray This Is Your Medications List aripiprazole (Abilify 20 mg oral tablet) dapagliflozin (dapagliflozin 5 mg oral tablet) diclofenac topical (diclofenac topical 1% gel) dulaglutide (dulaglutide 1.5 mg/0.5 mL subcutaneous solution) fluticasone nasal (Flonase) glipiZIDE (glipiZIDE 10 mg Tab) hydrochlorothiazide-lo sartan (hydrochlorothiazide-l osartan 12.5 mg-100 mg oral tablet) insulin aspart (NovoLOG FlexPen 100 units/mL injectable solution) levothyroxine liothyronine (Cytomel 5 mcg Tab) lurasidone (Latuda 40 mg oral tablet) meloxicam (meloxicam 15 mg Tab) metformin montelukast (Singulair) multivitamin with minerals (Centrum Silver) omeprazole (omeprazole 20 mg Cap-DR) ropinirole (ropinirole 0.25 mg Tab) rosuvastatin (rosuvastatin 5 mg Tab) valacyclovir (Valtrex) Procedures Performed Epidural injection of lumbar spine using fluoroscopic guidance (08/12/2013), EGD - Esophagogastroduodenos copy, mole revoved on left buttock, Radiofrequency ablation of nerve root of lumbar spine using fluoroscopic guidance, Removal of pilonidal cyst, Repair of umbilical hernia, Tubal ligation. Discharge Vitals Heart Rate (Peripheral) 82 Respiratory Rate 20 Blood Pressure 138/86 Height 166.62 cm Height 66 in Weight 72.7 kg Weight 159.94 lb BMI 26.19 What to do next Scheduled Follow-Up Appointments Thursday 7:20 AM EDT With: Miah ESPITIA, Joss Hartmann Where: [facility] Normal [facility] Auto Diffon 11-10-2022 Basophils/100 WBC (Bld) 0.6 % Normal 0.0-2.0 [facility] Comment on above: Order Comment: Order Added by Discern Expert. Performed By: #### 2 377313, 4533671, 1580458, [id number], 5232411, 8890891, 15949374, 81077963 ####[facility] [id number] [place] [address] Basophils/Leukocytes Auto (Bld) [Pure # fraction] 0.0 E9/L Normal 0.0-0.2 [facility] Comment on above: Order Comment: Order Added by Discern Expert. Performed By: #### 2 568343, 5751667, 2731203, 722182807, 3233104, 0613802, 81103920, 90194162 ####[address] [place] [address] Eosinophils/100 WBC (Bld) 2.6 % Normal 0.0-8.0 [facility] Comment on above: Order Comment: Order Added by Discern Expert. Performed By: #### 2 401481, 7864460, 1464375, 474351306, 1474249, 6648772, 96473685, 94670982 ####[address] [address] Eosinophils/Leukocyt es Auto (Bld) [Pure # fraction] 0.2 E9/L Normal 0.0-0.5 [facility] Comment on above: Order Comment: Order Added by Discern Expert. Performed By: #### 2 946780, 1971461, 9832312, 230670172, 4436020, 5776648, 10533179, 15365161 ####[address] [address] Lymphocytes/100 WBC (Bld) 45.3 % Normal 14.0-50.0 [facility] Comment on above: Order Comment: Order Added by Discern Expert. Performed By: #### 2 438715, 7562435, 9840443, 941168015, 0786496, 3816212, 08022613, 94830231 ####[address] [address] Lymphocytes/Leukocyt es Auto (Bld) [Pure # fraction] 3.0 E9/L Normal 1.0-4.0 [facility] Comment on above: Order Comment: Order Added by Discern Expert. Performed By: #### 2 115877, 2889432, 2052307, 028153002, 9373182, 2228187, 20892802, 03340668 ####[address] [place] [address] Monocytes/100 WBC (Bld) 6.3 % Normal 4.0-14.0 [facility] Comment on above: Order Comment: Order Added by Discern Expert. Performed By: #### 2 731190, 5034199, 0800658, 255479265, 1238931, 7328515, 55123825, 79389644 ####[address] [place] [address] Monocytes/Leukocytes Auto (Bld) [Pure # fraction] 0.4 E9/L Normal 0.2-1.0 [facility] Comment on above: Order Comment: Order Added by Discern Expert. Performed By: #### 2 766196, 9331503, 4585917, 252248172, 9690179, 7290327, 34828785, 50674782 ####[address] [place] [address] Neutrophils/100 WBC (Bld) 45.2 % Normal 36.0-75.0 [facility] Comment on above: Order Comment: Order Added by Discern Expert. Performed By: #### 2 258877, 5443188, 7663271, 286449013, 0749902, 9873440, 34659562, 23041948 ####[address] [address] Neutrophils/Leukocyt es Auto (Bld) [Pure # fraction] 3.0 E9/L Normal 2.0-7.5 [facility] Comment on above: Order Comment: Order Added by Discern Expert. Performed By: #### 2 800543, 7472720, 9730240, 979664954, 3092470, 6083393, 67505599, 75254673 ####[address] [place] [address] CBC w/ Auto Diffon 3 Erythrocyte distribution width (RBC) [Ratio] 13.5 % Normal 10.9-14.2 [facility] Comment on above: Performed By: #### 2 251382, 3223177, 7627406, 729607488, 3026439, 5431351, 76411283, 44660373 ####[address] [place] [address] Hematocrit (Bld) [Volume fraction] 41.6 % Normal 34.0-46.0 [facility] Comment on above: Performed By: #### 2 564308, 0793852, 9682126, 845611080, 4371689, 0634011, 07847719, 71346671 ####[facility] [id number] [place] [address] Hemoglobin (Bld) [Mass/Vol] 13.7 g/dL Normal 12.0-16.0 [facility] Comment on above: Performed By: #### 2 957895, 7980519, 1069147, 983268153, 1087895, 6417091, 43060633, 34619176 ####[address] [address] MCH (RBC) [Entitic mass] 30.2 pg Normal 27.0-34.0 [facility] Comment on above: Performed By: #### 2 167894, 9092491, 5947439, 714739542, 8711052, 6640538, 75489973, 37106020 ####[facility] [address] [place] [address] MCHC (RBC) [Mass/Vol] 32.9 g/dL Normal 31.4-36.0 [facility] Comment on above: Performed By: #### 2 273946, 8053605, 9694710, 272547938, 3410681, 5804591, 39034840, 17202930 ####[address] [address] MCV (RBC) [Entitic vol] 91.9 fL Normal 80.0-100.0 [facility] Comment on above: Performed By: #### 2 003750, 9370025, 4151642, 926891272, 9662049, 8310086, 97433590, 10104581 ####[address] [address] Platelet mean volume (Bld) [Entitic vol] 9.3 fL Normal 6.4-10.8 [facility] Comment on above: Performed By: #### 2 848929, 3054809, 4714890, 615481617, 3311633, 2095098, 86270911, 75027467 ####[address] [place] [address] Platelets (Bld) [#/Vol] 357.0 E9/L Normal 150.0-500.0 [facility] Comment on above: Performed By: #### 2 300498, 1419619, 6217443, 524150546, 0798960, 0676877, 11316648, 46759435 ####[address] [place] [address] RBC (Bld) [#/Vol] 4.5 E12/L Normal 4.3-5.9 [facility] Comment on above: Performed By: #### 2 798446, 6162446, 0877190, 873144996, 9314803, 4589918, 33630117, 18213575 ####[address] [address] WBC corrected for nucl RBC Auto (Bld) [#/Vol] 6.7 E9/L Normal 4.0-11.0 [facility] Comment on above: Performed By: #### 2 882245, 4452095, 8893488, 257047318, 5684024, 4885646, 82381562, 27714389 ####[address] [place] [address] CMPon 11-10-2022 Albumin [Mass/Vol] 4.4 g/dL Normal 3.3-5.0 [facility] Comment on above: Performed By: #### 2 651703, 7978626, 3566957, 004832712, 6345309, 6970440, 82714038, 70349187 ####[address] [place] [address] Albumin/Globulin (S) [Mass conc ratio] 1.1 Normal 1.1-2.2 [facility] Comment on above: Performed By: #### 2 765142, 6211825, 9369639, 218924140, 5597074, 0480514, 93893735, 93749064 ####[facility] [address] [place] [address] ALP [Catalytic activity/Vol] 71 Int._Unit/L Normal 21-98 [facility] Comment on above: Performed By: #### 2 937189, 1355708, 7476313, 703854084, 1470108, 4442297, 35342438, 16515602 ####[address] [address] ALT No additional P-5'-P [Catalytic activity/Vol] 18 Int._Unit/L Normal 6-46 [facility] Comment on above: Performed By: #### 2 433232, 5867041, 0187615, 706733366, 0551848, 2989041, 94223524, 49765686 ####[address] [address] Anion gap [Moles/Vol] 13 mmol/L Normal 6-16 [facility] Comment on above: Performed By: #### 2 044574, 8715069, 1682586, 026924664, 2753825, 7599657, 34597269, 77558370 ####[address] [address] AST [Catalytic activity/Vol] 20 Int._Unit/L Normal 5-43 [facility] Comment on above: Performed By: #### 2 844656, 0898259, 7866403, 712424066, 6933414, 7133384, 34309787, 43331509 ####[address] [place] [address] Bilirubin [Mass/Vol] 0.3 mg/dL Normal 0.0-1.1 [facility] Comment on above: Performed By: #### 2 320998, 0294555, 2002169, 112381280, 5046011, 0767670, 92658593, 36579827 ####[facility] [place] [address] Calcium [Mass/Vol] 9.7 mg/dL Normal 8.9-11.1 [facility] Comment on above: Performed By: #### 2 228616, 3542589, 1639968, 783343419, 6077847, 9374124, 85546804, 29881633 ####[facility] [address] [place] [address] Chloride [Moles/Vol] 101 mmol/L Normal 101-111 [facility] Comment on above: Performed By: #### 2 390101, 2973040, 5198618, 134905035, 2816552, 7195133, 87416118, 59240846 ####[facility] [address] [place] [address] CO2 [Moles/Vol] 29 mmol/L Normal 21-31 [facility] Comment on above: Performed By: #### 2 229870, 0091028, 2652952, 049735907, 4400971, 5962037, 08911255, 86683131 ####[facility] [address] [place] [address] Creatinine [Mass/Vol] 0.8 mg/dL Normal 0.5-1.3 [facility] Comment on above: Performed By: #### 2 225760, 8552329, 5355426, 841382166, 8914908, 0032198, 03490785, 99250661 ####[facility] [address] [place] [address] Globulin (S) [Mass/Vol] 3.9 g/dL Normal 1.4-4.0 [facility] Comment on above: Performed By: #### 2 001944, 4856097, 4745665, 102730712, 9704100, 2120439, 84919461, 93766476 ####[facility] [address] [place] [address] Glucose [Mass/Vol] 146 mg/dL Normal 55-199 [facility] Comment on above: Result Comment: If t his glucose result represents a fasting glucose, interpretation should refer to the following reference range: 55-99 mg/dL Performed By: #### 2 244380, 7368324, 2544527, 745871497, 5199964, 9136263, 59641388, 64465634 ####[facility] [address] [place] [address] Potassium [Moles/Vol] 3.8 mmol/L Normal 3.5-5.3 [facility] Comment on above: Performed By: #### 2 156861, 1459867, 5475259, 063138696, 1937823, 8884616, 86252349, 97493131 ####[facility] [address] [place] [address] Protein [Mass/Vol] 8.3 g/dL High 6.0-7.8 [facility] Comment on above: Performed By: #### 2 706232, 2819757, 9644896, 440223783, [id number], [id number], [id number], [id number] ####[facility] [address] [place] [address] Sodium [Moles/Vol] 139 mmol/L Normal 135-145 [facility] Comment on above: Performed By: #### 2 482179, 1930033, 6221816, [id number], 3812835, 7235422, [id number], [id number] ####[facility] [address] [place] [address] Urea nitrogen [Mass/Vol] 8 mg/dL Normal 5-21 [facility] Comment on above: Performed By: #### 2 702952, 1391685, 5032526, [id number], 1373759, 5656746, 83697705, 26230833 ####[facility] [address] [place] [address] Urea nitrogen/Creatinine [Mass ratio] 10 No Units Normal 10-20 [facility] Comment on above: Performed By: #### 2 741780, 5888478, 9583535, [id number], 6288058, 1778752, 36750279, [id number] ####[facility] [address] [place] [address] Family Medicine Office/Clini c Noteon 11-10-2022 Family Medicine Office/Clinic Note Chief Complaint establish care HPI Staff patient is here to establish care. Establish Care: History: Any previous diagnosis:HTN,DM,anxie ty, depression,hypothyroid , bipolar History of seeing any specialist: Neurologist Dr Millard, Pain mgmt [facility] Dr Pelaez mental meds When was your last doctors visit: 08/05/22 Last provider: Dr. Roberts Any recent labs: none frank-20 phq9 not done ( bipolar) Acute: Current issues/complaints: very fustrated with the exchange operator at the office and getting an appt Health Maintenance UTD: Colonoscopy: never got done got sick from the colon prep and never got cleared out. Mammogram: 09/03/22 Pelvic/Pap: 08/05/22 History of Present Illness Amairani Gonzales is a 46-year-old female who presents today to establish care. She was previously seen by Dr. Roberts. Amairani feels that she is falling apart . She states that she is having anxiety over the change. Amairani reports that she has a hard time trusting people. Amairani reports that she has a history of bipolar disorder. She is followed by Dr. Pelaez for this. Amairani's reminds her when to take her medication. She states that she has no time to rest. She has a tough time eating when she is depressed. Amairani reports that she smokes marijuana. She states that she has been smoking marijuana for 27 years. Amairani notes that she sees Dr. George at [facility] for her leg pain. She states that she has a herniated disc, arthritis through her entire body, bursitis in her hips, and degenerative disc disease. Amairani reports that her blood sugars have been around 142. She states that when she gets stressed, her blood sugar goes up. She notes that she has a strong family history of diabetes. She has fallen many times. She states that she uses a walker when she is in severe pain. Amairani has 3 children. She states that they have all had their disabilities. She explains that she has smoked cigarettes since she was 17 years old. She states that she smokes 1 pack of cigarettes a day. Physical Exam Vitals & Measurements HR: 82(Peripheral) RR: 20 BP: 138/86 SpO2: 96% HT: 66 in HT: 166.62 cm WT: 72.7 kg WT: 159.94 lb BMI: 26.19 General: alert, no acute distress ENMT: oral mucosa moist, no pharyngeal erythema or exudate Cardiovascular: regular rate and rhythm, normal peripheral perfusion Respiratory: Lungs CTA, respirations non labored Extremities: no deformity, no trauma Neurological: oriented x 4, LOC appropriate for age, CN II-XII intact, motor strength equal & normal bilaterally, speech normal Assessment/Plan 1. Advanced diabetic retinal disease (E11.319: Type 2 diabetes mellitus with unspecified diabetic retinopathy without macular edema) Patient sees an eye doctor. Encouraged the patient to continue with that. 2. Lumbosacral spondylosis with radiculopathy (M47.27: Other spondylosis with radiculopathy, lumbosacral region) Patient has to use a cane for walking. Encouraged the patient to continue with pain management. 3. Smoker (F17.200: Nicotine dependence, unspecified, uncomplicated) Encouraged the patient to decrease smoking. Patient is a pack a day smoker. 4. Bipolar affective disorder, currently manic, moderate (F31.12: Bipolar disorder, current episode manic without psychotic features, moderate) Patient sees Dr. Pelaez. The patient is actively having more anxiety today, given she is seeing a new provider. We will see the patient back on a more frequent basis to see if we can help bring down some of that anxiety. 5. Pure hypercholesterolemia (E78.00: Pure hypercholesterolemia, unspecified) At this time, we will do lab work and see where the patient is at and then we will adjust the medication as needed. 6. Primary hypertension (I10: Essential (primary) hypertension) 7. BMI 26.0-26.9,adult (Z68.26: Body mass index [BMI] 26.0-26.9, adult) BMI education given. 8. Over weight (E66.3: Overweight) Diet and exercise advised. 9. Diabetes (E11.9: Type 2 diabetes mellitus without complications) We will order basic lab work today. We will do an A1c today. We will adjust medication and see the patient back in 1 month for these adjustments. 10. Marijuana user (F12.90: Cannabis use, unspecified, uncomplicated) Encouraged the patient to decrease marijuana use. 11. Hypothyroid (E03.9: Hypothyroidism, unspecified) We will do a TSH today. ATTESTATION: Documentation services were performed after patient or guardian consented to allow Imtiaz Joseph to record this visit. ANNY systems software specialist and provider reviewed before signing. ANNY: Marley Fontanez Follow-up No qualifying data available Problem List/Past Medical History Ongoing Acid reflux disease Advanced diabetic retinal disease Allergic rhinitis Anxiety Bipolar affective disorder, currently manic, moderate Bipolar disease, chronic BMI 27.0-27.9,adult Diabetes Genital herpes History of gastric ulcer Hypothyroid In (more content not included)... Normal [facility] Comment on above: Result Comment: Elec tronically Signed By: Joss Shepherd MD\.br\Date and Time Signed: 11/10/22 17:18 EDT\.br\Electronically Co-Signed By: Marley Fontanez\.br\Date and Time Co-Signed: 11/10/22 13:34 EDT Free T4on 11-10-2022 Free T4 [Mass/Vol] 0.90 ng/dL Normal 0.58-1.64 [facility] Comment on above: Order Comment: Free T4 added by Discern Rule due to a TSH result of <0.34 or >5.60. Performed By: #### 2 195357, 6291433, 1218630, [id number], 6905306, 5908861, 51677322, 18127293 ####[facility] [address] [place] [address] CviU0rlo 11-10-2022 HbA1c (Bld) [Mass fraction] 7.6 % High <=5.9 [facility] Comment on above: Performed By: #### 2 324749, 1754247, 1588656, [id number], 0507422, 1114481, 41741257, 12812239 ####[facility] [address] [place] [address] Lipid Panelon 11-10-2022 Cholesterol [Mass/Vol] 220 mg/dL High 120-200 [facility] Comment on above: Performed By: #### 2 686768, 8819597, 7976501, [id number], 6464526, 2136264, 03042156, 39221252 ####[facility] [address] [place] [address] Cholesterol in HDL [Mass/Vol] 39 mg/dL Invalid Interpretation Code [facility] Comment on above: Result Comment: HDL > or equal to 60 mg/dL: Low cardiovascular risk HDL < 40 mg/dL : High cardiovascular risk Performed By: #### 2 631385, 5220196, 1785931, 718784350, 5255339, 5667421, 97464114, 63335903 ####[facility] [address] [place] [address] Cholesterol in LDL [Mass/Vol] 141 mg/dL High <=129 [facility] Comment on above: Performed By: #### 2 114580, 8211059, 5223876, 324464393, 6071060, 3229710, 94425537, 89669839 ####[facility] [address] [place] [address] Cholesterol in VLDL [Mass/Vol] 39 mg/dL Normal 7-40 [facility] Comment on above: Performed By: #### 2 713234, 9991233, 8918086, 555444240, 2988937, 1354393, 45584067, 38407609 ####[facility] [address] [place] [address] Triglyceride [Mass/Vol] 196 mg/dL High <=149 [facility] Comment on above: Performed By: #### 2 701656, 4946587, 2371454, 099166944, 5205888, 0481191, 72420079, 99858124 ####[facility] [address] [place] [address] TSH With T4fr Reflexon 11-10 TSH Qn 0.02 m[IU]/L Low 0.34-5.60 [facility] Comment on above: Performed By: #### 2 214417, 9323143, 2012515, 602914744, 9333604, 4499368, 49915593, 41491351 ####[facility] [address] [place] [address] eGFRon 11-10-2022 GFR/1.73 sq M.predicted among blacks MDRD (S/P/Bld) [Vol rate/Area] mL/min/{1.73_m2} Normal >=59 [facility] Comment on above: Order Comment: Order added by Discern Expert. Result Comment: eGFR is race adjusted. AA=. Performed By: #### 2 675153, 2979059, 6580808, 508299736, 4993559, 6113692, 59715387, 66170771 ####[facility] [address] [place] [address] GFR/1.73 sq M.predicted among non-blacks MDRD (S/P/Bld) [Vol rate/Area] mL/min/{1.73_m2} Normal >=59 [facility] Comment on above: Order Comment: Order added by Discern Expert. Result Comment: Hvac Sales Engineer gustavo kidney disease could be indicated at eGFR's of less than 60 mL/min/1.73m2. Kidney failure is indicated at less than 15 mL/min/1.73m2. Performed By: #### 2 381907, 0816119, 3234144, 988739025, 2314473, 4910957, 87642795, 37541996 ####[facility] [address] [place] [address] MG MAMM SCREEN 3D CRYSTAL CADon 09-03-2022 MG MAMM SCREEN 3D CRYSTAL CAD Patient: AMAIRANI GONZALES. Exam Date: 09/03/2022 : 1975 Gender:F Ordering : DR KATTY ROBERTS . Admission #: [id number] Family : Order #: [id number] CLICK HERE TO VIEW EXAM RADIOLOGY REPORT PROCEDURE: MAMMOGRAM SCREENING 3D BILATERAL CAD COMPARISON: MG MAMM SCREEN CRYSTAL W CAD, 04/02/2018. MG MAMM SCREEN CRYSTAL W CAD, 05/25/2019. INDICATIONS: Screening mammography Calculator Name NCI Breast Cancer Risk Assessment Tool 5 Year Breast Cancer Risk 0.80% Lifetime Breast Cancer Risk 9.30% Personal Breast Cancer No Personal Ovarian Cancer No Treatments None Family Cancers None LOCATION: [facility] BREAST COMPOSITION: Scattered areas fibroglandular density. FINDINGS: DIAGNOSTIC CATEGORY 2--BENIGN FINDING. NO CHANGE FROM COMPARISON. Scattered benign-appearing nodules are present. Scattered benign-appearing calcifications are present. Scattered benign-appearing lymph nodes are present. RIGHT BREAST: No significant suspicious finding. LEFT BREAST: No significant suspicious finding. RECOMMENDATIONS: ROUTINE MAMMOGRAM AND CLINICAL EVALUATION IN 12 MONTHS. PLEASE NOTE: A NORMAL MAMMOGRAM DOES NOT EXCLUDE THE POSSIBILITY OF BREAST CANCER. A CLINICALLY SUSPICIOUS PALPABLE LUMP SHOULD BE BIOPSIED. Dictated by: Narciso Oconnor MD on 09/03/2022 at 14:42 Approved by: Narciso Oconnor MD on 09/03/2022 at 14:56 Normal [facility] GLYCOHEMOGLOBIN A1Con 2022 ADA RECOMMENDATION SEE BELOW Normal [facility] Comment on above: Result Comment: ADA RECOMMENDED LIMIT 4.0 - 6.0 ADA THERAPEUTIC TARGET < 7.0 ACTION SUGGESTED > 7.0 Performed By: #### F T4 #### [facility] [address] [place] [address] Dr. Rukhsana Rivas Glucose [Mass/Vol] 171 mg/dL Normal [facility] Comment on above: Performed By: #### F T4 #### [facility] [address] [place] [address] Dr. Rukhsana Rivas HbA1c (Bld) [Mass fraction] 7.6 % Critically high 4.5-6.2 [facility] Comment on above: Performed By: #### F T4 #### [facility] [address] [place] [address] Dr. Rukhsana Rivas PAP ACOG PANEL 2: 30 to 65on 08-07-2022 . . Normal [facility] Comment on above: Result Comment: Perf ormed at: WB Performed By: #### C MP, LIPID #### [facility] [address] [place] [address] Dr. Rukhsana Rivas Age Gdln ACOG Testing 30-65 Normal [facility] Comment on above: Performed By: #### C MP, LIPID #### [facility] [address] [place] [address] Dr. Rukhsana Rivas DIAGNOSIS: Comment Normal [facility] Comment on above: Result Comment: NEGA TIVE FOR INTRAEPITHELIAL LESION OR MALIGNANCY. Performed at: WB Performed By: #### C MP, LIPID #### [facility] [address] [address] [address] Rukhsana Rivas HPV Aptima Negative Normal Negative [facility] Comment on above: Result Comment: This nucleic acid amplification test detects fourteen high-risk HPV types (16,18,31,33,35,39,45,51,52,56,58,59,66,68) without differentiation. Performed at: =G Performed By: #### C MP, LIPID #### [facility] [address] [place] [address] Dr. Rukhsana Rivas HPV Genotype Reflex Comment Normal [facility] Comment on above: Result Comment: Crit eria not met, HPV Genotype not performed. Performed at: WB Performed By: #### C MP, LIPID #### [facility] [address] [place] [address] Dr. Rukhsana Rivas Methodology: Comment Normal [facility] Comment on above: Result Comment: This liquid based ThinPrep(R) pap test was screened with the use of an image guided system. Performed at: WB Performed By: #### C MP, LIPID #### [facility] [address] [place] [address] Dr. Rukhsana Rivas Note: Comment Normal [facility] Comment on above: Result Comment: The Pap smear is a screening test designed to aid in the detection of premalignant and malignant conditions of the uterine cervix. It is not a diagnostic procedure and should not be used as the sole means of detecting cervical cancer. Both false-positive and false-negative reports do occur. . Performed at: WB Performed By: #### C MP, LIPID #### [facility] [address] [place] [address] Dr. Rukhsana Rivas Performed by: Comment Normal [facility] Comment on above: Result Comment: Elisabeth Kirk, Peripatologist Performed at: WB Performed By: #### C MP, LIPID #### [facility] [address] [address] [address] Rukhsana Rivas Specimen adequacy: Comment Normal [facility] Comment on above: Result Comment: Sati sfactory for evaluation. Endocervical and/or squamous metaplastic cells (endocervical component) are present. Performed at: WB Performed By: #### C MP, LIPID #### [facility] [address] [address] [address] Rukhsana Rivas XR WRIST LT MIN 3 Von 2021 XR WRIST LT MIN 3 V IMAGES REVIEWED: XR WRIST LT MIN 3 V COMPARISON: 02/15/2021. CLINICAL INDICATION: Fall, ulnar pain. FINDINGS/IMPRESSION: 1. No evidence of acute osseous abnormality of the left wrist. 2. Positive ulnar variance. Electronically authenticated by: MARY MILIAN Date: 2022-04-25 18:07 Normal [facility] Covid-19 PCR (CVDTBH)on 03-27 SARS-CoV-2 (COVID-19) RNA GHISLAINE+probe Ql (Unsp spec) Detected Critically abnormal NOT DETECTED [facility] Comment on above: Result Comment: This test is not yet approved or cleared by the [place] FDA. When there are no FDA-approved or cleared tests available, and other criteria are met, FDA can make tests available under an emergency access mechanism called an Emergency Use Authorization (EUA). The EUA for this test is supported by the [place] [employer] of Health and Human Service's (HHS's) declaration that circumstances exist to justify the emergency use of in vitro diagnostics for the detection and/or diagnosis of the virus that causes COVID-19. This EUA will remain in effect (meaning this test can be used) for the duration of the COVID-19 declaration justifying emergency of IVDs, unless it is terminated or revoked by FDA (after which the test may no longer be used). Performed By: #### C MP, LIPID #### [facility] [address] [address] [address] Rukhsana Rivas CBC AUTO DIFFon 04-08-2022 BASO # 0.0 103/ul Normal 0.0-0.1 [facility] Comment on above: Performed By: #### C MP, LIPID #### [facility] [address] [place] [address] Dr. Rukhsana Rivas Basophils/100 WBC (Bld) 0.3 % Normal 0.2-2.0 [facility] Comment on above: Performed By: #### C MP, LIPID #### [facility] [address] [place] [address] Dr. Rukhsana Rivas EO # 0.2 103/ul Normal 0.0-0.7 [facility] Comment on above: Performed By: #### C MP, LIPID #### [facility] [address] [place] [address] Dr. Rukhsana Rivas Eosinophils/100 WBC (Bld) 2.2 % Normal 0.9-7.0 [facility] Comment on above: Performed By: #### C MP, LIPID #### [facility] [address] [place] [address] Dr. Rukhsana Rivas Erythrocyte distribution width (RBC) [Ratio] 12.4 % Normal 11.0-15.0 [facility] Comment on above: Performed By: #### C MP, LIPID #### [facility] [address] [place] [address] Dr. Rukhsana Rivas Hematocrit (Bld) [Volume fraction] 42.7 % Normal 36.0-48.0 [facility] Comment on above: Performed By: #### C MP, LIPID #### [facility] [address] [place] [address] Dr. Rukhsana Rivas Hemoglobin (Bld) [Mass/Vol] 14.5 g/dL Normal 12.0-16.0 [facility] Comment on above: Performed By: #### C MP, LIPID #### [facility] [address] [place] [address] Dr. Rukhsana Rivas IG # 0.02 10e3/ul Normal 0.00-0.03 [facility] Comment on above: Performed By: #### C MP, LIPID #### [facility] [address] [place] [address] Dr. Rukhsana Rivas IG % 0.2 % Normal 0.0-0.5 [facility] Comment on above: Performed By: #### C MP, LIPID #### [facility] [address] [address] [address] Rukhsana Rivas LYMPH # 3.4 103/ul Normal 1.2-3.8 [facility] Comment on above: Performed By: #### C MP, LIPID #### [facility] [address] [address] [address] Rukhsana Rivas Lymphocytes/100 WBC (Bld) 34.1 % Normal 20.5-60.0 [facility] Comment on above: Performed By: #### C MP, LIPID #### [facility] [address] [address] [address] Rukhsana Rivas MANUAL DIFF REQ NO Normal [facility] Comment on above: Performed By: #### C MP, LIPID #### [facility] [address] [address] [address] Rukhsana Rivas MCH (RBC) [Entitic mass] 30.6 pg Normal 26.7-34.0 [facility] Comment on above: Performed By: #### C MP, LIPID #### [facility] [address] [address] [address] Rukhsana Rivas MCHC (RBC) [Mass/Vol] 34.0 g/dL Normal 29.9-35.2 [facility] Comment on above: Performed By: #### C MP, LIPID #### [facility] [address] [address] [address] Rukhsana Rivas MCV (RBC) [Entitic vol] 90.1 fL Normal 81.0-99.0 [facility] Comment on above: Performed By: #### C MP, LIPID #### [facility] [address] [address] [address] Rukhsana Rivas MONO # 0.6 103/ul Normal 0.3-0.8 [facility] Comment on above: Performed By: #### C MP, LIPID #### [facility] [address] [address] [address] Rukhsana Rivas Monocytes/100 WBC (Bld) 6.4 % Normal 1.7-12.0 [facility] Comment on above: Performed By: #### C MP, LIPID #### [facility] [address] [address] [address] Rukhsana Rivas NEUT # 5.6 103/ul Normal 1.4-6.5 [facility] Comment on above: Performed By: #### C MP, LIPID #### [facility] [address] [place] [address] Dr. Rukhsana Rivas Neutrophils/100 WBC (Bld) 56.8 % Normal 43.0-75.0 [facility] Comment on above: Performed By: #### C MP, LIPID #### [facility] [address] [place] [address] Dr. Rukhsana Rivas Platelet mean volume (Bld) [Entitic vol] 10.6 fL Normal 9.5-13.5 [facility] Comment on above: Performed By: #### C MP, LIPID #### [facility] [address] [place] [address] Dr. Rukhsana Rivas PLT 270 103/ul Normal 150-450 [facility] Comment on above: Performed By: #### C MP, LIPID #### [facility] [address] [place] [address] Dr. Rukhsana Rivas RBC 4.74 106/ul Normal 4.20-5.40 [facility] Comment on above: Performed By: #### C MP, LIPID #### [facility] [address] [place] [address] Dr. Rukhsana Rivas WBC 9.9 103/ul Normal 4.0-11.0 [facility] Comment on above: Performed By: #### C MP, LIPID #### [facility] [address] [place] [address] Dr. Rukhsana Rivas FREE T3on 04-08-2022 FREE T3 3.09 pg/mlL Normal 2.18-3.98 [facility] Comment on above: Performed By: #### F T4 #### [facility] [address] [place] [address] Dr. Rukhsana Rivas FREE T4on 04-08-2022 Free T4 [Mass/Vol] 1.44 ng/dL Normal 0.76-1.46 [facility] Comment on above: Performed By: #### F T4 #### [facility] [address] [address] [address] Rukhsana Rivas GLYCOHEMOGLOBIN A1Con 2021 ADA RECOMMENDATION SEE BELOW Normal [facility] Comment on above: Result Comment: ADA RECOMMENDED LIMIT 4.0 - 6.0 ADA THERAPEUTIC TARGET < 7.0 ACTION SUGGESTED > 7.0 Performed By: #### C MP, LIPID #### [facility] [address] [address] [address] Rukhsana Rivas Glucose [Mass/Vol] 280 mg/dL Normal [facility] Comment on above: Performed By: #### C MP, LIPID #### [facility] [address] [place] [address] Dr. Rukhsana Rivas HbA1c (Bld) [Mass fraction] 11.4 % Critically high 4.5-6.2 [facility] Comment on above: Performed By: #### C MP, LIPID #### [facility] [address] [place] [address] Dr. Rukhsana Rivas LIPID PROFILEon 04-08-2022 CHOL-HDL RATIO NORM SEE BELOW Normal [facility] Comment on above: Result Comment: 3.3 - 4.4 LOW RISK 4.4 - 7.1 AVERAGE RISK 7.1 - 11.0 MODERATE RISK >11.0 HIGH RISK Performed By: #### F T4 #### [facility] [address] [place] [address] Dr. Rukhsana Rivas Cholesterol [Mass/Vol] 207 mg/dL Critically high <=200 [facility] Comment on above: Performed By: #### F T4 #### [facility] [address] [address] [address] Rukhsana Rivas Cholesterol in HDL [Mass/Vol] 37 mg/dL Critically low 40-60 [facility] Comment on above: Performed By: #### F T4 #### [facility] [address] [address] [address] Rukhsana Rivas Cholesterol in LDL [Mass/Vol] 115.0 mg/dL Normal [facility] Comment on above: Performed By: #### F T4 #### [facility] [address] [address] [address] Rukhsana Rivas Cholesterol.total/Ch olesterol in HDL [Mass ratio] 5.6 {ratio} Normal [facility] Comment on above: Performed By: #### F T4 #### [facility] [address] [address] [address] Rukhsana Rivas HDL NORMAL > or = 60 mg/dl - LO W CARDIOVASCULAR RISK <40 mg/dl - HIGH CARDIOVASCULAR RISK Normal [facility] Comment on above: Performed By: #### F T4 #### [facility] [address] [place] [address] Dr. Rukhsana Rivas LDL CALC NORMAL SEE BELOW Normal [facility] Comment on above: Result Comment: <100 mg/dl OPTIMAL 100 - 129 mg/dl NEAR OR ABOVE OPTIMAL 130 - 159 mg/dl BORDERLINE HIGH 160 - 189 mg/dl HIGH >190 mg/dl VERY HIGH Performed By: #### F T4 #### [facility] [address] [place] [address] Dr. Rukhsana Rivas Triglyceride [Mass/Vol] 275 mg/dL Critically high <=150 [facility] Comment on above: Performed By: #### F T4 #### [facility] [address] [place] [address] Dr. Rukhsana Rivas VLDL CALC 55.0 mg/dL Normal [facility] Comment on above: Performed By: #### F T4 #### [facility] [address] [address] [address] Rukhsana Rivas PROF 14(COMP METB)on 022 Albumin [Mass/Vol] 4.1 g/dL Normal 3.4-5.0 [facility] Comment on above: Performed By: #### F T4 #### [facility] [address] [place] [address] Dr. Rukhsana Rivas Albumin/Globulin [Mass ratio] 1.1 {ratio} Normal [facility] Comment on above: Performed By: #### F T4 #### [facility] [address] [place] [address] Dr. Rukhsana Rivas ALP [Catalytic activity/Vol] 93 U/L Normal 46-116 [facility] Comment on above: Performed By: #### F T4 #### [facility] [address] [place] [address] Dr. Rukhsana Rivas ALT [Catalytic activity/Vol] 26 U/L Normal 14-59 [facility] Comment on above: Performed By: #### F T4 #### [facility] [address] [place] [address] Dr. Rukhsana Rivas Anion gap [Moles/Vol] 9.4 mmol/L Normal [facility] Comment on above: Performed By: #### F T4 #### [facility] [address] [place] [address] Dr. Rukhsana Rivas AST [Catalytic activity/Vol] 11 U/L Critically low 15-37 [facility] Comment on above: Performed By: #### F T4 #### [facility] [address] [place] [address] Dr. Rukhsana Rivas Bilirubin [Mass/Vol] 0.5 mg/dL Normal 0.2-1.0 [facility] Comment on above: Performed By: #### F T4 #### [facility] [address] [place] [address] Dr. Rukhsana Rivas Calcium [Mass/Vol] 9.6 mg/dL Normal 8.5-10.1 [facility] Comment on above: Performed By: #### F T4 #### [facility] [address] [place] [address] Dr. Rukhsana Rivas Chloride [Moles/Vol] 97 mmol/L Critically low 98-107 [facility] Comment on above: Performed By: #### F T4 #### [facility] [address] [place] [address] Dr. Rukhsana Rivas CO2 [Moles/Vol] 35.4 mmol/L Critically high 21.0-32.0 [facility] Comment on above: Performed By: #### F T4 #### [facility] [address] [place] [address] Dr. Rukhsana Rivas Creatinine [Mass/Vol] 0.72 mg/dL Normal 0.55-1.02 [facility] Comment on above: Performed By: #### F T4 #### [facility] [address] [address] [address] Rukhsana Rivas EGFR-AF BHUTANESE >60 Normal >=60 [facility] Comment on above: Performed By: #### F T4 #### [facility] [address] [address] [address] Rukhsana Rivas EGFR-NON AF BHUTANESE >60 Normal >=60 [facility] Comment on above: Performed By: #### F T4 #### [facility] [address] [address] [address] Rukhsana Rivas Globulin (S) [Mass/Vol] 3.7 g/dL Normal [facility] Comment on above: Performed By: #### F T4 #### [facility] [address] [address] [address] Rukhsana Rivas Glucose [Mass/Vol] 315 mg/dL Critically high 74-106 [facility] Comment on above: Performed By: #### F T4 #### [facility] [address] [address] [address] Rukhsana Rivas Potassium [Moles/Vol] 3.8 mmol/L Normal 3.5-5.1 [facility] Comment on above: Performed By: #### F T4 #### [facility] [address] [address] [address] Rukhsana Rivas Protein [Mass/Vol] 7.8 g/dL Normal 6.4-8.2 [facility] Comment on above: Performed By: #### F T4 #### [facility] [address] [address] [address] Rukhsana Rivas Sodium [Moles/Vol] 138 mmol/L Normal 136-145 [facility] Comment on above: Performed By: #### F T4 #### [facility] [address] [address] [address] Rukhsana Rivas Urea nitrogen [Mass/Vol] 13.0 mg/dL Normal 7.0-18.0 [facility] Comment on above: Performed By: #### F T4 #### [facility] [address] [address] [address] Rukhsana Rivas Urea nitrogen/Creatinine [Mass ratio] 18.1 mg/mg Normal [facility] Comment on above: Performed By: #### F T4 #### [facility] [address] [address] [address] Rukhsana Rivas TSHon 04-08-2022 TSH 0.008 uIU/mL Critically low 0.358-3.740 [facility] Comment on above: Performed By: #### F T4 #### [facility] [address] [address] [address] Rukhsana Rivas GLYCOHEMOGLOBIN A1Con 2021 ADA RECOMMENDATION SEE BELOW Normal [facility] Comment on above: Result Comment: ADA RECOMMENDED LIMIT 4.0 - 6.0 ADA THERAPEUTIC TARGET < 7.0 ACTION SUGGESTED > 7.0 Performed By: #### A 1C #### [facility] [address] [place] [address] Dr. Rukhsana Rivas Glucose [Mass/Vol] 243 mg/dL Normal [facility] Comment on above: Performed By: #### A 1C #### [facility] [address] [place] [address] Dr. Rukhsana Rivas HbA1c (Bld) [Mass fraction] 10.1 % Critically high 4.5-6.2 [facility] Comment on above: Performed By: #### A 1C #### [facility] [address] [place] [address] Dr. Rukhsana Rivas LIPID PROFILEon 02-04-2022 CHOL-HDL RATIO NORM SEE BELOW Normal [facility] Comment on above: Result Comment: 3.3 - 4.4 LOW RISK 4.4 - 7.1 AVERAGE RISK 7.1 - 11.0 MODERATE RISK >11.0 HIGH RISK Performed By: #### C MP, LIPID #### [facility] [address] [place] [address] Dr. Rukhsana Rivas Cholesterol [Mass/Vol] 265 mg/dL Critically high <=200 [facility] Comment on above: Performed By: #### C MP, LIPID #### [facility] [address] [address] [address] Rukhsana Rivas Cholesterol in HDL [Mass/Vol] 45 mg/dL Normal 40-60 [facility] Comment on above: Performed By: #### C MP, LIPID #### [facility] [address] [address] [address] Rukhsana Rivas Cholesterol in LDL [Mass/Vol] 178.8 mg/dL Normal [facility] Comment on above: Performed By: #### C MP, LIPID #### [facility] [address] [address] [address] Rukhsana Rivas Cholesterol.total/Ch olesterol in HDL [Mass ratio] 5.9 {ratio} Normal [facility] Comment on above: Performed By: #### C MP, LIPID #### [facility] [address] [place] [address] Dr. Rukhsana Rivas HDL NORMAL > or = 60 mg/dl - LO W CARDIOVASCULAR RISK <40 mg/dl - HIGH CARDIOVASCULAR RISK Normal [facility] Comment on above: Performed By: #### C MP, LIPID #### [facility] [address] [address] [address] Rukhsana Rivas LDL CALC NORMAL SEE BELOW Normal [facility] Comment on above: Result Comment: <100 mg/dl OPTIMAL 100 - 129 mg/dl NEAR OR ABOVE OPTIMAL 130 - 159 mg/dl BORDERLINE HIGH 160 - 189 mg/dl HIGH >190 mg/dl VERY HIGH Performed By: #### C MP, LIPID #### [facility] [address] [address] [address] Rukhsana Rivas Triglyceride [Mass/Vol] 206 mg/dL Critically high <=150 [facility] Comment on above: Performed By: #### C MP, LIPID #### [facility] [address] [place] [address] Dr. Rukhsana Rivas VLDL CALC 41.2 mg/dL Normal [facility] Comment on above: Performed By: #### C MP, LIPID #### [facility] [address] [address] [address] Rukhsana Rivas PROF 14(COMP METB)on 022 Albumin [Mass/Vol] 3.6 g/dL Normal 3.4-5.0 [facility] Comment on above: Performed By: #### C MP, LIPID #### [facility] [address] [place] [address] Dr. Rukhsana Rivas Albumin/Globulin [Mass ratio] 1.0 {ratio} Normal [facility] Comment on above: Performed By: #### C MP, LIPID #### [facility] [address] [place] [address] Dr. Rukhsana Rivas ALP [Catalytic activity/Vol] 71 U/L Normal 46-116 [facility] Comment on above: Performed By: #### C MP, LIPID #### [facility] [address] [place] [address] Dr. Rukhsana Rivas ALT [Catalytic activity/Vol] 33 U/L Normal 14-59 [facility] Comment on above: Performed By: #### C MP, LIPID #### [facility] [address] [place] [address] Dr. Rukhsana Rivas Anion gap [Moles/Vol] 10.1 mmol/L Normal [facility] Comment on above: Performed By: #### C MP, LIPID #### [facility] [address] [place] [address] Dr. Rukhsana Rivas AST [Catalytic activity/Vol] 19 U/L Normal 15-37 [facility] Comment on above: Performed By: #### C MP, LIPID #### [facility] [address] [place] [address] Dr. Rukhsana Rivas Bilirubin [Mass/Vol] 0.3 mg/dL Normal 0.2-1.0 [facility] Comment on above: Performed By: #### C MP, LIPID #### [facility] [address] [place] [address] Dr. Rukhsana Rivas Calcium [Mass/Vol] 8.8 mg/dL Normal 8.5-10.1 [facility] Comment on above: Performed By: #### C MP, LIPID #### [facility] [address] [place] [address] Dr. Rukhsana Rivas Chloride [Moles/Vol] 104 mmol/L Normal 98-107 [facility] Comment on above: Performed By: #### C MP, LIPID #### [facility] [address] [place] [address] Dr. Rukhsana Rivas CO2 [Moles/Vol] 28.8 mmol/L Normal 21.0-32.0 [facility] Comment on above: Performed By: #### C MP, LIPID #### [facility] [address] [address] [address] Rukhsana Rivas Creatinine [Mass/Vol] 0.74 mg/dL Normal 0.55-1.02 [facility] Comment on above: Performed By: #### C MP, LIPID #### [facility] [address] [place] [address] Dr. Rukhsana Rivas EGFR-AF BHUTANESE >60 Normal >=60 [facility] Comment on above: Performed By: #### C MP, LIPID #### [facility] [address] [place] [address] Dr. Rukhsana Rivas EGFR-NON AF BHUTANESE >60 Normal >=60 [facility] Comment on above: Performed By: #### C MP, LIPID #### [facility] [address] [place] [address] Dr. Rukhsana Rivas Globulin (S) [Mass/Vol] 3.6 g/dL Normal [facility] Comment on above: Performed By: #### C MP, LIPID #### [facility] [address] [place] [address] Dr. Rukhsana Rivas Glucose [Mass/Vol] 199 mg/dL Critically high 74-106 [facility] Comment on above: Performed By: #### C MP, LIPID #### [facility] [address] [place] [address] Dr. Rukhsana Rivas Potassium [Moles/Vol] 3.9 mmol/L Normal 3.5-5.1 [facility] Comment on above: Performed By: #### C MP, LIPID #### [facility] [address] [place] [address] Dr. Rukhsana Rivas Protein [Mass/Vol] 7.2 g/dL Normal 6.4-8.2 [facility] Comment on above: Performed By: #### C MP, LIPID #### [facility] [address] [place] [address] Dr. Rukhsana Rivas Sodium [Moles/Vol] 139 mmol/L Normal 136-145 [facility] Comment on above: Performed By: #### C MP, LIPID #### [facility] [address] [place] [address] Dr. Rukhsana Rivas Urea nitrogen [Mass/Vol] 10.0 mg/dL Normal 7.0-18.0 [facility] Comment on above: Performed By: #### C MP, LIPID #### [facility] [address] [place] [address] Dr. Rukhsana Rivas Urea nitrogen/Creatinine [Mass ratio] 13.5 mg/mg Normal [facility] Comment on above: Performed By: #### C MP, LIPID #### [facility] [address] [place] [address] Dr. Rukhsana Rivas ALDOLASEon 11-26-2021 Aldolase 3.6 U/L Normal 3.3-10.3 [facility] Comment on above: Performed By: #### C MP, LIPID #### [facility] [address] [place] [address] Dr. Rukhsana Rivas CBC AUTO DIFFon 11-22-2021 BASO # 0.0 103/ul Normal 0.0-0.1 [facility] Comment on above: Performed By: #### F T4 #### [facility] [address] [place] [address] Dr. Rukhsana Rivas Basophils/100 WBC (Bld) 0.3 % Normal 0.2-2.0 [facility] Comment on above: Performed By: #### F T4 #### [facility] [address] [place] [address] Dr. Rukhsana Rivas EO # 0.1 103/ul Normal 0.0-0.7 [facility] Comment on above: Performed By: #### F T4 #### [facility] [address] [place] [address] Dr. Rukhsana Rivas Eosinophils/100 WBC (Bld) 0.6 % Critically low 0.9-7.0 [facility] Comment on above: Performed By: #### F T4 #### [facility] [address] [place] [address] Dr. Rukhsana Rivas Erythrocyte distribution width (RBC) [Ratio] 12.9 % Normal 11.0-15.0 [facility] Comment on above: Performed By: #### F T4 #### [facility] [address] [place] [address] Dr. Rukhsana Rivas Hematocrit (Bld) [Volume fraction] 43.1 % Normal 36.0-48.0 [facility] Comment on above: Performed By: #### F T4 #### [facility] [address] [place] [address] Dr. Rukhsana Rivas Hemoglobin (Bld) [Mass/Vol] 14.5 g/dL Normal 12.0-16.0 [facility] Comment on above: Performed By: #### F T4 #### [facility] [address] [place] [address] Dr. Rukhsana Rivas IG # 0.03 10e3/ul Normal 0.00-0.03 [facility] Comment on above: Performed By: #### F T4 #### [facility] [address] [place] [address] Dr. Rukhsana Rivas IG % 0.3 % Normal 0.0-0.5 [facility] Comment on above: Performed By: #### F T4 #### [facility] [address] [place] [address] Dr. Rukhsana Rivas LYMPH # 4.0 103/ul Critically high 1.2-3.8 [facility] Comment on above: Performed By: #### F T4 #### [facility] [address] [place] [address] Dr. Rukhsana Rivas Lymphocytes/100 WBC (Bld) 33.9 % Normal 20.5-60.0 [facility] Comment on above: Performed By: #### F T4 #### [facility] [address] [place] [address] Dr. Rukhsana Rivas MANUAL DIFF REQ NO Normal [facility] Comment on above: Performed By: #### F T4 #### [facility] [address] [place] [address] Dr. Rukhsana Rivas MCH (RBC) [Entitic mass] 30.0 pg Normal 26.7-34.0 [facility] Comment on above: Performed By: #### F T4 #### [facility] [address] [place] [address] Dr. Rukhsana Rivas MCHC (RBC) [Mass/Vol] 33.6 g/dL Normal 29.9-35.2 [facility] Comment on above: Performed By: #### F T4 #### [facility] [address] [place] [address] Dr. Rukhsana Rivas MCV (RBC) [Entitic vol] 89.2 fL Normal 81.0-99.0 [facility] Comment on above: Performed By: #### F T4 #### [facility] [address] [place] [address] Dr. Rukhsana Rivas MONO # 0.8 103/ul Normal 0.3-0.8 [facility] Comment on above: Performed By: #### F T4 #### [facility] [address] [place] [address] Dr. Rukhsana Rivas Monocytes/100 WBC (Bld) 6.7 % Normal 1.7-12.0 [facility] Comment on above: Performed By: #### F T4 #### [facility] [address] [place] [address] Dr. Rukhsana Rivas NEUT # 6.8 103/ul Critically high 1.4-6.5 [facility] Comment on above: Performed By: #### F T4 #### [facility] [address] [place] [address] Dr. Rukhsana Rivas Neutrophils/100 WBC (Bld) 58.2 % Normal 43.0-75.0 [facility] Comment on above: Performed By: #### F T4 #### [facility] [address] [place] [address] Dr. Rukhsana Rivas Platelet mean volume (Bld) [Entitic vol] 10.1 fL Normal 9.5-13.5 [facility] Comment on above: Performed By: #### F T4 #### [facility] [address] [place] [address] Dr. Rukhsana Rivas PLT 281 103/ul Normal 150-450 [facility] Comment on above: Performed By: #### F T4 #### [facility] [address] [place] [address] Dr. Rukhsana Rivas RBC 4.83 106/ul Normal 4.20-5.40 [facility] Comment on above: Performed By: #### F T4 #### [facility] [address] [place] [address] Dr. Rukhsana Rivas WBC 11.7 103/ul Critically high 4.0-11.0 [facility] Comment on above: Performed By: #### F T4 #### [facility] [address] [place] [address] Dr. Rukhsana Rivas CRPon 11-22-2021 CRP 1.2 mg/dL Critically high <=1.0 [facility] Comment on above: Performed By: #### C RP #### [facility] [address] [place] [address] Dr. Rukhsana Rivas CULTURE URINEon 11-22-2021 CULTURE URINE Culture Observations : LIGHT GROWTH OF MIXED GENITAL RADHA. NO POTENTIAL PATHOGENS SEEN. Normal [facility] Comment on above: Performed By: #### F T4 #### [facility] [address] [place] [address] Dr. Rukhsana Rivas UA RANDOM W/MICROSCOPICon BACTERIA SMALL Abnormal NONE SEEN [facility] Comment on above: Performed By: #### U AMIC #### [facility] [address] [place] [address] Dr. Rukhsana Rivas Bilirubin Ql (U) Negative Normal NEGATIVE [facility] Comment on above: Performed By: #### U AMIC #### [facility] [address] [place] [address] Dr. Rukhsana Rivas CAST NONE SEEN Normal NONE SEEN [facility] Comment on above: Performed By: #### U AMIC #### [facility] [address] [address] [address] Rukhsana Rivas Clarity (U) CLEAR Normal CLEAR [facility] Comment on above: Performed By: #### U AMIC #### [facility] [address] [address] [address] Rukhsana Rivas Color (U) LT. YELLOW Normal YELLOW [facility] Comment on above: Performed By: #### U AMIC #### [facility] [address] [address] [address] Rukhsana Rivas Crystals LM Nom (Urine sed) NONE SEEN Normal NONE SEEN [facility] Comment on above: Performed By: #### U AMIC #### [facility] [address] [place] [address] Dr. Rukhsana Rivas Epithelial cells LM Ql (Urine sed) FEW Abnormal NONE SEEN /RARE [facility] Comment on above: Performed By: #### U AMIC #### [facility] [address] [address] [address] Rukhsana Rivas Glucose Ql (U) Negative Normal NEGATIVE [facility] Comment on above: Performed By: #### U AMIC #### [facility] [address] [place] [address] Dr. Rukhsana Rivas Hemoglobin Ql (U) Negative Normal NEGATIVE The [facility] Comment on above: Performed By: #### U AMIC #### [facility] [address] [address] [address] Rukhsana Rivas Ketones Ql (U) Negative Normal NEGATIVE [facility] Comment on above: Performed By: #### U AMIC #### [facility] [address] [address] [address] Rukhsana Rivsa LEUKOCYTES SMALL Abnormal NEGATIVE [facility] Comment on above: Performed By: #### U AMIC #### [facility] [address] [place] [address] Dr. Rukhsana Rivas MUCOUS TRACE Abnormal NONE SEEN [facility] Comment on above: Performed By: #### U AMIC #### [facility] [address] [address] [address] Rukhsana Rivas Nitrite Ql (U) Negative Normal NEGATIVE [facility] Comment on above: Performed By: #### U AMIC #### [facility] [address] [place] [address] Dr. Rukhsana Rivas pH (U) 7.0 [pH] Normal 5-9 [facility] Comment on above: Performed By: #### U AMIC #### [facility] [address] [place] [address] Dr. Rukhsana Rivas RBC NONE SEEN Abnormal 0-2 [facility] Comment on above: Performed By: #### U AMIC #### [facility] [address] [place] [address] Dr. Rukhsana Rivas SPEC GRAVITY 1.010 Normal 1.005-<=1.025 [facility] Comment on above: Performed By: #### U AMIC #### [facility] [address] [place] [address] Dr. Rukhsana Rivas UA PROTEIN Negative Normal NEGATIVE/ TRACE [facility] Comment on above: Performed By: #### U AMIC #### [facility] [address] [place] [address] Dr. Rukhsana Rivas Urobilinogen Qn (U) 0.2 {Angus'U}/dL Normal 0.2 - 1. 0 [facility] Comment on above: Performed By: #### U AMIC #### [facility] [address] [place] [address] Dr. Rukhsana Rivas WBC 5-10 Abnormal NONE SEEN [facility] Comment on above: Performed By: #### U AMIC #### [facility] [address] [place] [address] Dr. Rukhsana Rivas XR LSPINE MIN 4 VIEWSon 10-26 XR LSPINE MIN 4 VIEWS EXAM: XR LSPINE MIN 4 VIEWS Lumbar spine examination CLINICAL HISTORY: Back pain COMPARISON: September 10, 2018 FINDINGS: Lumbar spine examination shows posterior elements are intact. Endplate osteophytes and facet hypertrophic changes are seen which are consistent with degenerative joint disease. No focal lesions are identified. IMPRESSION: Moderate lumbar degenerative changes Electronically authenticated by: PEPPER ANGUIANO Date: 2021-11-22 15:50 Normal [facility] CBC AUTO DIFFon 11-14-2021 BASO # 0.0 103/ul Normal 0.0-0.1 [facility] Comment on above: Performed By: #### C MP, LIPID #### [facility] [address] [address] [address] Rukhsana Rivas Basophils/100 WBC (Bld) 0.2 % Normal 0.2-2.0 [facility] Comment on above: Performed By: #### C MP, LIPID #### [facility] [address] [address] [address] Rukhsana Rivas EO # 0.1 103/ul Normal 0.0-0.7 [facility] Comment on above: Performed By: #### C MP, LIPID #### [facility] [address] [place] [address] Dr. Rukhsana Rivas Eosinophils/100 WBC (Bld) 0.5 % Critically low 0.9-7.0 [facility] Comment on above: Performed By: #### C MP, LIPID #### [facility] [address] [address] [address] Rukhsana Rivas Erythrocyte distribution width (RBC) [Ratio] 13.1 % Normal 11.0-15.0 [facility] Comment on above: Performed By: #### C MP, LIPID #### [facility] [address] [place] [address] Dr. Rukhsana Rivas Hematocrit (Bld) [Volume fraction] 44.0 % Normal 36.0-48.0 [facility] Comment on above: Performed By: #### C MP, LIPID #### [facility] [address] [place] [address] Dr. Rukhsana Rivas Hemoglobin (Bld) [Mass/Vol] 15.2 g/dL Normal 12.0-16.0 [facility] Comment on above: Performed By: #### C MP, LIPID #### [facility] [address] [place] [address] Dr. Rukhsana Rivas IG # 0.04 10e3/ul Critically high 0.00-0.03 [facility] Comment on above: Performed By: #### C MP, LIPID #### [facility] [address] [address] [address] Rukhsana Rivas IG % 0.3 % Normal 0.0-0.5 [facility] Comment on above: Performed By: #### C MP, LIPID #### [facility] [address] [address] [address] Rukhsana Rivas LYMPH # 3.6 103/ul Normal 1.2-3.8 [facility] Comment on above: Performed By: #### C MP, LIPID #### [facility] [address] [address] [address] Rukhsana Rivas Lymphocytes/100 WBC (Bld) 27.1 % Normal 20.5-60.0 [facility] Comment on above: Performed By: #### C MP, LIPID #### [facility] [address] [address] [address] Rukhsana Rivas MANUAL DIFF REQ NO Normal [facility] Comment on above: Performed By: #### C MP, LIPID #### [facility] [address] [address] [address] Rukhsana Rivas MCH (RBC) [Entitic mass] 30.2 pg Normal 26.7-34.0 [facility] Comment on above: Performed By: #### C MP, LIPID #### [facility] [address] [address] [address] Rukhsana Rivas MCHC (RBC) [Mass/Vol] 34.5 g/dL Normal 29.9-35.2 [facility] Comment on above: Performed By: #### C MP, LIPID #### [facility] [address] [address] [address] Rukhsana Rivas MCV (RBC) [Entitic vol] 87.5 fL Normal 81.0-99.0 [facility] Comment on above: Performed By: #### C MP, LIPID #### [facility] [address] [address] [address] Rukhsana Rivas MONO # 0.9 103/ul Critically high 0.3-0.8 [facility] Comment on above: Performed By: #### C MP, LIPID #### [facility] [address] [place] [address] Dr. Rukhsana Rivas Monocytes/100 WBC (Bld) 6.7 % Normal 1.7-12.0 [facility] Comment on above: Performed By: #### C MP, LIPID #### [facility] [address] [place] [address] Dr. Rukhsana Rivas NEUT # 8.7 103/ul Critically high 1.4-6.5 [facility] Comment on above: Performed By: #### C MP, LIPID #### [facility] [address] [place] [address] Dr. Rukhsana Rivas Neutrophils/100 WBC (Bld) 65.2 % Normal 43.0-75.0 [facility] Comment on above: Performed By: #### C MP, LIPID #### [facility] [address] [place] [address] Dr. Rukhsana Rivas Platelet mean volume (Bld) [Entitic vol] 10.4 fL Normal 9.5-13.5 [facility] Comment on above: Performed By: #### C MP, LIPID #### [facility] [address] [place] [address] Dr. Rukhsana Rivas PLT 293 103/ul Normal 150-450 [facility] Comment on above: Performed By: #### C MP, LIPID #### [facility] [address] [place] [address] Dr. Rukhsana Rivas RBC 5.03 106/ul Normal 4.20-5.40 [facility] Comment on above: Performed By: #### C MP, LIPID #### [facility] [address] [place] [address] Dr. Rukhsana Rivas WBC 13.4 103/ul Critically high 4.0-11.0 [facility] Comment on above: Performed By: #### C MP, LIPID #### [facility] [address] [place] [address] Dr. Rukhsana Rivas CRPon 11-14-2021 CRP [Mass/Vol] mg/L Normal <=1.0 [facility] Comment on above: Performed By: #### F T4 #### [facility] [address] [place] [address] Dr. Rukhsana RUVALCABA URINE PROFILEon 2 Bilirubin Ql (U) Negative Normal NEGATIVE [facility] Comment on above: Performed By: #### E RUR #### [facility] [address] [place] [address] Dr. Rukhsana Rivas Clarity (U) CLEAR Normal CLEAR [facility] Comment on above: Performed By: #### E RUR #### [facility] [address] [place] [address] Dr. Rukhsana Rivas Color (U) YELLOW Normal YELLOW [facility] Comment on above: Performed By: #### E RUR #### [facility] [address] [place] [address] Dr. Rukhsana RINCON A micrscopic examination will be performed if indicated. Normal [facility] Comment on above: Performed By: #### E RUR #### [facility] [address] [place] [address] Dr. Rukhsana Rivas Glucose Ql (U) >1000 Abnormal NEGATIVE [facility] Comment on above: Performed By: #### E RUR #### [facility] [address] [place] [address] Dr. Rukhsana Rivas Hemoglobin Ql (U) Negative Normal NEGATIVE [facility] Comment on above: Performed By: #### E RUR #### [facility] [address] [place] [address] Dr. Rukhsana Rivas Ketones Ql (U) 40 mg/dl Abnormal NEGATIVE [facility] Comment on above: Performed By: #### E RUR #### [facility] [address] [place] [address] Dr. Rukhsana Rivas LEUKOCYTES Negative Normal NEGATIVE [facility] Comment on above: Performed By: #### E RUR #### [facility] [address] [place] [address] Dr. Rukhsana Rivas Nitrite Ql (U) Negative Normal NEGATIVE [facility] Comment on above: Performed By: #### E RUR #### [facility] [address] [place] [address] Dr. Rukhsana Rivas pH (U) 5.5 [pH] Normal 5-9 [facility] Comment on above: Performed By: #### E RUR #### [facility] [address] [place] [address] Dr. Rukhsana Rivas SPEC GRAVITY 1.025 Normal 1.005-<=1.025 [facility] Comment on above: Performed By: #### E RUR #### [facility] [address] [place] [address] Dr. Rukhsana Rivas UA PROTEIN TRACE Normal NEGATIVE/ TRACE [facility] Comment on above: Performed By: #### E RUR #### [facility] [address] [place] [address] Dr. Rukhsana Rivas UR MICRO IND NOT INDICATED Normal [facility] Comment on above: Performed By: #### E RUR #### [facility] [address] [place] [address] Dr. Rukhsana Rivas Urobilinogen Qn (U) 0.2 {Angus'U}/dL Normal 0.2 - 1. 0 [facility] Comment on above: Performed By: #### E RUR #### [facility] [address] [place] [address] Dr. Rukhsana Rivas PROF CHEM 8 (BAS METB)on Anion gap [Moles/Vol] 18.4 mmol/L Normal [facility] Comment on above: Performed By: #### B MP, CRP #### [facility] [address] [place] [address] Dr. Rukhsana Rivas Calcium [Mass/Vol] 9.4 mg/dL Normal 8.5-10.1 [facility] Comment on above: Performed By: #### B MP, CRP #### [facility] [address] [place] [address] Dr. Rukhsana Rivas Chloride [Moles/Vol] 96 mmol/L Critically low 98-107 [facility] Comment on above: Performed By: #### B MP, CRP #### [facility] [address] [address] [address] Rukhsana Rivas CO2 [Moles/Vol] 25.3 mmol/L Normal 22.0-30.0 [facility] Comment on above: Performed By: #### B MP, CRP #### [facility] [address] [place] [address] Dr. Rukhsana Rivas Creatinine [Mass/Vol] 0.79 mg/dL Normal 0.52-1.04 [facility] Comment on above: Performed By: #### B MP, CRP #### [facility] [address] [place] [address] Dr. Rukhsana Rivas EGFR-AF BHUTANESE >60 Normal >=60 [facility] Comment on above: Performed By: #### B MP, CRP #### [facility] [address] [place] [address] Dr. Rukhsana Rivas EGFR-NON AF BHUTANESE >60 Normal >=60 [facility] Comment on above: Performed By: #### B MP, CRP #### [facility] [address] [place] [address] Dr. Rukhsana Rivas Glucose [Mass/Vol] 285 mg/dL Critically high 74-106 [facility] Comment on above: Performed By: #### B MP, CRP #### [facility] [address] [place] [address] Dr. Rukhsana Rivas Potassium [Moles/Vol] 3.7 mmol/L Normal 3.4-5.0 [facility] Comment on above: Performed By: #### B MP, CRP #### [facility] [address] [place] [address] Dr. Rukhsana Rivas Sodium [Moles/Vol] 136 mmol/L Critically low 137-145 [facility] Comment on above: Performed By: #### B MP, CRP #### [facility] [address] [place] [address] Dr. Rukhsana Rivas Urea nitrogen [Mass/Vol] 14.0 mg/dL Normal 7.0-18.0 [facility] Comment on above: Performed By: #### B MP, CRP #### [facility] [address] [place] [address] Dr. Rukhsana Rivas Urea nitrogen/Creatinine [Mass ratio] 17.7 mg/mg Normal [facility] Comment on above: Performed By: #### B MP, CRP #### [facility] [address] [place] [address] Dr. Rukhsana Rivas AMYLASEon 11-13-2021 Amylase [Catalytic activity/Vol] 38 U/L Normal 25-115 [facility] Comment on above: Performed By: #### C MP, LIPID #### [facility] [address] [place] [address] Dr. Rukhsana Rivas CBC AUTO DIFFon 11-13-2021 BASO # 0.0 103/ul Normal 0.0-0.1 [facility] Comment on above: Performed By: #### C BC #### [facility] [address] [place] [address] Dr. Rukhsana Rivas Basophils/100 WBC (Bld) 0.3 % Normal 0.2-2.0 [facility] Comment on above: Performed By: #### C BC #### [facility] [address] [place] [address] Dr. Rukhsana Rivas EO # 0.1 103/ul Normal 0.0-0.7 [facility] Comment on above: Performed By: #### C BC #### [facility] [address] [place] [address] Dr. Rukhsana Rivas Eosinophils/100 WBC (Bld) 0.9 % Normal 0.9-7.0 [facility] Comment on above: Performed By: #### C BC #### [facility] [address] [place] [address] Dr. Rukhsana Rivas Erythrocyte distribution width (RBC) [Ratio] 13.2 % Normal 11.0-15.0 [facility] Comment on above: Performed By: #### C BC #### [facility] [address] [place] [address] Dr. Rukhsana Rivas Hematocrit (Bld) [Volume fraction] 43.7 % Normal 36.0-48.0 [facility] Comment on above: Performed By: #### C BC #### [facility] [address] [place] [address] Dr. Rukhsana Rivas Hemoglobin (Bld) [Mass/Vol] 14.8 g/dL Normal 12.0-16.0 [facility] Comment on above: Performed By: #### C BC #### [facility] [address] [place] [address] Dr. Rukhsana Rivas IG # 0.03 10e3/ul Normal 0.00-0.03 [facility] Comment on above: Performed By: #### C BC #### [facility] [address] [place] [address] Dr. Rukhsana Rivas IG % 0.3 % Normal 0.0-0.5 [facility] Comment on above: Performed By: #### C BC #### [facility] [address] [place] [address] Dr. Rukhsana Rivas LYMPH # 3.8 103/ul Normal 1.2-3.8 [facility] Comment on above: Performed By: #### C BC #### [facility] [address] [place] [address] Dr. Rukhsana Rivas Lymphocytes/100 WBC (Bld) 33.0 % Normal 20.5-60.0 [facility] Comment on above: Performed By: #### C BC #### [facility] [address] [place] [address] Dr. Rukhsana Rivas MANUAL DIFF REQ NO Normal [facility] Comment on above: Performed By: #### C BC #### [facility] [address] [place] [address] Dr. Rukhsana Rivas MCH (RBC) [Entitic mass] 30.1 pg Normal 26.7-34.0 [facility] Comment on above: Performed By: #### C BC #### [facility] [address] [place] [address] Dr. Rukhsana Rivas MCHC (RBC) [Mass/Vol] 33.9 g/dL Normal 29.9-35.2 [facility] Comment on above: Performed By: #### C BC #### [facility] [address] [address] [address] Rukhsana Rivas MCV (RBC) [Entitic vol] 88.8 fL Normal 81.0-99.0 [facility] Comment on above: Performed By: #### C BC #### [facility] [address] [address] [address] Rukhsana Rivas MONO # 0.8 103/ul Normal 0.3-0.8 [facility] Comment on above: Performed By: #### C BC #### [facility] [address] [address] [address] Rukhsana Rivas Monocytes/100 WBC (Bld) 7.1 % Normal 1.7-12.0 [facility] Comment on above: Performed By: #### C BC #### [facility] [address] [place] [address] Dr. Rukhsana Rivas NEUT # 6.7 103/ul Critically high 1.4-6.5 [facility] Comment on above: Performed By: #### C BC #### [facility] [address] [place] [address] Dr. Rukhsana Rivas Neutrophils/100 WBC (Bld) 58.4 % Normal 43.0-75.0 [facility] Comment on above: Performed By: #### C BC #### [facility] [address] [place] [address] Dr. Rukhsana Rivas Platelet mean volume (Bld) [Entitic vol] 10.0 fL Normal 9.5-13.5 [facility] Comment on above: Performed By: #### C BC #### [facility] [address] [place] [address] Dr. Rukhsana Rivas PLT 298 103/ul Normal 150-450 [facility] Comment on above: Performed By: #### C BC #### [facility] [address] [place] [address] Dr. Rukhsana Rivas RBC 4.92 106/ul Normal 4.20-5.40 [facility] Comment on above: Performed By: #### C BC #### [facility] [address] [address] [address] Rukhasna Rivas WBC 11.5 103/ul Critically high 4.0-11.0 [facility] Comment on above: Performed By: #### C BC #### [facility] [address] [place] [address] Dr. Rukhsana Rivas PROF CHEM 8 (BAS METB)on Anion gap [Moles/Vol] 11.7 mmol/L Normal [facility] Comment on above: Performed By: #### C MP, LIPID #### [facility] [address] [place] [address] Dr. Rukhsana Rivas Calcium [Mass/Vol] 9.2 mg/dL Normal 8.5-10.1 [facility] Comment on above: Performed By: #### C MP, LIPID #### [facility] [address] [place] [address] Dr. Rukhsana Rivas Chloride [Moles/Vol] 97 mmol/L Critically low 98-107 [facility] Comment on above: Performed By: #### C MP, LIPID #### [facility] [address] [place] [address] Dr. Rukhsana Rivas CO2 [Moles/Vol] 30.1 mmol/L Critically high 22.0-30.0 [facility] Comment on above: Performed By: #### C MP, LIPID #### [facility] [address] [place] [address] Dr. Rukhsana Rivas Creatinine [Mass/Vol] 0.79 mg/dL Normal 0.52-1.04 [facility] Comment on above: Performed By: #### C MP, LIPID #### [facility] [address] [place] [address] Dr. Rukhsana Rivas EGFR-AF BHUTANESE >60 Normal >=60 [facility] Comment on above: Performed By: #### C MP, LIPID #### [facility] [address] [place] [address] Dr. Rukhsana Rivas EGFR-NON AF BHUTANESE >60 Normal >=60 [facility] Comment on above: Performed By: #### C MP, LIPID #### [facility] [address] [address] [address] Rukhsana Riavs Glucose [Mass/Vol] 208 mg/dL Critically high 74-106 [facility] Comment on above: Performed By: #### C MP, LIPID #### [facility] [address] [place] [address] Dr. Rukhsana Rivas Potassium [Moles/Vol] 3.8 mmol/L Normal 3.4-5.0 [facility] Comment on above: Performed By: #### C MP, LIPID #### [facility] [address] [place] [address] Dr. Rukhsana Rivas Sodium [Moles/Vol] 135 mmol/L Critically low 137-145 Th [facility] Comment on above: Performed By: #### C MP, LIPID #### [facility] [address] [place] [address] Dr. Rukhsana Rivas Urea nitrogen [Mass/Vol] 12.0 mg/dL Normal 7.0-18.0 [facility] Comment on above: Performed By: #### C MP, LIPID #### [facility] [address] [place] [address] Dr. Rukhsana Rivas Urea nitrogen/Creatinine [Mass ratio] 15.2 mg/mg Normal [facility] Comment on above: Performed By: #### C MP, LIPID #### [facility] [address] [place] [address] Dr. Rukhsana Rivas HCG ( test) IAKeithrapi d Ql (U)Ordered By: Geovanny Coffman on 11-06-2021 HCG ( test) Ql (U) Negative [facility] CBC AUTO DIFFon 10-09-2021 BASO # 0.0 103/ul Normal 0.0-0.1 [facility] Comment on above: Performed By: #### C BC #### [facility] [address] [place] [address] Dr. Rukhsana Rivas Basophils/100 WBC (Bld) 0.2 % Normal 0.2-2.0 [facility] Comment on above: Performed By: #### C BC #### [facility] [address] [place] [address] Dr. Rukhsana Rivas EO # 0.2 103/ul Normal 0.0-0.7 [facility] Comment on above: Performed By: #### C BC #### [facility] [address] [place] [address] Dr. Rukhsana Rivas Eosinophils/100 WBC (Bld) 1.9 % Normal 0.9-7.0 [facility] Comment on above: Performed By: #### C BC #### [facility] [address] [place] [address] Dr. Rukhsana Rivas Erythrocyte distribution width (RBC) [Ratio] 12.1 % Normal 11.0-15.0 [facility] Comment on above: Performed By: #### C BC #### [facility] [address] [place] [address] Dr. Rukhsnaa Rivas Hematocrit (Bld) [Volume fraction] 40.7 % Normal 36.0-48.0 [facility] Comment on above: Performed By: #### C BC #### [facility] [address] [place] [address] Dr. Rukhsana Rivas Hemoglobin (Bld) [Mass/Vol] 14.2 g/dL Normal 12.0-16.0 [facility] Comment on above: Performed By: #### C BC #### [facility] [address] [place] [address] Dr. Rukhsana Rivas IG # 0.02 10e3/ul Normal 0.00-0.03 [facility] Comment on above: Performed By: #### C BC #### [facility] [address] [place] [address] Dr. Rukhsana Rivas IG % 0.2 % Normal 0.0-0.5 [facility] Comment on above: Performed By: #### C BC #### [facility] [address] [place] [address] Dr. Rukhsana Rivas LYMPH # 2.2 103/ul Normal 1.2-3.8 [facility] Comment on above: Performed By: #### C BC #### [facility] [address] [place] [address] Dr. Rukhsana Rivas Lymphocytes/100 WBC (Bld) 27.6 % Normal 20.5-60.0 [facility] Comment on above: Performed By: #### C BC #### [facility] [address] [place] [address] Dr. Rukhsana Rivas MANUAL DIFF REQ NO Normal [facility] Comment on above: Performed By: #### C BC #### [facility] [address] [place] [address] Dr. Rukhsana Rivas MCH (RBC) [Entitic mass] 30.4 pg Normal 26.7-34.0 [facility] Comment on above: Performed By: #### C BC #### [facility] [address] [place] [address] Dr. Rukhsana Rivas MCHC (RBC) [Mass/Vol] 34.9 g/dL Normal 29.9-35.2 [facility] Comment on above: Performed By: #### C BC #### [facility] [address] [place] [address] Dr. Rukhsana Rivas MCV (RBC) [Entitic vol] 87.2 fL Normal 81.0-99.0 [facility] Comment on above: Performed By: #### C BC #### [facility] [address] [place] [address] Dr. Rukhsana Rivas MONO # 0.6 103/ul Normal 0.3-0.8 [facility] Comment on above: Performed By: #### C BC #### [facility] [address] [place] [address] Dr. Rukhsana Rivas Monocytes/100 WBC (Bld) 7.8 % Normal 1.7-12.0 [facility] Comment on above: Performed By: #### C BC #### [facility] [address] [place] [address] Dr. Rukhsana Rivas NEUT # 5.0 103/ul Normal 1.4-6.5 [facility] Comment on above: Performed By: #### C BC #### [facility] [address] [place] [address] Dr. Rukhsana Rivas Neutrophils/100 WBC (Bld) 62.3 % Normal 43.0-75.0 [facility] Comment on above: Performed By: #### C BC #### [facility] [address] [place] [address] Dr. Rukhsana Rivas Platelet mean volume (Bld) [Entitic vol] 10.4 fL Normal 9.5-13.5 [facility] Comment on above: Performed By: #### C BC #### [facility] [address] [place] [address] Dr. Rukhsana Rivas PLT 261 103/ul Normal 150-450 [facility] Comment on above: Performed By: #### C BC #### [facility] [address] [place] [address] Dr. Rukhsana Rivas RBC 4.67 106/ul Normal 4.20-5.40 [facility] Comment on above: Performed By: #### C BC #### [facility] [address] [place] [address] Dr. Rukhsana Rivas WBC 8.1 103/ul Normal 4.0-11.0 [facility] Comment on above: Performed By: #### C BC #### [facility] [address] [place] [address] Dr. Rukhsana Rivas FREE T3on 10-09-2021 FREE T3 4.16 pg/mlL Normal 2.77-5.27 [facility] Comment on above: Performed By: #### C MP, LIPID #### [facility] [address] [place] [address] Dr. Rukhsana Rivas FREE T4on 10-09-2021 Free T4 [Mass/Vol] 1.78 ng/dL Normal 0.78-2.19 [facility] Comment on above: Performed By: #### C MP, LIPID #### [facility] [address] [place] [address] Dr. Rukhsana Rivas LIPID PROFILEon 10-09-2021 CHOL-HDL RATIO NORM SEE BELOW Normal [facility] Comment on above: Result Comment: 3.3 - 4.4 LOW RISK 4.4 - 7.1 AVERAGE RISK 7.1 - 11.0 MODERATE RISK >11.0 HIGH RISK Performed By: #### C MP, LIPID #### [facility] [address] [address] [address] Rukhsana Rivas Cholesterol [Mass/Vol] 200 mg/dL Normal <=200 [facility] Comment on above: Performed By: #### C MP, LIPID #### [facility] [address] [address] [address] Rukhsana Rivas Cholesterol in HDL [Mass/Vol] 34 mg/dL Normal [facility] Comment on above: Performed By: #### C MP, LIPID #### [facility] [address] [address] [address] Rukhsana Rivas Cholesterol in LDL [Mass/Vol] 118.4 mg/dL Normal [facility] Comment on above: Performed By: #### C MP, LIPID #### [facility] [address] [address] [address] Rukhsana Rivas Cholesterol.total/Ch olesterol in HDL [Mass ratio] 5.9 {ratio} Normal [facility] Comment on above: Performed By: #### C MP, LIPID #### [facility] [address] [address] [address] Rukhsana Rivas HDL NORMAL > or = 60 mg/dl - LO W CARDIOVASCULAR RISK <40 mg/dl - HIGH CARDIOVASCULAR RISK Normal [facility] Comment on above: Performed By: #### C MP, LIPID #### [facility] [address] [address] [address] Rukhsana Rivas LDL CALC NORMAL SEE BELOW Normal [facility] Comment on above: Result Comment: <100 mg/dl OPTIMAL 100 - 129 mg/dl NEAR OR ABOVE OPTIMAL 130 - 159 mg/dl BORDERLINE HIGH 160 - 189 mg/dl HIGH >190 mg/dl VERY HIGH Performed By: #### C MP, LIPID #### [facility] Laboratory [address] [address] [address] Rukhsana Rivas Triglyceride [Mass/Vol] 238 mg/dL Critically high <=150 [facility] Comment on above: Performed By: #### C MP, LIPID #### [facility] [address] [address] [address] Rukhsana Rivas VLDL CALC 47.6 mg/dL Normal [facility] Comment on above: Performed By: #### C MP, LIPID #### [facility] [address] [place] [address] Dr. Rukhsana Rivas MICROALBUMIN, RAND URon 09-24 mALB <1.3 Normal <=30.0 [facility] Comment on above: Performed By: #### C MP, LIPID #### [facility] [address] [place] [address] Dr. Rukhsana Rivas PROF 14(COMP METB)on 022 Albumin [Mass/Vol] 3.8 g/dL Normal 3.5-5.0 [facility] Comment on above: Performed By: #### C MP, LIPID #### [facility] [address] [place] [address] Dr. Rukhsana Rivas Albumin/Globulin [Mass ratio] 1.0 {ratio} Normal [facility] Comment on above: Performed By: #### C MP, LIPID #### [facility] [address] [place] [address] Dr. Rukhsana Rivas ALP [Catalytic activity/Vol] 82 U/L Normal 38-126 [facility] Comment on above: Performed By: #### C MP, LIPID #### [facility] [address] [place] [address] Dr. Rukhsana Rivas ALT [Catalytic activity/Vol] 30 U/L Normal 9-52 [facility] Comment on above: Performed By: #### C MP, LIPID #### [facility] [address] [place] [address] Dr. Rukhsana Rivas Anion gap [Moles/Vol] 8.4 mmol/L Normal [facility] Comment on above: Performed By: #### C MP, LIPID #### [facility] [address] [place] [address] Dr. Rukhsana Rivas AST [Catalytic activity/Vol] 19 U/L Normal 14-36 [facility] Comment on above: Performed By: #### C MP, LIPID #### [facility] [address] [place] [address] Dr. Rukhsana Rivas Bilirubin [Mass/Vol] 0.4 mg/dL Normal 0.2-1.3 [facility] Comment on above: Performed By: #### C MP, LIPID #### [facility] [address] [place] [address] Dr. Rukhsana Rivas Calcium [Mass/Vol] 9.2 mg/dL Normal 8.4-10.2 [facility] Comment on above: Performed By: #### C MP, LIPID #### [facility] [address] [place] [address] Dr. Rukhsana Rivas Chloride [Moles/Vol] 98 mmol/L Normal 98-107 [facility] Comment on above: Performed By: #### C MP, LIPID #### [facility] [address] [place] [address] Dr. Rukhsana Rivas CO2 [Moles/Vol] 32.5 mmol/L Critically high 22.0-30.0 [facility] Comment on above: Performed By: #### C MP, LIPID #### [facility] [address] [place] [address] Dr. Rukhsana Rivas Creatinine [Mass/Vol] 0.75 mg/dL Normal 0.52-1.04 [facility] Comment on above: Performed By: #### C MP, LIPID #### [facility] [address] [place] [address] Dr. Rukhsana Rivas EGFR-AF BHUTANESE >60 Normal >=60 [facility] Comment on above: Performed By: #### C MP, LIPID #### [facility] [address] [place] [address] Dr. Rukhsana Rivas EGFR-NON AF BHUTANESE >60 Normal >=60 [facility] Comment on above: Performed By: #### C MP, LIPID #### [facility] [address] [place] [address] Dr. Rukhsana Rivas Globulin (S) [Mass/Vol] 3.9 g/dL Normal [facility] Comment on above: Performed By: #### C MP, LIPID #### [facility] [address] [place] [address] Dr. Rukhsana Rivas Glucose [Mass/Vol] 337 mg/dL Critically high 74-106 [facility] Comment on above: Performed By: #### C MP, LIPID #### [facility] [address] [place] [address] Dr. Rukhsana Rivas Potassium [Moles/Vol] 3.9 mmol/L Normal 3.4-5.0 [facility] Comment on above: Performed By: #### C MP, LIPID #### [facility] [address] [place] [address] Dr. Rukhsana Rivas Protein [Mass/Vol] 7.7 g/dL Normal 6.1-8.2 [facility] Comment on above: Performed By: #### C MP, LIPID #### [facility] [address] [place] [address] Dr. Rukhsana Rivas Sodium [Moles/Vol] 135 mmol/L Critically low 137-145 [facility] Comment on above: Performed By: #### C MP, LIPID #### [facility] [address] [place] [address] Dr. Rukhsana Rivas Urea nitrogen [Mass/Vol] 14.0 mg/dL Normal 7.0-17.0 [facility] Comment on above: Performed By: #### C MP, LIPID #### [facility] [address] [place] [address] Dr. Rukhsana Rivas Urea nitrogen/Creatinine [Mass ratio] 18.7 mg/mg Normal [facility] Comment on above: Performed By: #### C MP, LIPID #### [facility] [address] [place] [address] Dr. Rukhsana Rivas TSHon 10-09-2021 TSH Qn m[IU]/L Critically low 0.470-4.680 [facility] Comment on above: Performed By: #### C MP, LIPID #### [facility] [address] [place] [address] Dr. Rukhsana Rivas TSH RANGE SEE BELOW Normal [facility] Comment on above: Result Comment: <0.3 4 UIU/ml HYPERTHYROID 0.34-5.60 UIU/ml EUTHYROID >5.60 UIU/ml HYPOTHYROID Performed By: #### C MP, LIPID #### [facility] [address] [place] [address] Dr. Rukhsana Rivas Vital Signs Date Time Vital Sign Value Performing Clinician Facility 07-23-2023 11:49-0500 Diastolic blood pressure 89 mm[Hg] Alana NIX Work Phone: [facility] 07-23-2023 11:49-0500 Heart rate 79 /min Alana NIX Work Phone: [facility] 07-23-2023 11:49-0500 Respiratory rate 18 /min Alana NIX Work Phone: [facility] 07-23-2023 11:49-0500 SaO2% (BldA) [Mass fraction] 100 % Alana NIX Work Phone: [facility] 07-23-2023 11:49-0500 Systolic blood pressure 137 mm[Hg] Alana NIX Work Phone: [facility] 09-09-2022 13:38-0500 Blood Pressure Location Jamaal LEON [facility] 09-09-2022 13:38-0500 Diastolic blood pressure 80 mm[Hg] Jamaal LEON [facility] 09-09-2022 13:38-0500 Heart rate 72 /min Jamaal LEON [facility] 09-09-2022 13:38-0500 Respiratory rate 16 /min Jamaal LEON [facility] [place] 09-09-2022 13:38-0500 Systolic blood pressure 126 mm[Hg] Jamaal LEON [facility] [place] 11-06-2021 10:43-0400 Diastolic blood pressure 96 mm[Hg] MD Katty Roberts Work Phone: [facility] 11-06-2021 10:43-0400 Heart rate 96 /min MD Katty Roberts Work Phone: [facility] 11-06-2021 10:43-0400 Respiratory rate 16 /min MD Katty Roberts Work Phone: [facility] 11-06-2021 10:43-0400 SaO2% (BldA) [Mass fraction] 98 % MD Katty Roberts Work Phone: [facility] 11-06-2021 10:43-0400 Systolic blood pressure 167 mm[Hg] MD Katty Roberts Work Phone: [facility] 11-06-2021 10:05-0400 Inhaled oxygen flow rate 3 L/min MD Katty Roberts Work Phone: [facility] 11-06-2021 08:40-0400 Body height 167.64 cm MD Katty Roberts Work Phone: [facility] 11-06-2021 08:40-0400 Body mass index (BMI) [Ratio] 28.7 kg/m2 MD Katty Roberts Work Phone: [facility] 11-06-2021 08:40-0400 Body weight 80.73 kg MD Katty Roberts Work Phone: [facility] 10-14-2021 11:15-0400 Body height 167.64 cm Geovanny Coffman Other [employer] Other 10-14-2021 11:15-0400 Body mass index (BMI) [Ratio] 28.76 kg/m2 Geovanny Coffman Other [employer] Other 10-14-2021 11:15-0400 Body weight 80.83 kg Geovanny Coffman Other [employer] Other 10-14-2021 11:15-0400 Diastolic blood pressure 60 mm[Hg] Geovanny Coffman Other [employer] Other 10-14-2021 11:15-0400 SaO2% (BldA) [Mass fraction] 99 % Geovanny Coffman Other [facility] [employer] Other 10-14-2021 11:15-0400 Systolic blood pressure 110 mm[Hg] Geovanny Coffman Other [employer] [facility] [employer] Other Encounters Encounter Date Encounter Type Care Provider Facility Start: 09-25-2023 End: 09-26-2023 ambulatory ALANA Adler [facility] Start: 09-25-2023 End: 09-25-2023 ambulatory ERIK COOK [facility] Start: 09-22-2023 End: 09-23-2023 ambulatory ENGINEER THIRD ASSISTANT Kristin Pablo Facility[facility] Start: 09-22-2023 End: 09-22-2023 Lab Drop off Kristin Pablo [facility] Start: 08-25-2023 End: 08-26-2023 ambulatory MD Joss Shepherd Facility:[facility] Start: 08-13-2023 End: 08-14-2023 ambulatory MD Joss Shepherd Facility:[facility] Start: 08-10-2023 End: 08-11-2023 ambulatory MD Joss Shepherd Facility:[facility] Start: 08-10-2023 End: 08-10-2023 Lab Drop off Joss Shepherd [facility] Start: 07-23-2023 End: 07-24-2023 ambulatory [facility] Start: 07-23-2023 End: 07-23-2023 ambulatory [facility] Start: 07-23-2023 End: 07-23-2023 Office outpatient visit 25 minutes Alana Vitor Winston NIX Work Phone: [facility] Comment on above: Cervical disc displa cement (Primary Dx); Chronic left shoulder pain; Neck pain Start: 07-14-2023 End: 07-15-2023 ambulatory MD Joss Shepherd Facility[facility] Start: 06-16-2023 ambulatory Masoud Diehl acility:[facility] Start: 05-04-2023 End: 05-05-2023 ambulatory MD Joss Shepherd Facility:[facility] Start: 04-22-2023 End: 04-23-2023 ambulatory MD Joss Shepherd Facility:[facility] Start: 03-16-2023 End: 03-17-2023 ambulatory MD Joss Shepherd Facility:[facility] Start: 03-10-2023 End: 03-11-2023 ambulatory MD Joss Shepherd Facility:[facility] Start: 03-10-2023 End: 03-10-2023 Lab Drop off Joss Shepherd [facility] Start: 01-12-2023 End: 01-13-2023 ambulatory MD Joss Shepherd Facility:[facility] Start: 01-12-2023 End: 01-12-2023 Lab Drop off Joss Shepherd [facility] Start: 01-07-2023 End: 01-08-2023 ambulatory DO Matt Acosta Facility:[id number] Start: 01-07-2023 End: 01-07-2023 Patient encounter procedure Matt Acosta [facility] Start: 12-15-2022 End: 12-16-2022 ambulatory MD Joss Shepherd Facility:[facility] [place] Start: 11-10-2022 End: 11-11-2022 ambulatory MD Joss Shepherd Facility:[facility] Start: 11-10-2022 End: 11-11-2022 ambulatory MD Joss Shepherd Facility:[facility] [place] Start: 10-16-2022 ambulatory MD Joss Shepherd Facility :[facility] Start: 10-01-[address] JAMAAL LEON . Facil ity:[facility] Start: 09-09-2022 End: 09-09-2022 Patient encounter procedure Jamaal Baker CAROLYN [facility] [place] Start: 09-03-2022 End: 09-04-[address] KATTY ROBERTS . Facility:[facility] Start: 08-07-2022 End: 08-08-[address] KATTY ROBERTS . Facility:[facility] Start: 08-05-2022 End: 08-05-[address] KATTY ROBERTS . Facility:[facility] Start: 04-25-2022 End: 04-25-[address] DENISE MCKEON . Facility:[facility] Start: 04-22-2022 End: 04-23-[address] KATTY ROBERTS . Facility:[facility] Start: 04-14-2022 End: 04-14-[address] KATTY ROBERTS . Facility:[facility] Start: 04-08-2022 End: 04-09-[address] KATTY ROBERTS . Facility:[facility] Start: 02-04-2022 End: 02-05-[address] KATTY ROBERTS . Facility:[facility] Start: 11-22-2021 End: 11-23-[address] KATTY ROBERTS . Facility:[facility] Start: 11-14-2021 End: 11-14-2021 ambulatory JAMAAL NELSON Facility:[facility] Start: 11-13-2021 End: 11-14-[address] KATTY ROBERTS . [employer] Other Start: 11-13-2021 Telephone encounter Geovanny Coffman [facility] Start: 11-06-2021 (Procedure) Short Geovanny Coffman [facility] Start: 11-06-2021 End: 11-06-2021 ambulatory Geovanny Coffman Other [employer] Other Start: 11-06-2021 End: 11-06-2021 Admission to same day surgery center MD Katty Roberts Work Phone: [facility] Start: 11-04-2021 End: 11-04-2021 ambulatory Geovanny Coffman Other [employer] Other Start: 11-04-2021 Telephone encounter Geovanny Coffman [facility] Start: 10-14-2021 End: 10-14-2021 ambulatory Geovanny Coffman Other [employer] Other Start: 10-14-2021 Office outpatient vi sit 25 minutes Geovanny Coffman [facility] Start: 10-14-2021 Telephone encounter [facility]ov[facility] Start: 10-09-2021 End: 10-10-[address] KATTY ROBERTS . Facility: Start: 05-29-2021 (Procedure) Short Geovanny Coffman [facility] Start: 05-29-2021 End: 05-29-2021 ambulatory Geovanny Coffman Other [facility] [employer] Other Procedures Date Procedure Procedure Detail Performing Clinician Start: 11-06-2021 Radiofrequency destruction of peripheral nerve MD Katty Roberts Work Phone: Start: 08-12-2013 Epidural injection of lumbar spine using fluoroscopic guidance Jamaal LEON Comment on above: L5-S1 Esophagogastroduodenoscopy Marichuy LEON Ligation of fallopian tube Marichuy chavez LEON Comment on above: 01/09/2003 mole revoved on left buttock Jamaal LEON Radiofrequency ablat ion of nerve root of lumbar spine using fluoroscopic guidance Jamaal LEON Removal of pilonidal cyst Zuly jaci LEON Repair of umbilical hernia Marichuy chavez LEON Plan of Treatment Date Care Activity Detail Author Start: 07-23-2024 Tobacco Screening Tobacco Screening [facility] [employer] [facility] Start: 06-11-2024 Adult BMI Screening Adult BMI Screen ing [facility] Start: 10-13-2023 ambulatory Ambulatory Facility:[facility] Start: 03-27-2023 Influenza vaccination Influenza Vacc ine [facility] Start: 12-29-1996 Screening for malign ant neoplasm of cervix Pap Smear [facility] Start: 12-29-1994 DTaP,Tdap and Td Vac cines (1 - Tdap) DTaP,Tdap and Td Vaccines (1 - Tdap) [facility] Start: 12-29-1993 Adult BMI Follow Up Plan Adult BMI Follow Up Plan [facility] Start: 1987 Depression Screening Depression Scre ening [facility] Start: 1975 Tobacco Counseling Tobacco Counselin g [facility] Arthrocentesis aspir &/inj major jt/bursa w/o us INJECTION BURSA LARGE JOINT Chronic left shoulder pain [facility] End: 07-22-2024 MR Cervical spine WO contrast MR cervical spine without contrast Imaging Routine Neck pain 1 Occurrences starting 07/23/2023 until 07/22/2024 [facility] Work Phone: Comment on above: 1 Occurrences starti ng 07/23/2023 until 07/22/2024 Patient Education Augustus Non Diagn ostic Block [facility] Work Phone: Patient referral [facility] Work Phone: End: 07-22-2024 XR Shoulder - left 2 Views X-ray shoulder left minimum 2 views Imaging Routine Chronic left shoulder pain 1 Occurrences starting 07/23/2023 until 07/22/2024 [facility] Comment on above: 1 Occurrences starti ng 07/23/2023 until 07/22/2024 XR Shoulder - left 2 Views X-ray shoulder left minimum 2 views Imaging Routine Chronic left shoulder pain 07/23/2023 12:47 PM EST [facility] Immunizations Immunization Date Immunization Notes Care Provider Luis Enrique tapia 05-29-2015 influenza virus vaccine, unspecified formulation Jamaal LEON [facility] 05-26-2014 influenza virus vaccine, unspecified formulation Jamaal LEON [facility] [place] 04-18-2013 influenza virus vaccine, unspecified formulation Jamaal LEON [facility] NEGATED: Highlighted row has not occurred!08-13-2023 influenza virus vaccine, unspecified formulation Kristin Pablo [facility] NEGATED: Highlighted row has not occurred!05-04-2023 influenza virus vaccine, unspecified formulation Joss Shepherd [facility] NEGATED: Highlighted row has not occurred!12-15-2022 SARS-CoV-2 mRNA (tozinameran 5y-11y) vaccine Matt Karla [facility] NEGATED: Highlighted row has not occurred!11-10-2022 SARS-CoV-2 mRNA (tozinameran 5y-11y) vaccine Matt Karla [facility] NEGATED: Highlighted row has not occurred!09-09-2022 influenza virus vaccine, unspecified formulation Jamaal LEON [facility] Payers Date Payer Category Payer Self-pay [id number] 2022 Medicaid [employer] HMO [id number] 2022-Present [phone] [address] [place] [address] [id number]. [id number] 2022 Unknown [id number] 1975 Unknown [id number] 2.16.840.1.930526.3.579.2.593 1975 Unknown [id number] 2.16.840.1.488823.3.579.2.593 1975 Unknown [id number] 2.16.840.1.098096.3.579.2.593 1975 Unknown [id number] 2.16.840.1.432326.3.579.2.593 1975 Unknown [id number] 2.16.840.1.507631.3.579.2.593 1975 Unknown [id number] 2.16.840.1.433758.3.579.2.593 1975 Unknown [id number] 2.16.840.1.599238.3.579.2.593 1975 Unknown [id number] 2.16.840.1.408556.3.579.2.593 1975 Unknown [id number] 2.16.840.1.594278.3.579.2.593 1975 Unknown [id number] 2.16.840.1.071148.3.579.2.593 1975 Unknown [id number] 2.16.840.1.704094.3.579.2.593 1975 Unknown [id number] 2.16.840.1.183282.3.579.2.593 1975 Unknown [id number] 2.16.840.1.166990.3.579.2.593 1975 Unknown [id number] 2.16.840.1.661458.3.579.2.593 1975 Unknown [id number] 2.16.840.1.367044.3.579.2.356 1975 Unknown [id number] 2.16.840.1.702805.3.579.2.1286 1975 Unknown [id number] 2.16.840.1.544163.3.579.2.1286 1975 Unknown [id number] 2.16.840.1.036964.3.579.2.1286 1975 Unknown [id number] 2.16.840.1.895918.3.579.2.1285 1975 Unknown [id number] 2.16.840.1.827859.3.579.2.6 1975 Unknown [id number] 2.16.840.1.520097.3.579.2. 1975 Unknown [id number] 2.16.840.1.435626.3.579.2. 1975 Unknown [id number] 2.16.840.1.901058.3.579.2. 1975 Unknown [id number] 2.16.840.1.063678.3.579.2. 1975 Unknown [id number] 2.16.840.1.574654.3.579.2. 1975 Unknown [id number] 2.16.840.1.708651.3.579.2. 1975 Unknown [id number] 2.16.840.1.362187.3.579.2. 1975 Unknown [id number] 2.16.840.1.771724.3.579.2. 1975 Unknown [id number] 2.16.840.1.071700.3.579.2. 1975 Unknown [id number] 2.16.840.1.131108.3.579.2. 1975 Unknown [id number] 2.16.840.1.848140.3.579.2. 1975 Unknown [id number] 2.16.840.1.481166.3.579.2. 1975 Unknown [id number] 2.16.840.1.130486.3.579.2. 1975 Unknown [id number] 2.16.840.1.085443.3.579.2.7 1975 Unknown [id number] 2.16.840.1.077117.3.579.2. 1975 Unknown [id number] 2.16.840.1.605525.3.579.2. 1975 Unknown [id number] 2.16.840.1.530679.3.579.2. 1975 Unknown [id number] 2.16.840.1.036707.3.579.2. 1975 Unknown [id number] 2.16.840.1.840960.3.579.2. 1975 Unknown [id number] 2.16.840.1.185779.3.579.2. 1975 Unknown [id number] 2.16.840.1.478685.3.579.2. 1975 Unknown [id number] 2.16.840.1.450019.3.579.2. 1975 Unknown [id number] 2.16.840.1.238828.3.579.2.727 1959 Unknown [id number] 1959 Unknown [id number] Unknown [id number] 2.16.840.1.022853.3.579.2.531 Social History Date Type Detail Facility Start: 11-06-2021 [facility] Start: 1975 Sex Assigned At Female [facility] Start: 01-04-2019 End: 07-23-2023 Sex Assigned At [facility] Start: 09-09-2022 End: 09-22-2023 Tobacco smoking status Heavy tobacco smoker (finding) [facility] Tobacco smoking status Never [facility] [place] Start: 06-06-2023 [facility] History of tobacco use Cigarette Smoker P [facility] Start: 2022 End: 07-23-2023 Cigarettes smoked current (pack per day) - Reported 1.5 [facility] Start: 2022 Tobacco use and exposure Smoke less tobacco non-user [facility] Start: 07-23-2023 Alcohol intake Current drinke r of alcohol (finding) [facility] Start: 12-05-2021 Alcohol Comment 3x a year [facility] Start: 11-27-2021 Gender identity Identifies as female gender (finding) [facility] Start: 11-27-2021 Sexual orientation Bisexual (finding ) [facility] Medical Equipment Procedure Code Equipment Code Equipment Origin al Text Equipment Identifier Dates Easy comfort Mis 31Gx3/16, See Instructions, 100 EA, 5, use with Novolog injections, [facility], Supply, 166.6, cm, 03/16/23 7:27:00 EDT, Height/Length Dosing, 75.4, kg, 03/16/23 7:27:00 EDT, Weight Dosing Start: 04-06-2023 Easy comfort Mis 31Gx3/16, See Instructions, 100 EA, 5, use with Novolog injections, [facility], Supply, 166.6, cm, 03/16/23 7:27:00 EDT, Height/Length Dosing, 75.4, kg, 03/16/23 7:27:00 EDT, Weight Dosing Start: 04-06-2023 Goals Date Patient Goal Desired Activity /State Functional Status Date Assessment Result Facility 09-09-2022 Functional Status N/A [facility] Clinical Notes 10-14-2021 to 07-23-2023 BOYD Mcmahon - 07/23/2023 12:00 PM ESTPatient Instructions Note Date & Type Note Facility 07-23-2023 History of Present illness Narrative [facility] [address] [place] [address] Patient: Amairani Gonzales Sex: female : 1975 Age: 47 y.o. PCP: JOSS SHEPHERD MD 07/23/2023 Amairani Gonzales is here for a(n) follow up to review X-ray of right shoulder and Cervical-spine. She reports her right shoulder is better but her Left shoulder hurts worse. Patient completed PT yesterday. Patient states the exercises helped decrease the crawling sensations to upper body but states she has not noticed a decrease in the pain. Chief Complaint Patient presents with Neck Pain Back Pain HPI: PT/HEP 2017 (aqua too) was not helpful Back: 01/17/2022 bilateral L 4/5, L5/1 Medial Branch Block w/ 100% relief x 1 week Bilat L4/5 5/1 MBB 05/16/2022 100% relief x2 days. 07/04/22 Lt L 4/5 5/1 RFA w/0% relief 09/12/22 Rt L 4/5 5/1 RFA w/0% relief 12/19/2022 left nerve root injection with minimal relief 01/23/23 Caudal w/100% relief continued 05/29/23 Caudal with 50% relief reported Neck Pain The current episode started more than 1 year ago. The problem occurs constantly. The problem has been unchanged. The pain is associated with nothing. The pain is present in the left side, midline, right side and occipital region (mostly right shoulder). Quality: throbbing, ache. The pain is at a severity of 8/10. The pain is severe. The symptoms are aggravated by stress (movement; rainy weather makes worse). Stiffness is present All day. Associated symptoms include headaches (sunglight causes headaches (usually 5/6 on pain scale)), leg pain (BLE, LT > Rt), numbness (LLE and mild RLE), tingling (LLE, and mild RLE) and weakness (BUE, BLE, cane). Pertinent negatives include no chest pain or fever. She has tried heat, ice, home exercises, NSAIDs and acetaminophen (lidocain, meloxicam, robaxin w/ mild relief) for the symptoms. Back Pain This is a chronic problem. The current episode started more than 1 year ago (2012). The problem occurs constantly. Progression since onset: lumbar resolved, hips worsening. The pain is present in the lumbar spine, sacro-iliac and gluteal. The quality of the pain is described as aching and stabbing. The pain is at a severity of 10/10. The pain is moderate. The pain is Worse during the night. The symptoms are aggravated by standing, sitting, bending, coughing, lying down, position, stress and twisting (cold, storms,). Stiffness is present In the morning. Associated symptoms include headaches (sunglight causes headaches (usually 5/6 on pain scale)), leg pain (BLE, LT > Rt), numbness (LLE and mild RLE), tingling (LLE, and mild RLE) and weakness (BUE, BLE, cane). Pertinent negatives include no bladder incontinence, bowel incontinence, chest pain or fever. Risk factors include obesity. She has tried chiropractic manipulation, home exercises, NSAIDs, muscle relaxant and heat (PT, Prev Injs, Ibuprofen, Aleve, Marijuana, Flexeril, Percocet) for the symptoms. The treatment provided mild relief. The effect of pain on patient's ADLS: Moderate Impairment. 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 ([facility]) Shoulder tendonitis Sleep apnea Vitamin D deficiency Past Surgical History: Procedure Laterality Date CYST REMOVAL 2008 INJECTION BLOCK EPIDURAL CAUDAL STEROID N/A 05/29/2023 Performed by Erik Cook MD at [facility] INJECTION BLOCK EPIDURAL CAUDAL STEROID N/A 01/23/2023 Performed by Erik Cook MD at [facility] INJECTION BLOCK NERVE MEDIAL BRANCH: bilat L 4/5 / Bilateral 05/16/2022 Performed by Erik Cook MD at [facility] INJECTION BLOCK NERVE MEDIAL BRANCH: bilat L 4/5 / Bilateral 01/17/2022 Performed by Erik Cook MD at [facility] INJECTION SPINE TRANSFORAMINAL Left L 4,5 Nroot Left 12/19/2022 Performed by Erik Cook MD at [facility] RADIOFREQUENCY ABLATION SPINAL: left L 4/5 / Left 07/04/2022 Performed by Erik Cook MD at [facility] RADIOFREQUENCY ABLATION SPINAL: right L 4/5 11/24 Right 09/12/2022 Performed by Erik Cook MD at [facility] TUBAL LIGATION 2002 UMBILICAL HERNIA REPAIR 2007 Allergies Allergen Reactions Alogliptin Hives Depakote [Divalproex] Nubain [Nalbuphine] Sulfa (Sulfonamide Antibiotics) Generic Trileptal [Oxcarbazepine] Valacyclovir Hives Generic Valtrex Family History Problem Relation Age of Onset Cancer Mother Kidney disease Father Heart disease Father Heart failure Father Cancer Maternal Aunt Cancer Maternal Grandmother Cancer Maternal Grandfather Heart disease Paternal Grandmother Heart attack Paternal Grandmother Social History Socioeconomic History Marital status: Spouse name: Not on file Number of children: Not on file Years of education: Not on file Highest education level: Not on file Occupational History Not on file Tobacco Use Smoking status: Every Day Packs/day: 1.50 Years: 29.00 Additional pack years: 0.00 Total pack years: 43.50 Types: Cigarettes Smokeless tobacco: Never Vaping Use Vaping Use: Former Substance and Sexual Activity Alcohol use: Yes Comment: 3x a year Drug use: Yes Types: Marijuana Sexual activity: Defer Other Topics Concern Not on file Social History Narrative Not on file Social Determinants of Health Financial Resource Strain: Not on file Food Insecurity: No Food Insecurity (07/23/2023) Hunger Screening Food Insecurity - Worry: Never True Food Insecurity - Inability: Never True Transportation Needs: Not on file Physical Activity: Not on file Stress: Not on file Social Connections: Not on file Interpersonal Safety: Not on file Review of Systems Constitutional: Negative for fever. HENT: Negative for congestion. Respiratory: Positive for cough. Negative for shortness of breath. Cardiovascular: Negative for chest pain. Gastrointestinal: Negative for bowel incontinence, constipation and diarrhea. Genitourinary: Negative for bladder incontinence, difficulty urinating and frequency. Musculoskeletal: Positive for back pain and neck pain. Skin: Negative for rash and wound. Neurological: Positive for tingling (LLE, and mild RLE), weakness (BUE, BLE, cane), numbness (LLE and mild RLE) and headaches (sunglight causes headaches (usually 5/6 on pain scale)). Psychiatric/Behavioral: Negative. Vital Signs: BP 137/89 Pulse 79 Resp 18 LMP (LMP Unknown) Comment: declination signed SpO2 100% Physical Exam: GENERAL - Healthy patient that appears stated age. HEENT - Normocephalic / Atraumatic, Extraoccular movements intact, trachea midline, thyroid within normal limits. CV - pulse regular, Warm extremities with appropriate color of nailbeds. RESP - No obvious wheezing, No Shortness of Breath, No overexertion response to exam maneuvers. COORDINATION - remains intact. PSYCH - Alert and Oriented x4, Attentive and appropriate, constitutionally normal, displays normal mood and affect per situation, answered questions appropriately during examination, demonstrated appropriate attention during discussion, demonstrated appropriate cognitive reasoning and understanding of the medical condition by asking appropriate questions regarding the diagnosis and risks/benefits/alternatives of treatment modalities. No obvious deficits in memory, reasoning, or intellect. Cervical: SKIN - No rashes or bruising in the area of the patient s pain. LYMPH NODES - demonstrate no obvious enlargement. EXTREMITIES - Upper extremities are warm, with minimal edema and palpable pulses Tenderness to palpation noted in the cervical spine and paraspinal musculature. Pain is elicited with flexion, extension, and lateral rotation of the cervical spine. Range of motion is diminished with these motions due to pain. Facet palpation is noted to be somewhat tender but not concordant with the patient s normal pain complaints. STRENGTH - noted to be 5 out of 5 all muscle groups bilateral upper extremities including muscles involving shoulder flexion and abduction, elbow flexion and extension, as well as wrist flexion and extension and intrinsic muscles of the hand. No notable atrophy, fasciculations or spasm. SENSORY - No notable sensory deficits in the bilateral upper extremities to touch or pinprick in all dermatomal distributions with exception to decreased sensation in the Right C6, C7 dermatomal distribution(s). Spurlings sign is Positive Tenderness to palpation noted over the Left Shoulder Joint. Pain is noted with palpation of the acromion and clavical as well as the acromioclavicular junction. No significant pain at the sternoclavicular junction. Some pain is noted at the bicipital groove and the subacromial bursa. Pain is elicited with flexion, abduction, internal rotation, and external rotation of the shoulder with active and passive motion which is consistent with some of the patient s normal pain. Some grinding is noted with these motions. No obvious ligamental laxity is noted. Empty Can Test is negative. Neers Sign is negative. Assessment/Treatment Plan: Amairani was seen today for neck pain and back pain. Diagnoses and all orders for this visit: Cervical disc displacement Chronic left shoulder pain - X-ray shoulder left minimum 2 views; Future - Case request operating room: INJECTION BURSA LARGE JOINT: left shoulder Neck pain - MR cervical spine without contrast; Future Left Shoulder Xray Imaging/Diagnostic Testing - It is felt that additional diagnostic testing is necessary to further evaluate the patients current pain pathology. For this reason, we will order additional imaging/diagnostic testing noted above. It is hopeful that this study will identify a significant pain generator that will be amenable to therapy. It is felt that this modality is necessary due to the severity and chronicity of symptoms and physical exam findings combined with the lack of recent imaging/diagnostic testing of the area. Cervical spine MRI - It is felt that additional diagnostic testing is necessary to further evaluate the patients current pain pathology. For this reason, we will order additional imaging noted above. It is hopeful that this study will identify a significant pain generator that will be amenable to therapy. It is felt that this modality is necessary due to the severity and chronicity of symptoms and physical exam findings combined with the lack of recent imaging of the area. An MRI is specifically felt to be necessary due to the physical exam findings noted above and the patient s description of refractory pain in a neuropathic distribution that is not relieved by change in body position and interferes with the patient s activities of daily living Left Shoulder Injection -under fluoroscopy with the use of contrast dye (unless contraindicated) It is hopeful that the described procedure will provide symptomatic pain relief. It is felt to be medically necessary noting that the patient has tried and failed more conservative modalities of therapy and this is the next most appropriate step. The procedure was described in detail to the patient as well as the potential benefits of pain reduction alongside risks of the procedure and alternatives. Risks were described as including, but not limited to bleeding, infection, nerve damage, spinal cord injury, paralysis, stroke, dural puncture headache, and medication reaction. The patient expressed understanding regarding the risks and benefits and wishes to proceed. It was explained that shoulder injections occasionally require a repeat injection before significant relief is noted, but we will determine after each injection if another one is indicated. Depending on the amount and duration of relief obtained from the injection, additional modalities of therapy including medications and physical therapy may need to be utilized alongside or following the injections. We may also need to consider surgical options if injections fail to provide relief for a reasonable duration. Follow up 2 weeks after procedure The medications prescribed have been reviewed for medication interactions/contraindications and/or for upcoming procedures: continue current medication regimen without any changes. DISCUSSION: Treatment options discussed with patient and all questions answered to patient's satisfaction. Discussed the rules and regulations surrounding prescription of opioids and compliance at length. Failure to follow the rules and regulation will result in tapering and discontinuation of medications if applicable. Prescribed medication that requires intensive monitoring for toxicity We do not currently prescribe any controlled substance from this practice. Treatment plans discussed but not opted for at this time: Cervical Epidural steroid injection. Patient would like to proceed with the current outlined treatment plan before moving forward with any other options. The spine model was demonstrated and Xray was reviewed and used to explain the condition. Chronic conditions not treated during this visit that affected my overall medical decision making: Comorbidity- Obesity The patient does have a comorbid condition of obesity. This will be taken into account in that obesity will contribute to certain pain conditions. It can contribute to pain from degenerative disc disease as well as osteoarthritis of the joints. Many neuropathic symptoms are also amplified due to axial spine loading. Special benefits will also need to be given to procedures. Many procedures are technically more difficult in the light of severe obesity. I will also consider the possibility of undiagnosed obstructive sleep apnea (which often accompanies obesity) when prescribing any narcotic medications. I will weigh the risks and benefits and fully discuss them with the patient for these reasons. Comorbidity- Diabetes The patient has a history of diabetes mellitus currently managed with medications. This will need to be considered prior to any procedure that would require the injection of steroid in that the patient may experience a transient increase in glucose as a result. Additional consideration will need to be given to timing the procedure early in the morning in that the patient will need to be fasting prior to the administration of anesthesia. Every effort will be made to perform the procedure as a 1st case due to this condition. And the patient will be instructed to hold their diabetic medications on that morning. If necessary, a blood glucose test can also be performed that morning. The risks/ benefits/ and alternatives will be weighed and explained to the patient prior to any procedure. OARRS: Reviewed. Scribe Statement: Scribed for and in the presence of BOYD MCMAHON by Lydia Adler CNA. Provider Statement: ALANA Martinez PA, personally performed the services described in the documentation, as scribed by Lydia Adler CNA in my presence, and it is both accurate and complete. Lydia Adler CNA 07/23/23 1234 BOYD Mcmahon 07/23/23 [id number] documented in this encounter [employer] 07-23-2023 Instructions Lydia Adler CNA - 07/23/2023 12:00 PM EST Joint Injections / Other These procedure(s) involve injecting steroid medications into a joint or other area explained by your physician. Steroid medicine decreases pain and inflammation. The injection may also contain an anesthetic (numbing medicine) to decrease pain. It may be done to treat conditions such as arthritis, gout, carpal tunnel syndrome and more. The injections may be given in your hip, knee, ankle, shoulder, elbow, wrist, or ankle. How Long Will This Procedure Last? The extent and duration of pain relief may depend on the amount of inflammation and how many areas are involved. Other coexisting factors may be responsible for your pain. You and your physician will discuss expected results of procedure(s). After Your Injection You may experience soreness and tenderness at the area of treatment. This pain may not occur until later today after the numbing medicine wears off. The steroid can take 3-5 days to work and provide noticeable improvement. Activity You may resume normal activity as your comfort level allows. Medications Resume your routine medications after your procedure. You may resume blood thinners per your regular schedule after the procedure. If you received sedation: If you received sedation for your procedure, you may feel sleepy or not yourself for several hours today. For the next 24 hours avoid activities that requires alertness or coordination. This includes: Driving or operating heavy machinery Using power tools Consuming alcohol Do not make important or complex decisions or sign legal documents in the next 24 hours. Other Instructions: If you feel severe pain at the injection site with swelling and redness, increased leg weakness, a fever of 101 or higher, headache (or worsening headache), changes in vision or urinary retention: Please call the office at , or have someone take you to the nearest emergency room. Tell the emergency room staff that you recently had a spine injection. A doctor must evaluate you for bleeding and injection complications. If you lose control over bowel, bladder, or legs: Go to the nearest emergency room. If you are diabetic, the steroids used in this procedure can increase your blood sugar. If your blood sugar is 250mg/dL or higher, contact your primary care physician, or the doctor who manages your diabetes, to discuss how to get it back to normal. documented in this encounter [facility] 10-14-2021 Evaluation note Encounter Date Diagnosis Assessment Notes Sep, Sacroiliitis (ICD-10 - M46.1) Continue with currrent treatment plan. Sep, Spondylosis without myelopathy or radiculopathy, sacral and sacrococcygeal region (ICD-10 - M47.818) 45 year old female here for follow up for chronic pain. She voices complaints of low back pain with radiation down the bilateral lower extremities. She complains of numbness in the toes of both feet. She is status post left sacral lateral branch RFA 4 months ago and was lost to follow up. She feels this provided her with 60-70% relief following procedure. Anatomy of spine as well as different treatment options were discussed in detail with patient in regards to patients condition. Patient is a candidate to proceed with the right sacral lateral branch radiofrequency ablation under fluoroscopic guidance. Risks and benefits of procedure explained to patient; patient verbalizes understanding. Sep, Lumbosacral spondylosis (ICD-10 - M47.817) Consider repeating lumbar facet RFA in the future, if applicable. Sep, Chronic pain (ICD-10 - G89.29) Continue with current treatment plan. [employer] Other Evaluation + Plan note No data available for this section General Surgery [employer] Evaluation + Plan note Future Appointments Appointment Date:01/12/2023 08:20:00 AM Scheduled Provider: Location:[facility] Appointment Type:FM Lab Draw Appointment Date:03/16/2023 07:20:00 AM Scheduled Provider:Joss Shepherd MD Location:[facility] Appointment Type: Open Future Scheduled Tests Laboratory* [facility]ments Appointment Date:03/16/2023 07:20:00 AM Scheduled Provider:Joss Shepherd MD Location:[facility] Future Appointments Appointment Date:08/13/2023 07:15:00 AM Scheduled Provider:Joss Shepherd MD Location:[facility] Appointment Type: Open Appointment Date:10/13/2023 10:15:00 AM Scheduled Provider:Joss Shepherd MD Location:[facility] Type: [facility] Future Appointments Appointment Date:10/13/2023 10:15:00 AM Scheduled Provider:Joss Shepherd MD Location:[facility] Appointment Type: Open Diagnostic Tests Pending * PAP [id number] w/ HPV and Genotype rflx [facility]22/23 [facility] noteNo assessment information available [facility] Work Phone: Evaluation noteNo InformationNortRox[facility] [employer] Other Evaluation note* Diagnosis Cervical disc displacement- Primary Displacement of cervical intervertebral disc without myelopathy Chronic left shoulder pain Pain in joint, shoulder region Neck pain Cervicalgia [facility] N[facility]ative - Reported* Type Description Date Medical History Depression Medical History Thyroid disease Medical History Diabetes Medical History Bipolar disorder Medical History pilonidal cyst Medical History Gastric ulcer Medical History herpes Medical History bipolar disorder Medical History anxiety Surgical History Procedure:excision of pilonidal cyst;Disease:pilonidal cyst Surgical History Procedure:Hernia repair;Disease : Surgical History Procedure:tubal ligation;Diseas e: Surgical History tubal ligation Surgical History hernia [facility] Other History general Narrative - Reported* Type Description Date Medical History Depression Medical History Thyroid disease Medical History Diabetes Medical History Bipolar disorder Medical History pilonidal cyst Medical History Gastric ulcer Medical History herpes Medical History bipolar disorder Medical History anxiety Surgical History Procedure:excision o f pilonidal cyst;Disease:pilonidal cyst Surgical History Procedure:Hernia repair;Disease : Surgical History Procedure:tubal ligation;Diseas e: Surgical History tubal ligation Surgical History hernia Hospitalization History see above [facility] Other Hospital Discharge instructions No data available for this section General Surgery [employer] Progress note No data available for this section General Surgery [employer] Reason for visit Narrativeincrease low back pain; discuss procedureNortRoxbury Treatment Center [employer] Other Chief Complaint and Reason for Visit Chief Complaint Back Pain Family History No Family History Records Found Relationship Condition Age at Onset Recorded Date/T kacy father Heart disease Unknown Kidney disorder Unknown grandparent Myocardial infarction Unknown grandparent Cerebrovascular accident (CVA) Unknown grandparent Liver failure Unknown Advance Directives No Advanced Directives Records Found Advance Directive Response Recorded Date/ Time Advance Directives No September 03, 2020 10:55am Summary Purpose Reason for Referral Specialty Diagnoses / Procedures Referred By Mariam mackey Referred To Contact Diagnoses Chronic left shoulder pain Procedures Case request operating room: INJECTION BURSA LARGE JOINT: left shoulder Alana Montero PA [address] [place] [address] Referral ID Status Reason Start Date Expiration Date V isits Requested Visits Authorized [id number] Pending Review 07/23/2023 07/22/2024 1 1 Specialty Diagnoses / Procedures Referred By Mariam mackey Referred To Contact Radiology Diagnoses Neck pain Procedures MR cervical spine without contrast Alana Montero PA [address] [place] [address] Referral ID Status Reason Start Date Expiration Date V isits Requested Visits Authorized [id number] Pending Review 07/23/2023 07/22/2024 1 1 Additional Source Comments Care Teams (unrecognized sec tion and content) Team Status: Inactive Member Role Status Dates Katty Roberts MD Primary Care Provider Active Geovanny Coffman MD Attending Provider Active Team Status: Active Member Role Status Dates Katty Roberts MD Primary Care Provider Active Neuropsychology Service Director Relationship Specialty Start Date End Date Joss Shepherd MD [address] [place] [address] PCP - General Family Medicine 06/11/23 REASON FOR VISIT (unrecogniz ed section and content) Reason Comments Neck Pain Back Pain INFORMATION SOURCE (unrecogn ized section and content) DATE CREATED AUTHOR 10/01/2022 [facility] DATE CREATED AUTHOR AUTHOR'S ORGANIZ ATION 05/08/2023 [facility] DATE CREATED AUTHOR AUTHOR'S ORGANIZ ATION 08/27/2023 [facility] DATE CREATED AUTHOR AUTHOR'S ORGANIZ ATION 09/27/2023 [facility] DATE CREATED AUTHOR AUTHOR'S ORGANIZ ATION 09/28/2023 [facility] FOR RECORDS PERTAINING TO PATIENTS WHO ARE OR HAVE BEEN ENROLLED IN A CHEMICAL DEPENDENCY/SUBSTANCEABUSE PROGRAM, SOME INFORMATION MAY BE OMITTED. This clinical summary was aggregated from multiple sources. Caution should be exercised in using it in the provision of clinical care. This summary normalizes information from multiple sources, and as a consequence, information in this document may materially change the coding, format and clinical context of patient data. In addition, data may be omitted in some cases. CLINICAL DECISIONS SHOULD BE BASED ON THE PRIMARY CLINICAL RECORDS. [employer] provides no warranty or guarantee of the accuracy or completeness of information in this document.
== END 2023-09-29 10:10 | disposition home or self-care (01) ==
LOC: MAMMO 10:09
PROVIDERS: PCP Family Medicine; Visit Provider Nurse Practitioner
DX: Z12.31 Encounter for screening mammogram for malignant neoplasm of breast (principal)
CPT/HCPCS: 77063; 77067

== ENCOUNTER 2024-01-20 10:40 | Emergency (ER) | payer OTHER, SELFPAY ==
[2024-01-20 10:58] VITALS: BP 134/86; PULSE 84; TEMP 36.9; O2SAT 98; BMI 29.1
--- OUTSIDE RECORDS SUMMARY | 2024-01-20 11:03 | XMS_ITS | CCD ---
Author Organization [facility] Care Team Providers Care Log Buncher Name Role Phone MD Katty Roberts Primary Care Provider [phone] MD Geovanny Coffman S Attending Provider Geovanny Coffman Unavailable KATTY ROBERTS Primary Care Physician [phone] ., [address] KATTY Gray Consulting Unavailable ROBERTS [...] ROBERTS ., DR KATTY Gray Admitting Unavailable ANGUIANO, PEPPER Consulting Unavailable NILL ., DR HINTON Consulting Unavailable ROBERTS ., DR KATTY Gray Primary Care Unavailable NILL ., DR HINTON Attending Unavailable NILL ., DR HINTON Admitting Unavailable ROBERTS ., DR KATTY Gray Primary Care Unavailable ROBERTS ., DR KATTY Gray Attending Unavailable ROBERTS ., DR KATTY Gray Admitting Unavailable YAJAMAAL HEARD Consulting Unavailable HAY ., DR WALKER Attending [...] Physician Joss Shepherd MD Primary Care Provider Masoud Benjamin Attending Unavailab Masoud Skelton Admitting Unavailab Katty Regan Primary Care Unavailable ERIK COOK Admitting Unavailable ERIK COOK Attending Unavailable KATTY ROBERTS Referring Unavailable JOAO, JOSS E Primary Care Unavailable ERIK COOK Attending Unavailable SACHIN, ERIK E Referring Unavailable JOAO, JOSS E Primary Care Unavailable ALANA MONTERO Attending Unavailable KATTY ROBERTS Referring Unavailable ROSS, JOSS E Primary Care Unavailable NIALANA MÉNDEZ Referring Unavailable ROSS, JOSS E Primary Care Unavailable ALANA MONTERO Attending Unavailable ALANA MONTERO Referring Unavailable ROSS, JOSS E Primary Care Unavailable ALANA MONTERO Attending Unavailable JOAO, JOSS E Referring Unavailable ROSS, JOSS E Primary Care Unavailable COOKERIK E Attending Unavailable SACHIN, ERIK E Referring Unavailable ROSS, JOSS E Primary Care Unavailable COOK, ERIK E Admitting Unavailable COOK, ERIK Gray Attending Unavailable JOAO, JOSS E Referring Unavailable ROSS, JOSS E Primary Care Unavailable LAZARO MILLS Attending Unavailable ROSS, JOSS E Primary Care Unavailable ALANA MONTERO Attending Unavailable JOAO, JOSS E Referring Unavailable ROSS, JOSS E Primary Care Unavailable SACHIN, ERIK E Admitting Unavailable COOK, ERIK E Attending Unavailable ROSS, JOSS E Referring Unavailable ROSS, JOSS E Primary Care Unavailable COOK, ERIK E Attending Unavailable COOK, ERIK E Referring Unavailable ROSS, JOSS E Primary Care Unavailable TYRA DISLA Attending Unavailable ROSS, JOSS E Primary Care Unavailable Ross, Joss E. Attending Unavailable Ross, Joss E. Attending Unavailable Ross, Joss E. Attending Unavailable Ross, Joss E. Attending Unavailable Samy, Kristin L Attending Unavailable Ross, Joss E. Attending Unavailable Ross, Joss E. Attending Unavailable Samy, Kristin L Attending Unavailable Samy, Kristin L Attending Unavailable Ross, Joss E. Attending Unavailable Ross, Joss E. Admitting Unavailable Ross, Joss E. Attending Unavailable Ross, Joss E. Admitting Unavailable Ross, Joss E. Attending Unavailable Ross, Joss E. Attending Unavailable Ross, Joss E. Attending Unavailable Ross, Joss E. Admitting Unavailable Ross, Joss E. Attending Unavailable Ross, Joss E. Admitting Unavailable Ross, Joss E. Attending Unavailable Samy, Kristin L Admitting Unavailable Samy, Kristin L Attending Unavailable Ross, Joss E. Admitting Unavailable Ross, Joss E. Attending Unavailable Ross, Joss E. Attending Unavailable Ross, Joss E. Attending Unavailable Ross, Joss E. Attending Unavailable Ross, Joss E. Attending Unavailable Allergies Allergy Classification Reported Allergen(s) Allergy Type Date of Onset Reaction(s) Facility (8 sources) Sulfanilamide; Translations: [sulfanilamide] Drug Allergy 11-07-19 Unknown Reaction, Unknown [facility] (13 sources) valACYclovir; Translations: [valacyclovir] Drug Allergy 11-07-19 [facility] Comment on above: has rash and itching with generic brand patient states she i s only allergic to the generic brand (6 sources) generic valtrex Propensity to adverse reactions Unknown Normal Other (9 sources) alogliptin; Translations: [alogliptin] Drug Allergy Unknown (qualifier value) [facility] [place] (11 sources) Nalbuphine; Translations: [nalbuphine] Drug Allergy 12-06-19 Unknown (qualifier value) [facility] [place] (11 sources) OXcarbazepine; Translations: [oxcarbazepine] Drug Allergy 12-06-19 Unknown (qualifier value) [facility] [place] (7 sources) Sulfonamides (Antibiotic); Translations: [sulfa drugs] Drug allergy Eruption of skin (disorder) [facility] Comment on above: RASH AND ITCHING (8 sources) Valproate; Translations: [divalproex sodium] Drug Allergy Unknown (qualifier value) [facility] Surgery [place] (1 source) Nalbuphine Drug Allergy [facility] (1 source) OXcarbazepine Drug Allergy [facility] (1 source) Sulfonamides (Antibiotic) Drug allergy (disorder) 12-04-19 13 [facility] (1 source) valACYclovir Drug Allergy 03-21-20 13 [facility] (1 source) Valproate Drug Allergy [facility] (3 sources) alogliptin; Translations: [ALOGLIPTIN] Drug Allergy 12-06-19 [facility] (3 sources) Sulfonamides (Antibiotic); Translations: [SULFA (SULFONAMIDE ANTIBIOTICS)] Propensity to adverse reactions to drug 12-06-19 [facility] (3 sources) Valproate; Translations: [DIVALPROEX] Drug Allergy 12-06-19 [facility] (1 source) Sulfonamides (Antibiotic); Translations: [sulfa drugs] Propensity to adverse reactions (disorder) [facility] (1 source) valACYclovir; Translations: [Valacyclovir Hydrochloride] Drug Allergy [facility] Medications Current Medications Medication Drug Class(es) Dates Sig (Normalized) Sig (Original) alcohol pads (6 sources) Start: 11-17-2022 alcohol pads alcohol pads, See Instructions, 100 EA, 1, use to check BS daily dx. E11.319, [facility], Supply, 166.6, cm, 11/10/22 9:36:00 EDT, Height/Length Dosing, 72.7, kg, 11/10/22 9:36:00 EDT, Weight Dosing Start Date: 11/17/22 Status: Ordered ARIPiprazole 15 mg oral tablet (16 sources) Atypical Antipsychotic Start: 09-03-2022 take 1 tablet by mouth once daily Abilify 20 mg oral tablet 20 mg = 1 tab(s), Oral, Daily, Refills(s) 0 Start Date: 09/03/22 Status: Ordered Start: 11-20-2021 take 1 tablet by ilana th once daily Abilify 15 mg Tab 15 mg = 1 tab(s), Oral, Daily, Refills(s) 0 Start Date: 09/22/23 Status: Ordered Start: 09-04-2020 take 15 mg by mouth once daily Aripiprazole Active 15 MG PO Daily September 04, 2020 3:08pm busPIRone hydrochloride 15 m g oral tablet (12 sources) Start: 05-04-2023 busPIRone 15 m g [...] 2020 3:45pm citalopram 40 mg oral tablet (12 sources) Serotonin Reuptake Inhibitor Start: 05-04-2023 citalopram [...] 04, 2020 3:13pm Daily Ivana oral tablet (3 sources) Start: 05-19-2023 Daily Ivana oral tablet See Instructions, 30 EA, Refill(s) 5, TAKE ONE TABLET BY MOUTH ONCE DAILY, [facility], 166.6, cm, 05/04/23 7:12:00 EDT, Height/Length Dosing, 80.3, kg, 05/04/23 7:12:00 EDT, Weight Dosing Start Date: 05/19/23 Status: Ordered dapagliflozin 5 mg oral tablet (10 sources) Sodium-Glucose Cotransporter 2 Inhibitor Start: 11-09-2023 take 1 tablet by mouth once daily dapagliflozin 5 mg oral tablet 5 mg = 1 tab(s), Oral, Daily, # 90 tab(s), Refills(s) 1, Pharmacy: [facility], 166, cm, 10/13/23 10:04:00 EDT, Height/Length Dosing, 74.8, kg, 10/13/23 10:04:00 EDT, Weight Dosing Start Date: 11/09/23 Status: Ordered Start: 11-20-2021 take 1 tablet by ilana th in the morning FARXIGA 5 mg tablet Take 1 tablet (5 mg total) by mouth in the morning. 0 11/20/2021 Active Start: 04-03-2021 take 1 tablet by ilana th once daily Dapagliflozin (Farxiga) 5 mg tablet Active 5 MG PO Daily April 03, 2021 9:10am diclofenac sodium 0.01 mg/mg topical gel (9 sources) Nonsteroidal Anti-inflammatory Drug Start: 09-03-2022 diclofenac sodium (VOLTAREN) 1 % gel Apply 2 g topically. 0 09/03/2022 Active Start: 09-03-2022 diclofenac top ical 1% gel 2 gm, Topical, TID, Refill(s) 0 Start Date: 09/03/22 Status: Ordered 0.5 ML dulaglutide 6 MG/ML Auto-Injector [Trulicity] (15 sources) GLP-1 Receptor Agonist Start: 11-09-2023 inject 3 mg by subcutaneous injection every week Trulicity Pen 3 mg/0.5 mL subcutaneous solution 3 mg, SubCutaneous, qWeek, # 4 EA, Refills(s) 2, Pharmacy: [facility]/pharmacy #[id number], 166, cm, 10/13/23 10:04:00 EDT, Height/Length Dosing, 74.8, kg, 10/13/23 10:04:00 EDT, Weight Dosing Start Date: 11/09/23 Status: Ordered Start: 07-14-2023 inject 4.5 mg by sub cutaneous injection every week Trulicity Pen 4.5 mg/0.5 mL subcutaneous solution 4.5 mg, SubCutaneous, qWeek, # 12 EA, Refills(s) 1, Pharmacy: [facility], 166.6, cm, 07/14/23 14:17:00 EST, Height/Length Dosing, 78.7, kg, 07/14/23 14:17:00 EST, Weight Dosing Start Date: 07/14/23 Status: Ordered Start: 12-15-2022 inject 3 mg by subcu taneous injection every week dulaglutide 3 mg/0.5 mL subcutaneous solution 3 mg, SubCutaneous, qWeek, # 12 EA, Refills(s) 0, Pharmacy: [facility], 166.6, cm, 12/15/22 7:28:00 EDT, Height/Length [...] Active dulaglutide 3 mg/0.5 mL pen injector (2 sources) Start: 11-18-2021 dulaglutide 3 mg/0.5 mL pen injector 3 mg. 0 11/18/2021 Active fluticasone propionate 0.05 mg/actuat metered dose nasal spray (16 sources) Corticosteroid Start: 08-13-2023 fluticasone Na agusto 0.05 mg/inh [place] See Instructions, 16 gm, Refill(s) 3, USE 2 SPRAYS INTO EACH NOSTRIL ONCE DAILY, [facility], 166, cm, 08/13/23 11:00:00 EST, Height/Length Dosing, 76.7, kg, 08/13/23 11:00:00 EST, Weight Dosing Start Date: 08/13/23 Status: Ordered Start: 05-11-2023 fluticasone Na agusto 0.05 mg/inh [place] See Instructions, 16 gm, Refill(s) 3, USE 2 SPRAYS INTO EACH NOSTRIL ONCE DAILY, [facility], 166.6, cm, 05/04/23 7:12:00 EDT, Height/Length Dosing, 80.3, kg, 05/04/23 7:12:00 EDT, Weight Dosing Start Date: 05/11/23 Status: Ordered Start: 12-15-2022 take 2 spray(s) nasa l route once daily Flonase 0.05 mg/inh [place] 2 spray(s), Nasal, Daily, 16 gram, Refill(s) [...] Active Free style Cristopher Kit 2 sensors (3 sources) Start: 04-09-2023 Free style [place] re Kit 2 sensors Free style Cristopher Kit 2 sensors, See Instructions, 2 EA, 11, use to [facility] BS DX E11.8 E11.42, [facility], [...] / losartan potassium 100 mg oral tablet (16 sources) Thiazide Diuretic, Angiotensin 2 Receptor Maria Luz Start: 11-09-2023 hydrochlorothiazide-losartan 12.5 mg-100 mg oral tablet See Instructions, 90 EA, Refill(s) 1, TAKE ONE TABLET BY MOUTH DAILY, [facility], 166, cm, 10/13/23 10:04:00 EDT, Height/Length Dosing, 74.8, kg, 10/13/23 10:04:00 EDT, Weight Dosing Start Date: 11/09/23 Status: Ordered Start: 05-11-2023 hydrochlorothi azide-losartan 12.5 mg-100 mg oral tablet See Instructions, [...] 3:13pm levothyroxine sodium 0.1 mg oral tablet (13 sources) l-Thyroxine Start: 11-09-2023 take 1 tablet by mouth once daily levothyroxine 100 mcg (0.1 mg) Tab See Instructions, TAKE ONE TABLET BY MOUTH DAILY, # 90 EA, Refills(s) 1, Pharmacy: [facility], 166, cm, 10/13/23 10:04:00 EDT, Height/Length Dosing, 74.8, kg, 10/13/23 10:04:00 EDT, Weight Dosing Start Date: 11/09/23 Status: Ordered Start: 07-13-2023 take 1 tablet by ilana th once daily levothyroxine 100 mcg (0.1 mg) Tab See Instructions, TAKE ONE TABLET BY MOUTH DAILY, # 30 EA, Refills(s) 2, Pharmacy: [facility], 166.6, cm, 05/04/23 7:12:00 EDT, Height/Length [...] day Active lidocaine 0.05 mg/mg medicated patch (9 sources) Antiarrhythmic, Amide Local Anesthetic Start: 11-20-2021 [...] Active lurasidone hydrochloride 40 mg oral tablet (16 sources) Atypical Antipsychotic Start: 09-03-2022 take 1 [...] day Active meloxicam 15 mg oral tablet (15 sources) Nonsteroidal Anti-inflammatory Drug Start: 11-20-2021 take 1 tablet by mouth once daily meloxicam 15 mg Tab See Instructions, TAKE ONE TABLET BY MOUTH ONCE DAILY, # 30 EA, Refills(s) 5, Pharmacy: [facility], 166.6, cm, 05/04/23 7:12:00 EDT, Height/Length Dosing, 80.3, kg, 05/04/23 7:12:00 EDT, Weight Dosing Start Date: 05/19/23 Status: Ordered take 1 tablet by ilana th every twenty-four hours Meloxicam 15 MG 1 tablet Orally Once a day Active metFORMIN hydrochloride 500 mg oral tablet (16 sources) Biguanide Start: 11-09-2023 take 1 tablet by mouth three times daily MetFORMIN (Eqv-Glucophage XR) 500 mg oral tablet, extended release See Instructions, TAKE ONE TABLET BY MOUTH THREE TIMES A DAY, # 90 EA, Refills(s) 5, Pharmacy: [facility], 166, cm, 10/13/23 10:04:00 EDT, Height/Length Dosing, 74.8, kg, 10/13/23 10:04:00 EDT, Weight Dosing Start Date: 11/09/23 Status: Ordered Start: 07-29-2013 take 1 tablet by ilnaa th three times daily metFORMIN (GLUCOPHAGE) 500 mg tablet Take 1 tablet (500 mg total) by mouth 3 (three) times a day. 0 11/20/2021 Active methocarbamol 750 mg oral tablet (8 sources) Muscle Relaxant Start: 11-20-2021 take 1 tablet by mouth three times daily methocarbamoL (ROBAXIN) 750 mg tablet TAKE ONE TABLET BY MOUTH THREE TIMES A DAY FOR 30 DAYS 0 11/20/2021 Active take 1 tablet by ilana th every eight hours Methocarbamol 750 MG 1 tablet Orally keshia ry 8 hrs Active montelukast 10 mg oral tablet (16 sources) Leukotriene Receptor Antagonist Start: 11-09-2023 take 1 tablet by mouth once daily in the evening montelukast 10 mg Tab See Instructions, TAKE ONE TABLET BY MOUTH DAILY IN THE EVENING, # 90 EA, Refills(s) 1, Pharmacy: [facility], 166, cm, 10/13/23 10:04:00 EDT, Height/Length Dosing, 74.8, kg, 10/13/23 10:04:00 EDT, Weight Dosing Start Date: 11/09/23 Status: Ordered Start: 11-24-2019 take 1 tablet by ilana th in the morning montelukast (SINGULAIR) 10 mg tablet Take 1 tablet (10 mg total) by mouth in the morning. 0 11/20/2021 Active multivitamin (THERAGRAN) tablet (2 sources) Start: 11-20-2021 take 1 tablet by mouth in the morning multivitamin (THERAGRAN) tablet Take 1 tablet by mouth in the morning. 0 11/20/2021 Active omeprazole 20 mg delayed release oral capsule (16 sources) Proton Pump Inhibitor Start: 11-09-2023 take 1 capsule by mouth once daily omeprazole 20 mg Cap-DR See Instructions, TAKE ONE CAPSULE BY MOUTH DAILY, # 90 EA, Refills(s) 1, Pharmacy: [facility], 166, cm, 10/13/23 10:04:00 EDT, Height/Length Dosing, 74.8, kg, 10/13/23 10:04:00 EDT, Weight Dosing Start Date: 11/09/23 Status: Ordered Start: 11-20-2021 take 1 capsule by mo uth in the morning, then take 1 capsule by mouth at bedtime omeprazole (PriLOSEC) 20 mg capsule Take 1 capsule (20 mg total) by mouth in the morning and 1 capsule (20 mg total) before bedtime. 0 11/20/2021 Active Start: 09-04-2020 take 20 mg by mouth once daily Omeprazole Active 20 MG PO Daily September 04, 2020 3:13pm rOPINIRole 0.25 mg oral tablet (9 sources) Nonergot Dopamine Agonist Start: 09-03-2022 take 1 tablet by mouth at bedtime ropinirole 0.25 mg Tab 0.25 mg = 1 tab(s), Oral, Bedtime, # 30 tab(s), Refills(s) 3, Pharmacy: [facility], 166, cm, 08/25/23 10:47:00 EST, Height/Length Dosing, 75.3, kg, 08/25/23 10:47:00 EST, Weight Dosing Start Date: 09/14/23 Status: Ordered rosuvastatin calcium 5 mg oral tablet (10 sources) HMG-CoA Reductase Inhibitor Start: 11-20-2021 take 1 tablet by mouth once daily at bedtime rosuvastatin 5 mg Tab See Instructions, TAKE ONE TABLET BY MOUTH DAILY AT BEDTIME, # 30 EA, Refills(s) 5, Pharmacy: [facility], 166, cm, 09/22/23 8:15:00 EST, Height/Length Dosing, 78, kg, 09/22/23 8:15:00 EST, Weight Dosing Start Date: 10/09/23 Status: Ordered Start: 04-03-2021 take 5 mg by mouth at bedtime Rosuvastatin Active 5 MG PO Bedtime April 03, 2021 9:10am tiZANidine 4 mg oral tablet (7 sources) Central alpha-2 Adrenergic Agonist Start: 10-23-2020 Tizanidine Active 4 MG PO As Directed October 23, 2020 1:57pm valACYclovir 1000 mg oral tablet (16 sources) Herpesvirus Nucleoside Analog DNA Polymerase Inhibitor, [...] [employer]col Alcohol Preps 70% top ical pad (4 sources) Start: 02-16-2023 [employer] Alcohol Preps 70% [...] insulin aspart, human 100 unt/ml pen injector (9 sources) Insulin Analog Start: 10-13-2023 Insulin Aspart FlexPen 100 units/mL injectable solution See Instructions, SLIDING SCALE FOR BS: 150-200: 2U, 201-250: 4U, 251-300: 6U, 301-350: 8U, 351-400: 10U, BS>401: 12U; CARB COVERAGE 1 UNIT PER 15 CARBS (EXPECT 60U DAILY), # 15 mL, Refills(s) 1, Pharmacy: [facility], 166, cm, 10/13/23 10:04:00 EDT, Height/Length Dosing, 74.8, kg, 10/13/23 10:04:00 EDT, Weight Dosing Start Date: 10/13/23 Status: Ordered Start: 07-09-2023 Insulin Aspart FlexPen 100 units/mL injectable solution See Instructions, SLIDING SCALE FOR BS: 150-200: 2U, 201-250: 4U, 251-300: 6U, 301-350: 8U, 351-400: 10U, BS>401: 12U; CARB COVERAGE 1 UNIT PER 15 CARBS (EXPECT 60U DAILY), # 15 mL, Refills(s) 1, Pharmacy: [facility], 166.6, cm, 05/04/23 7:12:00 EDT, Height/Length Dosing, [...] Problem Date Documented Date Episodic/Chronic Anxiety disorders (14 sources) Anxiety 11-24-2019 Chronic Diabetes mellitus with complications (19 sources) 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; Translations: [Type 1 diabetes mellitus with unspecified complications] Onset: 02-04-2022 09-03-2022 Chronic Diabetes mellitus without complication (19 sources) Diabetes mellitus; Translations: [Type 2 diabetes mellitus without complications] Onset: 11-27-2021 11-24-2019 Chronic Comment on above: type 2 non-insulin d ependant Diseases of mouth; excluding dental (1 source) Glossitis 08-25-2023 Episodic Disorders of lipid metabolism (12 sources) Pure hypercholesterolemia; Translations: [Pure hypercholesterolemia, unspecified] Onset: 10-09-2021 09-03-2022 Chronic Esophageal disorders (8 sources) Gastroesophageal reflux disease; Translations: [Gastro-esophageal reflux disease without esophagitis] Onset: 04-28-2022 11-24-2019 Chronic Essential hypertension (8 sources) Hypertensive disorder; Translations: [Essential (primary) hypertension] Onset: 04-28-2022 11-24-2019 Chronic Gastroduodenal ulcer (except hemorrhage) (7 sources) H/O: gastric ulcer 09-03-2022 Episodic Hepatitis (7 sources) Nonalcoholic steatohepatitis 09-03-2022 Chronic Mood disorders (12 sources) Bipolar disorder; Translations: [Major depressive disorder, single episode, unspecified] Onset: 04-28-2022 11-24-2019 Chronic Nutritional deficiencies (7 sources) Vitamin D deficiency 09-03-2022 Chronic Other connective tissue disease (6 sources) Fibromyalgia; Translations: [Fibromyalgia] Episodic Other connective tissue disease (7 sources) Bursitis 02-08-2015 Episodic Other liver diseases (1 source) Fatty (change of) liver, not elsewhere classified; Translations: [FATTY CHANGE LIVER NEC] Onset: 04-13-2022 Chronic Other nervous system disorders (6 sources) Chronic pain; Translations: [Other chronic pain] Chronic Other nervous system disorders (2 sources) Other chronic pain; Translations: [Other chronic pain] Onset: 10-14-2021 Resolved: 10-14-2021 Chronic Other nervous system disorders (7 sources) Neuropathy 09-03-2022 Chronic Other non-traumatic joint disorders (6 sources) Shoulder joint pain; Translations: [Pain in left shoulder] Episodic Other non-traumatic joint disorders (2 sources) Chronic pain of left upper limb; Translations: [Pain in left shoulder] Onset: 07-23-2023 07-23-2023 Episodic Other nutritional; endocrine; and metabolic disorders (7 sources) Overweight in adulthood with body mass index of 25 or more but less than 30 09-09-2022 Episodic Other screening for suspected conditions (not mental disorders or infectious disease) (9 sources) Screening for malignant neoplasm of colon done; Translations: [Encounter for screening for malignant neoplasm of colon] Onset: 08-05-2022 Episodic Other upper respiratory disease (7 sources) Allergic rhinitis 09-03-2022 Chronic Residual codes; unclassified (7 sources) Obstructive sleep apnea syndrome 09-03-2022 Chronic Residual codes; unclassified (7 sources) Sleep apnea 02-08-2015 Chronic Residual codes; unclassified (7 sources) Insomnia 09-03-2022 Episodic Spondylosis; intervertebral disc disorders; other back problems (20 sources) Cervical spondylosis without myelopathy; Translations: [Spondylosis without myelopathy or radiculopathy, cervical region] Onset: 10-14-2021 Resolved: 10-14-2021 Chronic Spondylosis; intervertebral disc disorders; other back problems (8 sources) Dorsalgia, unspecified; Translations: [Neck pain] Onset: 11-27-2021 07-23-2023 Episodic Substance-related disorders (8 sources) Smoker; Translations: [Nicotine dependence, cigarettes, uncomplicated] Onset: 04-28-2022 11-24-2019 Chronic Comment on above: Added secondary to d ocumentation in Social History. Substance-related disorders (6 sources) Marijuana user 11-10-2022 Episodic Thyroid disorders (15 sources) Hypothyroidism; Translations: [Hypothyroidism, unspecified] Onset: 04-28-2022 02-08-2015 Chronic Unclassified (9 sources) Patient encounter status 09-09-2022 Unclassified (2 sources) CONTACT W/AND (SUSP) EXPOS COVID-19; Translations: [CONTACT W/AND (SUSP) EXPOS COVID-19] Onset: 04-16-2022 Unclassified (3 sources) LOW BACK PAIN, UNSPECIFIED; Translations: [LOW BACK PAIN, UNSPECIFIED] Onset: 11-18-2021 Unclassified (6 sources) Does mobilize using cane 12-15-2022 Unclassified (1 source) Cancer cervix screening status 09-22-2023 Unclassified (1 source) Chronic left shoulder pain [M25.512, G89.29] Onset: 09-25-2023 Viral infection (7 sources) Genital herpes simplex 11-24-2019 Chronic Viral [...] 11-14-2021 Episodic Other aftercare (1 source) Other intermediate manager (current) drug therapy; Translations: [OTH RETIREMENT CURRENT DRUG THERAPY] Onset: 04-28-2022 Episodic Other aftercare (1 source) intermediate accountant (current) use of oral hypoglycemic drugs; Translations: [RETIREMENT USE ORAL HYPOGLYCEMIC DX] Onset: 04-28-2022 Episodic Other aftercare (1 source) nursing home (current) use of insulin; Translations: [RETIREMENT CURRENT USE OF INSULIN] Onset: 04-28-2022 Episodic Other non-traumatic joint disorders (3 sources) Pain in left wrist; Translations: [PAIN IN LEFT WRIST] Onset: 04-25-2022 Episodic Other non-traumatic joint disorders (1 source) Pain in left shoulder; Translations: [Pain in left shoulder] Onset: 09-25-2023 Episodic Sprains and strains (1 source) Unspecified sprain of left wrist, initial encounter; Translations: [UNSPECIFIED SPRAIN LT WRIST INITIAL] Onset: 04-28-2022 Episodic Unclassified (7 sources) Bipolar (qualifier value) 02-08-2015 Unclassified (1 source) CONTACT W/AND (SUSP) EXPOS COVID-19; Translations: [CONTACT W/AND (SUSP) EXPOS COVID-19] Onset: 04-14-2022 Unclassified (1 source) LOW BACK PAIN, UNSPECIFIED; Translations: [LOW BACK PAIN, UNSPECIFIED] Onset: 11-14-2021 Urinary tract infections (1 source) Urinary tract infection, site not specified; Translations: [UTI SITE NOT SPECIFIED] Onset: 11-27-2021 Episodic Results Test Name Value Interpretation Reference Range Facil ity Ambulatory Visit Summaryon 0 01-12-2024 Ambulatory Visit Summary AMAIRANI GONZALES :1975 Visit Date:01/12/2024 Ambulatory Visit Instructions Your Diagnosis DM type 2 (diabetes mellitus, type 2) Anxiety Bipolar disease, chronic Primary hypertension Hypothyroidism, unspecified type BMI 28.0-28.9,adult Over weight Smoker Your Care Team Attending [...] gel) fluticasone nasal (fluticasone Nasal 0.05 mg/inh [place]) hydrochlorothiazide-lo sartan (hydrochlorothiazide-l osartan 12.5 mg-100 mg [...] mg Tab) rosuvastatin (rosuvastatin 5 mg Tab) semaglutide (Ozempic 2 mg/3 mL (0.25 mg or 0.5 mg dose) subcutaneous solution) valacyclovir (Valtrex 1 g Tab) Procedures Performed Epidural injection of lumbar spine using fluoroscopic guidance (08/12/2013), EGD - Esophagogastroduodenos copy, mole revoved on left buttock, Radiofrequency ablation of nerve root of lumbar spine using fluoroscopic guidance, Removal of pilonidal cyst, Repair of umbilical hernia, Tubal ligation. Discharge Vitals Temperature (Temporal Artery) 36.5 ?C Heart Rate (Peripheral) 70 Respiratory Rate 16 Blood Pressure 124/80 Height 166 cm Height 65 in Weight 79.4 kg Weight 174.68 lb BMI 28.81 What to do next Scheduled Follow-Up Appointments Thursday 8:20 AM EDT With: Where: [facility] Invalid Interpretation Code [address] [place] [address]- \.br\ You Need to Complete the Following\.br\ HgbA1c, Blood, Routine collect, 01/12/24, Order for future visit, Lab Collect, DM type 2 (diabetes mellitus, type 2) [facility] Office/Clini c Noteon 01-12-2024 Family Medicine Office/Clinic Note HPI Staff Amairani is a 48 year old female presenting for 3 month follow up DM Do you have any of the following symptoms? Foot Exam: Dr Millard does them Eye Exam: UTD 2023 Last A1C: Hgb A1C %: 7.7 % High (11/10/23 08:23:00) Statin: rosuvastatin 5mg questions/concerns: had neck epidural on started new shot ozempic on thursday. Her sugars in the one hundred teens. hasn't seen the waking up and finding it in the 200's yet so hopeful the ozempic will work better than the trulicty History of Present Illness - Here for follow up. - See staff Physical Exam Vitals & Measurements T: 36.5 ?C(Temporal Artery) HR: 70(Peripheral) RR: 16 BP: 124/80 SpO2: 98% HT: 65 in HT: 166 cm WT: 79.4 kg WT: 174.68 lb BMI: 28.81 General: alert, no acute distress ENMT: oral [...] Type 2 diabetes mellitus without complications) - Improving - Ozempic has improved BS readings Ordered: Body Mass Index (BMI) documented 3008F Current tobacco smoker 1034F HgbA1c Most recent diastolic blood pressure 80-89 mm Hg 3079F Systolic BP <130 mm Hg (Most Recent) 3074F TSH With T4fr Reflex 2. Anxiety (F41.9: Anxiety disorder, unspecified) - Improving - Continue meds as before Ordered: Body Mass Index (BMI) documented 3008F Current tobacco smoker 1034F HgbA1c Most recent diastolic blood pressure 80-89 mm Hg 3079F Systolic BP <130 mm Hg (Most Recent) 3074F TSH With T4fr Reflex 3. Bipolar disease, chronic (F31.9: Bipolar disorder, unspecified) - As above Ordered: Body Mass Index (BMI) documented 3008F Current tobacco smoker 1034F HgbA1c Most recent diastolic blood pressure 80-89 mm Hg 3079F Systolic BP <130 mm Hg (Most Recent) 3074F TSH With T4fr Reflex 4. Primary hypertension (I10: Essential (primary) hypertension) - At goal today. - NO issues at this time. Ordered: Body Mass Index (BMI) documented 3008F Current tobacco smoker 1034F HgbA1c Most recent diastolic blood pressure 80-89 mm Hg 3079F Systolic BP <130 mm Hg (Most Recent) 3074F TSH With T4fr Reflex 5. Hypothyroidism, unspecified type (E03.9: Hypothyroidism, unspecified) - At goal at last Ordered: Body Mass Index (BMI) documented 3008F Current tobacco smoker 1034F HgbA1c Most recent diastolic blood pressure 80-89 mm Hg 3079F Systolic BP <130 mm Hg (Most Recent) 3074F TSH With T4fr Reflex 6. BMI 28.0-28.9,adult (Z68.28: Body mass index [BMI] 28.0-28.9, adult) - BMI education added Ordered: Body Mass Index (BMI) documented 3008F Current tobacco smoker 1034F HgbA1c Most recent diastolic blood pressure 80-89 mm Hg 3079F Systolic BP <130 mm Hg (Most Recent) 3074F TSH With T4fr Reflex 7. Over weight (E66.3: Overweight) - Diet and exercise advised Ordered: Body Mass Index (BMI) documented 3008F Current tobacco smoker 1034F HgbA1c Most recent diastolic blood pressure 80-89 mm Hg 3079F Systolic BP <130 mm Hg (Most Recent) 3074F TSH With T4fr Reflex 8. Smoker (F17.200: Nicotine dependence, unspecified, uncomplicated) - Please continue to not smoke Ordered: Body Mass Index (BMI) documented 3008F Current tobacco smoker 1034F HgbA1c Most recent diastolic blood pressure 80-89 mm Hg 3079F Systolic BP <130 mm Hg (Most Recent) 3074F TSH With T4fr Reflex Orders: dulaglutide, 3 mg, SubCutaneous, qWeek, # 4 EA, Refills(s) 2, Pharmacy: [facility]/pharmacy #[id number], 166, cm, 10/13/23 10:04:00 EDT, Height/Length Dosing, 74.8, kg, 10/13/23 10:04:00 EDT, Weight Dosing Follow-up No qualifying data [...] hernia, Tubal ligation. Medications Abilify 15 mg T (more content not included)... [facility] Comment on above: Result Comment: Elec tronically Signed By: Joao ESPITIA, Joss Burnett.br\Date and Time Signed: 01/12/24 08:07 EDT Glucose Glucometer (BldC) [M ass/Vol]on 01-08-2024 Glucose [Mass/Vol] 134 mg/dL High 65-99 [facility] Formson 01-05-2024 Forms [id number]#1.0 0TIFF [facility] Consultation Noteon 12-10-19 Consultation Note [id number]#1.00 TIFF [facility] Physician Orderon 12-10-2023 Physician Order [id number]#1. 00TIFF [facility] Glucose Glucometer (BldC) [M ass/Vol]on 11-13-2023 Glucose [Mass/Vol] 144 mg/dL High 65-99 [facility] Ambulatory Visit Summaryon 0 11-10-2023 Ambulatory Visit Summary AMAIRANI GONZALES :1975 Visit Date:11/10/2023 Ambulatory Visit Instructions Your Care Team Attending [...] (diclofenac topical 1% gel) dulaglutide (Trulicity Pen 3 mg/0.5 mL subcutaneous solution) fluticasone nasal (fluticasone Nasal 0.05 mg/inh [place]) hydrochlorothiazide-lo sartan (hydrochlorothiazide-l osartan 12.5 mg-100 mg [...] Ivana oral tablet) omeprazole (omeprazole 20 mg Adán-) [...] to do next Scheduled Follow-Up Appointments Thursday 7:15 AM EDT With: Joao ESPITIA, Joss Hartmann Where: [facility] [place] [facility] CHEMISTRYOrdered By: Shyla reza on 11-10-2023 HbA1c (Bld) [Mass fraction] 7.7 % High <=5.9% [facility] [place] [employer] [id number] 11-10-2023 HbA1c (Bld) [Mass fraction] 7.7 % High <=5.9 [facility] Comment on above: Performed By: #### [id number] #### [facility] Laboratory [address] [place] [address] Nurse Consultation Noteon Nurse Consultation Note Reason for Visit lab draw Assessment/Plan Diabetes (E11.9: Type 2 diabetes mellitus without complications) Medications Abilify 15 mg Tab, 15 mg= [...] Instructions, 5 refills fluticasone Nasal 0.05 mg/inh [place], See Instructions Free style Cristopher Kit 2 sensors, See Instructions, 11 refills hydrochlorothiazide-lo sartan 12.5 mg-100 mg oral tablet, See Instructions, 1 refills Insulin Aspart FlexPen 100 units/mL injectable solution, See Instructions, 1 refills Latuda 40 mg oral tablet, 40 mg= 1 tab(s), Oral, Daily levothyroxine 100 mcg (0.1 mg) Tab, See Instructions, 1 refills meloxicam 15 mg Tab, See Instructions MetFORMIN (Eqv-Glucophage XR) 500 mg oral tablet, extended release, See Instructions, 5 refills montelukast 10 mg Tab, See Instructions, 1 refills omeprazole 20 mg Cap-DR, See Instructions, 1 refills ropinirole 0.25 mg Tab, 0.25 mg= 1 tab(s), Oral, Bedtime, 3 refills rosuvastatin 5 mg Tab, See Instructions Trulicity Pen 3 mg/0.5 mL subcutaneous solution, 3 mg, SubCutaneous, qWeek, 2 refills Valtrex 1 g Tab, 1 gm, Oral, Daily, 1 refills Webcol Alcohol Preps 70% topical pad, See [...] Recorded influenza virus vaccine, inactivated 04/18/2013 Recorded [facility] Consultation Noteon 10-20-19 Consultation Note [id number]#1.0 0TIFF [facility] Formson 10-19-2023 Forms [id number]#1.0 0TIFF [facility] Ambulatory Visit Summaryon 0 10-13-2023 Ambulatory Visit Summary JANETAMAIRANI :1975 Visit Date:10/13/2023 Ambulatory Visit Instructions Your Diagnosis DM type 2 (diabetes mellitus, type 2) Allergic rhinitis BMI 27.0-27.9,adult Overweight Smoker Your Care Team Attending Physician - Joss Shepherd MD Primary Care Physician - Joao ESPITIA, Joss Hartmann This Is Your Medications List Misc Prescription [...] solution) fluticasone nasal (fluticasone Nasal 0.05 mg/inh [place]) hydrochlorothiazide-lo sartan (hydrochlorothiazide-l osartan 12.5 mg-100 mg [...] Temperature (Oral) 36.8 ?C Heart Rate (Peripheral) 72 Respiratory Rate 16 Blood Pressure 126/74 Height 166 cm Height 65 in Weight 74.8 kg Weight 164.56 lb BMI 27.14 Medications What How Much When Instructions Unchanged aripiprazole (Abilify 15 mg Tab) 1 Tablets By Mouth Every day Unchanged busPIRone (busPIRone 15 mg Tab) 60 EA, 0 Refill(s), TAKE ONE TABLET BY MOUTH TWICE A DAY Unchanged citalopram (citalopram 40 mg Tab) 30 EA, 0 Refill(s), TAKE ONE TABLET BY MOUTH DAILY Unchanged dapagliflozin (dapagliflozin 5 mg oral tablet) 1 Tablets By Mouth Every day Unchanged diclofenac topical (diclofenac topical 1% gel) 2 Gram Topical 3 times a day Unchanged dulaglutide (Trulicity Pen 4.5 mg/ 0.5 mL subcutaneous solution) 4.5 Milligram Subcutaneous Every week Unchanged fluticasone nasal (fluticasone Nasal 0.05 mg/ inh [place]) See instructions USE 2 SPRAYS INTO EACH NOSTRIL ONCE DAILY Unchanged hydrochlorothiazide-lo sartan (hydrochlorothiazide-l osartan 12.5 mg-100 mg oral tablet) See instructions TAKE ONE TABLET BY MOUTH DAILY Unchanged insulin aspart (Insulin Aspart FlexPen 100 units/ mL injectable solution) See instructions SLIDING SCALE FOR BS: 150-200: 2U, 201-250: 4U, 251-300: 6U, 301-350: 8U, 351-400: 10U, BS>401: 12U; CARB COVERAGE 1 UNIT PER 15 CARBS (EXPECT 60U DAILY) Unchanged isopropyl alcohol topical (Webcol Alcohol Preps 70% topical pad) See instructions Use swab daily before each blood sugar check Unchanged levothyroxine (levothyroxine 100 mcg (0.1 mg) Tab) See instructions TAKE ONE TABLET BY MOUTH DAILY Unchanged lurasidone (Latuda 40 mg oral tablet) 1 Tablets By Mouth Every day Unchanged meloxicam (meloxicam 15 mg Tab) See instructions TAKE ONE TABLET BY MOUTH ONCE DAILY Unchanged metformin (MetFORMIN (Eqv-Glucophage XR) 500 mg oral tablet, extended release) See instructions TAKE ONE TABLET BY MOUTH THREE TIMES A DAY Unchanged Misc Prescription (alcohol pads) See instructions use to check BS daily dx. E11.319 Unchanged Misc Prescription (Easy comfort Mis 31Gx3/ 16) See instructions use with Novolog injections Unchanged Misc Prescription (Free style Cristopher Kit 2 sensors) See instructions use to montior BS DX E11.8 E11.42 Unchanged montelukast (montelukast 10 mg Tab) See instructions TAKE ONE TABLET BY MOUTH DAILY IN THE EVENING Unchanged multivitamin (Daily Ivana oral tablet) See instructions TAKE ONE TABLET BY MOUTH ONCE DAILY Unchanged omeprazole (omeprazole 20 mg Adán-) See instructions TAKE ONE CAPSULE BY MOUTH DAILY Unchanged ropinirole (ropinirole 0.25 mg Tab) 1 Tablets By Mouth At bedtime Unchanged rosuvastatin (rosuvastatin 5 mg Tab) See instructions TAKE ONE TABLET BY MOUTH DAILY AT BEDTIME Unchanged valacyclovir (Valtrex 1 g Tab) 1 Gram By Mouth Every day DAYA ( allergic to generic) Allergies Depakote (Unknown) Nesina (Unknown) Nubain (Unknown) Trileptal (Unknown) Valacyclovir Hydrochloride sulfa drugs (Rash) Problems Ongoing - Any problem that you are currently receiving treatment for. Acid reflux disease Advanced diabetic retinal disease Allergic rhinitis Ambulates wi (more content not included)... [facility] Auth for Release of Medical Recordson 10-13-2023 Auth for Release of Medical Records [id number]#1.0 0TIFF [facility] Consenton 10-13-2023 Consent [id number]#1.0 0TIFF [facility] Family Medicine Office/Clini c Noteon 10-13-2023 Family Medicine Office/Clinic Note HPI Staff Amairani is a 47 year old female presenting for 3 month follow up DM Visit scheduled as lab draw and patient not aware she needs any labs Do you have any of the following symptoms? Foot Exam: Dr Millard does this for her Eye Exam: UTD 2023 Last A1C: Hgb A1C %: 7.4 % High (08/10/23 07:07:00) Statin: rosuvastatin 5mg flu: refused questions/concerns: allergies are flaring up nose filled up History of Present Illness - Pt here for follow up. - BS have been better controlled. - Not having any issues outside of her allergies. - Wants a steroid shot. Physical Exam Vitals & Measurements T: 36.8 ?C(Oral) HR: 72(Peripheral) RR: 16 BP: 126/74 SpO2: 97% HT: 65 in HT: 166 cm WT: 74.8 kg WT: 164.56 lb BMI: 27.14 General: alert, no acute distress ENMT: oral [...] Type 2 diabetes mellitus without complications) - Improving. - Continue with the SSI - Will order labs. - Please get after 11/09. - Precautions with the kenolog shot Ordered: Body Mass Index (BMI) documented 3008F Current tobacco smoker 1034F Influenza immunization status assessed 1030F Most recent diastolic blood pressure <80 mm Hg 3078F Systolic BP <130 mm Hg (Most Recent) 3074F 2. Allergic rhinitis (J30.9: Allergic rhinitis, unspecified) - Kenalog shot to help 3. BMI 27.0-27.9,adult (Z68.27: Body mass index [BMI] 27.0-27.9, adult) - BMI education given Ordered: Body Mass Index (BMI) documented 3008F Current tobacco smoker 1034F Influenza immunization status assessed 1030F Most recent diastolic blood pressure <80 mm Hg 3078F Systolic BP <130 mm Hg (Most Recent) 3074F 4. Overweight (E66.3: Overweight) - Diet and exercise Ordered: Body Mass Index (BMI) documented 3008F Current tobacco smoker 1034F Influenza immunization status assessed 1030F Most recent diastolic blood pressure <80 mm Hg 3078F Systolic BP <130 mm Hg (Most Recent) 3074F 5. Smoker (F17.200: Nicotine dependence, unspecified, uncomplicated) - Please stop smoking. Ordered: Body Mass Index (BMI) documented 3008F Current tobacco smoker 1034F Influenza immunization status assessed 1030F Most recent diastolic blood pressure <80 mm Hg 3078F Systolic BP <130 mm Hg (Most Recent) 3074F Orders: insulin aspart, See Instructions, SLIDING SCALE FOR BS: 150-200: 2U, 201-250: 4U, 251-300: 6U, 301-350: 8U, 351-400: 10U, BS>401: 12U; CARB COVERAGE 1 UNIT PER 15 CARBS (EXPECT 60U DAILY), # 15 mL, Refills(s) 1, Pharmacy: [facility], 166, cm, 03/19/24 10:04... Follow-up No qualifying data available Patient Education BMI for Adults Problem List/Past Medical History [...] Instructions, 5 refills fluticasone Nasal 0.05 mg/inh [place], See Instructions Free style Cristopher Kit 2 sensors, See Instructions, 11 refills hydrochlorothiazide-lo sartan 12.5 mg-100 mg oral tablet, See Instructions Insulin Aspart FlexPen 100 units/mL injectable solution, See Instructions, 1 refills Latuda 40 mg oral tablet, 40 mg= 1 tab(s), Oral, Daily levothyroxine 100 mcg (0.1 mg) Tab, See Instructions meloxicam 15 mg Tab, See Instructions MetFORMIN (Eqv-Glucophage XR) 500 mg oral tablet, extended release, See Instructions montelukast 10 mg Tab, See Instructions omeprazole 20 mg Cap-DR, See I (more content not included)... [facility] Comment on above: Result Comment: Elec tronically Signed By: Joao ESPITIA, Joss Hartmann\.br\Date and Time Signed: 10/13/23 10:26 EDT Patient Educationon 10-13-19 Patient Education Nutrition BMI for Adults What [...] numbers. This can be done either in [place] ([place] or metric measurements. Note that charts and online BMI calculators are available to help you find your BMI quickly and easily without having to do these calculations yourself. To calculate your BMI in [place] ([place] measurements: 1. Measure your weight in [...] for Disease Control and Prevention: www.cdc.gov ? [place] [employer]: www.heart.org ? National Heart, Lung, and Blood Biddle: www.nhlbi.nih.gov Summary ? Body mass index (BMI) is a number that is calculated from a person's weight and height. ? BMI may help estimate how much of a person's weight is composed of fat. BMI can help identify those who may be at higher risk for certain medical problems. ? BMI can be measured using Egyptian measurements or metric measurements. ? BMI charts are used to identify whether you are underweight, normal weight, overweight, or obese. This information is not intended to replace advice given to you by your health care provider. Make sure you discuss any questions you have with your health care provider. Document Revised: 04/04/2020 Document Reviewed: 02/10/2020 [employer] Patient Education ? 2022 [employer] App. [facility] Outside Mammographyon 2023 Outside Mammography [id number]#1.0 0TIFF [facility] Reminderson 09-28-2023 Reminders - From: Kristin Sandoval To: B - Clinical; Sent: 09/28/2023 08:55:43 EST Show up: 09/28/2023 08:56:00 EST Subject: Ambulatory Reminder Due Date/Time: 09/29/2023 08:55:00 EST Pap was negative Results: Date Result Name Value Ref Range 09/22/2023 8:35 HPV Aptima Negative (Negative - ) 09/22/2023 8:35 PAP Note pt notified. [facility] PAP [id number] 09-27-2023 Cytology report Cyto stain Doc (Cvx/Vag) Note Invalid Interpretation Code [facility] Comment on above: Result Comment: TEST S RESULT FLAG UNITS REF RANGE LAB Clinician Provided Cytology Information Source.............Endocervix No. of containers..01 ThinPrep Vial DIAGNOSIS: 01 NEGATIVE FOR INTRAEPITHELIAL LESION OR MALIGNANCY. Specimen adequacy: 01 Satisfactory for evaluation. No endocervical component is identified. Performed by: Joel Altamirano Banana Room Cutter ([facility]) . 01 Note: Note 01 The Pap [...] <-Panic Low,>-Panic High,A-Abnormal,AA-Critical Abnormal Performed at: [address] [address] Vaishnavi Sen MD, Performed By: #### 1 [id number] ####[facility] [address] [place] [address] HPV 16+18+31+33+35+39+45 +51+52+56+58+59+66+6 8 DNA Probe+sig amp Ql (Cvx) Negative Invalid Interpretation Code Negative [facility] Comment on above: Result Comment: This nucleic acid amplification test detects fourteen high-risk HPV types (16,18,31,33,35,39,45,51,52,56,58,59,66,68) without differentiation. Performed at: [facility] [id number] MD Francy Riggins Performed at: = [facility] [id number] MD Francy Riggins Performed By: #### 1 [id number] ####[address] [place] [address] Glucose Glucometer (BldC) [M ass/Vol]on 09-25-2023 Glucose [Mass/Vol] 129 mg/dL High 65-99 [facility] MR CERVICAL SPINE WO CONTon 09-25-2023 MR [...] Su MD on 09/25/2023 9:25 PM [facility] Ambulatory Visit Summaryon 0 09-22-2023 Ambulatory Visit Summary JANETAMAIRANI :1975 Visit Date:09/22/2023 Ambulatory Visit Instructions Your [...] solution) fluticasone nasal (fluticasone Nasal 0.05 mg/inh [place]) hydrochlorothiazide-lo sartan (hydrochlorothiazide-l osartan 12.5 mg-100 mg [...] Follow-Up Appointments Thursday 10:15 AM EDT With: Joao ESPITIA, Joss Hartmann Where: Family [facility] [place] [facility] Family Medicine Office/Clini c Noteon 09-22-2023 Family Medicine Office/Clinic Note HPI Staff Amairani is a 47 year old female presenting for well woman Woman check up: Last pap: 2022 Last Carlos: 2022, would like order sent to [facility] Results of lap pap: normal Where was [...] Gyno: not assessed Neurologic: Grossly normal Skin: Daniels, moist, no tenting Lymph Nodes: No cervical [...] breast) order provided to be done at [facility] 3. Cervical cancer screening (Z12.4: Encounter for [...] Daily, 1 r (more content not included)... [facility] Comment on above: Result Comment: Elec tronically Signed By: Kristin Sandoval\.br\Date and Time Signed: 09/22/23 09:26 EST PAP [id number] 09-22-2023 Gynecological Body Site ENDOCERVIX [facility] Comment on above: Performed By: #### 1 [id number] ####[facility] [address] [place] [address] Physician Orderon 09-22-2023 Physician Order [id number]#1.0 0TIFF [facility] Pre-Certification Formon Pre-Certification Form [id number]#1.0 0TIFF [facility] Ambulatory Visit Summaryon 0 08-25-2023 Ambulatory Visit Summary AMAIRANI GONZALES Mimi :1975 Visit Date:08/25/2023 Ambulatory Visit Instructions Your [...] solution) fluticasone nasal (fluticasone Nasal 0.05 mg/inh [place]) hydrochlorothiazide-lo sartan (hydrochlorothiazide-l osartan 12.5 mg-100 mg [...] Appointments Thursday. 2023 10:15 AM EDT With: Joao ESPITIA, Joss Hartmann Where: Family Medicine [place] [facility] Family Medicine Office/Clini c Noteon 08-25-2023 Family Medicine Office/Clinic Note HPI Staff Patient presents for ED follow up. ER followup: Hospital: [facility] Visit date: 08/19/2023 Symptoms the patient presented [...] Instructions, 5 refills fluticasone Nasal 0.05 mg/inh [place], See Instructions Free style Cristopher Kit 2 [...] Not Given Pos (more content not included)... [facility] Comment on above: Result Comment: Elec tronically Signed By: Joao ESPITIA, Joss Burnett.br\Date and Time Signed: 08/25/23 11:21 EST Formson 08-25-2023 Forms [id number]#1.0 0TIFF [facility] Patient Correspondenceon Patient Correspondence [id number]#1.0 0TIFF [facility] Provider Letteron 08-25-2023 Provider Letter August 25, 2023 AMAIRANI GONZALES [address] [place] [address] : 1975 To Whom It May Concern, Per Dr. Katty Bermudez medical assessment Amairani Gonzales has many medical problems that prevent her from performing gainful employment, as such she is medically disabled and he believes these problems are permanent. May Return to Work On: Restrictions: _ Comments: _ Sincerely, Family Medicine [address] [address] [facility] ED Note-Physicianon 08-24-19 ED Note-Physician [id number]#1.00 TIFF [facility] RAD - CT Reporton 08-24-2023 RAD - CT Report [id number]#1.0 0TIFF [facility] Family Medicine Office/Clini c Noteon 08-14-2023 Family [...] she is under the care of Dr. Bojorquez for depression treatment. She last saw Dr. Bojorquez on 06/04/2024. The patient has a medical [...] social security disability provider, Dr. Piedra, in [place]. She only visits the disability doctor when [...] Anxiety (F41. (more content not included)... [facility] Comment on above: Result Comment: Elec tronically Signed By: Joss Shepherd MD\.br\Date and Time Signed: 08/14/23 08:21 EST\.br\Electronically Co-Signed By: Shayla Duval\.br\Date and Time Co-Signed: 08/13/23 15:35 EST Ambulatory Visit Summaryon 0 08-13-2023 Ambulatory Visit Summary AMAIRANI GONZALES Mimi :1975 Visit Date:08/13/2023 Ambulatory Visit Instructions Your Diagnosis Marijuana user Anxiety Bipolar disease, chronic Primary hypertension Advanced diabetic retinal disease Lumbosacral spondylosis with radiculopathy BMI 27.0-27.9,adult Over weight Smoker Your Care Team Attending Physician - Joss Shepherd MD. Primary Care Physician - Joss Shepherd MD. [...] solution) fluticasone nasal (fluticasone Nasal 0.05 mg/inh [place]) hydrochlorothiazide-lo sartan (hydrochlorothiazide-l osartan 12.5 mg-100 mg [...] AM EDT With: Joss Shepherd MD Where: Family Medicine [facility] Formson 08-13-2023 Forms [id number]#1.00 TIFF [facility] Medication Refillon 08-13-19 24 Medication Refill [id number]#1.0 0TIFF [facility] Ambulatory Visit Summaryon 0 08-10-2023 Ambulatory Visit [...] solution) fluticasone nasal (fluticasone Nasal 0.05 mg/inh [place]) hydrochlorothiazide-lo sartan (hydrochlorothiazide-l osartan 12.5 mg-100 mg [...] Follow-Up Appointments 2023 7:15 AM EST With: Joao ESPITIA, Joss Hartmann Where: [facility] [address] [place] [id number] \.br\ Medications\.br \ What How Much When [...] fluticasone nasal (fluticasone Nasal 0.05 mg/ inh [place]) See instructions USE 2 SPRAYS INTO EACH [...] Kit 2 sensors) See instructions use to aura BS DX E11.8 E11.42 \.br\ Unchanged montelukast [...] for choosing us for your care.\.br\ \.br\ [facility] Auto Diffon 08-10-2023 Basophils/100 WBC (Bld) 0.5 % Normal 0.0-2.0 [facility] Comment on above: Order Comment: Order Added by Discern Expert. Performed By: #### 2 022090, 0447257, 3989404, 1090543, 30868819, 06384342, 986090082 ####[address] [address] Basophils/Leukocytes Auto (Bld) [Pure # fraction] 0.0 E9/L Normal 0.0-0.2 [facility] Comment on above: Order Comment: Order Added by Discern Expert. Performed By: #### 2 005666, 6417304, 4042635, 3627641, 03315166, 98957202, 432034782 ####[address] [address] Eosinophils/100 WBC (Bld) 2.4 % Normal 0.0-8.0 [facility] Comment on above: Order Comment: Order Added by Discern Expert. Performed By: #### 2 615271, 0235299, 1022350, 4133402, 11433372, 27389342, 702159279 ####[address] [place] [address] Eosinophils/Leukocyt es Auto (Bld) [Pure # fraction] 0.2 E9/L Normal 0.0-0.5 [facility] Comment on above: Order Comment: Order Added by Discern Expert. Performed By: #### 2 278564, 9944820, 2071431, 6417759, 24266449, 81313109, 951028579 ####[address] [address] Lymphocytes/100 WBC (Bld) 41.4 % Normal 14.0-50.0 [facility] Comment on above: Order Comment: Order Added by Pineda Expert. Performed By: #### 2 520402, 7797765, 3524008, 6473670, 91274376, 18324895, 489369117 ####[facility] [address] [place] [address] Lymphocytes/Leukocyt es Auto (Bld) [Pure # fraction] 3.0 E9/L Normal 1.0-4.0 [facility] Comment on above: Order Comment: Order Added by Pineda Expert. Performed By: #### 2 216230, 7766057, 3732612, 5055854, 61069350, 95751107, 241581438 ####[address] [place] [address] Monocytes/100 WBC (Bld) 6.9 % Normal 4.0-14.0 [facility] Comment on above: Order Comment: Order Added by Pineda Expert. Performed By: #### 2 807172, 6855372, 4494729, 1276652, 06984649, 43176737, 152940296 ####[address] [address] Monocytes/Leukocytes Auto (Bld) [Pure # fraction] 0.5 E9/L Normal 0.2-1.0 [facility] Comment on above: Order Comment: Order Added by Pineda Expert. Performed By: #### 2 002212, 3722507, 0130186, 0733085, 92240098, 02504217, 840960440 ####[address] [place] [address] Neutrophils/100 WBC (Bld) 48.8 % Normal 36.0-75.0 [facility] Comment on above: Order Comment: Order Added by Pineda Expert. Performed By: #### 2 240223, 4535097, 7588872, 7021545, 47997107, 00257661, 767229659 ####[address] [place] [address] Neutrophils/Leukocyt es Auto (Bld) [Pure # fraction] 3.5 E9/L Normal 2.0-7.5 [facility] Comment on above: Order Comment: Order Added by Discern Expert. Performed By: #### 2 778842, 8274949, 9950057, 9017655, 00653316, 02999741, 220558080 ####[facility] [address] [place] [address] CBC w/ Auto Diffon 4 Erythrocyte distribution width (RBC) [Ratio] 13.4 % Normal 10.9-14.2 [facility] Comment on above: Performed By: #### 2 028700, 4761310, 5351071, 6486151, 77581281, 57879291, 765398485 ####[address] [place] [address] Hematocrit (Bld) [Volume fraction] 43.0 % Normal 34.0-46.0 [facility] Comment on above: Performed By: #### 2 660356, 0152587, 5508390, 3684160, 78485781, 65373883, 161011941 ####[facility] [address] [place] [address] Hemoglobin (Bld) [Mass/Vol] 14.6 g/dL Normal 12.0-16.0 [facility] Comment on above: Performed By: #### 2 667965, 4680048, 2448445, 7442416, 90739865, 95992867, 537699383 ####[facility] [address] [place] [address] MCH (RBC) [Entitic mass] 32.8 pg Normal 27.0-34.0 [facility] Comment on above: Performed By: #### 2 252647, 8230461, 9314019, 7195841, 72966908, 82089098, 852479639 ####[facility] [address] [place] [address] MCHC (RBC) [Mass/Vol] 33.9 g/dL Normal 31.4-36.0 [facility] Comment on above: Performed By: #### 2 363669, 4124063, 2197868, 8000947, 68207556, 82447846, 764557826 ####[facility] [address] [place] [address] MCV (RBC) [Entitic vol] 97.0 fL Normal 80.0-100.0 [facility] Comment on above: Performed By: #### 2 835512, 3635279, 3948378, 3224727, 14985731, 95977948, 197370766 ####[address] [place] [address] Platelet mean volume (Bld) [Entitic vol] 9.4 fL Normal 6.4-10.8 [facility] Comment on above: Performed By: #### 2 188757, 9857174, 4417151, 0788465, 28456105, 81658118, 507320572 ####[address] [address] Platelets (Bld) [#/Vol] 250.0 E9/L Normal 150.0-500.0 [facility] Comment on above: Performed By: #### 2 985831, 4443723, 5963838, 0004044, 56368457, 82979557, 841701385 ####[address] [address] RBC (Bld) [#/Vol] 4.4 E12/L Normal 4.3-5.9 [facility] Comment on above: Performed By: #### 2 811983, 0215172, 5360514, 2053190, 15688758, 85858005, 251173640 ####[address] [address] WBC corrected for nucl RBC Auto (Bld) [#/Vol] 7.3 E9/L Normal 4.0-11.0 [facility] Comment on above: Performed By: #### 2 460807, 4936859, 2809806, 0639928, 14839596, 99757810, 603502189 ####[facility] [address] [place] [address] CHEMISTRYOrdered By: SYSTEM SYSTEM on 08-10-2023 Albumin [...] (Bld) [Mass fraction] 7.4 % High <=5.9% [facility] [place] ChemAutoSS CMPon 08-10-2023 Albumin [Mass/Vol] 4.2 g/dL Normal 3.3-5.0 [facility] Comment on above: Performed By: #### 2 995944, 6104347, 0058170, 6311620, 70305449, 69143015, 484883884 ####[facility] [address] [place] [address] Albumin/Globulin [Mass ratio] 1.6 {ratio} Normal 1.1-2.2 [facility] Comment on above: Performed By: #### 2 975103, 9943223, 4952815, 8209727, 15627504, 68194792, 065813760 ####[facility] [address] [place] [address] Alk Phos 51 Int._Unit/L Normal 21-98 [facility] Comment on above: Performed By: #### 2 053715, 2757968, 7343118, 1125375, 63747760, 01517399, 092715504 ####[facility] [address] [place] [address] ALT 9 Int._Unit/L Normal 6-46 [facility] Comment on above: Performed By: #### 2 672681, 2787460, 5671618, 9560557, 26933508, 08997417, 935749865 ####[facility] [address] [place] [address] Anion gap [Moles/Vol] 12 mmol/L Normal 6-16 [facility] Comment on above: Performed By: #### 2 749991, 0217975, 2889604, 9608052, 91818377, 28649136, 603016092 ####[facility] [address] [place] [address] AST 16 Int._Unit/L Normal 5-43 [facility] Comment on above: Performed By: #### 2 472433, 4707356, 0251390, 8468221, 24393942, 43177399, 395753524 ####[facility] [address] [place] [address] Bili Total 0.6 mg/dL Normal 0.0-1.1 [facility] Comment on above: Performed By: #### 2 031549, 5078197, 6076506, 5456827, 33309596, 12496716, 340033448 ####[facility] [address] [place] [address] BUN/Creat Ratio 16 No Units Normal 10-20 [facility] Comment on above: Performed By: #### 2 570216, 8709770, 3172966, 5283663, 85897145, 66816592, 546739724 ####[facility] [address] [place] [address] Calcium [Mass/Vol] 9.3 mg/dL Normal 8.9-11.1 [facility] Comment on above: Performed By: #### 2 201634, 1104327, 7989888, 8248082, 56553342, 02441361, 539898544 ####[facility] [address] [place] [address] Chloride [Moles/Vol] 103 mmol/L Normal 101-111 [facility] Comment on above: Performed By: #### 2 269038, 9719087, 1509189, 1981069, 16432995, 00732156, 723036835 ####[facility] [address] [place] [address] CO2 [Moles/Vol] 29 mmol/L Normal 21-31 [facility] Comment on above: Performed By: #### 2 023757, 6364810, 8635535, 5120228, 36322867, 13603575, 405777546 ####[facility] [address] [place] [address] Creatinine [Mass/Vol] 0.7 mg/dL Normal 0.5-1.3 [facility] Comment on above: Performed By: #### 2 268275, 8448147, 6396270, 8809180, 52627980, 26664920, 935785019 ####[facility] [address] [place] [address] Globulin (S) [Mass/Vol] 2.6 g/dL Normal 1.4-4.0 [facility] Comment on above: Performed By: #### 2 092944, 9483307, 9349435, 3419560, 31047175, 56656863, 910701104 ####[facility] [address] [place] [address] Glucose [Mass/Vol] 139 mg/dL Normal 55-199 [facility] Comment on above: Performed By: #### 2 326136, 6891328, 4531083, 5078808, 60167681, 87826062, 353168513 ####[address] [place] [address] Potassium [Moles/Vol] 4.0 mmol/L Normal 3.5-5.3 [facility] Comment on above: Performed By: #### 2 084767, 6182723, 8580388, 5727319, 68606491, 95992113, 468880323 ####[facility] [address] [place] [address] Protein [Mass/Vol] 6.8 g/dL Normal 6.0-7.8 [facility] Comment on above: Performed By: #### 2 099019, 4127340, 3064262, 6416844, 57076180, 31207640, 122411501 ####[facility] [address] [place] [address] Sodium [Moles/Vol] 140 mmol/L Normal 135-145 [facility] Comment on above: Performed By: #### 2 668090, 2737897, 6188448, 8155946, 10720772, 50339268, 894374254 ####[facility] [address] [place] [address] Urea nitrogen [Mass/Vol] 11 mg/dL Normal 5-21 [facility] Comment on above: Performed By: #### 2 897132, 8130755, 9401259, 0650225, 15597102, 49405239, 519905906 ####[facility] [address] [place] [address] HEMATOLOGYOrdered By: SYSTEM SYSTEM on 08-10-2023 Basophils/100 [...] 41.4 % Normal 14.0 - 50.0 % FT HemeAutoSS Lymphocytes/Leukocyt es Auto (Bld) [Pure # fraction] 3.0 E9/L Normal 1.0 - 4.0 E9/L [facility] HemeAutoSS Monocytes/100 WBC (Bld) 6.9 % Normal 4.0 - 14.0 % FT HemeAutoSS Monocytes/Leukocytes Auto (Bld) [Pure # fraction] 0.5 E9/L Normal 0.2 - 1.0 E9/L FT HemeAutoSS Neutrophils/100 WBC (Bld) 48.8 % Normal 36.0 - 75.0 % FT HemeAutoSS Neutrophils/Leukocyt es Auto (Bld) [Pure # fraction] 3.5 E9/L Normal 2.0 - 7.5 E9/L FT HemeAutoSS HEMATOLOGYOrdered By: Shyla Guillaume on 08-10-2023 Erythrocyte distribution width (RBC) [Ratio] 13.4 % Normal 10.9 - 14.2 % FT HemeAutoSS Hematocrit (Bld) [Volume fraction] 43.0 % Normal 34.0 - 46.0 % FT HemeAutoSS Hemoglobin (Bld) [Mass/Vol] 14.6 g/dL Normal 12.0 - 16.0 gm/dL FT HemeAutoSS MCH (RBC) [Entitic mass] 32.8 pg Normal 27.0 - 34.0 pg FT HemeAutoSS MCHC (RBC) [Mass/Vol] 33.9 g/dL Normal 31.4 - 36.0 gm/dL FT HemeAutoSS MCV (RBC) [Entitic vol] 97.0 fL Normal 80.0 - 100.0 fL FT HemeAutoSS Platelet mean volume (Bld) [Entitic vol] 9.4 fL Normal 6.4 - 10.8 fL FT HemeAutoSS Platelets (Bld) [#/Vol] 250.0 E9/L Normal 150.0 - 500.0 E9/L FT HemeAutoSS RBC (Bld) [#/Vol] 4.4 E12/L Normal 4.3 - 5.9 E12/L FT HemeAutoSS WBC corrected for nucl RBC Auto (Bld) [#/Vol] 7.3 E9/L Normal 4.0 - 11.0 E9/L FT HemeAutoSS IlpS1lhn 08-10-2023 HbA1c (Bld) [Mass fraction] 7.4 % High <=5.9 [facility] Comment on above: Performed By: #### 2 406954, 5925743, 5161607, 4584221, 77481233, 21069067, 955732358 ####[facility] [address] [place] [address] Lipid Panelon 08-10-2023 Cholesterol [Mass/Vol] 138 mg/dL Normal 120-200 [facility] Comment on above: Performed By: #### 2 484059, 5433168, 6225225, 5866937, 32355350, 95848598, 575675353 ####[facility] [address] [address] Cholesterol in HDL [Mass/Vol] 36 mg/dL Invalid Interpretation Code [facility] Comment on above: Result Comment: '>= 60 LOW RISK' '<= 40 HIGH RISK' Performed By: #### 2 354155, 8065933, 6344091, 4505697, 73439594, 10193530, 124976268 ####[facility] [address]law[address] [address] Cholesterol in LDL [Mass/Vol] 79 mg/dL Normal <=129 [facility] Comment on above: Performed By: #### 2 973154, 9416572, 6439165, 2329708, 57187895, 30833144, 402495364 ####[facility] [address] [address] Cholesterol in VLDL [Mass/Vol] 42 mg/dL High 7-40 [facility] Comment on above: Performed By: #### 2 813316, 3127062, 8449912, 0023669, 48332979, 10575759, 433771102 ####[facility] [address] [place] [address] Triglyceride [Mass/Vol] 209 mg/dL High <=149 [facility] Comment on above: Performed By: #### 2 681249, 9974129, 1509354, 8782112, 59280203, 21670401, 210429785 ####[facility] [address] [place] [address] Nurse Consultation Noteon Nurse Consultation Note Reason [...] Instructions, 5 refills fluticasone Nasal 0.05 mg/inh [place], See Instructions Free style Cristopher Kit 2 [...] influenza virus vaccine, inactivated 04/18/2013 Recorded Normal [facility] TSH With T4fr Reflexon 08-10 TSH Qn 1.82 m[IU]/L Normal 0.34-5.60 [facility] Comment on above: Performed By: #### 2 272341, 8466868, 2109855, 1816126, 26792079, 43582407, 339041691 ####[facility] [address] [place] [address] U Microalbon 08-10-2023 U Microalb <2.0 Normal 0.0-19.0 [facility] Comment on above: Performed By: #### 1 899983154, 62126118 #### [facility] [address] [place] [address] U Protein/Creat Ratioon 07-27 U Creatinine 95.2 mg/dL Invalid Interpretation Code [facility] Comment on above: Performed By: #### 1 [id number], 91476869 #### [facility] [address] [place] [address] U Prot/Creat Ratio 8.00 mg/gm Cr Normal .00-200.00 [facility] Comment on above: Performed By: #### 1 368678256, 50939963 #### [facility] [address] [place] [address] Ur Total Protein 7.6 mg/dL Invalid Interpretation Code [facility] Comment on above: Performed By: #### 1 230593090, 88719928 #### [facility] [address] [place] [address] eGFRon 08-10-2023 eGFR 107 mL/min/1.73 m2 Normal >=59 [facility] Comment on above: Order Comment: Order added by Discern Expert. Performed By: #### 2 245763, 3562409, 3934342, 2349729, 72945196, 58280615, 487580957 ####[facility] [address] [place] [address] Consultation Noteon 07-29-19 Consultation Note [id number]#1.0 0TIFF Normal [facility] XR SHOULDER LT MIN 2 VWSon 1 [...] Enriquez MD on 07/23/2023 7:11 PM Normal [facility] Ambulatory Visit Summaryon 1 09-14-2022 Ambulatory [...] gel) fluticasone nasal (fluticasone Nasal 0.05 mg/inh [place]) hydrochlorothiazide-lo sartan (hydrochlorothiazide-l osartan 12.5 mg-100 mg [...] Appointments Thursday 8:20 AM EST With: Where: [facility] Normal [address] [place] [address]- \.br\ Medications\.br \ What How Much When Instructions\.b r\ Changed dulaglutide (Trulicity Pen 4.5 mg/ 0.5 mL subcutaneous solution) 4.5 Milligram Subcutaneous Every week Pickup at [facility]\.br\ Unchanged aripiprazole (Abilify 20 mg oral tablet) [...] fluticasone nasal (fluticasone Nasal 0.05 mg/ inh [place]) See instructions USE 2 SPRAYS INTO EACH [...] Information\.br \ [facility]: [address], [place] [id number] [phone]\.br\ Allergies\.br\ Depakote (Unknown)\.br\ Nesina (Unknown)\.br\ Nubain (Unknown)\.br\ [...] for choosing us for your care.\.br\ \.br\ [facility] Family Medicine Office/Clini c Noteon 07-14-2023 Family Medicine [...] Panel Microal (more content not included)... Normal [facility] Comment on above: Result Comment: Elec tronically Signed By: Joao ESPITIA, Joss Burnett.kalli\Date and Time Signed: 07/14/23 15:02 EST Patient [...] numbers. This can be done either in [place] ([place] or metric measurements. Note that charts and online BMI calculators are available to help you find your BMI quickly and easily without having to do these calculations yourself. To calculate your BMI in [place] ([place] measurements: 1. Measure your weight in [...] for Disease Control and Prevention: www.cdc.gov ? [place] [employer]: www.heart.org ? National Heart, Lung, and Blood Biddle: www.nhlbi.nih.gov Summary ? Body mass index (BMI) is a number that is calculated from a person's weight and height. ? BMI may help estimate how much of a person's weight is composed of fat. BMI can help identify those who may be at higher risk for certain medical problems. ? BMI can be measured using Egyptian measurements or metric measurements. ? BMI charts are used to identify whether you are underweight, normal weight, overweight, or obese. This information is not intended to replace advice given to you by your health care provider. Make sure you discuss any questions you have with your health care provider. Document Revised: 04/04/2020 Document Reviewed: 02/10/2020 [employer] Patient Education ? 2022 [employer] [facility] Consultation Noteon 05-19-20 Consultation Note [id number]#1.0 0TIFF [facility] Formson 05-06-2023 Forms [id number]#1.0 0TIFF [facility] Ambulatory Visit Summaryon Ambulatory Visit Summary AMAIRANI GONZALES :1975 Visit [...] subcutaneous solution) fluticasone nasal (Flonase 0.05 mg/inh [place]) hydrochlorothiazide-lo sartan (hydrochlorothiazide-l osartan 12.5 mg-100 mg [...] Follow-Up Appointments Thursday 2:40 PM EST With: Joao ESPITIA, Joss Hartmann Where: [place] Normal [facility] Office/Clini c Noteon 05-04-2023 [facility] Office/Clinic Note HPI Staff Amairani is a [...] than increased anxiety. Patient does see Dr. Bojorquez for anxiety and we did add her [...] her. Patient to continue to see Dr. Bojorquez. Will adjust medication as needed but will let Dr. Bojorquez handle this. Ordered: TSH With T4fr Reflex [...] of lumba (more content not included)... Normal [facility] Comment on above: Result Comment: Elec tronically Signed By: Joao ESPITIA, Joss Hartmann\.br\Date and Time Signed: 05/04/23 07:47 EDT Free T4on 05-04-2023 Free T4 [Mass/Vol] 0.57 ng/dL Low 0.58-1.64 [facility] Comment on above: Order Comment: Free T4 added by Discern Rule due to a TSH result of <0.34 or >5.60. Performed By: #### 2 916076, [id number] #### [facility] [address] [place] [address] Patient Educationon 05-04-20 Patient Education Endocrinology Hypothyroidism [...] Follow these instructions at home: ? Take ngfw-oqi-bnthmwv and prescription medicines only as told by [...] provider. Document Revised: 07/15/2022 Document Reviewed: 07/15/2022 [employer] Patient Education ? 2022 [employer] Nutrition BMI for Adults What is BMI? [...] identify peopl (more content not included)... Normal [facility] TSH With T4fr Reflexon 05-04 TSH Qn 54.00 m[IU]/L High 0.34-5.60 [facility] Comment on above: Performed By: #### 2 800923, [id number] #### [facility] Laboratory [address] [place] [address] [place] [address] Formson 04-29-2023 Forms [id number]#1.0 0CD:127 Normal [facility] CiuL9dyf 04-22-2023 HbA1c (Bld) [Mass fraction] 7.3 % High <=5.9 [facility] Comment on above: Performed By: #### 7 [id number] #### [facility] [address] [place] [address] Nurse Consultation Noteon Nurse Consultation Note Reason [...] See Instructions, 5 refills Flonase 0.05 mg/inh [place], 2 spray(s), Nasal, Daily, 3 refills Free [...] virus vaccine, inactivated 04/18/2013 Recorded Normal [facility] Ambulatory Visit Summaryon 0 03-16-2023 Ambulatory Visit Summary AMAIRANI GONZALES Mimi :1975 Visit Date:03/16/2023 Ambulatory Visit Instructions Your [...] subcutaneous solution) fluticasone nasal (Flonase 0.05 mg/inh [place]) hydrochlorothiazide-lo sartan (hydrochlorothiazide-l osartan 12.5 mg-100 mg [...] Appointments Thursday 9:20 AM EDT With: Where: [facility] [address] [place] [address] \.br\ Medications\.br \ What How Much When [...] Unchanged fluticasone nasal (Flonase 0.05 mg/ inh [place]) 2 Sprays Nasal Inhalation Every day each [...] Bursitis\.br\ Diabetes\.br\ Hypothyroid\.br \ Sleep apnea\.br\ \.br\ [facility] Family Medicine Office/Clini c Noteon 03-16-2023 Family Medicine Office/Clinic Note Chief Complaint follow up diabetes HPI Staff Patient presents for 3 month follow up diabetes Do you have any of the following symptoms? Foot Exam: done by Dr Millard Eye Exam: Jul 2022 microalbumin: none Last A1C: Hgb A1C %: 7.6 % High (11/10/22 10:44:00) Statin: rosuvastatin 5mg recent VINI 5 questions/concerns: hasn't had to use her [...] unspecified) - Stable -Continue new seeing Dr. Bojorquez. Ordered: Body Mass Index (BMI) documented 3008F Current tobacco smoker 1034F Depression Screening Negative 3352F Most recent diastolic blood pressure 80-89 mm Hg 3079F Systolic BP <130 mm Hg (Most Recent) 3074F 4. Hypothyroid (E03.9: Hypothyroidism, unspecified) - Adjusted patient's medication last week. We will recheck in 5 weeks. -Patient is encouraged to miner pick her medication as she is not picked [...] Recent) 3074F (more content not included)... Normal [facility] Comment on above: Result Comment: Elec tronically Signed By: Joao ESPITIA, Joss Burnett.br\Date and Time Signed: 03/16/23 07:53 EDT CHEMISTRYOrdered By: SYSTEM SYSTEM on 03-10-2023 Free T4 [Mass/Vol] 0.38 ng/dL Low 0.58 - 1. 64 ng/dL FT Remisol TSH Qn 63.00 m[IU]/L High 0.34 - 5.60 mcIU/mL FT Remisol Free T4on 03-10-2023 Free T4 [Mass/Vol] 0.38 ng/dL Low 0.58-1.64 [facility] Comment on above: Order Comment: Free T4 added by Discern Rule due to a TSH result of <0.34 or >5.60. Performed By: #### 2 301593, [id number] ####[facility] [address] [address] Nurse Consultation Noteon Nurse Consultation Note Reason [...] 3 mg, SubCutaneous, qWeek Flonase 0.05 mg/inh [place], 2 spray(s), Nasal, Daily, 3 refills hydrochlorothiazide-lo [...] influenza virus vaccine, inactivated 04/18/2013 Recorded Normal [facility] TSH With T4fr Reflexon 03-10 TSH Qn 63.00 m[IU]/L High 0.34-5.60 [facility] Comment on above: Performed By: #### 2 [id number], [id number] ####[facility] [address] [place] [address] Auth for Release of Medical Recordson 02-26-2023 Auth for Release of Medical Records [id number] 0CD:127 Normal [facility] Insurance Correspondence Off iceon 01-22-2023 Insurance Correspondence Office [id number] 0CD:127 Normal [facility] CHEMISTRYOrdered By: SYSTEM SYSTEM on 01-12-2023 Free T4 [Mass/Vol] 2.74 ng/dL High 0.58 - 1. 64 ng/dL [facility] TSH Qn mcIU/mL Low 0.34 - 5.60 mcIU/mL [facility] CHEMISTRYOrdered By: SYSTEM SYSTEM on 01-07-2023 Albumin [...] 12 mmol/L Normal 6 - 16 mEq/L [facility] AST [Catalytic activity/Vol] 17 [iU]/d Normal 5 - 43 Int._Unit/L [facility] Bilirubin [Mass/Vol] 0.9 mg/dL Normal 0.0 - 1.1 mg/dL [facility] Calcium [Mass/Vol] 9.5 mg/dL Normal 8.9 - 11. 1 mg/dL [facility] Chloride [Moles/Vol] 103 mmol/L Normal 101 - 1 11 mmol/L [facility] CO2 [Moles/Vol] 27 mmol/L Normal 21 - 31 mmol/L [facility] Creatinine [Mass/Vol] 0.7 mg/dL Normal 0.5 - 1.3 mg/dL [facility] GFR/1.73 sq M.predicted among non-blacks MDRD (S/P/Bld) [Vol rate/Area] 107 mL/min/1.73 m2 Normal >=59mL/min/1.73 m2 [facility] Chem S Globulin (S) [Mass/Vol] 3.4 g/dL Normal 1.4 - 4.0 gm/dL [facility] Glucose [Mass/Vol] 126 mg/dL Normal 55 - 199 mg/dL [facility] Potassium [Moles/Vol] 3.6 mmol/L Normal 3.5 - 5.3 mmol/L [facility] Protein [Mass/Vol] 7.8 g/dL Normal 6.0 - 7.8 gm/dL [facility] Sodium [Moles/Vol] 138 mmol/L Normal 135 - 145 mmol/L [facility] Urea nitrogen [Mass/Vol] 17 mg/dL Normal 5 - 21 mg/dL [facility] Urea nitrogen/Creatinine [Mass ratio] 24 mg/mg High 10 - 20 [facility] HEMATOLOGYOrdered By: Luna Gonzalez on 01-07-2023 Erythrocyte distribution width (RBC) [Ratio] 13.6 % Normal 10.9 - 14.2 % [facility]eAutoSS Hematocrit (Bld) [Volume fraction] 38.1 % Normal 34.0 - 46.0 % [facility]eAutoSS Hemoglobin (Bld) [Mass/Vol] 13.2 g/dL Normal 12.0 - 16.0 gm/dL [facility]eAutoSS MCH (RBC) [Entitic mass] 31.0 pg Normal 27.0 - 34.0 pg [facility]AutoSS MCHC (RBC) [Mass/Vol] 34.8 g/dL Normal 31.4 - 36.0 gm/dL [facility]eAutoSS MCV (RBC) [Entitic vol] 89.1 fL Normal 80.0 - 100.0 fL [facility]eAutoSS Platelet mean volume (Bld) [Entitic vol] 9.0 fL Normal 6.4 - 10.8 fL [facility]eAutoSS Platelets (Bld) [#/Vol] 268.0 E9/L Normal 150.0 - 500.0 E9/L [facility]eAutoSS RBC (Bld) [#/Vol] 4.3 E12/L Normal 4.3 - 5.9 E12/L [facility]Auto[facility] WBC corrected for nucl RBC Auto (Bld) [#/Vol] 10.9 E9/L Normal 4.0 - 11.0 E9/L [facility]eAutoSS MG MAMM SCREEN 3D CRYSTAL CADon 09-03-2022 MG MAMM SCREEN 3D CRYSTAL CAD Patient: AMAIRANI GONZALES Exam Date: 09/03/2022 : 1975 Gender:F Ordering : DR KATTY ROBERTS . Admission #: [id number] Family : Order #: [id number] CLICK HERE TO VIEW EXAM RADIOLOGY REPORT [...] Treatments None Family Cancers None LOCATION: [facility] BREAST COMPOSITION: Scattered areas fibroglandular density. [...] Oconnor MD on 09/03/2022 at 14:56 Normal [facility] GLYCOHEMOGLOBIN A1Con 2022 ADA RECOMMENDATION SEE BELOW Normal [facility] Comment on above: Result Comment: ADA RECOMMENDED LIMIT 4.0 - 6.0 ADA THERAPEUTIC TARGET < 7.0 ACTION SUGGESTED > 7.0 Performed By: #### F T4 #### [facility] [address] [place] [address] Dr. Rukhsana Rivas Glucose [Mass/Vol] 171 mg/dL Normal [facility] Comment on above: Performed By: #### F T4 #### [facility] [address] [place] [address] Dr. Rukhsana Rivas HbA1c (Bld) [Mass fraction] 7.6 % Critically high 4.5-6.2 [facility] Comment on above: Performed By: #### F T4 #### [facility] [address] [place] [address] Dr. Rukhsana Rivas PAP ACOG PANEL 2: 30 to 65on 08-07-2022 . . Normal [facility] Comment on above: Result Comment: Perf ormed at: WB Performed By: #### C MP, LIPID #### [facility] [address] [place] [address] Dr. Rukhsana Rivas Age Gdln ACOG Testing 30-65 Normal [facility] Comment on above: Performed By: #### C MP, LIPID #### [facility] [address] [place] [address] Dr. Rukhsana Rivas DIAGNOSIS: Comment Normal [facility] Comment on above: Result Comment: NEGA TIVE FOR INTRAEPITHELIAL LESION OR MALIGNANCY. Performed at: WB Performed By: #### C MP, LIPID #### [facility] [address] [address] [address] Rukhsana Rivas HPV Aptima Negative Normal Negative [facility] Comment on above: Result Comment: This nucleic acid amplification test detects fourteen high-risk HPV types (16,18,31,33,35,39,45,51,52,56,58,59,66,68) without differentiation. Performed at: =G Performed By: #### C MP, LIPID #### [facility] [address] [address] [address] Rukhsana Rivas HPV Genotype Reflex Comment Normal [facility] Comment on above: Result Comment: Crit eria not met, HPV Genotype not performed. Performed at: WB Performed By: #### C MP, LIPID #### [facility] [address] [place] [address] Dr. Rukhsana Rivas Methodology: Comment Normal [facility] Comment on above: Result Comment: This liquid based ThinPrep(R) pap test was screened with the use of an image guided system. Performed at: WB Performed By: #### C MP, LIPID #### [facility] [address] [place] [address] Dr. Rukhsana Rivas Note: Comment Normal [facility] Comment on above: Result Comment: The Pap [...] Performed By: #### C MP, LIPID #### [facility] [address] [address] [address] Rukhsana Rivas Performed by: Comment Normal [facility] Comment on above: Result Comment: Elisabeth Kirk, Banana Room Cutter Performed at: WB Performed By: #### C MP, LIPID #### [facility] [address] [place] [address] Dr. Rukhsana Rivas Specimen adequacy: Comment Normal [facility] Comment on above: Result Comment: Sati sfactory for evaluation. Endocervical and/or squamous metaplastic cells (endocervical component) are present. Performed at: WB Performed By: #### C TAHMINA, LIPID #### [facility] [address] [address] [address] Rukhsana Rivas XR WRIST LT MIN 3 Von 2021 XR WRIST LT MIN 3 V IMAGES REVIEWED: XR WRIST LT MIN 3 V COMPARISON: 02/15/2021. CLINICAL INDICATION: Fall, ulnar pain. FINDINGS/IMPRESSION: 1. No evidence of acute osseous abnormality of the left wrist. 2. Positive ulnar variance. Electronically authenticated by: MARY MILIAN Date: 2022-04-25 18:07 Normal [facility] Covid-19 PCR (CVDTBH)on 03-27 SARS-CoV-2 (COVID-19) RNA GHISLAINE+probe Ql (Unsp spec) Detected Critically abnormal NOT DETECTED [facility] Comment on above: Result Comment: This test is not yet approved or cleared by the [place] FDA. When there are no FDA-approved or cleared tests available, and other criteria are met, FDA can make tests available under an emergency access mechanism called an Emergency Use Authorization (EUA). The EUA for this test is supported by the [place] of Health and Human Service's (HHS's) declaration [...] longer be used). Performed By: #### C TAHMINA, LIPID #### [facility] [address] [address] [address] Rukhsana Rivas CBC AUTO DIFFon 04-08-2022 BASO # 0.0 103/ul Normal 0.0-0.1 [facility] Comment on above: Performed By: #### C TAHMINA, LIPID #### [facility] [address] [address] [address] Rukhsana Rivas Basophils/100 WBC (Bld) 0.3 % Normal 0.2-2.0 [facility] Comment on above: Performed By: #### C TAHMINA, LIPID #### [facility] [address] [place] [address] Dr. Rukshana Rivas EO # 0.2 103/ul Normal 0.0-0.7 [facility] Comment on above: Performed By: #### C MP, LIPID #### [facility] [address] [place] [address] Dr. Rukhsana Rivas Eosinophils/100 WBC (Bld) 2.2 % Normal 0.9-7.0 [facility] Comment on above: Performed By: #### C MP, LIPID #### [facility] [address] [place] [address] Dr. Rukhsana Rivas Erythrocyte distribution width (RBC) [Ratio] 12.4 % Normal 11.0-15.0 [facility] Comment on above: Performed By: #### C MP, LIPID #### [facility] [address] [place] [address] Dr. Rukhsana Rivas Hematocrit (Bld) [Volume fraction] 42.7 % Normal 36.0-48.0 [facility] Comment on above: Performed By: #### C MP, LIPID #### [facility] [address] [place] [address] Dr. Rukhsana Rivas Hemoglobin (Bld) [Mass/Vol] 14.5 g/dL Normal 12.0-16.0 [facility] Comment on above: Performed By: #### C MP, LIPID #### [facility] [address] [place] [address] Dr. Rukhsana Rivas IG # 0.02 10e3/ul Normal 0.00-0.03 [facility] Comment on above: Performed By: #### C MP, LIPID #### [facility] [address] [place] [address] Dr. Rukhsana Rivas IG % 0.2 % Normal 0.0-0.5 [facility] Comment on above: Performed By: #### C MP, LIPID #### [facility] [address] [place] [address] Dr. Rukhsana Rivas LYMPH # 3.4 103/ul Normal 1.2-3.8 [facility] Comment on above: Performed By: #### C MP, LIPID #### [facility] [address] [place] [address] Dr. Rukhsana Rivas Lymphocytes/100 WBC (Bld) 34.1 % Normal 20.5-60.0 [facility] Comment on above: Performed By: #### C MP, LIPID #### [facility] [address] [place] [address] Dr. Rukhsana Rivas MANUAL DIFF REQ NO Normal [facility] Comment on above: Performed By: #### C MP, LIPID #### [facility] [address] [place] [address] Dr. Rukhsana Rivas MCH (RBC) [Entitic mass] 30.6 pg Normal 26.7-34.0 [facility] Comment on above: Performed By: #### C MP, LIPID #### [facility] [address] [place] [address] Dr. Rukhsana Rivas MCHC (RBC) [Mass/Vol] 34.0 g/dL Normal 29.9-35.2 [facility] Comment on above: Performed By: #### C MP, LIPID #### [facility] [address] [place] [address] Dr. Rukhsana Rivas MCV (RBC) [Entitic vol] 90.1 fL Normal 81.0-99.0 [facility] Comment on above: Performed By: #### C MP, LIPID #### [facility] [address] [place] [address] Dr. Rukhsana Rivas MONO # 0.6 103/ul Normal 0.3-0.8 [facility] Comment on above: Performed By: #### C MP, LIPID #### [facility] [address] [place] [address] Dr. Rukhsana Rivas Monocytes/100 WBC (Bld) 6.4 % Normal 1.7-12.0 [facility] Comment on above: Performed By: #### C MP, LIPID #### [facility] [address] [place] [address] Dr. Rukhsana Rivas NEUT # 5.6 103/ul Normal 1.4-6.5 [facility] Comment on above: Performed By: #### C MP, LIPID #### [facility] [address] [address] [address] Rukhsana Rivas Neutrophils/100 WBC (Bld) 56.8 % Normal 43.0-75.0 [facility] Comment on above: Performed By: #### C MP, LIPID #### [facility] [address] [address] [address] Rukhsana Rivas Platelet mean volume (Bld) [Entitic vol] 10.6 fL Normal 9.5-13.5 [facility] Comment on above: Performed By: #### C MP, LIPID #### [facility] [address] [address] [address] Rukhsana Rivas PLT 270 103/ul Normal 150-450 [facility] Comment on above: Performed By: #### C MP, LIPID #### [facility] [address] [address] [address] Rukhsana Rivas RBC 4.74 106/ul Normal 4.20-5.40 [facility] Comment on above: Performed By: #### C MP, LIPID #### [facility] [address] [address] [address] Rukhsana Rivas WBC 9.9 103/ul Normal 4.0-11.0 [facility] Comment on above: Performed By: #### C MP, LIPID #### [facility] [address] [address] [address] Rukhsana Rivas FREE T3on 04-08-2022 FREE T3 3.09 pg/mlL Normal 2.18-3.98 [facility] Comment on above: Performed By: #### F T4 #### [facility] [address] [address] [address] Rukhsana Rivas FREE T4on 04-08-2022 Free T4 [Mass/Vol] 1.44 ng/dL Normal 0.76-1.46 [facility] Comment on above: Performed By: #### F T4 #### [facility] [address] [address] [address] Rukhsana Rivas GLYCOHEMOGLOBIN A1Con 2021 ADA RECOMMENDATION SEE BELOW Normal [facility] Comment on above: Result Comment: ADA RECOMMENDED LIMIT 4.0 - 6.0 ADA THERAPEUTIC TARGET < 7.0 ACTION SUGGESTED > 7.0 Performed By: #### C MP, LIPID #### [facility] [address] [place] [address] Dr. Rukhsana Rivas Glucose [Mass/Vol] 280 mg/dL Normal [facility] Comment on above: Performed By: #### C MP, LIPID #### [facility] [address] [place] [address] Dr. Rukhsana Rivas HbA1c (Bld) [Mass fraction] 11.4 % Critically high 4.5-6.2 [facility] Comment on above: Performed By: #### C MP, LIPID #### [facility] [address] [place] [address] Dr. Rukhsana Rivas LIPID PROFILEon 04-08-2022 CHOL-HDL RATIO NORM SEE BELOW Normal [facility] Comment on above: Result Comment: 3.3 - 4.4 LOW RISK 4.4 - 7.1 AVERAGE RISK 7.1 - 11.0 MODERATE RISK >11.0 HIGH RISK Performed By: #### F T4 #### [facility] [address] [place] [address] Dr. Rukhsana Rivas Cholesterol [Mass/Vol] 207 mg/dL Critically high <=200 [facility] Comment on above: Performed By: #### F T4 #### [facility] [address] [place] [address] Dr. Rukhsana Rivas Cholesterol in HDL [Mass/Vol] 37 mg/dL Critically low 40-60 [facility] Comment on above: Performed By: #### F T4 #### [facility] [address] [address] [address] Rukhsana Rivas Cholesterol in LDL [Mass/Vol] 115.0 mg/dL Normal [facility] Comment on above: Performed By: #### F T4 #### [facility] [address] [place] [address] Dr. Rukhsana Rivas Cholesterol.total/Ch olesterol in HDL [Mass ratio] 5.6 {ratio} Normal [facility] Comment on above: Performed By: #### F T4 #### [facility] [address] [address] [address] Rukhsana Rivas HDL NORMAL > or = 60 mg/dl - LO W CARDIOVASCULAR RISK <40 mg/dl - HIGH CARDIOVASCULAR RISK Normal [facility] Comment on above: Performed By: #### F T4 #### [facility] [address] [address] [address] Rukhsana Rivas LDL CALC NORMAL SEE BELOW Normal [facility] Comment on above: Result Comment: <100 mg/dl OPTIMAL 100 - 129 mg/dl NEAR OR ABOVE OPTIMAL 130 - 159 mg/dl BORDERLINE HIGH 160 - 189 mg/dl HIGH >190 mg/dl VERY HIGH Performed By: #### F T4 #### [facility] [address] [place] [address] Dr. Rukhsana Rivas Triglyceride [Mass/Vol] 275 mg/dL Critically high <=150 [facility] Comment on above: Performed By: #### F T4 #### [facility] [address] [place] [address] Dr. Rukhsana Rivas VLDL CALC 55.0 mg/dL Normal [facility] Comment on above: Performed By: #### F T4 #### [facility] [address] [place] [address] Dr. Rukhsana Rivas PROF 14(COMP METB)on 022 Albumin [Mass/Vol] 4.1 g/dL Normal 3.4-5.0 [facility] Comment on above: Performed By: #### F T4 #### [facility] [address] [place] [address] Dr. Rukhsana Rivas Albumin/Globulin [Mass ratio] 1.1 {ratio} Normal [facility] Comment on above: Performed By: #### F T4 #### [facility] [address] [place] [address] Dr. Rukhsana Rivas ALP [Catalytic activity/Vol] 93 U/L Normal 46-116 [facility] Comment on above: Performed By: #### F T4 #### [facility] [address] [place] [address] Dr. Rukhsana Rivas ALT [Catalytic activity/Vol] 26 U/L Normal 14-59 [facility] Comment on above: Performed By: #### F T4 #### [facility] [address] [place] [address] Dr. Rukhsana Rivas Anion gap [Moles/Vol] 9.4 mmol/L Normal [facility] Comment on above: Performed By: #### F T4 #### [facility] [address] [address] [address] Rukhsana Rivas AST [Catalytic activity/Vol] 11 U/L Critically low 15-37 [facility] Comment on above: Performed By: #### F T4 #### [facility] [address] [address] [address] Rukhsana Rivas Bilirubin [Mass/Vol] 0.5 mg/dL Normal 0.2-1.0 [facility] Comment on above: Performed By: #### F T4 #### [facility] [address] [place] [address] Dr. Rukhsana Rivas Calcium [Mass/Vol] 9.6 mg/dL Normal 8.5-10.1 [facility] Comment on above: Performed By: #### F T4 #### [facility] [address] [place] [address] Dr. Rukhsana Rivas Chloride [Moles/Vol] 97 mmol/L Critically low 98-107 [facility] Comment on above: Performed By: #### F T4 #### [facility] [address] [address] [address] Rukhsana Rivas CO2 [Moles/Vol] 35.4 mmol/L Critically high 21.0-32.0 [facility] Comment on above: Performed By: #### F T4 #### [facility] [address] [place] [address] Dr. Rukhsana Rivas Creatinine [Mass/Vol] 0.72 mg/dL Normal 0.55-1.02 [facility] Comment on above: Performed By: #### F T4 #### [facility] [address] [place] [address] Dr. Rukhsana Rivas EGFR-AF [place] >60 Normal >=[address] [facility] Comment on above: Performed By: #### F T4 #### [facility] [address] [address] [address] Rukhsana Rivas EGFR-NON AF [place] >60 Normal >=60 [facility] Comment on above: Performed By: #### F T4 #### [facility] [address] [address] [address] Rukhsana Rivas Globulin (S) [Mass/Vol] 3.7 g/dL Normal [facility] Comment on above: Performed By: #### F T4 #### [facility] [address] [address] [address] Rukhsana Rivas Glucose [Mass/Vol] 315 mg/dL Critically high 74-106 [facility] Comment on above: Performed By: #### F T4 #### [facility] [address] [place] [address] Dr. Rukhsana Rivas Potassium [Moles/Vol] 3.8 mmol/L Normal 3.5-5.1 [facility] Comment on above: Performed By: #### F T4 #### [facility] [address] [place] [address] Dr. Rukhsana Rivas Protein [Mass/Vol] 7.8 g/dL Normal 6.4-8.2 [facility] Comment on above: Performed By: #### F T4 #### [facility] [address] [place] [address] Dr. Rukhsana Rivas Sodium [Moles/Vol] 138 mmol/L Normal 136-145 [facility] Comment on above: Performed By: #### F T4 #### [facility] [address] [address] [address] Rukhsana Rivas Urea nitrogen [Mass/Vol] 13.0 mg/dL Normal 7.0-18.0 [facility] Comment on above: Performed By: #### F T4 #### [facility] [address] [address] [address] Rukhsana Rivas Urea nitrogen/Creatinine [Mass ratio] 18.1 mg/mg Normal [facility] Comment on above: Performed By: #### F T4 #### [facility] [address] [address] [address] Rukhsana Rivas TSHon 04-08-2022 TSH 0.008 uIU/mL Critically low 0.358-3.740 [facility] Comment on above: Performed By: #### F T4 #### [facility] [address] [address] [address] Rukhsana Rivas GLYCOHEMOGLOBIN A1Con 2021 ADA RECOMMENDATION SEE BELOW Normal [facility] Comment on above: Result Comment: ADA RECOMMENDED LIMIT 4.0 - 6.0 ADA THERAPEUTIC TARGET < 7.0 ACTION SUGGESTED > 7.0 Performed By: #### A 1C #### [facility] [address] [place] [address] Dr. Rukhsana Rivas Glucose [Mass/Vol] 243 mg/dL Normal [facility] Comment on above: Performed By: #### A 1C #### [facility] [address] [place] [address] Dr. Rukhsana Rivas HbA1c (Bld) [Mass fraction] 10.1 % Critically high 4.5-6.2 [facility] Comment on above: Performed By: #### A 1C #### [facility] [address] [place] [address] Dr. Rukhsana Rivas LIPID PROFILEon 02-04-2022 CHOL-HDL RATIO NORM SEE BELOW Normal [facility] Comment on above: Result Comment: 3.3 - 4.4 LOW RISK 4.4 - 7.1 AVERAGE RISK 7.1 - 11.0 MODERATE RISK >11.0 HIGH RISK Performed By: #### C MP, LIPID #### [facility] [address] [place] [address] Dr. Rukhsana Rivas Cholesterol [Mass/Vol] 265 mg/dL Critically high <=200 [facility] Comment on above: Performed By: #### C MP, LIPID #### [facility] [address] [address] [address] Rukhsana Rivas Cholesterol in HDL [Mass/Vol] 45 mg/dL Normal 40-60 [facility] Comment on above: Performed By: #### C MP, LIPID #### [facility] [address] [address] [address] Rukhsana Rivas Cholesterol in LDL [Mass/Vol] 178.8 mg/dL Normal [facility] Comment on above: Performed By: #### C MP, LIPID #### [facility] [address] [address] [address] Rukhsana Rivas Cholesterol.total/Ch olesterol in HDL [Mass ratio] 5.9 {ratio} Normal [facility] Comment on above: Performed By: #### C MP, LIPID #### [facility] [address] [address] [address] Rukhsana Rivas HDL NORMAL > or = 60 mg/dl - LO W CARDIOVASCULAR RISK <40 mg/dl - HIGH CARDIOVASCULAR RISK Normal [facility] Comment on above: Performed By: #### C MP, LIPID #### [facility] [address] [place] [address] Dr. Rukhsana Rivas LDL CALC NORMAL SEE BELOW Normal [facility] Comment on above: Result Comment: <100 mg/dl OPTIMAL 100 - 129 mg/dl NEAR OR ABOVE OPTIMAL 130 - 159 mg/dl BORDERLINE HIGH 160 - 189 mg/dl HIGH >190 mg/dl VERY HIGH Performed By: #### C MP, LIPID #### [facility] [address] [place] [address] Dr. Rukhsana Rivas Triglyceride [Mass/Vol] 206 mg/dL Critically high <=150 [facility] Comment on above: Performed By: #### C MP, LIPID #### [facility] [facility] [address] [place] [address] Dr. Rukhsana Rivas VLDL CALC 41.2 mg/dL Normal [facility] Comment on above: Performed By: #### C MP, LIPID #### [facility] [address] [address] [address] Rukhsana Rivas PROF 14(COMP METB)on 022 Albumin [Mass/Vol] 3.6 g/dL Normal 3.4-5.0 [facility] Comment on above: Performed By: #### C MP, LIPID #### [facility] [address] [place] [address] Dr. Rukhsana Rivas Albumin/Globulin [Mass ratio] 1.0 {ratio} Normal [facility] Comment on above: Performed By: #### C MP, LIPID #### [facility] [address] [place] [address] Dr. Rukhsana Rivas ALP [Catalytic activity/Vol] 71 U/L Normal 46-116 [facility] Comment on above: Performed By: #### C MP, LIPID #### [facility] [address] [place] [address] Dr. Rukhsana Rivas ALT [Catalytic activity/Vol] 33 U/L Normal 14-59 [facility] Comment on above: Performed By: #### C MP, LIPID #### [facility] [address] [place] [address] Dr. Rukhsana Rivas Anion gap [Moles/Vol] 10.1 mmol/L Normal [facility] Comment on above: Performed By: #### C MP, LIPID #### [facility] [address] [place] [address] Dr. Rukhsana Rivas AST [Catalytic activity/Vol] 19 U/L Normal 15-37 [facility] Comment on above: Performed By: #### C MP, LIPID #### [facility] [address] [place] [address] Dr. Rukhsana Rivas Bilirubin [Mass/Vol] 0.3 mg/dL Normal 0.2-1.0 [facility] Comment on above: Performed By: #### C MP, LIPID #### [facility] [address] [place] [address] Dr. Rukhsana Rivas Calcium [Mass/Vol] 8.8 mg/dL Normal 8.5-10.1 [facility] Comment on above: Performed By: #### C MP, LIPID #### [facility] [address] [place] [address] Dr. Rukhsana Rivas Chloride [Moles/Vol] 104 mmol/L Normal 98-107 [facility] Comment on above: Performed By: #### C MP, LIPID #### [facility] [address] [place] [address] Dr. Rukhsana Rivas CO2 [Moles/Vol] 28.8 mmol/L Normal 21.0-32.[address] [facility] Comment on above: Performed By: #### C MP, LIPID #### [facility] [address] [place] [address] Dr. Rukhsana Rivas Creatinine [Mass/Vol] 0.74 mg/dL Normal 0.55-1.02 [facility] Comment on above: Performed By: #### C MP, LIPID #### [facility] [address] [address] [address] Rukhsana Rivas EGFR-AF [place] >60 Normal >=[address] [facility] Comment on above: Performed By: #### C MP, LIPID #### [facility] [address] [place] [address] Dr. Rukhsana Rivas EGFR-NON AF [place] >60 Normal >=60 [facility] Comment on above: Performed By: #### C MP, LIPID #### [facility] [address] [place] [address] Dr. Rukhsana Rivas Globulin (S) [Mass/Vol] 3.6 g/dL Normal [facility] Comment on above: Performed By: #### C MP, LIPID #### [facility] [address] [place] [address] Dr. Rukhsana Rivas Glucose [Mass/Vol] 199 mg/dL Critically high 74-106 [facility] Comment on above: Performed By: #### C MP, LIPID #### [facility] [address] [place] [address] Dr. Rukhsana Rivas Potassium [Moles/Vol] 3.9 mmol/L Normal 3.5-5.1 [facility] Comment on above: Performed By: #### C MP, LIPID #### [facility] [address] [place] [address] Dr. Rukhsana Rivas Protein [Mass/Vol] 7.2 g/dL Normal 6.4-8.2 [facility] Comment on above: Performed By: #### C MP, LIPID #### [facility] [address] [address] [address] Rukhsana Rivas Sodium [Moles/Vol] 139 mmol/L Normal 136-145 [facility] Comment on above: Performed By: #### C MP, LIPID #### [facility] [address] [place] [address] Dr. Rukhsana Rivas Urea nitrogen [Mass/Vol] 10.0 mg/dL Normal 7.0-18.0 [facility] Comment on above: Performed By: #### C MP, LIPID #### [facility] [address] [place] [address] Dr. Rukhsana Rivas Urea nitrogen/Creatinine [Mass ratio] 13.5 mg/mg Normal [facility] Comment on above: Performed By: #### C MP, LIPID #### [facility] [address] [place] [address] Dr. Rukhsana Rivas ALDOLASEon 11-26-2021 Aldolase 3.6 U/L Normal 3.3-10.3 [facility] Comment on above: Performed By: #### C MP, LIPID #### [facility] [address] [place] [address] Dr. Rukhsana Rivas CBC AUTO DIFFon 11-22-2021 BASO # 0.0 103/ul Normal 0.0-0.1 [facility] Comment on above: Performed By: #### F T4 #### [facility] [address] [place] [address] Dr. Rukhsana Rivas Basophils/100 WBC (Bld) 0.3 % Normal 0.2-2.0 [facility] Comment on above: Performed By: #### F T4 #### [facility] [address] [place] [address] Dr. Rukhsana Rivas EO # 0.1 103/ul Normal 0.0-0.7 [facility] Comment on above: Performed By: #### F T4 #### [facility] [address] [place] [address] Dr. Rukhsana Rivas Eosinophils/100 WBC (Bld) 0.6 % Critically low 0.9-7.0 [facility] Comment on above: Performed By: #### F T4 #### [facility] [address] [place] [address] Dr. Rukhsana Rivas Erythrocyte distribution width (RBC) [Ratio] 12.9 % Normal 11.0-15.0 [facility] Comment on above: Performed By: #### F T4 #### [facility] [address] [place] [address] Dr. Rukhsana Rivas Hematocrit (Bld) [Volume fraction] 43.1 % Normal 36.0-48.0 [facility] Comment on above: Performed By: #### F T4 #### [facility] [address] [place] [address] Dr. Rukhsana Rivas Hemoglobin (Bld) [Mass/Vol] 14.5 g/dL Normal 12.0-16.0 [facility] Comment on above: Performed By: #### F T4 #### [facility] [address] [place] [address] Dr. Rukhsana Rivas IG # 0.03 10e3/ul Normal 0.00-0.03 [facility] Comment on above: Performed By: #### F T4 #### [facility] [address] [place] [address] Dr. Rukhsana Rivas IG % 0.3 % Normal 0.0-0.5 [facility] Comment on above: Performed By: #### F T4 #### [facility] [address] [place] [address] Dr. Rukhsana Rivas LYMPH # 4.0 103/ul Critically high 1.2-3.8 [facility] Comment on above: Performed By: #### F T4 #### [facility] [address] [place] [address] Dr. Rukhsana Rivas Lymphocytes/100 WBC (Bld) 33.9 % Normal 20.5-60.0 [facility] Comment on above: Performed By: #### F T4 #### [facility] [address] [place] [address] Dr. Rukhsana Rivas MANUAL DIFF REQ NO Normal [facility] Comment on above: Performed By: #### F T4 #### [facility] [address] [place] [address] Dr. Rukhsana Rivas MCH (RBC) [Entitic mass] 30.0 pg Normal 26.7-34.0 [facility] Comment on above: Performed By: #### F T4 #### [facility] [address] [place] [address] Dr. Rukhsana Rivas MCHC (RBC) [Mass/Vol] 33.6 g/dL Normal 29.9-35.2 [facility] Comment on above: Performed By: #### F T4 #### [facility] [address] [place] [address] Dr. Rukhsana Rivas MCV (RBC) [Entitic vol] 89.2 fL Normal 81.0-99.0 [facility] Comment on above: Performed By: #### F T4 #### [facility] [address] [place] [address] Dr. Rukhsana Rivas MONO # 0.8 103/ul Normal 0.3-0.8 [facility] Comment on above: Performed By: #### F T4 #### [facility] [address] [place] [address] Dr. Rukhsana Rivas Monocytes/100 WBC (Bld) 6.7 % Normal 1.7-12.0 [facility] Comment on above: Performed By: #### F T4 #### [facility] [address] [place] [address] Dr. Rukhsana Rivas NEUT # 6.8 103/ul Critically high 1.4-6.5 [facility] Comment on above: Performed By: #### F T4 #### [facility] [address] [place] [address] Dr. Rukhsana Rivas Neutrophils/100 WBC (Bld) 58.2 % Normal 43.0-75.0 [facility] Comment on above: Performed By: #### F T4 #### [facility] [address] [place] [address] Dr. Rukhsana Rivas Platelet mean volume (Bld) [Entitic vol] 10.1 fL Normal 9.5-13.5 [facility] Comment on above: Performed By: #### F T4 #### [facility] [address] [place] [address] Dr. Rukhsana Rivas PLT 281 103/ul Normal 150-450 [facility] Comment on above: Performed By: #### F T4 #### [facility] [address] [place] [address] Dr. Rukhsana Rivas RBC 4.83 106/ul Normal 4.20-5.40 [facility] Comment on above: Performed By: #### F T4 #### [facility] [address] [place] [address] Dr. Rukhsana Rivas WBC 11.7 103/ul Critically high 4.0-11.[address] [facility] Comment on above: Performed By: #### F T4 #### [facility] [address] [place] [address] Dr. Rukhsana Rivas CRPon 11-22-2021 CRP 1.2 mg/dL Critically high <=1.0 [facility] Comment on above: Performed By: #### C RP #### [facility] [address] [place] [address] Dr. Rukhsana Rivas CULTURE URINEon 11-22-2021 CULTURE URINE Culture Observations : LIGHT GROWTH OF MIXED GENITAL RADHA. NO POTENTIAL PATHOGENS SEEN. Normal [facility] Comment on above: Performed By: #### F T4 #### [facility] [address] [place] [address] Dr. Rukhsana Rivas UA RANDOM W/MICROSCOPICon BACTERIA SMALL Abnormal NONE SEEN [facility] Comment on above: Performed By: #### U AMIC #### [facility] [address] [place] [address] Dr. Rukhsana Rivas Bilirubin Ql (U) Negative Normal NEGATIVE [facility] Comment on above: Performed By: #### U AMIC #### [facility] [address] [place] [address] Dr. Rukhsana Rivas CAST NONE SEEN Normal NONE SEEN [facility] Comment on above: Performed By: #### U AMIC #### [facility] [address] [place] [address] Dr. Rukhsana Rivas Clarity (U) CLEAR Normal CLEAR [facility] Comment on above: Performed By: #### U AMIC #### [facility] [address] [address] [address] Rukhsana Rivas Color (U) LT. YELLOW Normal YELLOW [facility] Comment on above: Performed By: #### U AMIC #### [facility] [address] [address] [address] Rukhsana Rivas Crystals LM Nom (Urine sed) NONE SEEN Normal NONE SEEN [facility] Comment on above: Performed By: #### U AMIC #### [facility] [address] [address] [address] Rukhsana Rivas Epithelial cells LM Ql (Urine sed) FEW Abnormal NONE SEEN /RARE [facility] Comment on above: Performed By: #### U AMIC #### [facility] [address] [place] [address] Dr. Rukhsana Rivas Glucose Ql (U) Negative Normal NEGATIVE [facility] Comment on above: Performed By: #### U AMIC #### [facility] [address] [place] [address] Dr. Rukhsana Rivas Hemoglobin Ql (U) Negative Normal NEGATIVE [facility] Comment on above: Performed By: #### U AMIC #### [facility] [address] [place] [address] Dr. Rukhsana Rivas Ketones Ql (U) Negative Normal NEGATIVE [facility] Comment on above: Performed By: #### U AMIC #### [facility] [address] [place] [address] Dr. Rukhsana Rivas LEUKOCYTES SMALL Abnormal NEGATIVE [facility] Comment on above: Performed By: #### U AMIC #### [facility] [address] [place] [address] Dr. Rukhsana Rivas MUCOUS TRACE Abnormal NONE SEEN [facility] Comment on above: Performed By: #### U AMIC #### [facility] [address] [place] [address] Dr. Rukhsana Rivas Nitrite Ql (U) Negative Normal NEGATIVE [facility] Comment on above: Performed By: #### U AMIC #### [facility] [address] [place] [address] Dr. Rukhsana Rivas pH (U) 7.0 [pH] Normal 5-9 [facility] Comment on above: Performed By: #### U AMIC #### [facility] [address] [address] [address] Rukhsana Rivas RBC NONE SEEN Abnormal 0-2 [facility] Comment on above: Performed By: #### U AMIC #### [facility] [address] [address] [address] Rukhsana Rivas SPEC GRAVITY 1.010 Normal 1.005-<=1.025 [facility] Comment on above: Performed By: #### U AMIC #### [facility] [address] [address] [address] Rukhsana Rivas UA PROTEIN Negative Normal NEGATIVE/ TRACE [facility] Comment on above: Performed By: #### U AMIC #### [facility] [address] [place] [address] Dr. Rukhsana Rivas Urobilinogen Qn (U) 0.2 {Angus'U}/dL Normal 0.2 - 1. 0 [facility] Comment on above: Performed By: #### U AMIC #### [facility] [address] [place] [address] Dr. Rukhsana Rivas WBC 5-10 Abnormal NONE SEEN [facility] Comment on above: Performed By: #### U AMIC #### [facility] [address] [place] [address] Dr. Rukhsana Rivas XR LSPINE MIN 4 [...] PEPPER ANGUIANO Date: 2021-11-22 15:50 Normal [facility] CBC AUTO DIFFon 11-14-2021 BASO # 0.0 103/ul Normal 0.0-0.1 [facility] Comment on above: Performed By: #### C MP, LIPID #### [facility] [address] [place] [address] Dr. Rukhsana Rivas Basophils/100 WBC (Bld) 0.2 % Normal 0.2-2.0 [facility] Comment on above: Performed By: #### C MP, LIPID #### [facility] [address] [place] [address] Dr. Rukhsana Rivas EO # 0.1 103/ul Normal 0.0-0.7 [facility] Comment on above: Performed By: #### C MP, LIPID #### [facility] [address] [place] [address] Dr. Rukhsana Rivas Eosinophils/100 WBC (Bld) 0.5 % Critically low 0.9-7.0 [facility] Comment on above: Performed By: #### C MP, LIPID #### [facility] [address] [place] [address] Dr. Rukhsana Rivas Erythrocyte distribution width (RBC) [Ratio] 13.1 % Normal 11.0-15.0 [facility] Comment on above: Performed By: #### C MP, LIPID #### [facility] [address] [place] [address] Dr. Rukhsana Rivas Hematocrit (Bld) [Volume fraction] 44.0 % Normal 36.0-48.0 [facility] Comment on above: Performed By: #### C MP, LIPID #### [facility] [address] [place] [address] Dr. Rukhsana Rivas Hemoglobin (Bld) [Mass/Vol] 15.2 g/dL Normal 12.0-16.0 [facility] Comment on above: Performed By: #### C MP, LIPID #### [facility] [address] [place] [address] Dr. Rukhsana Rivas IG # 0.04 10e3/ul Critically high 0.00-0.03 [facility] Comment on above: Performed By: #### C MP, LIPID #### [facility] [address] [place] [address] Dr. Rukhsana Rivas IG % 0.3 % Normal 0.0-0.5 [facility] Comment on above: Performed By: #### C MP, LIPID #### [facility] [address] [address] [address] Rukhsana Rivas LYMPH # 3.6 103/ul Normal 1.2-3.8 [facility] Comment on above: Performed By: #### C MP, LIPID #### [facility] [address] [address] [address] Rukhsana Rivas Lymphocytes/100 WBC (Bld) 27.1 % Normal 20.5-60.0 [facility] Comment on above: Performed By: #### C MP, LIPID #### [facility] [address] [place] [address] Dr. Rukhsana Rivas MANUAL DIFF REQ NO Normal [facility] Comment on above: Performed By: #### C MP, LIPID #### [facility] [address] [place] [address] Dr. Rukhsana Rivas MCH (RBC) [Entitic mass] 30.2 pg Normal 26.7-34.0 [facility] Comment on above: Performed By: #### C MP, LIPID #### [facility] [address] [place] [address] Dr. Rukhsana Rivas MCHC (RBC) [Mass/Vol] 34.5 g/dL Normal 29.9-35.2 [facility] Comment on above: Performed By: #### C MP, LIPID #### [facility] [address] [place] [address] Dr. Rukhsana Rivas MCV (RBC) [Entitic vol] 87.5 fL Normal 81.0-99.0 [facility] Comment on above: Performed By: #### C MP, LIPID #### [facility] [address] [place] [address] Dr. Rukhsana Rivas MONO # 0.9 103/ul Critically high 0.3-0.8 [facility] Comment on above: Performed By: #### C MP, LIPID #### [facility] [address] [place] [address] Dr. Rukhsana Rivas Monocytes/100 WBC (Bld) 6.7 % Normal 1.7-12.0 [facility] Comment on above: Performed By: #### C MP, LIPID #### [facility] [address] [address] [address] Rukhsana Rivas NEUT # 8.7 103/ul Critically high 1.4-6.5 [facility] Comment on above: Performed By: #### C MP, LIPID #### [facility] [address] [address] [address] Rukhsana Rivas Neutrophils/100 WBC (Bld) 65.2 % Normal 43.0-75.0 [facility] Comment on above: Performed By: #### C MP, LIPID #### [facility] [address] [address] [address] Rukhsana Rivas Platelet mean volume (Bld) [Entitic vol] 10.4 fL Normal 9.5-13.5 [facility] Comment on above: Performed By: #### C MP, LIPID #### [facility] [address] [address] [address] Rukhsana Rivas PLT 293 103/ul Normal 150-450 [facility] Comment on above: Performed By: #### C MP, LIPID #### [facility] [address] [address] [address] Rukhsana Rivas RBC 5.03 106/ul Normal 4.20-5.40 [facility] Comment on above: Performed By: #### C MP, LIPID #### [facility] [address] [address] [address] Rukhsana Rivas WBC 13.4 103/ul Critically high 4.0-11.[address] [facility] Comment on above: Performed By: #### C MP, LIPID #### [facility] [address] [address] [address] Rukhsana Rivas CRPon 11-14-2021 CRP [Mass/Vol] mg/L Normal <=1.0 [facility] Comment on above: Performed By: #### F T4 #### [facility] [address] [address] [address] Rukhsana Rivas ER URINE PROFILEon 2 Bilirubin Ql (U) Negative Normal NEGATIVE [facility] Comment on above: Performed By: #### E RUR #### [facility] [address] [place] [address] Dr. Rukhsana Rivas Clarity (U) CLEAR Normal CLEAR [facility] Comment on above: Performed By: #### E RUR #### [facility] [address] [place] [address] Dr. Rukhsana Rivas Color (U) YELLOW Normal YELLOW [facility] Comment on above: Performed By: #### E RUR #### [facility] [address] [place] [address] Dr. Rukhsana RINCON A micrscopic examination will be performed if indicated. Normal [facility] Comment on above: Performed By: #### E RUR #### [facility] [address] [place] [address] Dr. Rukhsana Rivas Glucose Ql (U) >1000 Abnormal NEGATIVE [facility] Comment on above: Performed By: #### E RUR #### [facility] [address] [place] [address] Dr. Rukhsana Rivas Hemoglobin Ql (U) Negative Normal NEGATIVE [facility] Comment on above: Performed By: #### E RUR #### [facility] [address] [place] [address] Dr. Rukhsana Rivas Ketones Ql (U) 40 mg/dl Abnormal NEGATIVE [facility] Comment on above: Performed By: #### E RUR #### [facility] [address] [place] [address] Dr. Rukhsana Rivas LEUKOCYTES Negative Normal NEGATIVE [facility] Comment on above: Performed By: #### E RUR #### [facility] [address] [place] [address] Dr. Rukhsana Rivas Nitrite Ql (U) Negative Normal NEGATIVE [facility] Comment on above: Performed By: #### E RUR #### [facility] [address] [place] [address] Dr. Rukhsana Rivas pH (U) 5.5 [pH] Normal 5-9 [facility] Comment on above: Performed By: #### E RUR #### [facility] [address] [place] [address] Dr. Rukhsana Rivas SPEC GRAVITY 1.025 Normal 1.005-<=1.025 [facility] Comment on above: Performed By: #### E RUR #### [facility] [address] [place] [address] Dr. Rukhsana Rivas UA PROTEIN TRACE Normal NEGATIVE/ TRACE [facility] Comment on above: Performed By: #### E RUR #### [facility] [address] [place] [address] Dr. Rukhsana Rivas UR MICRO IND NOT INDICATED Normal [facility] Comment on above: Performed By: #### E RUR #### [facility] [address] [place] [address] Dr. Rukhsana Rivas Urobilinogen Qn (U) 0.2 {Angus'U}/dL Normal 0.2 - 1. 0 [facility] Comment on above: Performed By: #### E RUR #### [facility] [address] [place] [address] Dr. Rukhsana Rivas PROF CHEM 8 (BAS METB)on Anion gap [Moles/Vol] 18.4 mmol/L Normal [facility] Comment on above: Performed By: #### B MP, CRP #### [facility] [address] [place] [address] Dr. Rukhsana Rivas Calcium [Mass/Vol] 9.4 mg/dL Normal 8.5-10.1 [facility] Comment on above: Performed By: #### B MP, CRP #### [facility] [address] [place] [address] Dr. Rukhsana Rivas Chloride [Moles/Vol] 96 mmol/L Critically low 98-107 [facility] Comment on above: Performed By: #### B MP, CRP #### [facility] [address] [place] [address] Dr. Rukhsana Rivas CO2 [Moles/Vol] 25.3 mmol/L Normal 22.0-30.[address] [facility] Comment on above: Performed By: #### B MP, CRP #### [facility] [address] [address] [address] Rukhsana Rivas Creatinine [Mass/Vol] 0.79 mg/dL Normal 0.52-1.04 [facility] Comment on above: Performed By: #### B MP, CRP #### [facility] [address] [address] [address] Rukhsana Rivas EGFR-AF [place] >60 Normal >=[address] [facility] Comment on above: Performed By: #### B MP, CRP #### [facility] [address] [address] [address] Rukhsana Rivas EGFR-NON AF [place] >60 Normal >=60 [facility] Comment on above: Performed By: #### B MP, CRP #### [facility] [address] [place] [address] Dr. Rukhsana Rivas Glucose [Mass/Vol] 285 mg/dL Critically high 74-106 T [facility] Comment on above: Performed By: #### B MP, CRP #### [facility] [address] [place] [address] Dr. Rukhsana Rivas Potassium [Moles/Vol] 3.7 mmol/L Normal 3.4-5.0 [facility] Comment on above: Performed By: #### B MP, CRP #### [facility] [address] [place] [address] Dr. Rukhsana Rivas Sodium [Moles/Vol] 136 mmol/L Critically low 137-145 Th [facility] Comment on above: Performed By: #### B MP, CRP #### [facility] [address] [place] [address] Dr. Rukhsana Rivas Urea nitrogen [Mass/Vol] 14.0 mg/dL Normal 7.0-18.0 [facility] Comment on above: Performed By: #### B MP, CRP #### [facility] [address] [place] [address] Dr. Rukhsana Rivas Urea nitrogen/Creatinine [Mass ratio] 17.7 mg/mg Normal [facility] Comment on above: Performed By: #### B MP, CRP #### [facility] [address] [place] [address] Dr. Rukhsana Rivas AMYLASEon 11-13-2021 Amylase [Catalytic activity/Vol] 38 U/L Normal 25-115 [facility] Comment on above: Performed By: #### C MP, LIPID #### [facility] [address] [place] [address] Dr. Rukhsana Rivas CBC AUTO DIFFon 11-13-2021 BASO # 0.0 103/ul Normal 0.0-0.1 [facility] Comment on above: Performed By: #### C BC #### [facility] [address] [place] [address] Dr. Rukhsana Rivas Basophils/100 WBC (Bld) 0.3 % Normal 0.2-2.0 [facility] Comment on above: Performed By: #### C BC #### [facility] [address] [place] [address] Dr. Rukhsana Rivas EO # 0.1 103/ul Normal 0.0-0.7 [facility] Comment on above: Performed By: #### C BC #### [facility] [address] [place] [address] Dr. Rukhsana Rivas Eosinophils/100 WBC (Bld) 0.9 % Normal 0.9-7.0 [facility] Comment on above: Performed By: #### C BC #### [facility] [address] [place] [address] Dr. Rukhsana Rivas Erythrocyte distribution width (RBC) [Ratio] 13.2 % Normal 11.0-15.0 [facility] Comment on above: Performed By: #### C BC #### [facility] [address] [place] [address] Dr. Rukhsana Rivas Hematocrit (Bld) [Volume fraction] 43.7 % Normal 36.0-48.0 [facility] Comment on above: Performed By: #### C BC #### [facility] [address] [place] [address] Dr. Rukhsana Rivas Hemoglobin (Bld) [Mass/Vol] 14.8 g/dL Normal 12.0-16.0 [facility] Comment on above: Performed By: #### C BC #### [facility] [address] [address] [address] Rukhsana Rivas IG # 0.03 10e3/ul Normal 0.00-0.03 [facility] Comment on above: Performed By: #### C BC #### [facility] [address] [place] [address] Dr. Rukhsana Rivas IG % 0.3 % Normal 0.0-0.5 [facility] Comment on above: Performed By: #### C BC #### [facility] [address] [place] [address] Dr. Rukhsana Rivas LYMPH # 3.8 103/ul Normal 1.2-3.8 [facility] Comment on above: Performed By: #### C BC #### [facility] [address] [place] [address] Dr. Rukhsana Rivas Lymphocytes/100 WBC (Bld) 33.0 % Normal 20.5-60.0 [facility] Comment on above: Performed By: #### C BC #### [facility] [address] [place] [address] Dr. Rukhsana Rivas MANUAL DIFF REQ NO Normal [facility] Comment on above: Performed By: #### C BC #### [facility] [address] [place] [address] Dr. Rukhsana Rivas MCH (RBC) [Entitic mass] 30.1 pg Normal 26.7-34.0 [facility] Comment on above: Performed By: #### C BC #### [facility] [address] [place] [address] Dr. Rukhsana Rivas MCHC (RBC) [Mass/Vol] 33.9 g/dL Normal 29.9-35.2 [facility] Comment on above: Performed By: #### C BC #### [facility] [address] [place] [address] Dr. Rukhsana Rivas MCV (RBC) [Entitic vol] 88.8 fL Normal 81.0-99.0 [facility] Comment on above: Performed By: #### C BC #### [facility] [address] [place] [address] Dr. Rukhsana Rivas MONO # 0.8 103/ul Normal 0.3-0.8 [facility] Comment on above: Performed By: #### C BC #### [facility] [address] [place] [address] Dr. Rukhsana Rivas Monocytes/100 WBC (Bld) 7.1 % Normal 1.7-12.0 [facility] Comment on above: Performed By: #### C BC #### [facility] [address] [place] [address] Dr. Rukhsana Rivas NEUT # 6.7 103/ul Critically high 1.4-6.5 [facility] Comment on above: Performed By: #### C BC #### [facility] [address] [place] [address] Dr. Rukhsana Rivas Neutrophils/100 WBC (Bld) 58.4 % Normal 43.0-75.0 [facility] Comment on above: Performed By: #### C BC #### [facility] [address] [place] [address] Dr. Rukhsana Rivas Platelet mean volume (Bld) [Entitic vol] 10.0 fL Normal 9.5-13.5 [facility] Comment on above: Performed By: #### C BC #### [facility] [address] [place] [address] Dr. Rukhsana Rivas PLT 298 103/ul Normal 150-450 [facility] Comment on above: Performed By: #### C BC #### [facility] [address] [place] [address] Dr. Rukhsana Rivas RBC 4.92 106/ul Normal 4.20-5.40 [facility] Comment on above: Performed By: #### C BC #### [facility] [address] [place] [address] Dr. Rukhsana Rivas WBC 11.5 103/ul Critically high 4.0-11.[address] [facility] Comment on above: Performed By: #### C BC #### [facility] [address] [place] [address] Dr. Rukhsnaa Rivas PROF CHEM 8 (BAS METB)on Anion gap [Moles/Vol] 11.7 mmol/L Normal [facility] Comment on above: Performed By: #### C MP, LIPID #### [facility] [address] [place] [address] Dr. Rukhsana Rivas Calcium [Mass/Vol] 9.2 mg/dL Normal 8.5-10.1 [facility] Comment on above: Performed By: #### C MP, LIPID #### [facility] [address] [place] [address] Dr. Rukhsana Rivas Chloride [Moles/Vol] 97 mmol/L Critically low 98-107 [facility] Comment on above: Performed By: #### C MP, LIPID #### [facility] [address] [place] [address] Dr. Rukhsana Rivas CO2 [Moles/Vol] 30.1 mmol/L Critically high 22.0-30.0 [facility] Comment on above: Performed By: #### C MP, LIPID #### [facility] [address] [place] [address] Dr. Rukhsana Rivas Creatinine [Mass/Vol] 0.79 mg/dL Normal 0.52-1.04 [facility] Comment on above: Performed By: #### C MP, LIPID #### [facility] [address] [place] [address] Dr. Rukhsana Rivas EGFR-AF [place] >60 Normal >=[address] [facility] Comment on above: Performed By: #### C MP, LIPID #### [facility] [address] [place] [address] Dr. Rukhsana Rivas EGFR-NON AF [place] >60 Normal >=60 [facility] Comment on above: Performed By: #### C MP, LIPID #### [facility] [address] [place] [address] Dr. Rukhsana Rivas Glucose [Mass/Vol] 208 mg/dL Critically high 74-106 [facility] Comment on above: Performed By: #### C MP, LIPID #### [facility] [address] [place] [address] Dr. Rukhsana Rivas Potassium [Moles/Vol] 3.8 mmol/L Normal 3.4-5.0 [facility] Comment on above: Performed By: #### C MP, LIPID #### [facility] [address] [place] [address] Dr. Rukhsana Rivas Sodium [Moles/Vol] 135 mmol/L Critically low 137-145 Th [facility] Comment on above: Performed By: #### C MP, LIPID #### [facility] [address] [place] [address] Dr. Rukhsana Rivas Urea nitrogen [Mass/Vol] 12.0 mg/dL Normal 7.0-18.0 [facility] Comment on above: Performed By: #### C MP, LIPID #### [facility] [address] [place] [address] Dr. Rukhsana Rivas Urea nitrogen/Creatinine [Mass ratio] 15.2 mg/mg Normal [facility] Comment on above: Performed By: #### C MP, LIPID #### [facility] [address] [place] [address] Dr. Rukhsana Rivas HCG ( test) IAKeithrapi d Ql (U)Ordered By: Geovanny Coffman on 11-06-2021 HCG ( test) Ql (U) Negative [facility] CBC AUTO DIFFon 10-09-2021 BASO # 0.0 103/ul Normal 0.0-0.1 [facility] Comment on above: Performed By: #### C BC #### [facility] [address] [place] [address] Dr. Rukhsana Rivas Basophils/100 WBC (Bld) 0.2 % Normal 0.2-2.0 [facility] Comment on above: Performed By: #### C BC #### [facility] [address] [place] [address] Dr. Rukhsana Rivas EO # 0.2 103/ul Normal 0.0-0.7 [facility] Comment on above: Performed By: #### C BC #### [facility] [address] [place] [address] Dr. Rukhsana Rivas Eosinophils/100 WBC (Bld) 1.9 % Normal 0.9-7.0 [facility] Comment on above: Performed By: #### C BC #### [facility] [address] [place] [address] Dr. Rukhsana Rivas Erythrocyte distribution width (RBC) [Ratio] 12.1 % Normal 11.0-15.0 [facility] Comment on above: Performed By: #### C BC #### [facility] [address] [place] [address] Dr. Rukhsana Rivas Hematocrit (Bld) [Volume fraction] 40.7 % Normal 36.0-48.0 [facility] Comment on above: Performed By: #### C BC #### [facility] [address] [place] [address] Dr. Rukhsana Rivas Hemoglobin (Bld) [Mass/Vol] 14.2 g/dL Normal 12.0-16.0 [facility] Comment on above: Performed By: #### C BC #### [facility] [address] [place] [address] Dr. Rukhsana Rivas IG # 0.02 10e3/ul Normal 0.00-0.03 [facility] Comment on above: Performed By: #### C BC #### [facility] [address] [place] [address] Dr. Rukhsana Rivas IG % 0.2 % Normal 0.0-0.5 [facility] Comment on above: Performed By: #### C BC #### [facility] [address] [place] [address] Dr. Rukhsana Rivas LYMPH # 2.2 103/ul Normal 1.2-3.8 [facility] Comment on above: Performed By: #### C BC #### [facility] [address] [place] [address] Dr. Rukhsana Rivas Lymphocytes/100 WBC (Bld) 27.6 % Normal 20.5-60.0 [facility] Comment on above: Performed By: #### C BC #### [facility] [address] [place] [address] Dr. Rukhsana Rivas MANUAL DIFF REQ NO Normal [facility] Comment on above: Performed By: #### C BC #### [facility] [address] [place] [address] Dr. Rukhsana Rivas MCH (RBC) [Entitic mass] 30.4 pg Normal 26.7-34.0 [facility] Comment on above: Performed By: #### C BC #### [facility] [address] [place] [address] Dr. Rukhsana Rivas MCHC (RBC) [Mass/Vol] 34.9 g/dL Normal 29.9-35.2 [facility] Comment on above: Performed By: #### C BC #### [facility] [address] [place] [address] Dr. Rukhsana Rivas MCV (RBC) [Entitic vol] 87.2 fL Normal 81.0-99.0 [facility] Comment on above: Performed By: #### C BC #### [facility] [address] [place] [address] Dr. Rukhsana Rivas MONO # 0.6 103/ul Normal 0.3-0.8 [facility] Comment on above: Performed By: #### C BC #### [facility] [address] [place] [address] Dr. Rukhsana Rivas Monocytes/100 WBC (Bld) 7.8 % Normal 1.7-12.0 [facility] Comment on above: Performed By: #### C BC #### [facility] [address] [place] [address] Dr. Rukhsana Rivas NEUT # 5.0 103/ul Normal 1.4-6.5 [facility] Comment on above: Performed By: #### C BC #### [facility] [address] [place] [address] Dr. Rukhsana Rivas Neutrophils/100 WBC (Bld) 62.3 % Normal 43.0-75.0 [facility] Comment on above: Performed By: #### C BC #### [facility] [address] [place] [address] Dr. Rukhsana Rivas Platelet mean volume (Bld) [Entitic vol] 10.4 fL Normal 9.5-13.5 [facility] Comment on above: Performed By: #### C BC #### [facility] [address] [address] [address] Rukhsana Rivas PLT 261 103/ul Normal 150-450 [facility] Comment on above: Performed By: #### C BC #### [facility] [address] [address] [address] Rukhsana Rivas RBC 4.67 106/ul Normal 4.20-5.40 [facility] Comment on above: Performed By: #### C BC #### [facility] [address] [address] [address] Rukhsana Rivas WBC 8.1 103/ul Normal 4.0-11.0 [facility] Comment on above: Performed By: #### C BC #### [facility] [address] [place] [address] Dr. Rukhsana Rivas FREE T3on 10-09-2021 FREE T3 4.16 pg/mlL Normal 2.77-5.27 [facility] Comment on above: Performed By: #### C MP, LIPID #### [facility] [address] [place] [address] Dr. Rukhsana Rivas FREE T4on 10-09-2021 Free T4 [Mass/Vol] 1.78 ng/dL Normal 0.78-2.19 [facility] Comment on above: Performed By: #### C MP, LIPID #### [facility] [address] [place] [address] Dr. Rukhsana Rivas LIPID PROFILEon 10-09-2021 CHOL-HDL RATIO NORM SEE BELOW Normal [facility] Comment on above: Result Comment: 3.3 - 4.4 LOW RISK 4.4 - 7.1 AVERAGE RISK 7.1 - 11.0 MODERATE RISK >11.0 HIGH RISK Performed By: #### C MP, LIPID #### [facility] [address] [place] [address] Dr. Rukhsana Rivas Cholesterol [Mass/Vol] 200 mg/dL Normal <=200 [facility] Comment on above: Performed By: #### C MP, LIPID #### [facility] [address] [address] [address] Rukhsana Rivas Cholesterol in HDL [Mass/Vol] 34 mg/dL Normal [facility] Comment on above: Performed By: #### C MP, LIPID #### [facility] [address] [address] [address] Rukhsana Rivas Cholesterol in LDL [Mass/Vol] 118.4 mg/dL Normal [facility] Comment on above: Performed By: #### C MP, LIPID #### [facility] [address] [place] [address] Dr. Rukhsana Rivas Cholesterol.total/Ch olesterol in HDL [Mass ratio] 5.9 {ratio} Normal [facility] Comment on above: Performed By: #### C MP, LIPID #### [facility] [address] [place] [address] Dr. Rukhsana Rivas HDL NORMAL > or = 60 mg/dl - LO W CARDIOVASCULAR RISK <40 mg/dl - HIGH CARDIOVASCULAR RISK Normal [facility] Comment on above: Performed By: #### C MP, LIPID #### [facility] [address] [place] [address] Dr. Rukhsana Rivas LDL CALC NORMAL SEE BELOW Normal [facility] Comment on above: Result Comment: <100 mg/dl OPTIMAL 100 - 129 mg/dl NEAR OR ABOVE OPTIMAL 130 - 159 mg/dl BORDERLINE HIGH 160 - 189 mg/dl HIGH >190 mg/dl VERY HIGH Performed By: #### C MP, LIPID #### [facility] [address] [place] [address] Dr. Rukhsana Rivas Triglyceride [Mass/Vol] 238 mg/dL Critically high <=150 [facility] Comment on above: Performed By: #### C MP, LIPID #### [facility] [address] [place] [address] Dr. Rukhsana Rivas VLDL CALC 47.6 mg/dL Normal [facility] Comment on above: Performed By: #### C MP, LIPID #### [facility] [address] [place] [address] Dr. Rukhsana Rivsa MICROALBUMIN, RAND URon 03-1 6-2022 mALB <1.3 Normal <=30.0 [facility] Comment on above: Performed By: #### C MP, LIPID #### [facility] [address] [place] [address] Dr. Rukhsana Rivas PROF 14(COMP METB)on 022 Albumin [Mass/Vol] 3.8 g/dL Normal 3.5-5.0 [facility] Comment on above: Performed By: #### C MP, LIPID #### [facility] [address] [place] [address] Dr. Rukhsana Rivas Albumin/Globulin [Mass ratio] 1.0 {ratio} Normal [facility] Comment on above: Performed By: #### C MP, LIPID #### [facility] [address] [place] [address] Dr. Rukhsana Rivas ALP [Catalytic activity/Vol] 82 U/L Normal 38-126 [facility] Comment on above: Performed By: #### C MP, LIPID #### [facility] [address] [place] [address] Dr. Rukhsana Rivas ALT [Catalytic activity/Vol] 30 U/L Normal 9-52 [facility] Comment on above: Performed By: #### C MP, LIPID #### [facility] [address] [place] [address] Dr. Rukhsana Rivas Anion gap [Moles/Vol] 8.4 mmol/L Normal [facility] Comment on above: Performed By: #### C MP, LIPID #### [facility] [address] [place] [address] Dr. Rukhsana Rivas AST [Catalytic activity/Vol] 19 U/L Normal 14-36 [facility] Comment on above: Performed By: #### C MP, LIPID #### [facility] [address] [place] [address] Dr. Rukhsana Rivas Bilirubin [Mass/Vol] 0.4 mg/dL Normal 0.2-1.3 [facility] Comment on above: Performed By: #### C MP, LIPID #### [facility] [address] [place] [address] Dr. Rukhsana Rivas Calcium [Mass/Vol] 9.2 mg/dL Normal 8.4-10.2 [facility] Comment on above: Performed By: #### C MP, LIPID #### [facility] [address] [place] [address] Dr. Rukhsana Rivas Chloride [Moles/Vol] 98 mmol/L Normal 98-107 [facility] Comment on above: Performed By: #### C MP, LIPID #### [facility] [address] [place] [address] Dr. Rukhsana Rivas CO2 [Moles/Vol] 32.5 mmol/L Critically high 22.0-30.0 [facility] Comment on above: Performed By: #### C MP, LIPID #### [facility] [address] [place] [address] Dr. Rukhsana Rivas Creatinine [Mass/Vol] 0.75 mg/dL Normal 0.52-1.04 [facility] Comment on above: Performed By: #### C MP, LIPID #### [facility] [address] [place] [address] Dr. Rukhsana Rivas EGFR-AF [place] >60 Normal >=[address] [facility] Comment on above: Performed By: #### C MP, LIPID #### [facility] [address] [place] [address] Dr. Rukhsana Rivas EGFR-NON AF [place] >60 Normal >=60 [facility] Comment on above: Performed By: #### C MP, LIPID #### [facility] [address] [place] [address] Dr. Rukhsana Rivas Globulin (S) [Mass/Vol] 3.9 g/dL Normal [facility] Comment on above: Performed By: #### C MP, LIPID #### [facility] [address] [place] [address] Dr. Rukhsana Rivas Glucose [Mass/Vol] 337 mg/dL Critically high 74-106 [facility] Comment on above: Performed By: #### C MP, LIPID #### [facility] [address] [place] [address] Dr. Rukhsana Rivas Potassium [Moles/Vol] 3.9 mmol/L Normal 3.4-5.0 [facility] Comment on above: Performed By: #### C MP, LIPID #### [facility] [address] [place] [address] Dr. Rukhsana Rivas Protein [Mass/Vol] 7.7 g/dL Normal 6.1-8.2 [facility] Comment on above: Performed By: #### C MP, LIPID #### [facility] [address] [place] [address] Dr. Rukhsana Rivas Sodium [Moles/Vol] 135 mmol/L Critically low 137-145 [facility] Comment on above: Performed By: #### C MP, LIPID #### [facility] [address] [place] [address] Dr. Rukhsana Rivas Urea nitrogen [Mass/Vol] 14.0 mg/dL Normal 7.0-17.0 [facility] Comment on above: Performed By: #### C MP, LIPID #### [facility] [address] [place] [address] Dr. Rukhsana Rivas Urea nitrogen/Creatinine [Mass ratio] 18.7 mg/mg Normal [facility] Comment on above: Performed By: #### C MP, LIPID #### [facility] [address] [place] [address] Dr. Rukhsana Rivas TSHon 10-09-2021 TSH Qn m[IU]/L Critically low 0.470-4.680 [facility] Comment on above: Performed By: #### C MP, LIPID #### [facility] [address] [place] [address] Dr. Rukhsana Rivas TSH RANGE SEE BELOW Normal [facility] Comment on above: Result Comment: <0.3 4 UIU/ml HYPERTHYROID 0.34-5.60 UIU/ml EUTHYROID >5.60 UIU/ml HYPOTHYROID Performed By: #### C MP, LIPID #### [facility] [address] [place] [address] Dr. Rukhsana Rivas Vital Signs Date Time Vital Sign Value Performing Clinician Facility 10-15-2023 08:05-0400 Body height 165.1 cm Alana Nienberg PA [facility] 10-15-2023 08:05-0400 Body mass index (BMI) [Ratio] 27.12 kg/m2 Alana Nienberg PA Work Phone: [facility] 10-15-2023 08:05-0400 Body weight 73.94 kg Alana Nienberg PA Work Phone: [facility] 10-15-2023 08:05-0400 Diastolic blood pressure 85 mm[Hg] Alana Nienberg PA Work Phone: [facility] 10-15-2023 08:05-0400 Heart rate 66 /min Alana Nienberg PA Work Phone: [facility] 10-15-2023 08:05-0400 Respiratory rate 18 /min Alana Nienberg PA Work Phone: [facility] 10-15-2023 08:05-0400 SaO2% (BldA) [Mass fraction] 99 % Alana Nienberg PA Work Phone: [facility] 10-15-2023 08:05-0400 Systolic blood pressure 150 mm[Hg] Alana Nienberg PA Work Phone: [facility] 07-23-2023 11:49-0500 Diastolic blood pressure 89 mm[Hg] [facility] 07-23-2023 11:49-0500 Heart rate 79 /min [facility] 07-23-2023 11:49-0500 Respiratory rate 18 /min [facility]berg [facility] 07-23-2023 11:49-0500 SaO2% (BldA) [Mass fraction] 100 % Alana Nienberg PA Work Phone: [facility] 07-23-2023 11:49-0500 Systolic blood pressure 137 mm[Hg] Alana Nienberg PA Work Phone: [facility] 09-09-2022 13:38-0500 Blood Pressure Location Jamaal LEON [facility] [place] 09-09-2022 13:38-0500 Diastolic blood pressure 80 mm[Hg] Jamaal DOLANL [facility] [place] 09-09-2022 13:38-0500 Heart rate 72 /min Jamaal DOLANL [facility] [place] 09-09-2022 13:38-0500 Respiratory rate 16 /min Jamaal LEON [facility] [place] 09-09-2022 13:38-0500 Systolic blood pressure 126 mm[Hg] Jamaal LEON [facility] [place] 11-06-2021 10:43-0400 Diastolic blood pressure 96 mm[Hg] MD Katty Roberts Work Phone: [facility] 11-06-2021 10:43-0400 Heart rate 96 /min MD Katty Roberts Work Phone: [facility] 11-06-2021 10:43-0400 Respiratory rate 16 /min MD Katty Roberts Work Phone: [facility] 11-06-2021 10:43-0400 SaO2% (BldA) [Mass fraction] 98 % MD Katty Roberts Work Phone: [facility] 11-06-2021 10:43-0400 Systolic blood pressure 167 mm[Hg] MD Katty Roberts Work Phone: [facility] 11-06-2021 10:05-0400 Inhaled oxygen flow rate 3 L/min MD Katty Roberts Work Phone: [facility] 11-06-2021 08:40-0400 Body height 167.64 cm MD Katty Roberts Work Phone: [facility] 11-06-2021 08:40-0400 Body mass index (BMI) [Ratio] 28.7 kg/m2 MD Katty Roberts Work Phone: [facility] 11-06-2021 08:40-0400 Body weight 80.73 kg MD Katty Roberts Work Phone: [facility] 10-14-2021 11:15-0400 Body height 167.64 cm Geovanny Augustus Other Normal Other 10-14-2021 11:15-0400 Body mass index (BMI) [Ratio] 28.76 kg/m2 Geovanny Augustus Other Normal Other 10-14-2021 11:15-0400 Body weight 80.83 kg Geovanny Augustus Other Normal Other 10-14-2021 11:15-0400 Diastolic blood pressure 60 mm[Hg] Geovanny Coffman Other Normal Other 10-14-2021 11:15-0400 SaO2% (BldA) [Mass fraction] 99 % Geovanny Augustus Other Normal Other 10-14-2021 11:15-0400 Systolic blood pressure 110 mm[Hg] Geovannyregina Coffman Other Normal Other Encounters Encounter Date Encounter Type Care Provider Facility Start: 04-11-2024 ambulatory Joss Shepherd Facility :[facility] Start: 02-10-2024 ambulatory Joss Shepherd Facility :[facility] Start: 01-12-2024 End: 01-12-2024 ambulatory Joss Shepherd Facility:[facility] Start: 01-09-2024 End: 01-09-2024 ambulatory TYRA DISLA [facility] Start: 01-08-2024 End: 01-08-2024 ambulatory ERIK Gray COOK [facility] Start: 12-03-2023 End: 12-03-2023 ambulatory [facility] Start: 11-14-2023 End: 11-14-2023 ambulatory LAZARO MILLS [facility] Start: 11-13-2023 End: 11-13-2023 ambulatory ERIK [facility] Start: 11-10-2023 End: 11-10-2023 Lab Drop off Joss Shepherd [facility] Start: 11-10-2023 End: 11-10-2023 ambulatory Joss Shepherd [place] Start: 10-15-2023 End: 10-15-2023 Office outpatient visit 25 minutes Alana Vitor Winston NIX Work Phone: [facility] Comment on above: Cervical spondylosis without myelopathy (Primary Dx) Start: 10-15-2023 End: 10-15-2023 ambulatory [facility] Start: 10-13-2023 End: 10-13-2023 ambulatory Joss Shepherd Facility:[facility] Start: 09-25-2023 End: 09-25-2023 ambulatory [facility] Start: 09-25-2023 End: 09-25-2023 ambulatory ERIK Gray COOK [facility] Start: 09-22-2023 End: 09-22-2023 Lab Drop off Kristin Pablo [facility] Start: 09-22-2023 End: 09-22-2023 ambulatory Kristin Olivia Samy [place] Start: 08-25-2023 End: 08-25-2023 ambulatory Joss Shepherd Facility:[facility] Start: 08-13-2023 End: 08-13-2023 ambulatory Joss Shepherd Facility:[facility] Start: 08-10-2023 End: 08-10-2023 Lab Drop off Joss Shepherd [facility] Start: 08-10-2023 End: 08-10-2023 ambulatory Joss Shepherd [place] [place] [facility] Start: 07-23-2023 End: 07-23-2023 ambulatory [facility] Start: 07-23-2023 End: 07-23-2023 Office outpatient visit 25 minutes Alana NIX Work Phone: [facility] Comment on above: Cervical disc displa cement (Primary Dx); Chronic left shoulder pain; Neck pain Start: 07-23-2023 End: 07-23-2023 ambulatory [facility] Start: 07-14-2023 End: 07-14-2023 ambulatory Joss Shepherd Facility:[facility] Start: 06-16-2023 ambulatory Masoud Diehl acility:[facility] Start: 05-04-2023 End: 05-04-2023 ambulatory Joss Shepherd Facility[place] Start: 04-22-2023 End: 04-22-2023 ambulatory Joss Shepherd Facility[place] Start: 03-16-2023 End: 03-16-2023 ambulatory Joss Shepherd Facility:[facility] Start: 03-10-2023 End: 03-10-2023 Lab Drop off Joss Shepherd [facility] Start: 03-10-2023 End: 03-10-2023 ambulatory Joss Shepherd Facility[place] [place] [facility] Start: 01-12-2023 End: 01-12-2023 Lab Drop off Joss Shepherd [facility] Start: 01-07-2023 ambulatory Facility:[id number] Start: 01-07-2023 End: 01-07-2023 Patient encounter procedure Matt Acosta [facility] Start: 10-01-[address] JAMAAL LEON . Facil ity:[facility]1 Start: 09-09-2022 End: 09-09-2022 Patient encounter procedure Jamaal LEON [facility] Start: 09-03-2022 End: 09-04-[address] KATTY [...] End: 11-14-[address] KATTY ROBERTS . Normal Other Start: 11-13-2021 Telephone encounter Geovanny Coffman [facility] Start: 11-06-2021 (Procedure) Short Geovanny Coffman [facility] Start: 11-06-2021 End: 11-06-2021 ambulatory Geovanny Coffman Other [facility] [facility] Other Start: 11-06-2021 End: 11-06-2021 Admission to same day surgery center MD Katty Roberts Work Phone: [facility] Start: 11-04-2021 End: 11-04-2021 ambulatory Geovanny Coffman Other Normal Other Start: 11-04-2021 Telephone encounter Geovanny Coffman [facility] Start: 10-14-2021 End: 10-14-2021 ambulatory Geovanny Coffman Other Normal Other Start: 10-14-2021 Office outpatient vi sit 25 minutes Geovanny Coffman [facility] Start: 10-14-2021 Telephone encounter Geovanny Coffman [facility] Start: 10-09-2021 End: 10-10-[address] KATTY ROBERTS . Facility: Start: 05-29-2021 (Procedure) Short Geovanny Coffman [facility] Start: 05-29-2021 End: 05-29-2021 ambulatory Geovanny Coffman Other Normal Other Procedures Date Procedure Procedure Detail Performing [...] Jamaal LEON Removal of pilonidal cyst Zuly beatty CAROLYN Repair of umbilical hernia Marichuy chavez LEON Plan of Treatment Date Care Activity Detail Author Start: 10-14-2024 Adult BMI Screening Adult BMI Screen [facility] Start: 10-14-2024 Tobacco Screening Tobacco Screening [facility] Start: 07-23-2024 Tobacco Screening Tobacco Screening [facility] Start: 06-11-2024 Adult BMI Screening Adult BMI Screen ing [facility] Start: 03-27-2023 Influenza vaccination Influenza Vacc ine [facility] Start: 12-29-1996 Screening for malign ant neoplasm of cervix Pap Smear [facility] Start: 12-29-1994 DTaP,Tdap and Td Vac cines (1 - Tdap) DTaP,Tdap and Td Vaccines (1 - Tdap) [facility] Start: 12-29-1993 Adult BMI Follow Up Plan Adult BMI Follow Up Plan [facility] Start: 1987 Depression Screening Depression Scre ening [facility] Start: 1975 Tobacco Counseling Tobacco Counselin g [facility] Arthrocentesis aspir &/inj major jt/bursa w/o us INJECTION BURSA LARGE JOINT Chronic left shoulder pain [facility] End: 07-22-2024 MR Cervical spine WO contrast MR cervical spine without contrast Imaging Routine Neck pain 1 Occurrences starting 07/23/2023 until 07/22/2024 [facility] Work Phone: Comment on above: 1 Occurrences starti ng 07/23/2023 until 07/22/2024 Njx anes&/strd w/img tfrml edrl crv/thrc 1 lvl INJECTION BLOCK EPIDURAL STEROID CERVICAL Cervical spondylosis without myelopathy [facility] Patient Education Augustus Non Diagn ostic Block [facility] Work Phone: Patient referral [facility] Work Phone: End: 07-22-2024 XR Shoulder - left 2 Views X-ray shoulder left minimum 2 views Imaging Routine Chronic left shoulder pain 1 Occurrences starting 07/23/2023 until 07/22/2024 [facility] Comment on above: 1 Occurrences starti ng 07/23/2023 until 07/22/2024 XR Shoulder - left 2 Views X-ray shoulder left minimum 2 views Imaging Routine Chronic left shoulder pain 07/23/2023 12:47 PM EST [facility] Immunizations Immunization Date Immunization Notes Care Provider Luis Enrique tapia 05-29-2015 influenza virus vaccine, unspecified formulation Jamaal CAROLYN [facility] [place] 05-26-2014 influenza virus vaccine, unspecified formulation Jamaal DOLANCorwin [facility] [place] 04-18-2013 influenza virus vaccine, unspecified formulation Jamaal DOLANCorwin [facility] NEGATED: Highlighted row has not occurred!08-13-2023 influenza virus vaccine, unspecified formulation Kristin Matthewsab [facility] NEGATED: Highlighted row has not occurred!05-04-2023 influenza virus vaccine, unspecified formulation Joss Shepherd [facility] NEGATED: Highlighted row has not occurred!12-15-2022 SARS-CoV-2 mRNA (tozinameran 5y-11y) vaccine Matt Acosta [place] NEGATED: Highlighted row has not occurred!11-10-2022 SARS-CoV-2 mRNA (tozinameran 5y-11y) vaccine Matt Karla [place] NEGATED: Highlighted row has not occurred!09-09-2022 influenza virus vaccine, unspecified formulation Jamaal CAROLYN [facility] Payers Date Payer Category Payer Self-pay [id number] 2022 Medicaid [employer] [facility] MEDICAID O [id number] 2022-Present [phone] [address] [place] [address] [id number]. [id number] 2022 Unknown [id number] 1975 Unknown [id number] 2.16.840.1.355357.3.579.2.593 1975 Unknown [id number] 2.16.840.1.101752.3.579.2.593 1975 Unknown [id number] 2.16.840.1.257444.3.579.2.593 1975 Unknown [id number] 2.16.840.1.744799.3.579.2.593 1975 Unknown [id number] 2.16.840.1.326876.3.579.2.593 1975 Unknown [id number] 2.16.840.1.788570.3.579.2.593 1975 Unknown [id number] 2.16.840.1.959255.3.579.2.593 1975 Unknown [id number] 2.16.840.1.897353.3.579.2.593 1975 Unknown [id number] 2.16.840.1.829902.3.579.2.593 1975 Unknown [id number] 2.16.840.1.345403.3.579.2.593 1975 Unknown [id number] 2.16.840.1.906846.3.579.2.593 1975 Unknown [id number] 2.16.840.1.091498.3.579.2.593 1975 Unknown [id number] 2.16.840.1.683141.3.579.2.593 1975 Unknown [id number] 2.16.840.1.653836.3.579.2.593 1975 Unknown [id number] 2.16.840.1.003359.3.579.2.356 1975 Unknown [id number] 2.16.840.1.210453.3.579.2.1285 1975 Unknown [id number] 2.16.840.1.493132.3.579.2.1285 1975 Unknown [id number] 2.16.840.1.899338.3.579.2.1285 1975 Unknown [id number] 2.16.840.1.220493.3.579.2.1285 1975 Unknown [id number] 2.16.840.1.023764.3.579.2.1285 1975 Unknown [id number] 2.16.840.1.117931.3.579.2.1285 1975 Unknown [id number] 2.16.840.1.539389.3.579.2.1285 1975 Unknown [id number] 2.16.840.1.398363.3.579.2.1285 1975 Unknown [id number] 2.16.840.1.649381.3.579.2.1285 1975 Unknown [id number] 2.16.840.1.637073.3.579.2.1285 1975 Unknown [id number] 2.16.840.1.550247.3.579.2.1285 1975 Unknown [id number] 2.16.840.1.014794.3.579.2.1285 1975 Unknown [id number] 2.16.840.1.977773.3.579.2.1285 1975 Unknown [id number] 2.16.840.1.503566.3.579.2.1285 1975 Unknown [id number] 2.16.840.1.634661.3.579.2.1285 1975 Unknown [id number] 2.16.840.1.932915.3.579.2. 1975 Unknown [id number] 2.16.840.1.967784.3.579.2 1975 Unknown [id number] 2.16.840.1.013988.3.579.2 1975 Unknown [id number] 2.16.840.1.666100.3.579.2 1975 Unknown [id number] 2.16.840.1.640753.3.579.2 1975 Unknown [id number] 2.16.840.1.121696.3.579.2 1975 Unknown [id number] 2.16.840.1.322420.3.579.2 1975 Unknown [id number] 2.16.840.1.896067.3.579.2 1975 Unknown [id number] 2.16.840.1.325671.3.579.2 1975 Unknown [id number] 2.16.840.1.710046.3.579.2 1975 Unknown [id number] 2.16.840.1.685752.3.579.2 1975 Unknown [id number] 2.16.840.1.292728.3.579.2 1975 Unknown [id number] 2.16.840.1.372353.3.579.2 1975 Unknown [id number] 2.16.840.1.451591.3.579.2 1975 Unknown [id number] 2.16.840.1.126285.3.579.2 1975 Unknown [id number] 2.16.840.1.636778.3.579.2 1975 Unknown [id number] 2.16.840.1.318546.3.579.2 1975 Unknown [id number] 2.16.840.1.530983.3.579.2.727 1975 Unknown [id number] 2.16.840.1.272107.3.579.2.727 1975 Unknown [id number] 2.16.840.1.156298.3.579.2.727 1975 Unknown [id number] 2.16.840.1.133587.3.579.2.7 1975 Unknown [id number] 2.16.840.1.944299.3.579.2.727 1959 Unknown [id number] 1959 Unknown [id number] Unknown [id number] 2.16.840.1.277118.3.579.2.531 Social History Date Type Detail Facility Start: 11-06-2021 Tobacco smoking stat [facility] Smoker (finding) [facility] Start: 1975 Sex Assigned At Female [facility] Start: 07-23-2023 End: 10-15-2023 Sex Assigned At [facility] Start: 09-09-2022 End: 10-13-2023 Tobacco smoking status Heavy tobacco smoker (finding) [facility] [place] Tobacco smoking status Never [facility] Start: 2022 [facility] History of tobacco use Cigarette Smoker P [facility] Start: 2022 End: 10-15-2023 Cigarettes smoked current (pack per day) - Reported 1.5 [facility] Start: 2022 Tobacco use and exposure Smoke less tobacco non-user [facility] Start: 07-23-2023 End: 10-15-2023 Alcohol intake Current drinker of alcohol (finding) [facility] Start: 12-05-2021 Alcohol Comment 3x a year [facility] Start: 11-27-2021 Gender identity Identifies as female gender (finding) [facility] Start: 11-27-2021 Sexual orientation Bisexual (finding ) [facility] Medical Equipment Procedure Code Equipment Code Equipment [...] Facility 09-09-2022 Functional Status N/A [facility] Clinical Notes 10-14-2021 to 10-15-2023 BOYD Mcmahon - 10/15/2023 7:45 AM EDTMattBOYD Carrasco - 07/23/2023 12:00 PM ESTPatient Instructions Note Date & Type Note Facility 10-15-2023 History of Present illness Narrative [facility] [address] [place] [address] Patient: Amairani Gonzales Sex: female : 1975 Age: 47 y.o. PCP: JOSS SHEPHERD MD 10/15/2023 Amairani Gonzales is here for a(n) 09/25/23 Left Shoulder injection with 100% for 3 days only then slowly back to baseline. . Date of onset of pain: chronic , pain has lasted greater than 3 months. Pain scale before treatment: 8/10 Pre-op pain score: 4/10 Post-op pain score: 0/10 2 hour post-op pain score: 0/10 4 hour post-op pain score: 0/10 Percentage of relief after and duration: 100% for 3 days only then slowly back to baseline. . Pain scale after treatment: 0/10, current pain of 8/10 on left and right side is 4/10. Chief Complaint Patient presents with Back Pain Neck Pain HPI: PT/HEP 06/2023 (about 6 sessions) for neck/shoulder, 2018 (aqua too) was not helpful Neck/Shoulder: 09/25/23 Left Shoulder injection with 100% for 3 days only then slowly back to baseline. Back: 01/17/2022 bilateral L 4/5, L5/1 Medial Branch Block w/ 100% relief x 1 week Bilat L4/5 5/1 MBB 05/16/2022 100% relief x2 days. 07/04/22 Lt L 4/5 5/1 RFA w/0% relief 09/12/22 Rt L 4/5 5/1 RFA w/0% relief 12/19/2022 left nerve root injection with minimal relief 01/23/23 Caudal w/100% relief continued 05/29/23 Caudal with 50% relief reported Back Pain This is a chronic problem. The current episode started more than 1 year ago (2012). The problem occurs constantly. Progression since onset: lumbar resolved, hips worsening. The pain is present in the lumbar spine, sacro-iliac and gluteal. The quality of the pain is described as aching and stabbing. Radiates to: LLE. The pain is at a severity of 8/10. The pain is moderate. The pain is Worse during the night. The symptoms are aggravated by standing, sitting, bending, coughing, lying down, position, stress and twisting (cold, storms,). Stiffness is present In the morning. Associated symptoms include headaches (sunglight causes headaches (usually 5/6 on pain scale)), leg pain (LLE), numbness (LLE), tingling (LLE) and weakness (BUE, LLE, cane). Pertinent negatives include no bladder incontinence, bowel incontinence, chest pain or fever. Risk factors include obesity. She has tried chiropractic manipulation, home exercises, NSAIDs, muscle relaxant and heat (PT, Prev Injs, Ibuprofen, Aleve, Marijuana, Flexeril, Percocet) for the symptoms. The treatment provided mild relief. Neck Pain The current episode started more than 1 year ago. The problem occurs constantly. The problem has been unchanged. The pain is associated with nothing. The pain is present in the left side, midline, right side and occipital region (mostly right shoulder). Quality: throbbing, ache. The pain is at a severity of 6/10. The pain is severe. The symptoms are aggravated by stress (movement; rainy weather makes worse). Stiffness is present All day. Associated symptoms include headaches (sunglight causes headaches (usually 5/6 on pain scale)), leg pain (LLE), numbness (LLE), tingling (LLE) and weakness (BUE, LLE, cane). Pertinent negatives include no chest pain or fever. She has tried heat, ice, home exercises, NSAIDs and acetaminophen (lidocain, meloxicam, robaxin w/ mild relief) for the symptoms. The effect of pain on patient's ADLS: Moderate Impairment. 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 ([facility] [place]) Shoulder tendonitis Sleep apnea Vitamin D deficiency Past Surgical History: Procedure Laterality Date CYST REMOVAL 2008 INJECTION BLOCK EPIDURAL CAUDAL STEROID N/A 05/29/2023 Performed by Erik Cook MD at [facility] INJECTION BLOCK EPIDURAL CAUDAL STEROID N/A 01/23/2023 Performed by Erik Cook MD at [facility] INJECTION BLOCK NERVE MEDIAL BRANCH: bilat L 4/5 / Bilateral 05/16/2022 Performed by Erik Cook MD at [facility] INJECTION BLOCK NERVE MEDIAL BRANCH: bilat L 4/5 / Bilateral 01/17/2022 Performed by Erik Cook MD at [facility] INJECTION BURSA LARGE JOINT: left shoulder Left 09/25/2023 Performed by Erik Cook MD at [facility] INJECTION SPINE TRANSFORAMINAL Left L 4,5 Nroot Left 12/19/2022 Performed by Erik Cook MD at [facility] RADIOFREQUENCY ABLATION SPINAL: left L 4/5 11/24 Left 07/04/2022 Performed by Erik Cook MD at [facility] RADIOFREQUENCY ABLATION SPINAL: right L 4/5 11/24 Right 09/12/2022 Performed by Erik Cook MD at [facility] TUBAL LIGATION 2002 UMBILICAL HERNIA [...] on file Food Insecurity: No Food Insecurity (10/15/2023) Hunger Screening Food Insecurity - Worry: Never True Food Insecurity - Inability: Never True Transportation Needs: Not on file Physical Activity: Not on file Stress: Not on file Social Connections: Not on file Interpersonal Safety: Not on file Housing Instability: Not on file Review of Systems Constitutional: Negative. Negative for chills, fatigue and fever. HENT: Negative. Negative for congestion. Respiratory: Positive for cough (smoker). Negative for shortness of breath. Cardiovascular: Negative. Negative for chest pain. Gastrointestinal: Negative. Negative for bowel incontinence, constipation and diarrhea. Genitourinary: Negative. Negative for bladder incontinence. Musculoskeletal: Positive for back pain, gait problem (cane) and neck pain. Skin: Negative. Negative for rash and wound. Neurological: Positive for tingling (LLE), weakness (BUE, LLE, cane), numbness (LLE) and headaches (sunglight causes headaches (usually 5/6 on pain scale)). Hematological: Negative. Psychiatric/Behavioral: Negative. Vital Signs: BP 150/85 Pulse 66 Resp 18 Ht 165.1 cm (5' 5 ) Wt 73.9 kg (163 lb) LMP (LMP Unknown) Comment: declination signed SpO2 99% BMI 27.12 kg/m Physical Exam: GENERAL - Healthy patient that [...] with exception to decreased sensation in the Left C5, C6 dermatomal distribution(s). Spurlings sign is Positive Assessment/Treatment Plan: Amairani was seen today for back pain and neck pain. Diagnoses and all orders for this visit: Cervical spondylosis without myelopathy - Case request operating room: INJECTION BLOCK EPIDURAL STEROID CERVICAL: left [id number] Left C5, 6 Nerve Root Injection - under fluoroscopy with the use of contrast dye [...] wishes to proceed. It was explained that Nerve Root Injections and Transforaminal Epidural Injections often require a series of 2-3 before significant relief is noted, but we will determine after each injection if another one is indicated. Depending on the amount and duration of relief obtained from the injection, additional modalities of therapy including medications and physical therapy may need to be utilized alongside or following the injections. Follow up 2 weeks after procedure The medications I have prescribed have been reviewed for medication interactions/contraindications [...] but not opted for at this time: Neurosurgical consult. Patient would like to proceed with the current outlined treatment plan before moving forward with any other options. The spine model was demonstrated and MRI was reviewed and used to explain the condition. Chronic conditions not treated during this visit that affected my overall medical decision making: Comorbidity- Diabetes The patient has a history [...] to the patient prior to any procedure. Comorbidity- Sleep Apnea The patient has a history of obstructive sleep apnea. Due to this reason, special consideration will need to be given to the prescription of narcotics in that they may depress respiratory function and lead to respiratory insufficiency or failure. Consideration will also be given to procedure safety in that sedation is used in the outpatient setting for any planned procedure. These records will be available to the anesthesiologist to tailor a safe anesthetic for the procedure. The patient will also be observed closely in the recovery area and may even require admission if they remain overly sedated for an extended period of time and cannot maintain an airway. These preparations will be made as necessary. Comorbidity- Anxiety The patient describes a significant issue with anxiety. Although treatment is helpful with this regard, the patient is likely need special accommodation due to this condition. For this reason, necessary procedures will likely need to be performed under sedation to decrease procedural anxiety. Comorbidity- Depression The patient has an ongoing issue with depression and currently feels these symptoms are under control and further feels that appropriate pain management would also help these symptoms. The patient is optimistic about the treatment plan we have laid out. We will continue to monitor these symptoms and remain cogniscent that they may affect the patients perceived improvement from the treatment and willingness to pursue further treatment. At this time the patient appears to be mentally and emotionally stable to undergo procedural and medical therapy. If any warning signs become present, I may refer the patient to a mental health professional for further evaluation. OARRS: Reviewed. Scribe Statement: Scribed for and in the presence of BOYD MCMAHON by Lydia Adler CNA. Provider Statement: I, BOYD MCMAHON, personally performed the services described in the documentation, as scribed by Lydia Adler CNA in my presence, and it is both accurate and complete. Lydia Adler CNA 10/15/23 [id number] BOYD Mcmahon 10/15/23 1208 documented in this encounter [facility] 07-23-2023 History of Present illness Narrative [facility] [address] 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 ([facility] [place]) Shoulder tendonitis Sleep apnea Vitamin D deficiency Past Surgical History: Procedure Laterality Date CYST REMOVAL 2008 INJECTION BLOCK EPIDURAL CAUDAL STEROID N/A 05/29/2023 Performed by Erik Cook MD at [facility] INJECTION BLOCK EPIDURAL CAUDAL STEROID N/A 01/23/2023 Performed by Erik Cook MD at [facility] INJECTION BLOCK NERVE MEDIAL BRANCH: bilat L 4/5 11/24 Bilateral 05/16/2022 Performed by Erik Cook MD at [facility] INJECTION BLOCK NERVE MEDIAL BRANCH: bilat L 4/5 5/ Bilateral 01/17/2022 Performed by Erik Cook MD at [facility] INJECTION SPINE TRANSFORAMINAL Left L 4,5 N[place] Left 12/19/2022 Performed by Erik Cook MD at [facility] RADIOFREQUENCY ABLATION SPINAL: left L 4/5 5/ Left 07/04/2022 Performed by Erik Cook MD at [facility] RADIOFREQUENCY ABLATION SPINAL: right L 4/5 5 Right 09/12/2022 Performed by Erik Cook MD at [facility] TUBAL LIGATION 2002 UMBILICAL HERNIA [...] MCMAHON by Lydia Adler CNA. Provider Statement: I, BOYD MCMAHON, personally performed the services described in the documentation, as scribed by Lydia Adler CNA in my presence, and it is both accurate and complete. Lydia Adler CNA 07/23/23 1234 BOYD Mcmahon 07/23/23 1555 documented in this encounter [facility] 07-23-2023 Instructions Lydia Adler CNA - 07/23/2023 [...] back to normal. documented in this encounter [facility] 10-14-2021 Evaluation note Encounter Date Diagnosis Assessment [...] - G89.29) Continue with current treatment plan. Normal Other Evaluation + Plan note No data available for this section General Surgery [facility] Evaluation + Plan note Future Appointments Appointment Date:01/12/2023 08:20:00 AM Scheduled Provider: Location:[facility] Appointment Type: Lab Draw Appointment Date:03/16/2023 07:20:00 AM Scheduled Provider:Joss Shepherd MD Location:[facility] Appointment Type: Open Future Scheduled Tests Laboratory* TSH [facility] Future App[facility]ments Appointment Date:03/16/2023 07:20:00 AM Scheduled Provider:Joss Shepherd MD Location:[facility] Future Appointments Appointment Date:08/13/2023 07:15:00 AM Scheduled Provider:Joss Shepherd MD Location:[facility] Appointment Type: Open Appointment Date:10/13/2023 10:15:00 AM Scheduled Provider:Joss Shepherd MD Location:[facility] Future Appointments Appointment Date:10/13/2023 10:15:00 AM Scheduled Provider:Joss Shepherd MD Location:[facility] Appointment Type: Open Diagnostic Tests Pending * PAP [id number] w/ HPV and Genotype rflx 09[facility]22/23 [facility] Future Appointments Appointment Date:01/12/2024 07:15:00 AM Scheduled Provider:Joss Shepherd MD Location:[facility] Appointment Type: Open [facility] noteNo assessment information available [facility] Work Phone: Evaluisjss noteNo InformationNort nuevoStage Other evalueaxyk note* Diagnosis Cervical disc displacement- Primary Displacement of cervical intervertebral disc without myelopathy Chronic left shoulder pain Pain in joint, shoulder region Neck pain Cervicalgia [facility] Diagnosis Cervical spondylosis without myelopathy- Primary documented in this encounter [facility] general Narrative - Reported* Type Description Date Medical History Depression Medical History Thyroid disease Medical History Diabetes Medical History Bipolar disorder Medical History pilonidal cyst Medical History Gastric ulcer Medical History herpes Medical History bipolar disorder Medical History anxiety Surgical History Procedure:excision of pilonidal cyst;Disease:pilonidal cyst Surgical History Procedure:Hernia repair;Disease : Surgical History Procedure:tubal ligation;Diseas e: Surgical History tubal ligation Surgical History hernia Normal Other History general Narrative - Reported* Type [...] Surgical History hernia Hospitalization History see above Normal Other Hospital Discharge instructions No data available for this section General Surgery Gist InstructionsNot on filedocumented in this encounter [facility] No data available for this section General Surgery Gist Reason for visit Narrativeincrease low back pain; discuss procedureNort nuevoStage Other Chief Complaint and Reason for Visit Chief Complaint Back Pain Family History No Family History Records Found Relationship Condition Age at Onset Recorded Date/T akcy father Heart disease Unknown Kidney disorder Unknown grandparent Myocardial infarction Unknown grandparent Cerebrovascular accident (CVA) Unknown grandparent Liver failure Unknown Advance Directives No Advanced Directives Records Found Advance Directive Response Recorded Date/ Time Advance Directives No September 03, 2020 10:55am Summary Purpose Reason for Referral Specialty Diagnoses / Procedures Referred By Mariam mackey Referred To Contact Diagnoses Cervical spondylosis without myelopathy Procedures Case request operating room: INJECTION BLOCK EPIDURAL STEROID CERVICAL: left [id number] Alana Montero PA [address] [place] [address] Referral ID Status Reason Start Date Expiration Date V isits Requested Visits Authorized [id number] Pending Review 10/15/2023 10/14/2024 1 1 Specialty Diagnoses / Procedures Referred By Contac t Referred To Contact Diagnoses Chronic left shoulder pain Procedures Case request operating room: INJECTION BURSA LARGE JOINT: left shoulder Alana Montero, BOYD [address] [place] [address] Referral ID Status Reason Start Date Expiration Date V isits Requested Visits Authorized [id number] Pending Review 07/23/2023 07/22/2024 1 1 Specialty Diagnoses / Procedures Referred By Contac t Referred To Contact Radiology Diagnoses Neck pain Procedures MR cervical spine without contrast Alana Montero, PA [address], [address] [place] [id number] Referral ID Status Reason Start Date Expiration Date V isits Requested Visits Authorized [id number] Pending Review 07/23/2023 07/22/2024 1 1 Additional Source Comments Care Teams (unrecognized sec tion and content) Team Status: Inactive Member Role Status Dates Katty Roberts MD Primary Care Provider Active Geovanny Coffman MD Attending Provider Active Team Status: Active Member Role Status Dates Katty Roberts MD Primary Care Provider Active Log Buncher Relationship Specialty Start Date End Date Joss Shepherd MD [address] [place] [address] PCP - General Family Medicine 06/11/23 Log Buncher Relationship Specialty Start Date End Date Joss Shehperd MD [address] [place] [address] PCP - General Family Medicine 06/11/23 REASON FOR VISIT (unrecogniz ed section and content) Reason Comments Neck Pain Back Pain Reason Comments Back Pain Neck Pain INFORMATION SOURCE (unrecogn ized section and content) DATE CREATED AUTHOR 10/01/2022 [facility] DATE CREATED AUTHOR AUTHOR'S ORGANIZ ATION 05/08/2023 [facility] DATE CREATED AUTHOR AUTHOR'S ORGANIZ ATION 08/27/2023 [facility] DATE CREATED AUTHOR AUTHOR'S ORGANIZ ATION 01/09/2024 [facility] DATE CREATED AUTHOR AUTHOR'S ORGANIZ ATION 01/13/2024 [facility] FOR RECORDS PERTAINING TO PATIENTS WHO [...] BE BASED ON THE PRIMARY CLINICAL RECORDS. [employer] [facility] provides no warranty or guarantee of the accuracy or completeness of information in this document.
--- NOTE | 2024-01-20 11:10 | ED_ITS ---
HPI - Extremity Problem General Chief complaint: Extremity Problem, Nontraumatic Stated complaint: UPPER SHOULDER PAIN/NECK PAIN Time Seen by Provider: 01/20/24 10:47 Source: patient Mode of arrival: Wheelchair Limitations: physical limitation History of Present Illness HPI Narrative: 48-year-old female presents to the emergency department for left shoulder and neck pain. She had an epidural injection on January 07 and it has been hurting since. She has sharp shooting pains going down the arm, no headache. She states that the epidural did not work so the neck step appears to be surgery. The pain is severe. Related Data Home Medications ?Medication ?Instructions ?Recorded ?Confirmed aripiprazole 15 mg tablet 15 mg PO Q24H 08/19/23 08/19/23 buspirone 15 mg tablet 15 mg PO Q12H 08/19/23 08/19/23 citalopram 40 mg tablet 40 mg PO Q24H 08/19/23 08/19/23 dapagliflozin propanediol 5 mg 5 mg PO Q24H 08/19/23 08/19/23 tablet (Farxiga) dulaglutide 1.5 mg/0.5 mL 1.5 mg subcut .weekly 08/19/23 08/19/23 subcutaneous pen injector (Trulicity) dulaglutide 3 mg/0.5 mL 3 mg subcut .weekly 08/19/23 08/19/23 subcutaneous pen injector (Trulicity) dulaglutide 4.5 mg/0.5 mL 4.5 mg subcut .weekly 08/19/23 08/19/23 subcutaneous pen injector (Trulicity) fluticasone propionate 50 2 spray intranasal Q24H 08/19/23 08/19/23 mcg/actuation nasal spray,suspension glipizide 10 mg tablet 10 mg PO Q24H 08/19/23 08/19/23 insulin aspart U-100 100 unit/mL 1 sliding scale dose subcut DAILY 08/19/23 08/19/23 (3 mL) subcutaneous pen levothyroxine 100 mcg tablet 100 mcg PO Q12H 08/19/23 08/19/23 losartan 100 1 tab PO Q24H 08/19/23 08/19/23 mg-hydrochlorothiazide 12.5 mg tablet lurasidone 60 mg tablet 60 mg PO DAILY 08/19/23 08/19/23 meloxicam 15 mg tablet 15 mg PO Q24H 08/19/23 08/19/23 metformin 500 mg tablet,extended 500 mg PO Q8H 08/19/23 08/19/23 release 24 hr montelukast 10 mg tablet 10 mg PO Q24H 08/19/23 08/19/23 omeprazole 20 mg capsule,delayed 20 mg PO Q24H 08/19/23 08/19/23 release ropinirole 0.25 mg tablet 0.25 mg PO Q24H 08/19/23 08/19/23 rosuvastatin 5 mg tablet 5 mg PO Q24H 08/19/23 08/19/23 valacyclovir 1 gram tablet 1,000 mg PO Q24H 08/19/23 08/19/23 (Valtrex) Previous Rx's ?Medication ?Instructions ?Recorded amoxicillin 875 mg-potassium 1 tab PO Q12H #10 tabs 08/19/23 clavulanate 125 mg tablet etodolac 400 mg tablet (Lodine) 400 mg PO Q8H PRN pain #20 tabs 01/20/24 methocarbamol 750 mg tablet 750 mg PO Q8H #20 tabs 01/20/24 Allergies Allergy/AdvReac Type Severity Reaction Status Date / Time Sulfa (Sulfonamide Allergy Verified 01/20/24 11:02 Antibiotics) generic valtrex Allergy Uncoded 01/20/24 11:02 Review of Systems ROS Narrative A ten point review of systems is negative except as noted above. PFSH PFSH Social History Smoking status: Current every day smoker Exam Narrative Exam Narrative: Nurses note and vital signs reviewed and patient is not hypoxic. General: The patient appears uncomfortable Skin: Warm, dry, no pallor noted. There is no rash noted. Head: Normocephalic, atraumatic Eye: Normal conjunctiva, no drainage Ears, Nose, Mouth, and Throat: oral mucosa is moist. Nares patent. Cardiovascular: Regular Rate and Rhythm Respiratory: Patient is in no distress, no accessory muscle use, lungs are clear to auscultation, no wheezing, rales or rhonchi Back: non-tender including the cervical spine. No erythema at the injection site. GI: Soft and nontender Musculoskeletal: Left arm is not swollen. Radial pulse 2+ and fingers have full range of motion. Left shoulder has good range of motion as well. No bruising or erythema. Neurological: A&O, normal speech Psychiatric: Cooperative Constitutional Vital Signs, click to edit/add: Last Vital Signs Temp 98.4 F 01/20/24 10:58 Pulse 84 01/20/24 10:58 Resp 16 01/20/24 10:58 BP 134/86 01/20/24 10:58 Pulse Ox 98 01/20/24 10:58 O2 Del Method Room Air 01/20/24 10:58 Course Vital Signs Vital signs: Vital Signs Temperature 98.4 F 01/20/24 10:58 Pulse Rate 84 01/20/24 10:58 Respiratory Rate 16 01/20/24 10:58 Blood Pressure 134/86 01/20/24 10:58 Pulse Oximetry 98 01/20/24 10:58 Oxygen Delivery Method Room Air 01/20/24 10:58 Temperature 98.4 F 01/20/24 10:58 Pulse Rate 84 01/20/24 10:58 Respiratory Rate 16 01/20/24 10:58 Blood Pressure 134/86 01/20/24 10:58 Pulse Oximetry 98 01/20/24 10:58 Oxygen Delivery Method Room Air 01/20/24 10:58 MDM - Extremity (Nontraumatic) MDM Narrative Medical decision making narrative: The patient is feeling much improved now and is able to be discharged home. She has a pain contract with her pain clinic so she will be prescribed anti- inflammatory muscle relaxer rather than a narcotic. Treatment diagnosis and follow-up were discussed with the patient. Differential Diagnosis Differential diagnosis: Likely other (Cervical radiculopathy, muscle strain) Discharge Plan Discharge Stand Alone Forms: Portal Instructions Chief Complaint: Extremity Problem, Nontraumatic Clinical Impression: Cervical radiculopathy Patient Disposition: Home, Self-Care Time of Disposition Decision: 12:02 Condition: Good Mode of Transportation: Private Vehicle Prescriptions / Home Meds: New etodolac [Lodine] 400 mg tablet 400 mg PO Q8H PRN (Reason: pain) Qty: 20 0RF methocarbamol 750 mg tablet 750 mg PO Q8H Qty: 20 0RF No Action aripiprazole 15 mg tablet 15 mg PO Q24H buspirone 15 mg tablet 15 mg PO Q12H citalopram 40 mg tablet 40 mg PO Q24H Farxiga 5 mg tablet 5 mg PO Q24H Trulicity 1.5 mg/0.5 mL pen injector 1.5 mg SUBCUT .weekly Trulicity 3 mg/0.5 mL pen injector 3 mg SUBCUT .weekly Trulicity 4.5 mg/0.5 mL pen injector 4.5 mg SUBCUT .weekly fluticasone propionate 50 mcg/actuation spray,suspension 2 spray INTRANASAL Q24H glipizide 10 mg tablet 10 mg PO Q24H insulin aspart U-100 100 unit/mL (3 mL) insulin pen 1 sliding scale dose SUBCUT DAILY levothyroxine 100 mcg tablet 100 mcg PO Q12H losartan-hydrochlorothiazide 100-12.5 mg tablet 1 tab PO Q24H lurasidone 60 mg tablet 60 mg PO DAILY meloxicam 15 mg tablet 15 mg PO Q24H metformin 500 mg tablet extended release 24 hr 500 mg PO Q8H montelukast 10 mg tablet 10 mg PO Q24H omeprazole 20 mg capsule,delayed release(DR/EC) 20 mg PO Q24H ropinirole 0.25 mg tablet 0.25 mg PO Q24H rosuvastatin 5 mg tablet 5 mg PO Q24H valacyclovir [Valtrex] 1 gram tablet 1,000 mg PO Q24H amoxicillin-pot clavulanate 875-125 mg tablet 1 tab PO Q12H Qty: 10 0RF Print Language: Nepali Instructions: Cervical Radiculopathy (ED) Additional Instructions: Do not take meloxicam while on etodolac Referrals: JOSS SHEPHERD [Primary Care Provider] - 1 week
[2024-01-20] MEDS: ORPHENADRINE 60 MG/ 2 ML VIAL IM (11:17)
[2024-01-20] MEDS: METHYLPREDNISOLONE SOD SUCC PF 125 MG/2 ML VIAL IM (11:18)
[2024-01-20] MEDS: KETOROLAC TROMETHAMINE 60 MG/2 ML VIAL IM (11:18)
[2024-01-20 12:08] VITALS: BP 115/78; PULSE 67; O2SAT 98
== END 2024-01-20 12:15 | disposition home or self-care (01) ==
PROVIDERS: Emergency Provider Emergency Medicine; PCP Family Medicine
DX: M54.12 Radiculopathy, cervical region (principal); F17.200 Nicotine dependence, unspecified, uncomplicated
CPT/HCPCS: 96372; 99284; J1885; J2360; J2919

== ENCOUNTER 2024-05-12 14:27 | Outpatient (RCR) | payer OTHER, SELFPAY | END 2024-07-19 14:17 | disposition home or self-care (01) | LOC: PT 14:27 | PROVIDERS: PCP Family Medicine | DX: M47.12 Other spondylosis with myelopathy, cervical region (principal); M99.51 Intervertebral disc stenosis of neural canal of cervical region | CPT/HCPCS: 97110; 97112; 97113; 97163 ==